=== PATIENT | female | born 1935 | race Caucasian/White ===

== ENCOUNTER 2017-01-02 20:07 | Emergency (ER) | payer OTHER ==
[~2017-01-02] VITALS: Ht 162.6 cm; Wt 110.4 kg
[~2017-01-02 20:07] MED LIST: ANT25 PO; ATEN50TA8 PO; EVS60 PO; HYDR25TA4 PO; LEVO75TA33 PO; LOSA1TAB38 PO; POTA1080 PO; PRMVC PV; SPIR25TA PO; VERA180T15 PO
[2017-01-02 20:12] VITALS: TEMP 36.4; Ht 162.6 cm; Wt 110.4 kg
[2017-01-02] MEDS ORDERED: LIDOCAINE 4% W/AFRIN NASAL SOLN 4ML EXT STA (20:47)
[2017-01-02] MEDS ORDERED: OXYMETAZOLINE HCL 0.05% NA SPR 15 ML BTL ONE (20:55)
[2017-01-02] MEDS ORDERED: MoRPHine SULFATE 2 MG/ML CARP ONE (21:19)
[2017-01-02] MEDS ORDERED: MoRPHine SULFATE 4 MG/ML 1 ML CARP\\VIAL IM STA (21:20)
[2017-01-02] MEDS ORDERED: SILVER NITR/POTASSIUM NITRATE 10 APPLICATOR PACK ONE ×2 (21:41→21:43)
--- NOTE | 2017-01-02 22:02 | Medical Consult ---
Consultation Date of Consultation: Jan 02, 2017. Attending Physician: History of Present Illness 81 yo female who presented to the ED with acute onset left sided epistaxis. Patient was eating dinner earlier this evening and stood up from the table when left sided profuse nose bleed started. She denies previous nose bleeds. She could not get it stopped so she came to the ED. ER [place] attempted placement of a balloon pack but was unable to place. Called ENT for evaluation. Patient is not on any anticoagulation other than ASA. She denies nasal trauma. No alleviating or exacerbating factors. Does have HTN. Social History Smoking Status: Never Smoker Marital Status: Occupation Status: retired Allergies Coded Allergies: Adhesives (Unverified Allergy, Severe, RASH, 07/09/07) VERY ERYTHEMATOUS AND PAINFUL WITH PRURITIS Parabens (Unverified Allergy, Intermediate, 01/06/10) ERYTHEMATOUS, AND SORE Polymyxin B (Unverified Allergy, Intermediate, 01/06/10) ERYTHEMATOUS Bacitracin (Verified Allergy, Unknown, 01/06/10) Benzoin (Unverified Allergy, Unknown, 01/06/10) ERYTHEMATOUS Thimerosal (Verified Allergy, Unknown, 01/06/10) Uncoded Allergies: INFLUENZAVIRUSV (Allergy, Unknown, 01/06/10) Review of Systems Constitutional: No chills, No fatigue, No fever, No problem reported, No sweats , No weakness, No weight loss Eyes: No diplopia, No discharge, No eye pain, No problem reported, No redness, No worsening of vision ENT: + problem reported (see HPI) Respiratory: No cough, No dyspnea at rest, No dyspnea on exertion, No hemoptysis, No problem reported, No shortness of breath, No sputum, No wheezing Cardiovascular: No PND, No chest pain, No claudication, No edema, No orthopnea , No palpitations, No problem reported Abdomen: No GI bleeding, No constipation, No diarrhea, No nausea, No pain, No problem reported, No vomiting Musculoskeletal: No calf pain, No joint pain, No muscle pain, No problem reported, No swelling Neurologic: No balance problems, No memory loss, No numbness/tingling, No paralysis, No problem reported, No vertigo, No weakness Endocrine: No excessive thirst, No excessive urination, No fatigue, No problem reported Hematologic / Lymphatic: No abnormal bleeding/bruising, No clotting problems, No night sweats, No problem reported, No swollen lymph nodes Physical Exam Date Time Temp Pulse Resp B/P Pulse Ox O2 Delivery O2 Flow Rate FiO2 01/02/17 20:12 36.4 65 20 192/87 97 Room Air PROCEDURE: Attention directed to the left nostril. Using headlamp, nasal speculum the left sided pulsatile bleeding vessel was cauterized with silver nitrate. This stopped the bleeding. A piece of fibrillar was then applied over the cautery site. Patient tolerated procedure well. General Appearance: WD/WN, no apparent distress Head: normocephalic, atraumatic Eyes: PERRL, EOMI ENT: + pertinent finding (Left sided prominent septal vessel midway back on the septum. Pulsatile bleeding with manipulation. ) Neck: supple, no adenopathy Respiratory/Chest: no respiratory distress, no accessory muscle use Cardiovascular: no edema, no JVD Neurologic/Psych: alert, normal mood/affect, oriented x 3 Skin: normal color, warm/dry Lymphatic: no adenopathy Assessment & Plan 81 yo female with left sided epistaxis - control of epistaxis as above - recommend saline spray every few hrs while awake - No nose blowing, sneeze with mouth open.
[2017-01-02 22:29] VITALS: BP 184/94; PULSE 58; O2SAT 96
--- NOTE | 2017-01-03 00:30 | EMERGENCY ROOM VISIT NOTE ---
History First contact with patient: 20:34 Chief Complaint: NOSE BLEED (MINOR) Stated Complaint: NOSE BLEED History of Present Illness The patient is a 81 year old female who presents to the Emergency Room with complaints of a gushing nosebleed from the left nostril. The patient reports that she was standing up from a chair at a restaurant this evening when she started to bleed. The patient has been unable to stop the bleeding with direct pressure. She denies any prior history of epistaxis. She does report a history of hypertension. She does take a baby aspirin daily. She denies any other blood thinners. She has had no recent upper respiratory infection, and denies any trauma. The patient reports that she does use a CPAP with humidifier at nighttime. The patient reports that she has had blood running down the back of her throat and out of the right nostril. She denies any nausea or vomiting. Review of Systems 10 system review was performed and was negative except for pertinent positives and negatives as indicated in history of present illness Past Medical/Surgical History Medical Problems: (1) Hyperlipidemia Nec/Nos (2) Hypertension Nos (3) Hypothyroidism Nos (4) Morbid Obesity (5) Osteoporosis Nos (6) Personal Hx Of Tia,& Cerebral Infarction W/Out Res Deficits (7) Venous Insufficiency Nos Surgical Problems: (1) No history of previous surgery Family History FH: cancer FH: diabetes mellitus Social History Smoking Status: Never Smoker Alcohol Use: none Marital Status: Housing Status: lives alone Occupation Status: retired Current/Historical Medications Scheduled Estrogens, Conjugated Vag (Premarin Vag *), PV EVERY OTHER DAY Hydrochlorothiazide (Hctz), 25 MG PO DAILY Levothyroxine (Levoxyl), 0.075 MG PO DAILY Losartan Potassium (Cozaar), 100 MG PO DAILY Meclizine HCl (Meclizine HCl), PO DAILY Potassium Citrate (Urocit-K), PO DAILY Raloxifene (Evista), PO DAILY Spironolactone (Aldactone), 25 MG PO EVERY OTHER DAY Verapamil Sust Rel (Calan Sr Ext Rel), 180 MG PO DAILY Miscellaneous Medications Atenolol (Tenormin), 50 MG PO Allergies Coded Allergies: Adhesives (Unverified Allergy, Severe, RASH, 07/09/07) VERY ERYTHEMATOUS AND PAINFUL WITH PRURITIS Parabens (Unverified Allergy, Intermediate, 01/06/10) ERYTHEMATOUS, AND SORE Polymyxin B (Unverified Allergy, Intermediate, 01/06/10) ERYTHEMATOUS Bacitracin (Verified Allergy, Unknown, 01/06/10) Benzoin (Unverified Allergy, Unknown, 01/06/10) ERYTHEMATOUS Thimerosal (Verified Allergy, Unknown, 01/06/10) Uncoded Allergies: INFLUENZAVIRUSV (Allergy, Unknown, 01/06/10) Physical Exam Vital Signs Date Time Temp Pulse Resp B/P Pulse Ox O2 Delivery O2 Flow Rate FiO2 01/02/17 22:29 58 16 184/94 96 Room Air 01/02/17 20:12 36.4 65 20 192/87 97 Room Air Pain Rating (0-10): 0 Physical Exam CONSTITUTIONAL: Healthy and well nourished. Alert and oriented X 3 with positive affect. HEENT: Normocephalic, atraumatic. Pupils equal, round and reactive. The patient has a nasal clip in place on my exam. Initial examination of the left nostril shows an active bleed. I am unable to visualize the source of the bleed. The patient also has dried blood in the right nostril, and postnasal drip/bleeding. NECK: Full active range of motion without discomfort. RESPIRATORY: Clear to auscultation bilaterally with no wheezing, crackles, rhonchi or stridor. CARDIOVASCULAR: Regular rate and rhythm with no murmurs, rubs or gallops. GASTROINTESTINAL: Bowel sounds present in all quadrants. No epigastric tenderness to palpation. MUSCULOSKELETAL: Full range of motion of all joints without discomfort. INTEGUMENTARY: No rash or other significant dermatologic conditions noted. NEUROLOGIC: No focal neurologic deficits noted. Medical Decision & Procedures Medications Administered Medications (Trade) Dose Ordered Sig/Elsie Route Start Time Stop Time Status Last Admin Dose Admin Morphine Sulfate (MoRPHine SULFATE INJ) 2 mg STK-MED ONCE .ROUTE 01/02/17 21:19 01/02/17 21:20 DC 01/02/17 21:57 2 MG Procedure Attempted insertion of a 7.5 cm anterior/posterior rapid Rhino was performed after lidocaine 4% spray anesthesia. The balloon could not be fully inserted after 2 attempts. ED Course After being unable to visualize the bleeding, and concern for possible posterior bleed, I did suggest inserting an anterior/posterior rapid Rhino. The patient was in concurrence. Lidocaine 4% spray was used to anesthetize the nostril. A 7.5 cm rapid Rhino was soaked in Afrin, then insertion was attempted. There was a blockage/significant resistance that did not allow for insertion of the balloon with approximately 2.5 cm extending from the nares opening. I inflated the balloon which initially stop the bleeding. However, within approximately 2 minutes, the patient was then bleeding out of the right nostril and down the back of the throat. The patient coughed up a large blood clot. The case was also discussed with Dr. Jara, who also evaluated the patient and recommended ENT consultation. The case was further discussed with Dr. Kohli who came to the emergency department, and was able to visualize and cauterize the bleeder with fibrillar insertion. The bleeding was controlled. The patient was provided additional discharge instructions per Dr. Kohli. As there was no follow-up information on his discharge instructions, the patient was instructed to call his office to arrange reevaluation in 48-72 hours for fibrillar removal. Impression Primary Impression: Epistaxis Departure Information Dispostion Home / Self-Care Condition FAIR Referrals Jas Kohli D.O. Forms HOME CARE DOCUMENTATION FORM, IMPORTANT VISIT INFORMATION Patient Instructions My [facility] Additional Instructions 1. No nose blowing. 2. Sneeze with mouth open 3. No strenuous activity 1 week 4. Hold ASA for 2 days 5. Use saline spray in each nostril every few hrs Call Dr. Kohli's office in the morning to schedule a follow-up appointment.
[2017-01-03] MEDS ORDERED: RQP25 PO (19:12)
[2017-01-03] MEDS ORDERED: LOSA100T65 PO (19:12)
[2017-01-03] MEDS ORDERED: LEVO75TA5 PO (19:12)
[2017-01-03] MEDS ORDERED: ANSHCCR TOP (19:12)
[2017-01-03] MEDS ORDERED: MECL1TAB42 PO (19:12)
[2017-01-03] MEDS ORDERED: HYDR25TA5 PO (19:12)
[2017-01-03] MEDS ORDERED: CLBPO15 TOP (19:12)
[2017-01-03] MEDS ORDERED: TRAM-10 PO (19:12)
[2017-01-03] MEDS ORDERED: PRLSR20 PO (19:12)
[2017-01-03] MEDS ORDERED: ASPI81TA28 PO (19:12)
[2017-01-03] MEDS ORDERED: CALCTAB7 PO (19:12)
[2017-01-03] MEDS ORDERED: VITACAP37 PO (19:12)
[2017-01-03] MEDS ORDERED: TNR50 PO (19:12)
[2017-01-03] MEDS ORDERED: PRMVC TOP (19:12)
[2017-01-03] MEDS ORDERED: MULT-513 PO (19:12)
[2017-01-03] MEDS ORDERED: FSM70 PO (19:12)
[2017-01-03] MEDS ORDERED: POTA-74 PO (19:12)
== END 2017-01-02 22:37 | disposition home or self-care (01) ==
LOC: C.EDB 20:09 → C.EDD 22:37
DX: R04.0 Epistaxis (principal)

== ENCOUNTER 2017-01-03 18:23 | Emergency (ER) | payer OTHER ==
[~2017-01-03] VITALS: Ht 162.6 cm; Wt 108.9 kg
[2017-01-03 18:31] VITALS: TEMP 37.1; Ht 162.6 cm; Wt 108.9 kg
[2017-01-03] MEDS ORDERED: OXYMETAZOLINE HCL 0.05% NA SPR 15 ML BTL ONE (18:45)
[2017-01-03] MEDS ORDERED: LOSA100T65 PO (19:12)
[2017-01-03] MEDS ORDERED: VITACAP37 PO (19:12)
[2017-01-03] MEDS ORDERED: MECL1TAB42 PO (19:12)
[2017-01-03] MEDS ORDERED: PRLSR20 PO (19:12)
[2017-01-03] MEDS ORDERED: LEVO75TA5 PO (19:12)
[2017-01-03] MEDS ORDERED: RQP25 PO (19:12)
[2017-01-03] MEDS ORDERED: HYDR25TA5 PO (19:12)
[2017-01-03] MEDS ORDERED: FSM70 PO (19:12)
[2017-01-03] MEDS ORDERED: ASPI81TA28 PO (19:12)
[2017-01-03] MEDS ORDERED: TNR50 PO (19:12)
[2017-01-03] MEDS ORDERED: ANSHCCR TOP (19:12)
[2017-01-03] MEDS ORDERED: PRMVC TOP (19:12)
[2017-01-03] MEDS ORDERED: CLBPO15 TOP (19:12)
[2017-01-03] MEDS ORDERED: MULT-513 PO (19:12)
[2017-01-03] MEDS ORDERED: POTA-74 PO (19:12)
[2017-01-03] MEDS ORDERED: TRAM-10 PO (19:12)
[2017-01-03] MEDS ORDERED: CALCTAB7 PO (19:12)
[2017-01-03 20:53] VITALS: PULSE 70; O2SAT 94
[2017-01-03 20:56] VITALS: BP 165/84
--- NOTE | 2017-01-03 21:01 | EMERGENCY ROOM VISIT NOTE ---
History Report prepared by Sid: Cortez Brennan Under the Supervision of: Cora MyersO. First contact with patient: 18:38 Chief Complaint: NOSE BLEED (MAJOR) Stated Complaint: SEVERE NOSE BLEED History of Present Illness The patient is a 81 year old female who presents to the Emergency Room with complaints of a persistent nose bleed beginning just APPLICATIONS SUPPORT LEAD. She notes she was here last night for a nose bleed as well. She states an ENT doctor cauterized, and noted that it was an artery on the left naris. The patient does not take any blood thinners, but takes a baby Aspirin. Source of History: patient Onset: just APPLICATIONS SUPPORT LEAD Position: nose Quality: other (nose bleed) Timing: other (persistent) Review of Systems See HPI for pertinent positives & negatives. A total of 10 systems reviewed and were otherwise negative. Past Medical & Surgical Medical Problems: (1) Hyperlipidemia Nec/Nos (2) Hypertension Nos (3) Hypothyroidism Nos (4) Morbid Obesity (5) Osteoporosis Nos (6) Personal Hx Of Tia,& Cerebral Infarction W/Out Res Deficits (7) Venous Insufficiency Nos Surgical Problems: (1) No history of previous surgery Family History FH: cancer FH: diabetes mellitus Social History Smoking Status: Never Smoker Alcohol Use: none Marital Status: Housing Status: lives alone Occupation Status: retired Current/Historical Medications Scheduled Alendronate Sodium (Alendronate Sodium), 70 MG PO WK Aspirin (Aspirin Ec), 81 MG PO DAILY Atenolol (Atenolol), 50 MG PO DAILY Calcium Carbonate-Vitamin D W/ (Caltrate 600 Plus), 1 TAB PO BID Estrogens, Conjugated (Premarin), 1 APPLN TOP 2XWK Hydrochlorothiazide (Hydrochlorothiazide), 25 MG PO DAILY Levothyroxine Sodium (Levothyroxine Sodium), 75 MCG PO DAILY Losartan Potassium (Cozaar), 100 MG PO DAILY Multivitamins/Minerals (Mvi With Minerals), 1 TAB PO DAILY Multivitamins/Minerals (Mvi With Minerals), 1 TAB PO DAILY Omeprazole (Prilosec), 20 MG PO DAILY Potassium Chloride (Potassium Chloride Er), 10 MEQ PO DAILY Ropinirole HCl (Ropinirole HCl), 0.25 MG PO TID Vitamin E (E-400), 400 UNITS PO DAILY Scheduled PRN Clobetasol Propionate (Clobetasol Propionate), 1 APPL TOP BID PRN for RASH Hydrocortisone (Proctosol Hc), 1 APPLN TOP BID PRN for Meclizine Hcl (Meclizine Hcl), 1 TAB PO TID PRN for Dizziness or Vertigo Tramadol (Ultram), 50 MG PO Q6H PRN for Pain Allergies Coded Allergies: Adhesives (Unverified Allergy, Severe, RASH, 07/09/07) VERY ERYTHEMATOUS AND PAINFUL WITH PRURITIS Parabens (Unverified Allergy, Intermediate, 01/06/10) ERYTHEMATOUS, AND SORE Polymyxin B (Unverified Allergy, Intermediate, 01/06/10) ERYTHEMATOUS Bacitracin (Verified Allergy, Unknown, 01/06/10) Benzoin (Unverified Allergy, Unknown, 01/06/10) ERYTHEMATOUS Thimerosal (Verified Allergy, Unknown, 01/06/10) Uncoded Allergies: INFLUENZAVIRUSV (Allergy, Unknown, 01/06/10) Physical Exam Vital Signs Date Time Temp Pulse Resp B/P Pulse Ox O2 Delivery O2 Flow Rate FiO2 01/03/17 19:18 73 01/03/17 18:31 37.1 81 20 192/85 95 Room Air Physical Exam CONSTITUTIONAL/VITAL SIGNS: Reviewed / noted above. GENERAL: Non-toxic in appearance. INTEGUMENTARY: Warm, dry, and [place]. HEAD: Normocephalic. EYES: without scleral icterus or trauma. ENT/OROPHARYNX: Active bleeding from the left naris; some blood in the posterior oropharynx and right naris as well; sight of bleeding is not visualized. LYMPHADENOPATHY/NECK: Is supple without lymphadenopathy or meningismus. RESPIRATORY: Lungs clear and equal. CARDIOVASCULAR: Regular rate and rhythm. GI/ABDOMEN: Soft and nontender. No organomegaly or pulsatile mass. No rebound or guarding. Normal bowel sounds. EXTREMITIES: Warm and well perfused. BACK: No CVA tenderness. NEUROLOGICAL: Intact without focal deficits. PSYCHIATRIC: normal affect. MUSCULOSKELETAL: Normally developed with good muscle tone. Medical Decision & Procedures ED Course 1839: Previous medical records were reviewed. The patient was evaluated in room A12A. A complete history and physical examination was performed. 2099: On reevaluation, the patient is hemodynamically stable. I discussed the results and findings with the patient. She verbalized agreement of the treatment plan. The patient was discharged home. Medical Decision This is a 81-year-old female who presents to the ED with a chief complaint of a nosebleed. The patient had a nosebleed yesterday. Dr. Kamilla NOVOAcauterize a small artery in the mid septal region yesterday. The patient was doing well until this evening when it began bleeding again. I attempted to visualize the site of bleeding but was unable to do so. Afrin was used to stop the bleeding down. Eventually, a 4.5 Rhino rocket was used to control the bleeding. This does appear to have controlled the bleeding for the most part. I did speak with Dr. Kohli ENT, who recommended the 7.5 Rhino Rocket if the 4.5 did not work. The patient has minimal dark blood oozing from the right nares. This is likely related to some clot. There is no active bleeding in the posterior oropharynx. There does appear to be some clot there as well. The patient was told to call Dr. Kohli's office in the morning. She is to follow-up Saturday to have it removed. Impression Primary Impression: Epistaxis Scribe Attestation The scribe's documentation has been prepared under my direction and personally reviewed by me in its entirety. I confirm that the note above accurately reflects all work, treatment, procedures, and medical decision making performed by me. Departure Information Dispostion Home / Self-Care Referrals Guillaume Rueda D.O. (PCP) Jas Kohli D.O. Patient Instructions My [facility] Additional Instructions Follow-up in Dr. Kohli's office on Saturday for removal of nasal packing. Return here if the packing falls out or if the bleeding returns.
== END 2017-01-03 21:28 | disposition home or self-care (01) ==
LOC: C.EDB 18:26 → C.EDA 21:28
DX: R04.0 Epistaxis (principal); E78.5 Hyperlipidemia, unspecified; I10 Essential (primary) hypertension; E03.9 Hypothyroidism, unspecified; E66.01 Morbid (severe) obesity due to excess calories; M81.0 Age-related osteoporosis without current pathological fracture; I87.2 Venous insufficiency (chronic) (peripheral); Z79.82 Long term (current) use of aspirin; Z86.73 Personal history of transient ischemic attack (TIA), and cerebral infarction without residual deficits; Z83.3 Family history of diabetes mellitus

== ENCOUNTER → 2017-08-15 | Outpatient (CLI) | payer OTHER ==
[~2017-08-15] MED LIST changes: +ANSHCCR TOP; -ANT25 PO; +ASPI81TA28 PO; -ATEN50TA8 PO; +CALCTAB7 PO; +CLBPO15 TOP; -EVS60 PO; +FSM70 PO; -HYDR25TA4 PO; +HYDR25TA5 PO; -LEVO75TA33 PO; +LEVO75TA5 PO; +LOSA100T65 PO; -LOSA1TAB38 PO; +MECL1TAB42 PO; +MULT-513 PO; +POTA-74 PO; -POTA1080 PO; +PRLSR20 PO; -PRMVC PV; +PRMVC TOP; +RQP25 PO; -SPIR25TA PO; +TNR50 PO; +TRAM-10 PO; -VERA180T15 PO; +VITACAP37 PO
--- NOTE | 2017-08-15 14:19 | MAMMOGRAPHY REPORT ---
BILATERAL DIGITAL SCREENING MAMMOGRAM WITH CAD: 08/15/2017 CLINICAL HISTORY: Routine screening. Patient has no complaints. TECHNIQUE: Current study was also evaluated with a Computer Aided Detection (CAD) system. Bilateral CC and MLO views were obtained. COMPARISON: Comparison is made to exams dated: 08/13/2016 mammogram, 08/10/2015 mammogram, 08/09/2014 oleg mogram, 08/04/2013 mammogram, 07/31/2012 mammogram, and 07/30/2011 mammogram - [facility] er. BREAST COMPOSITION: There are scattered areas of fibroglandular density in both breasts. FINDINGS: No suspicious masses, calcifications, or areas of architectural distortion are noted in ei ther breast. There has been no significant interval change compared to prior exams. Scattered bilater al benign-appearing calcifications are not significantly changed. Asymmetry in the left lateral nathaniel st on the cc view is stable dating back to the 2008 exam. IMPRESSION: ACR BI-RADS CATEGORY 2: BENIGN There is no mammographic evidence of malignancy. A 1 year screening mammogram is recommended. The pa tient will receive written notification of the results. Approximately 10% of breast cancers are not detected with mammography. A negative mammographic report should not delay biopsy if a clinically suggestive mass is present. Ann Gramajo M.D. ah/:08/15/2017 12:06:05 Tanning Wheel Operator: Nelli Oliver M, [facility] letter sent: Normal 1/2 BI-RADS Code: ACR BI-RADS Category 2: Benign
== END | disposition home or self-care (01) ==
LOC: C.MAMM 10:58
PROVIDERS: ATTEND Internal Medicine
DX: Z12.31 Encounter for screening mammogram for malignant neoplasm of breast (principal)

== ENCOUNTER 2020-06-24 14:49 | Inpatient (IN) ==
[2020-06-24] MEDS ORDERED: ACETAMINOPHEN 500 MG TAB PO STA (15:29)
[2020-06-24] MEDS ORDERED: CEFEPIME 2,000 MG/20 ML VIAL IV STA (15:29)
[2020-06-24] MEDS ORDERED: KETOROLAC TROMETHAMINE 15 MG/ML VIAL IV STA (15:29)
[2020-06-24] MEDS ORDERED: SODIUM CHLORIDE 0.9% 1000ML 1,000 ML IV ONE (15:29)
--- NOTE | 2020-06-24 15:35 | Emergency Department Note ---
Impression & Plan Weakness, Acute UTI, Leukocytosis, Acute hyponatremia, Elevated troponin ED Provider Note NAME: MISAEL GUERRIER AGE: 84 SEX: F : 1935 ARRIVES VIA: Ambulance INFORMANT: [Patient][nursing] ED PROVIDER(S): [Abel Tatum MD] CHIEF COMPLAINT: Weakness and fever HISTORY OF PRESENT ILLNESS: The patient is an 84-year-old female presents to the ER with about 3 days of i ncreasing weakness. She is so weak now that she cannot even get out of bed. She does live alone. The patient states that she has had sweats and she has had a dry mouth/throat. No urinary burning, no diarrhea or vomiting. No cough or cold or congestion. No chest pain or shortness of breath. She does have body aches and she states that she has had a temperature elevation. No known coronavirus exposures. The patient presents by ambulance. She was too weak to do anything for herself today. REVIEW OF SYSTEMS: See HPI for pertinent positives and negatives. A total of ten systems were reviewed and were otherwise negative. PMHx/PSHx: See Below SOCIAL HISTORY: See Below. PHYSICAL EXAM: GENERAL: Patient is in no acute distress. HEENT: No acute trauma, normocephalic atraumatic, mucous membranes dry, no nasal congestion, no scleral icterus. NECK: No stridor, no adenopathy, no meningismus, trachea is midline. LUNGS: Clear to auscultation bilaterally, no wheeze, no rhonchi, breath sounds equal. HEART: Without murmurs gallops or rubs, regular rate and rhythm. ABDOMEN: Soft, nontender, bowel sounds positive, no hernias, no peritonitis. EXTREMITIES: No cyanosis or edema, full range of motion of all the joints without pain or difficulty, no signs for acute trauma. NEUROLOGIC: Oriented x 3, no acute motor or sensory deficits, no focal weakness. SKIN: No rash, no jaundice, no diaphoresis. DIFFERENTIAL DIAGNOSIS: Sepsis, UTI, pneumonia, metabolic, electrolyte abnormalities, dehydration, coronavirus, Lyme disease, anaplasmosis, cardiac sources, intracerebral event, toxicologic, neurologic, as well as other pathologies. EMERGENCY DEPARTMENT COURSE/PROCEDURES: ECG: Indication was weakness. The ECG shows a normal sinus rhythm with a rate of 89. There is LVH present. There is a potential old inferior infarct. There is no ST elevation, no PVCs. The QTc is 425. Continuous Cardiac Monitoring: An order was placed for continuous cardiac monitoring. The monitor shows a rate of 84 with normal sinus rhythm. MEDICAL DECISION MAKING: There is a mild leukocytosis, this is consistent with infection. No concerning anemia. There was a normal platelet count. INR very mildly elevated at 1.3. Sodium was low at 126. No kidney failure. Bilirubin and AST were mildly elevated, the remaining liver enzymes were unremarkable. Procalcitonin level was elevated. Lactic acid level was not elevated making severe sepsis less likely. ECG shows a sinus rhythm, no acute ischemia. Cardiac enzyme testing x1 does show a troponin elevation. This elevation could be consistent with cardiac strain or possibly mismatch. Urinalysis is consistent with infection. Lyme disease testing was negative. Coronavirus testing was negative. Chest film did not show pneumonia or CHF. The patient received IV saline 1.5 L. She was given IV Tylenol, IV Toradol, IV cefepime. She is currently resting comfortably. The patient appears to be weak, febrile and achy from her UTI. She does require a hospital stay, she needs IV hydration, IV antibiotic therapy and strengthenin g. I do not feel she is safe for discharge home. I did speak to the patient, I talked to case management. The on-call hospitalist has been consulted. Past Med/Surg History Medical History Arthritis Chronic venous insufficiency (Chronic) HTN (hypertension) Hyperlipidemia Hypothyroidism Obesity Osteoporosis TIA (transient ischemic attack) Surgical History H/O hysterectomy with unilateral oophorectomy History of appendectomy Social History Smoking Status: Never smoker Hx Alcohol Use: No Hx Substance Use: No Preferred Language: Kyrgyz Communication Ability: Effective Visual Impairment: Limited Hearing Ability: Normal Beliefs That Will Affect Care: None marital status: / Current Living Situation: Alone current occupational status: retired Feels Safe at Home: Yes Allergies Allergies Allergy/AdvReac Type Severity Reaction Status Date / Time adhesive Allergy Severe RASH Unverified 06/24/20 17:01 paraben Allergy Intermediate Unknown Unverified 06/24/20 17:01 polymyxin B Allergy Intermediate Unknown Unverified 06/24/20 17:01 bacitracin Allergy Unknown Verified 06/24/20 17:01 benzoin Allergy Unknown Unknown Unverified 06/24/20 17:01 thimerosal Allergy Unknown Verified 06/24/20 17:01 INFLUENZAVIRUSV Allergy Unknown Unknown Uncoded 06/24/20 17:01 Home Meds Home Medications Medication Instructions Recorded Confirmed aspirin 81 mg tablet,delayed 81 mg PO DAILY 10/22/19 06/24/20 release atenolol 50 mg tablet 50 mg PO DAILY 10/22/19 06/24/20 calcium carbonate 600 mg calcium 600 mg PO BID 10/22/19 06/24/20 (1,500 mg) tablet hydrochlorothiazide 25 mg tablet 25 mg PO DAILY 10/22/19 06/24/20 levothyroxine 75 mcg tablet 75 mcg PO DAILY 10/22/19 06/24/20 meclizine 25 mg tablet 25 mg PO TID PRN 10/22/19 06/24/20 multivitamin 1 cap PO DAILY 10/22/19 06/24/20 potassium chloride 10 mEq 10 meq PO DAILY 10/22/19 06/24/20 capsule,extended release baclofen 10 mg tablet 10 mg PO BID 11/10/19 06/24/20 acetaminophen 650 mg PO BID PRN 06/24/20 06/24/20 losartan 100 mg PO DAILY 06/24/20 06/24/20 meloxicam 15 mg PO DAILY 06/24/20 06/24/20 omeprazole 10 mg PO HS 06/24/20 06/24/20 ropinirole 0.5 mg PO HS 06/24/20 06/24/20 Results & Data (ED) Vital Signs Vital Signs - 24 hr 06/24/20 15:00 06/24/20 15:51 06/24/20 16:05 Temperature 37.8 C H Temperature Source Oral Pulse Rate 90 84 Pulse Rate from SpO2 Sensor 84 Respiratory Rate 20 18 Respiratory Effort / Characteristics Blood Pressure 141/61 H 132/64 Blood Pressure Mean 87 82 Pulse Oximetry 95 95 95 Oxygen Delivery Method Room Air Room Air Sepsis Recent Fever Within 48 Hours Yes Sepsis New/Unexplained Change in Mental Status No Sepsis Action Taken by Nursing No Action Required 06/24/20 16:16 06/24/20 17:44 Temperature Temperature Source Pulse Rate 66 Pulse Rate from SpO2 Sensor 66 Respiratory Rate 18 Respiratory Effort / Characteristics Non-Labored Blood Pressure 130/65 Blood Pressure Mean 80 Pulse Oximetry 94 Oxygen Delivery Method Sepsis Recent Fever Within 48 Hours Sepsis New/Unexplained Change in Mental Status Sepsis Action Taken by Half-Way Medications Current Medication List: was personally reviewed by me Laboratory Data Attestation: I reviewed the patient's lab results. Result diagrams: 06/24/20 15:11 06/24/20 15:11 Lab Results 06/24/20 06/24/20 06/24/20 Range/Units 15:10 15:11 15:11 WBC 13.85 H (4.8-10.8) K/uL RBC 3.78 L (4.2-5.4) M/uL Hgb 11.7 L (12.0-16.0) g/dL Hct 33.8 L (37-47) % MCV 89.4 (80-100) fL MCH 31.0 (25-34) pg MCHC 34.6 (32-36) g/dL RDW Std Deviation 46.0 (36.4-46.3) fL RDW Coeff of [place] 13.9 (11.5-14.5) % Plt Count 144 (130-400) K/uL MPV 11.2 H (7.4-10.4) fL Immature Gran % (Auto) 0.2 % Neut % (Auto) 95.1 % Lymph % (Auto) 2.1 % [place] % (Auto) 2.6 % Eos % (Auto) 0.0 % Baso % (Auto) 0.0 % Neut # (Auto) 13.17 H (1.4-6.5) K/uL Lymph # (Auto) 0.29 L (1.2-3.4) K/uL [place] # (Auto) 0.36 (0.11-0.59) K/uL Eos # (Auto) 0.00 (0-0.5) K/uL Baso # (Auto) 0.00 (0-0.2) K/uL Immature Gran # (Auto) 0.03 H (0.00-0.02) K/uL PT 13.5 H (9.0-12.0) Seconds INR 1.3 H (0.9-1.1) APTT 28.5 (21.0-31.0) Seconds PTT Ratio 1.0 Sodium (136-145) mmol/L Potassium (3.5-5.1) mmol/L Chloride (98-107) mmol/L Carbon Dioxide (21-32) mmol/L Anion Gap (3-11) BUN (7-18) mg/dl Creatinine (0.6-1.2) mg/dl Est Cr Clr Drug Dosing ml/min Est GFR ( Amer) Est GFR (Non-Af Amer) BUN/Creatinine Ratio (10-20) Glucose (70-99) mg/dl Lactate (0.4-2.0) mmol/L Calcium (8.5-10.1) mg/dl Magnesium (1.8-2.4) mg/dl Total Bilirubin (0.2-1) mg/dl AST (15-37) U/L ALT (12-78) U/L Alkaline Phosphatase (45-117) U/L Troponin I (0-0.045) ng/ml Total Protein (6.4-8.2) gm/dl Albumin (3.4-5.0) gm/dl Globulin (2.5-4.0) gm/dl Albumin/Globulin Ratio (0.9-2) Procalcitonin (0-0.5) ng/ml Urine Color Dark Yellow Urine Appearance Cloudy A (Clear) Urine pH 5.5 (4.5-7.5) Ur Specific [place] 1.017 (1.000-1.030) Urine Protein 2+ H (Negative) Urine Glucose (UA) Negative (Negative) Urine Ketones 1+ H (Negative) Urine Blood 2+ H (Negative) Urine Nitrite Positive A (Negative) Urine Bilirubin Negative (Negative) Urine Urobilinogen Negative (Negative) Ur Leukocyte Esterase 3+ H (Negative) Urine WBC (Auto) >30 H (0-5) /hpf Urine RBC (Auto) 5-10 H (0-4) /hpf U Hyaline Cast (Auto) 0 (0-5) /lpf U Epithel Cells (Auto) 0-5 (0-5) /lpf Urine Bacteria (Auto) 4+ H (Negative) Lyme Disease IgG Ab (Negative) Lyme Disease IgM Ab (Negative) COVID-19 PCR (Negative) 07/24/20 07/24/20 07/24/20 Range/Units 15:11 15:11 16:09 WBC (4.8-10.8) K/uL RBC (4.2-5.4) M/uL Hgb (12.0-16.0) g/dL Hct (37-47) % MCV (80-100) fL MCH (25-34) pg MCHC (32-36) g/dL RDW Std Deviation (36.4-46.3) fL RDW Coeff of [place] (11.5-14.5) % Plt Count (130-400) K/uL MPV (7.4-10.4) fL Immature Gran % (Auto) % Neut % (Auto) % Lymph % (Auto) % [place] % (Auto) % Eos % (Auto) % Baso % (Auto) % Neut # (Auto) (1.4-6.5) K/uL Lymph # (Auto) (1.2-3.4) K/uL [place] # (Auto) (0.11-0.59) K/uL Eos # (Auto) (0-0.5) K/uL Baso # (Auto) (0-0.2) K/uL Immature Gran # (Auto) (0.00-0.02) K/uL PT (9.0-12.0) Seconds INR (0.9-1.1) APTT (21.0-31.0) Seconds PTT Ratio Sodium 126 L (136-145) mmol/L Potassium 3.6 (3.5-5.1) mmol/L Chloride 93 L (98-107) mmol/L Carbon Dioxide 21 (21-32) mmol/L Anion Gap 12.0 H (3-11) BUN 37 H (7-18) mg/dl Creatinine 1.08 (0.6-1.2) mg/dl Est Cr Clr Drug Dosing 47.5 ml/min Est GFR ( Amer) 55.4 Est GFR (Non-Af Amer) 47.8 BUN/Creatinine Ratio 34.1 H (10-20) Glucose 101 H (70-99) mg/dl Lactate (0.4-2.0) mmol/L Calcium 8.8 (8.5-10.1) mg/dl Magnesium 1.9 (1.8-2.4) mg/dl Total Bilirubin 1.2 H (0.2-1) mg/dl AST 69 H (15-37) U/L ALT 37 (12-78) U/L Alkaline Phosphatase 70 (45-117) U/L Troponin I 0.114 H* (0-0.045) ng/ml Total Protein 6.8 (6.4-8.2) gm/dl Albumin 3.1 L (3.4-5.0) gm/dl Globulin 3.7 (2.5-4.0) gm/dl Albumin/Globulin Ratio 0.8 L (0.9-2) Procalcitonin 14.35 H (0-0.5) ng/ml Urine Color Urine Appearance (Clear) Urine pH (4.5-7.5) Ur Specific [place] (1.000-1.030) Urine Protein (Negative) Urine Glucose (UA) (Negative) Urine Ketones (Negative) Urine Blood (Negative) Urine Nitrite (Negative) Urine Bilirubin (Negative) Urine Urobilinogen (Negative) Ur Leukocyte Esterase (Negative) Urine WBC (Auto) (0-5) /hpf Urine RBC (Auto) (0-4) /hpf U Hyaline Cast (Auto) (0-5) /lpf U Epithel Cells (Auto) (0-5) /lpf Urine Bacteria (Auto) (Negative) Lyme Disease IgG Ab Negative (Negative) Lyme Disease IgM Ab Negative (Negative) COVID-19 PCR NEGATIVE (Negative) 06/24/20 Range/Units 17:08 WBC (4.8-10.8) K/uL RBC (4.2-5.4) M/uL Hgb (12.0-16.0) g/dL Hct (37-47) % MCV (80-100) fL MCH (25-34) pg MCHC (32-36) g/dL RDW Std Deviation (36.4-46.3) fL RDW Coeff of [place] (11.5-14.5) % Plt Count (130-400) K/uL MPV (7.4-10.4) fL Immature Gran % (Auto) % Neut % (Auto) % Lymph % (Auto) % [place] % (Auto) % Eos % (Auto) % Baso % (Auto) % Neut # (Auto) (1.4-6.5) K/uL Lymph # (Auto) (1.2-3.4) K/uL [place] # (Auto) (0.11-0.59) K/uL Eos # (Auto) (0-0.5) K/uL Baso # (Auto) (0-0.2) K/uL Immature Gran # (Auto) (0.00-0.02) K/uL PT (9.0-12.0) Seconds INR (0.9-1.1) APTT (21.0-31.0) Seconds PTT Ratio Sodium (136-145) mmol/L Potassium (3.5-5.1) mmol/L Chloride (98-107) mmol/L Carbon Dioxide (21-32) mmol/L Anion Gap (3-11) BUN (7-18) mg/dl Creatinine (0.6-1.2) mg/dl Est Cr Clr Drug Dosing ml/min Est GFR ( Amer) Est GFR (Non-Af Amer) BUN/Creatinine Ratio (10-20) Glucose (70-99) mg/dl Lactate 1.1 (0.4-2.0) mmol/L Calcium (8.5-10.1) mg/dl Magnesium (1.8-2.4) mg/dl Total Bilirubin (0.2-1) mg/dl AST (15-37) U/L ALT (12-78) U/L Alkaline Phosphatase (45-117) U/L Troponin I (0-0.045) ng/ml Total Protein (6.4-8.2) gm/dl Albumin (3.4-5.0) gm/dl Globulin (2.5-4.0) gm/dl Albumin/Globulin Ratio (0.9-2) Procalcitonin (0-0.5) ng/ml Urine Color Urine Appearance (Clear) Urine pH (4.5-7.5) Ur Specific [place] (1.000-1.030) Urine Protein (Negative) Urine Glucose (UA) (Negative) Urine Ketones (Negative) Urine Blood (Negative) Urine Nitrite (Negative) Urine Bilirubin (Negative) Urine Urobilinogen (Negative) Ur Leukocyte Esterase (Negative) Urine WBC (Auto) (0-5) /hpf Urine RBC (Auto) (0-4) /hpf U Hyaline Cast (Auto) (0-5) /lpf U Epithel Cells (Auto) (0-5) /lpf Urine Bacteria (Auto) (Negative) Lyme Disease IgG Ab (Negative) Lyme Disease IgM Ab (Negative) COVID-19 PCR (Negative) Administered Medications Discontinued Medications Acetaminophen (Tylenol) 1,000 mg PO NOW STA Stop: 06/24/20 15:30 Last Admin: 06/24/20 16:16 Dose: 1,000 mg Documented by: [id number] Cefepime HCl (Maxipime) 2,000 mg in 20 mls @ 5 mls/min IV NOW STA; Protocol Stop: 06/24/20 15:32 Last Admin: 06/24/20 16:16 Dose: 5 mls/min Documented by: [id number] Sodium Chloride (Nss 1000ml) 1,000 mls @ 999 mls/hr IV .Q1H1M ONE Stop: 06/24/20 16:29 Last Infusion: 06/24/20 17:40 Dose: 0 mls/hr Documented by: [id number] Admin: 06/24/20 16:16 Dose: 999 mls/hr Documented by: [id number] Sodium Chloride (Nss 1000ml) 500 mls @ 999 mls/hr IV .Q31M ONE Stop: 06/24/20 16:56 Last Admin: 06/24/20 17:40 Dose: 999 mls/hr Documented by: [id number] Ketorolac Tromethamine (Toradol) 15 mg IV NOW STA Stop: 06/24/20 15:30 Last Admin: 06/24/20 16:16 Dose: 15 mg Documented by: [id number] Imaging Data Radiologist's Impression: XR chest 1V portable HISTORY: 84 years-old Female SEPSIS acute sepsis COMPARISON: None TECHNIQUE: Portable AP view of the chest FINDINGS: Cardiac silhouette is mildly enlarged. Interstitial coarsening is likely on a chronic basis. No pneumothorax, pleural effusion, airspace consolidation or overt pulmonary edema. 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 Degenerative changes are also noted within the spine. IMPRESSION: No acute process. Blood Pressure Blood Pressure Findings: Elevated blood pressure Blood Pressure Disposition: further management by hospitalist Discharge Plan Visit Data Chief Complaint: Weakness ED Provider: Abel Tatum Discharge Problem: Weakness, Acute UTI, Leukocytosis, Acute hyponatremia, Elevated troponin Patient Disposition: Admitted As Inpatient Condition: Fair Forms Stand Alone Forms: My [facility] Prescriptions Prescriptions: No Action aspirin [Adult Low Dose Aspirin] 81 mg tablet,delayed release (DR/EC) 81 mg PO DAILY RF: 0 atenolol 50 mg tablet 50 mg PO DAILY RF: 0 calcium carbonate 600 mg calcium (1,500 mg) tablet 600 mg PO BID RF: 0 hydrochlorothiazide 25 mg tablet 25 mg PO DAILY RF: 0 levothyroxine [Synthroid] 75 mcg tablet 75 mcg PO DAILY RF: 0 meclizine 25 mg tablet 25 mg PO TID PRN (Reason: Dizziness Or Vertigo) RF: 0 multivitamin capsule 1 cap PO DAILY RF: 0 potassium chloride 10 mEq capsule, extended release 10 meq PO DAILY RF: 0 baclofen 10 mg tablet 10 mg PO BID RF: 0 meloxicam 7.5 mg tablet 15 mg PO DAILY RF: 0 losartan 50 mg tablet 100 mg PO DAILY RF: 0 omeprazole 10 mg capsule,delayed release(DR/EC) 10 mg PO HS RF: 0 ropinirole 0.5 mg tablet 0.5 mg PO HS RF: 0 acetaminophen 325 mg Tablet 650 mg PO BID PRN (Reason: Pain) RF: 0 Referrals Referrals: Guillaume Rueda DO [Primary Care Provider] - Discharge Problem: Leukocytosis Qualifiers: Leukocytosis type: unspecified Qualified Code(s): D72.829 - Elevated white blood cell count, unspecified
[2020-06-24 15:46] LABS: Hematocrit (blood only) 33.8 % (37-47); Hemoglobin 11.7 g/dL (12.0-16.0); Immature Granulocytes # (auto) 0.03 K/uL (0.00-0.02); Immature Granulocytes % (auto) 0.2 %; Lymphocytes # (auto) 0.29 K/uL (1.2-3.4); Lymphocytes % (auto) 2.1 %; Mean Corpuscular Hgb Conc 34.6 g/dL (32-36); Mean Corpuscular Volume 89.4 fL (80-100); Mean Platelet Volume 11.2 fL (7.4-10.4); Monocytes # (auto) 0.36 K/uL (0.11-0.59); Monocytes % (auto) 2.6 %; Neutrophils # (auto) 13.17 K/uL (1.4-6.5); Neutrophils % (auto) 95.1 %; Platelet Count 144 K/uL (130-400); RDW Coefficient of Variation 13.9 % (11.5-14.5); Red Blood Count 3.78 M/uL (4.2-5.4); White Blood Count 13.85 K/uL (4.8-10.8)
[2020-06-24 15:54] LABS: Albumin Level 3.1 gm/dl (3.4-5.0); BUN Creatinine Ratio 34.1 (10-20); Calcium 8.8 mg/dl (8.5-10.1); Creatinine Clr Calc Pharmacy 47.5 ml/min; Est GFR (African American) 55.4; Est GFR (Non-African American) 47.8; Magnesium 1.9 mg/dl (1.8-2.4); Potassium 3.6 mmol/L (3.5-5.1)
[2020-06-24 15:56] LABS: INR 1.3 (0.9-1.1); Partial Thromboplastin Time 28.5 Seconds (21.0-31.0); Prothrombin Time 13.5 Seconds (9.0-12.0)
[2020-06-24 16:00] LABS: Appearance Urine Cloudy (Clear); Bacteria Urine Automated 4+ (Negative); Bilirubin Urine Negative (Negative); Blood Urine 2+ (Negative); Cast Urine Automated 0 /lpf (0-5); Color Urine Dark Yellow; Epithelial Cell Urine Auto 0-5 /lpf (0-5); Glucose Urine UA Negative (Negative); Ketones Urine 1+ (Negative); Leukocyte Esterase Urine 3+ (Negative); Nitrite Urine Positive (Negative); Protein Urine 2+ (Negative); Specific Gravity Urine 1.017 (1.000-1.030); Urobilinogen Urine Negative (Negative); WBC Urine Automated >30 /hpf (0-5); pH Urine 5.5 (4.5-7.5)
[2020-06-24 16:08] LABS: Albumin Globulin Ratio 0.8 (0.9-2); Bilirubin,Total 1.2 mg/dl (0.2-1); Globulin 3.7 gm/dl (2.5-4.0); Total Protein 6.8 gm/dl (6.4-8.2); Troponin I 0.114 ng/ml (0-0.045)
[2020-06-24 16:21] LABS: Procalcitonin 14.35 ng/ml (0-0.5)
[2020-06-24] MEDS ORDERED: SODIUM CHLORIDE 0.9% 1000ML 500 ML IV ONE (16:26)
--- NOTE | 2020-06-24 16:34 | XRay Report ---
XR chest 1V portable HISTORY: 84 years-old Female SEPSIS acute sepsis COMPARISON: None TECHNIQUE: Portable AP view of the chest FINDINGS: Cardiac silhouette is mildly enlarged. Interstitial coarsening is likely on a chronic basis. No pneum othorax, pleural effusion, airspace consolidation or overt pulmonary edema. There is severe osteoarth ritis of the bilateral glenohumeral joints with chronic remodeling changes. Degenerative changes are also noted within the spine. IMPRESSION: No acute process. ACT 112: Negative or not required by law. The above report was generated using voice recognition software. It may contain grammatical, syntax o r spelling errors. Electronically signed by: Michael Winn M.D. 06/24/2020 4:33 PM
--- NOTE | 2020-06-24 16:36 | Electrocardiogram Report ---
Test Reason : Blood Pressure : / mmHG Vent. Rate : 089 BPM Atrial Rate : 089 BPM P-R Int : 164 ms QRS Dur : 098 ms QT Int : 350 ms P-R-T Axes : 004 009 039 degrees QTc Int : 425 ms Normal sinus rhythm Minimal voltage criteria for LVH, may be normal variant Inferior infarct , age undetermined Abnormal ECG No previous ECGs available Confirmed by Jayy Martin ([id number]) on 06/24/2020 4:36:32 PM Referred By: REFERRED SELF Confirmed By:Jayy Martin
[2020-06-24 16:44] LABS: Lyme Ab IgG w/WB Rflx Negative (Negative); Lyme Ab IgM w/WB Rflx Negative (Negative)
--- NOTE | 2020-06-24 18:49 | History & Physical Report ---
Date of Service June 24, 2020 Assessment & Plan (1) Acute UTI: -Admit to [facility] with telemetry -Patient presenting from home with reports of generalized weakness and concentrated/foul-smelling urine -On presentation, low-grade temp 37.8, WBC 13.8K; HR and BP stable, lactic acid 1.1 -S/p IV cefepime in the ED, will change to ceftriaxone going forward -Urine and blood cultures -PT/OT evals (2) Acute hyponatremia: -Na+ 126 (132 11/2019) -Likely hypovolemic hyponatremia in the setting of poor p.o. intake -Check urine and serum osmo -Hold HCTZ -NSS at 100cc/hr -Recheck BMP at 2300 (3) Elevated troponin: -Troponin 0.114 -No reports of chest pain, EKG without acute ST changes -Likely demand ischemia in the setting of acute illness -Continue cycle cardiac enzymes, if significant elevation will consider further work-up (4) HTN (hypertension): -BP controlled, continue atenolol and losartan -Holding HCTZ due to hyponatremia (5) Hypothyroidism: -Continue levothyroxine -Check TSH (6) DVT prophylaxis: -SQ Lovenox History of Present Illness Chief Complaint: Generalized weakness Primary Care Provider: Guillaume Rueda DO 84-year-old female with PMH hypothyroidism, arthritis, HTN, cerebrovascular disease, and other problems listed below who presents to the ED for evaluation of generalized weakness. Patient reports that she has had PT coming into her home and she reports that after her session last week, she has felt very tired and sore all over. 2 days ago, patient reports she became generally weak and has been unable to get out of bed. She reports very poor oral intake. She reports generalized body aches. No fevers or chills, however did not take her temperature at home. She reports some mild nausea however no abdominal pain, vomiting, diarrhea. Reports her urine has been very concentrated with a foul odor. Denies chest pain and shortness of breath. No lightheadedness, dizziness, diaphoresis, syncopal events. Denies cough and sputum production. In the ED, patient has low-grade fever of 37.8, WBC 13.8K, sodium 126, pro calcitonin 14.3, and UA suggestive of UTI. Mildly elevated troponin 0.114, EKG without acute ST changes. Patient is hemodynamically stable. Lactate is 1.1. Patient was given p.o. Tylenol, IV cefepime, IV ketorolac, IVF. Allergies Allergy/AdvReac Type Severity Reaction Status Date / Time adhesive Allergy Severe RASH Unverified 06/24/20 17:01 paraben Allergy Intermediate Unknown Unverified 06/24/20 17:01 polymyxin B Allergy Intermediate Unknown Unverified 06/24/20 17:01 bacitracin Allergy Unknown Verified 06/24/20 17:01 benzoin Allergy Unknown Unknown Unverified 06/24/20 17:01 thimerosal Allergy Unknown Verified 06/24/20 17:01 INFLUENZAVIRUSV Allergy Unknown Unknown Uncoded 06/24/20 17:01 Home Medications Home Medications Medication Instructions Recorded Confirmed Type aspirin 81 mg tablet,delayed 81 mg PO DAILY 10/22/19 06/24/20 History release atenolol 50 mg tablet 50 mg PO DAILY 10/22/19 06/24/20 History calcium carbonate 600 mg calcium 600 mg PO BID 10/22/19 06/24/20 History (1,500 mg) tablet hydrochlorothiazide 25 mg tablet 25 mg PO DAILY 10/22/19 06/24/20 History levothyroxine 75 mcg tablet 75 mcg PO DAILY 10/22/19 06/24/20 History meclizine 25 mg tablet 25 mg PO TID PRN 10/22/19 06/24/20 History multivitamin 1 cap PO DAILY 10/22/19 06/24/20 History potassium chloride 10 mEq 10 meq PO DAILY 10/22/19 06/24/20 History capsule,extended release baclofen 10 mg tablet 10 mg PO BID 11/10/19 06/24/20 History acetaminophen 650 mg PO TID 06/24/20 06/24/20 History losartan 100 mg PO DAILY 06/24/20 06/24/20 History meloxicam 15 mg PO DAILY 06/24/20 06/24/20 History omeprazole 10 mg PO HS PRN 06/24/20 06/24/20 History ropinirole 0.5 mg PO HS 06/24/20 06/24/20 History Past Med/Surg History Medical History Arthritis Chronic venous insufficiency (Chronic) HTN (hypertension) Hyperlipidemia Hypothyroidism Obesity Osteoporosis RLS (restless legs syndrome) TIA (transient ischemic attack) Surgical History H/O hysterectomy with unilateral oophorectomy History of appendectomy Family History Father Colorectal cancer Diabetes Social History Smoking Status: Never smoker Hx Alcohol Use: No Hx Substance Use: No Preferred Language: Persian Communication Ability: Effective Visual Impairment: Limited Hearing Ability: Normal Beliefs That Will Affect Care: None marital status: / Current Living Situation: Alone current occupational status: retired Feels Safe at Home: Yes Safety Concerns: Feels Safe At This Time Review of Systems Review of Systems: ROS per HPI, all other systems reviewed and negative Physical Exam Constitutional: WD/WN, vitals as above Eyes: PERRL, conjunctivae normal, anicteric sclerae ENMT: external ear and nose normal, oropharynx normal Respiratory: normal respiratory effort, lungs clear to auscultation Cardiovascular: Rate/Rhythm: regular rate and regular rhythm Vessels: normal peripheral pulses Extremities: no edema Gastrointestinal (Abdomen): normal bowel sounds, soft, nontender, no hepatosplenomegaly Musculoskeletal: Extremities: + abnormal strength (Generally weak, strength 3- 4/5 throughout), no cyanosis and no clubbing Skin: no rashes, warm and dry Neurologic: PERRL, EOMI, accommodation nl, no face palsy, no dysarthria Psychiatric: A+Ox3, euthymic affect Results & Data Results & Data ([facility]) Vital Signs (Past 12 Hours) Vital Signs Temp Pulse Resp BP Pulse Ox 06/24/20 18:00 68 19 129/70 97 06/24/20 17:44 66 18 130/65 94 06/24/20 16:05 84 18 132/64 95 06/24/20 15:51 95 06/24/20 15:00 37.8 C H 90 20 141/61 H 95 Laboratory Results Short CBC 06/24/20 Range/Units 15:11 WBC 13.85 H (4.8-10.8) K/uL Hgb 11.7 L (12.0-16.0) g/dL Hct 33.8 L (37-47) % Plt Count 144 (130-400) K/uL BMP 06/24/20 15:11 Sodium 126 L Potassium 3.6 Chloride 93 L Carbon Dioxide 21 BUN 37 H Creatinine 1.08 Glucose 101 H Calcium 8.8 Cardiac Enzymes 06/24/20 Range/Units 15:11 Troponin I 0.114 H* (0-0.045) ng/ml Liver Function 06/24/20 Range/Units 15:11 Total Bilirubin 1.2 H (0.2-1) mg/dl AST 69 H (15-37) U/L ALT 37 (12-78) U/L Alkaline Phosphatase 70 (45-117) U/L Albumin 3.1 L (3.4-5.0) gm/dl Urine 06/24/20 Range/Units 15:10 Urine Color Dark Yellow Urine Appearance Cloudy A (Clear) Urine pH 5.5 (4.5-7.5) Ur Specific [place] 1.017 (1.000-1.030) Urine Protein 2+ H (Negative) Urine Glucose (UA) Negative (Negative) Diagnostic Findings CXR IMPRESSION: No acute process. Code Status & VTE Plan Code Status Patient is a full code as per my discussion with her. VTE Prophylaxis Plan VTE Prophylaxis will be ordered: Yes Supervising Physician Co-Signing Physician Notes Attending addendum The patient was seen and examined in the emergency room She has been complaining of increasing tiredness for the last week and feverish with sweats and urinary symptoms for the last day or 2 Complains to have extreme tiredness but denies any other significant acute symptoms On examination the emergency room She was fairly lethargic Hemodynamically stable and afebrile Chest-clear to auscultate bilaterally Heart-S1-S2, regular Abdomen-mildly tender in the hypogastrium, bowel sounds present Extremities-1+ edema bilaterally Admission labs, EKG and imaging studies reviewed Has UTI with severe generalized weakness Intravenous ceftriaxone has been started and will ask for PT and OT evaluation Continue with assessment plan as outlined above by Mikaela Corrales
[2020-06-24] MEDS ORDERED: ACETAMINOPHEN 325 MG TAB PO PRN (19:08)
[2020-06-24] MEDS: SODIUM CHLORIDE 0.9% 1000ML 1,000 ML IV SCH (19:51)
[2020-06-24] MEDS: cefTRIAXone SODIUM 2,000 MG in DEXTROSE 5% 50 ML IV SCH (20:31)
[2020-06-24] MEDS: ACETAMINOPHEN 325 MG TAB PO SCH (20:33)
[2020-06-24] MEDS: CALCIUM CARBONATE 1250MG TAB PO SCH (20:34)
[2020-06-24] MEDS: ENOXAPARIN INJ 40 MG/0.4 ML SYR SQ SCH (20:34)
[2020-06-24] MEDS: ROPINIROLE HCL 0.25 MG TABLET PO SCH (20:35)
[2020-06-24] MEDS: BACLOFEN 10 MG TAB PO SCH (20:35)
[2020-06-24 23:11] LABS: Calcium 8.1 mg/dl (8.5-10.1); Creatinine Clr Calc Pharmacy 51.1 ml/min; Est GFR (Non-African American) 51.8; Potassium 3.3 mmol/L (3.5-5.1)
[2020-06-24] MEDS: ONDANSETRON INJ 2 MG/ML 2 ML VIAL IV PRN (23:16)
[2020-06-24 23:29] LABS: Troponin I 0.143 ng/ml (0-0.045)
[2020-06-25] MEDS ORDERED: PROMETHAZINE HCL 12.5 MG in SODIUM CHLORIDE 0.9% 50 ML IV PRN (00:29)
[2020-06-25] MEDS: LEVOTHYROXINE SODIUM 75 MCG TABLET PO SCH (05:35)
[2020-06-25] MEDS: SODIUM CHLORIDE 0.9% 1000ML 1,000 ML IV SCH ×2 (05:38→16:29)
[2020-06-25] MEDS: LOSARTAN POTASSIUM 50 MG TAB PO SCH (08:03)
[2020-06-25] MEDS: ASPIRIN 81 MG ECTAB PO SCH (08:03)
[2020-06-25] MEDS: MELOXICAM 7.5 MG TAB PO SCH (08:04)
[2020-06-25] MEDS: BACLOFEN 10 MG TAB PO SCH ×2 (08:04→20:06)
[2020-06-25] MEDS: POTASSIUM CHLORIDE 10 MEQ TABCR PO SCH (08:04)
[2020-06-25] MEDS: ACETAMINOPHEN 325 MG TAB PO SCH ×3 (08:05→20:06)
[2020-06-25] MEDS: MULTIVITAMIN TAB PO SCH (08:05)
[2020-06-25] MEDS: CALCIUM CARBONATE 1250MG TAB PO SCH ×2 (08:05→20:07)
[2020-06-25] MEDS: ATENOLOL 50 MG TABLET PO SCH (08:05)
[2020-06-25 10:47] LABS: Hematocrit (blood only) 30.1 % (37-47); Hemoglobin 10.6 g/dL (12.0-16.0); Mean Corpuscular Hemoglobin 31.4 pg (25-34); Mean Corpuscular Hgb Conc 35.2 g/dL (32-36); Mean Corpuscular Volume 89.1 fL (80-100); Mean Platelet Volume 10.6 fL (7.4-10.4); Platelet Count 121 K/uL (130-400); RDW Coefficient of Variation 13.9 % (11.5-14.5); RDW Standard Deviation 45.8 fL (36.4-46.3); Red Blood Count 3.38 M/uL (4.2-5.4); White Blood Count 11.55 K/uL (4.8-10.8)
[2020-06-25 11:12] LABS: Calcium 8.3 mg/dl (8.5-10.1); Creatinine Clr Calc Pharmacy 61.6 ml/min; Est GFR (African American) 76.1; Est GFR (Non-African American) 65.7; Potassium 3.3 mmol/L (3.5-5.1)
[2020-06-25 11:40] LABS: Troponin I 0.109 ng/ml (0-0.045)
--- NOTE | 2020-06-25 11:48 | Hospitalist Progress Note ---
Date of Service June 25, 2020 Assessment & Plan (1) Acute UTI: -Admit to [facility] with telemetry -Patient presenting from home with reports of generalized weakness and concentrated/foul-smelling urine -On presentation, low-grade temp 37.8, WBC 13.8K; HR and BP stable, lactic acid 1.1 -S/p IV cefepime in the ED, will change to ceftriaxone going forward -1 out of 2 blood culture is growing gram-negative bacilli -Urine culture is pending -Clinically a bit better Generalized weakness Likely secondary to current infection and is complicated by osteoarthritis Will get PT and OT evaluation May need placement (2) Acute hyponatremia: -Na+ 126 (132 11/2019) -Likely hypovolemic hyponatremia in the setting of poor p.o. intake -Check urine and serum osmo -Hold HCTZ -NSS at 100cc/hr -Sodium level has gone up to 131 -We will decrease the infusion to 50 cc an hour -Monitor PRP (3) Elevated troponin: -Troponin 0.114 -No reports of chest pain, EKG without acute ST changes -Likely demand ischemia in the setting of acute illness -Continue cycle cardiac enzymes, if significant elevation will consider further work-up -Doubt any ACS and the troponin elevation is likely due to bacteremia/early sepsis (4) HTN (hypertension): -BP controlled, continue atenolol and losartan -Holding HCTZ due to hyponatremia (5) Hypothyroidism: -Continue levothyroxine -TSH-normal 0.591 (6) DVT prophylaxis: -SQ Lovenox Admission and Anticipated Discharge Date Admission Date: June 24, 2020 Subjective The patient was seen and examined in medical floor She has been feeling lot better today and denies any symptoms except generalized weakness No fever and/or chills, no nausea and/or vomiting, Denies any pain in the hypogastrium Review of Systems Review of Systems: All systems reviewed and are unremarkable except as noted below Neurologic: + generalized weakness Physical Exam Physical Exam: Lying in bed comfortably Constitutional: well developed, well nourished, + ill appearing and + obese; no acute distress Eyes: PERRL, conjunctivae normal, anicteric sclerae ENMT: external ear and nose normal, oropharynx normal Neck: trachea midline, no thyromegaly Respiratory: normal respiratory effort; no respiratory distress Auscultation: lungs clear to auscultation bilaterally Cardiovascular: Rate/Rhythm: regular rate and regular rhythm Heart Sounds: no murmur Gastrointestinal (Abdomen): Inspection/Auscultation: abdomen normal to inspection and normal bowel sounds; abdomen not distended Percussion/Palpation: abdomen soft; abdomen nontender Musculoskeletal: Has osteoarthritic changes in joints but no acute arthritis in any Neurologic: moves all extremities; no focal motor deficits Alert, awake and oriented x3. Generally very weak and lethargic Results & Data Results & Data ([facility]) Vital Signs (Past 12 Hours) Vital Signs Temp Pulse Pulse Resp BP BP Pulse Ox 06/25/20 11:29 36.6 C 62 18 131/77 94 06/25/20 08:00 66 06/25/20 07:35 37.2 C 68 18 163/88 H 95 06/25/20 05:54 60 06/25/20 02:54 36.5 C 58 L 18 135/79 97 06/25/20 00:11 54 L Laboratory Results Short CBC 06/24/20 06/25/20 Range/Units 15:11 10:33 WBC 13.85 H 11.55 H (4.8-10.8) K/uL Hgb 11.7 L 10.6 L (12.0-16.0) g/dL Hct 33.8 L 30.1 L (37-47) % Plt Count 144 121 L (130-400) K/uL BMP 06/24/20 06/24/20 06/25/20 15:11 22:42 10:33 Sodium 126 L 128 L 131 L Potassium 3.6 3.3 L 3.3 L Chloride 93 L 97 L 101 Carbon Dioxide 21 22 21 BUN 37 H 38 H 35 H Creatinine 1.08 1.01 0.83 Glucose 101 H 107 H 99 Calcium 8.8 8.1 L 8.3 L Cardiac Enzymes 06/24/20 06/24/20 06/25/20 Range/Units 15:11 22:42 10:33 Troponin I 0.114 H* 0.143 H* 0.109 H* (0-0.045) ng/ml Liver Function 06/24/20 Range/Units 15:11 Total Bilirubin 1.2 H (0.2-1) mg/dl AST 69 H (15-37) U/L ALT 37 (12-78) U/L Alkaline Phosphatase 70 (45-117) U/L Albumin 3.1 L (3.4-5.0) gm/dl Urine 06/24/20 Range/Units 15:10 Urine Color Dark Yellow Urine Appearance Cloudy A (Clear) Urine pH 5.5 (4.5-7.5) Ur Specific [place] 1.017 (1.000-1.030) Urine Protein 2+ H (Negative) Urine Glucose (UA) Negative (Negative) Medications Administered Current Inpatient Medications Acetaminophen (Tylenol) 650 mg PO Q4H PRN PRN Reason: pain/fever Stop: 07/24/20 19:07 Acetaminophen (Tylenol) 650 mg PO TID [facility] Stop: 07/24/20 20:59 Last Admin: 06/25/20 08:05 Dose: 650 mg Documented by: Aspirin (Ecotrin Ectab) 81 mg PO DAILY [facility] Stop: 07/25/20 08:59 Last Admin: 06/25/20 08:03 Dose: 81 mg Documented by: Atenolol (Tenormin) 50 mg PO DAILY [facility] Stop: 07/25/20 08:59 Last Admin: 06/25/20 08:05 Dose: 50 mg Documented by: Baclofen (Lioresal) 10 mg PO BID [facility] Stop: 07/24/20 20:59 Last Admin: 06/25/20 08:04 Dose: 10 mg Documented by: Calcium Carbonate (Os-Kei 500) 1,250 mg PO BID [facility] Stop: 07/24/20 20:59 Last Admin: 06/25/20 08:05 Dose: 1,250 mg Documented by: Enoxaparin Sodium (Lovenox) 40 mg SQ Q24H [facility] Stop: 07/24/20 20:59 Last Admin: 06/24/20 20:34 Dose: 40 mg Documented by: Ceftriaxone Sodium 2,000 mg/ (Dextrose) 70 mls @ 100 mls/hr IV Q24H [facility]; Protocol Stop: 06/29/20 19:59 Last Infusion: 06/24/20 21:42 Dose: Infused Documented by: Sodium Chloride (Nss 1000ml) 1,000 mls @ 100 mls/hr IV .Q10H [facility] Stop: 07/24/20 19:59 Last Admin: 06/25/20 05:38 Dose: 100 mls/hr Documented by: Promethazine HCl 12.5 mg/ (Sodium Chloride) 50.5 mls @ 202 mls/hr IV Q6H PRN PRN Reason: Nausea And Vomiting Stop: 07/25/20 00:28 [facility] Stop: 07/25/20 06:29 Last Admin: 06/25/20 05:35 Dose: 75 mcg Documented by: Losartan Potassium (Cozaar) 100 mg PO DAILY [facility] Stop: 07/25/20 08:59 Last Admin: 06/25/20 08:03 Dose: 100 mg Documented by: Meloxicam (Mobic) 15 mg PO DAILY [facility] Stop: 07/25/20 08:59 Last Admin: 06/25/20 08:04 Dose: 15 mg Documented by: Multivitamins (Multivitamin Tab) 1 tab PO DAILY [facility] Stop: 07/25/20 08:59 Last Admin: 06/25/20 08:05 Dose: 1 tab Documented by: Ondansetron HCl (Zofran) 4 mg IV Q6H PRN PRN Reason: Nausea Stop: 07/24/20 21:10 Last Admin: 06/24/20 23:16 Dose: 4 mg Documented by: Potassium Chloride (Klor-Con M10) 10 meq PO DAILY [facility] Stop: 07/25/20 08:59 Last Admin: 06/25/20 08:04 Dose: 10 meq Documented by: Potassium Chloride (Klor-Con M20) 40 meq PO NOW ONE Stop: 06/25/20 12:01 Ropinirole HCl (Requip) 0.5 mg PO HS [facility] Stop: 07/24/20 20:59 Last Admin: 06/24/20 20:35 Dose: 0.5 mg Documented by:
[2020-06-25] MEDS ORDERED: POTASSIUM CHLORIDE 20 MEQ TABCR PO ONE (12:00)
[2020-06-25] MEDS: cefTRIAXone SODIUM 2,000 MG in DEXTROSE 5% 50 ML IV SCH (19:27)
[2020-06-25] MEDS: ROPINIROLE HCL 0.25 MG TABLET PO SCH (20:07)
[2020-06-25] MEDS: ENOXAPARIN INJ 40 MG/0.4 ML SYR SQ SCH (20:08)
[2020-06-26] MEDS: SODIUM CHLORIDE 0.9% 1000ML 1,000 ML IV SCH ×3 (02:05→21:39)
[2020-06-26] MEDS: ONDANSETRON INJ 2 MG/ML 2 ML VIAL IV PRN ×3 (05:27→19:32)
[2020-06-26] MEDS: LEVOTHYROXINE SODIUM 75 MCG TABLET PO SCH (05:29)
[2020-06-26] MEDS: BACLOFEN 10 MG TAB PO SCH ×2 (07:25→20:10)
[2020-06-26] MEDS: CALCIUM CARBONATE 1250MG TAB PO SCH ×2 (07:25→20:10)
[2020-06-26] MEDS: ACETAMINOPHEN 325 MG TAB PO SCH ×3 (07:26→20:09)
[2020-06-26] MEDS: ATENOLOL 50 MG TABLET PO SCH (07:28)
[2020-06-26] MEDS: MULTIVITAMIN TAB PO SCH (07:29)
[2020-06-26] MEDS: ASPIRIN 81 MG ECTAB PO SCH (07:29)
[2020-06-26] MEDS: MELOXICAM 7.5 MG TAB PO SCH (07:29)
[2020-06-26] MEDS: POTASSIUM CHLORIDE 10 MEQ TABCR PO SCH (07:30)
[2020-06-26] MEDS: LOSARTAN POTASSIUM 50 MG TAB PO SCH (07:31)
--- NOTE | 2020-06-26 13:32 | Hospitalist Progress Note ---
Date of Service June 26, 2020 Assessment & Plan (1) Acute UTI: -Admit to [facility] with telemetry -Patient presenting from home with reports of generalized weakness and concentrated/foul-smelling urine -On presentation, low-grade temp 37.8, WBC 13.8K; HR and BP stable, lactic acid 1.1 -S/p IV cefepime in the ED, will change to ceftriaxone going forward -1 out of 2 blood culture is growing gram-negative bacilli-identification and sensitivities are pending -Urine culture is pending-grew E. coli and sensitive to ceftriaxone -Clinically a bit better -We will continue current antibiotic Generalized weakness Likely secondary to current infection and is complicated by osteoarthritis Will get PT and OT evaluation May need placement (2) Acute hyponatremia: -Na+ 126 (132 11/2019) -Likely hypovolemic hyponatremia in the setting of poor p.o. intake -Check urine and serum osmo -Hold HCTZ -NSS at 100cc/hr -Sodium level has gone up to 131 -We will decrease the infusion to 50 cc an hour -Monitor PRP (3) Elevated troponin: -Troponin 0.114 -No reports of chest pain, EKG without acute ST changes -Likely demand ischemia in the setting of acute illness -Continue cycle cardiac enzymes, if significant elevation will consider further work-up -Doubt any ACS and the troponin elevation is likely due to bacteremia/early sepsis (4) HTN (hypertension): -BP controlled, continue atenolol and losartan -Holding HCTZ due to hyponatremia (5) Hypothyroidism: -Continue levothyroxine -TSH-normal 0.591 (6) DVT prophylaxis: -SQ Lovenox Admission and Anticipated Discharge Date Admission Date: June 24, 2020 Subjective The patient was seen and examined in medical floor She has been feeling lot better today and denies any symptoms except generalized weakness No fever and/or chills, no nausea and/or vomiting, Denies any pain in the hypogastrium 06/26/2020 Patient was seen and examined in the medical floor She has been feeling much better but he still has generalized weakness Denies any fever and/or chills Denies any dysuria and/or frequency Review of Systems Review of Systems: All systems reviewed and are unremarkable except as noted below Neurologic: + generalized weakness Physical Exam Physical Exam: Sitting on a chair without any acute symptoms Constitutional: well developed, well nourished and + obese; no acute distress and not ill appearing Eyes: PERRL, conjunctivae normal, anicteric sclerae ENMT: external ear and nose normal, oropharynx normal Neck: trachea midline, no thyromegaly Respiratory: normal respiratory effort; no respiratory distress Auscultation: lungs clear to auscultation bilaterally Cardiovascular: Rate/Rhythm: regular rate and regular rhythm Heart Sounds: no murmur Extremities: + edema (Trace edema bilaterally) Gastrointestinal (Abdomen): Inspection/Auscultation: abdomen normal to inspection and normal bowel sounds; abdomen not distended Percussion/Palpation: abdomen soft; abdomen nontender Musculoskeletal: No acute arthritis in any joints Neurologic: moves all extremities; no focal motor deficits Alert, awake and oriented x3 Results & Data Results & Data ([facility]) Vital Signs (Past 12 Hours) Vital Signs Temp Pulse Pulse Resp BP BP Pulse Ox 06/26/20 12:56 62 06/26/20 12:41 06/26/20 11:25 36.6 C 59 L 16 172/81 H 97 06/26/20 07:20 36.9 C 66 18 180/93 H 96 06/26/20 02:56 36.7 C 68 19 164/86 H 95 Pulse Ox 06/26/20 12:56 06/26/20 12:41 97 06/26/20 11:25 06/26/20 07:20 06/26/20 02:56 Medications Administered Current Inpatient Medications Acetaminophen (Tylenol) 650 mg PO Q4H PRN PRN Reason: pain/fever Stop: 07/24/20 19:07 Last Admin: 06/25/20 22:13 Dose: 650 mg Documented by: Acetaminophen (Tylenol) 650 mg PO TID [facility] Stop: 07/24/20 20:59 Last Admin: 06/26/20 13:12 Dose: 650 mg Documented by: Aspirin (Ecotrin Ectab) 81 mg PO DAILY [facility] Stop: 07/25/20 08:59 Last Admin: 06/26/20 07:29 Dose: 81 mg Documented by: Atenolol (Tenormin) 50 mg PO DAILY [facility] Stop: 07/25/20 08:59 Last Admin: 06/26/20 07:28 Dose: 50 mg Documented by: Baclofen (Lioresal) 10 mg PO BID [facility] Stop: 07/24/20 20:59 Last Admin: 06/26/20 07:25 Dose: 10 mg Documented by: Calcium Carbonate (Os-Kei 500) 1,250 mg PO BID [facility] Stop: 07/24/20 20:59 Last Admin: 06/26/20 07:25 Dose: 1,250 mg Documented by: Enoxaparin Sodium (Lovenox) 40 mg SQ Q24H [facility] Stop: 07/24/20 20:59 Last Admin: 06/25/20 20:08 Dose: 40 mg Documented by: Ceftriaxone Sodium 2,000 mg/ (Dextrose) 70 mls @ 100 mls/hr IV Q24H [facility]; Protocol Stop: 06/29/20 19:59 Last Infusion: 06/25/20 20:13 Dose: Infused Documented by: Sodium Chloride (Nss 1000ml) 1,000 mls @ 100 mls/hr IV .Q10H [facility] Stop: 07/24/20 19:59 Last Admin: 06/26/20 11:56 Dose: 100 mls/hr Documented by: Promethazine HCl 12.5 mg/ (Sodium Chloride) 50.5 mls @ 202 mls/hr IV Q6H PRN PRN Reason: Nausea And Vomiting Stop: 07/25/20 00:28 Levothyroxine Sodium (Synthroid) 75 mcg PO DAILYBB [facility] Stop: 07/25/20 06:29 Last Admin: 06/26/20 05:29 Dose: 75 mcg Documented by: Losartan Potassium (Cozaar) 100 mg PO DAILY [facility] Stop: 07/25/20 08:59 Last Admin: 06/26/20 07:31 Dose: 100 mg Documented by: Meloxicam (Mobic) 15 mg PO DAILY [facility] Stop: 07/25/20 08:59 Last Admin: 06/26/20 07:29 Dose: 15 mg Documented by: Multivitamins (Multivitamin Tab) 1 tab PO DAILY [facility] Stop: 07/25/20 08:59 Last Admin: 06/26/20 07:29 Dose: 1 tab Documented by: Ondansetron HCl (Zofran) 4 mg IV Q6H PRN PRN Reason: Nausea Stop: 07/24/20 21:10 Last Admin: 06/26/20 11:51 Dose: 4 mg Documented by: Potassium Chloride (Klor-Con M10) 10 meq PO DAILY [facility] Stop: 07/25/20 08:59 Last Admin: 06/26/20 07:30 Dose: 10 meq Documented by: Ropinirole HCl (Requip) 0.5 mg PO [facility] Stop: 07/24/20 20:59 Last Admin: 06/25/20 20:07 Dose: 0.5 mg Documented by:
[2020-06-26] MEDS: cefTRIAXone SODIUM 2,000 MG in DEXTROSE 5% 50 ML IV SCH (19:32)
[2020-06-26] MEDS ORDERED: cloNIDine HCL 0.1 MG TAB PO ONE (19:46)
[2020-06-26] MEDS: ROPINIROLE HCL 0.25 MG TABLET PO SCH (20:08)
[2020-06-26] MEDS: ENOXAPARIN INJ 40 MG/0.4 ML SYR SQ SCH (20:10)
[2020-06-27] MEDS: LEVOTHYROXINE SODIUM 75 MCG TABLET PO SCH (06:15)
[2020-06-27 07:11] LABS: Basophils # (auto) 0.01 K/uL (0-0.2); Basophils % (auto) 0.1 %; Eosinophils # (auto) 0.15 K/uL (0-0.5); Eosinophils % (auto) 1.6 %; Hematocrit (blood only) 33.2 % (37-47); Hemoglobin 11.4 g/dL (12.0-16.0); Immature Granulocytes # (auto) 0.02 K/uL (0.00-0.02); Immature Granulocytes % (auto) 0.2 %; Lymphocytes % (auto) 9.4 %; Mean Corpuscular Hgb Conc 34.3 g/dL (32-36); Mean Corpuscular Volume 90.2 fL (80-100); Mean Platelet Volume 10.8 fL (7.4-10.4); Monocytes # (auto) 0.56 K/uL (0.11-0.59); Monocytes % (auto) 5.9 %; Neutrophils % (auto) 82.8 %; Platelet Count 155 K/uL (130-400); RDW Coefficient of Variation 14.1 % (11.5-14.5); RDW Standard Deviation 47.2 fL (36.4-46.3); Red Blood Count 3.68 M/uL (4.2-5.4); White Blood Count 9.54 K/uL (4.8-10.8)
[2020-06-27 07:57] LABS: BUN Creatinine Ratio 29.2 (10-20); Calcium 8.5 mg/dl (8.5-10.1); Creatinine Clr Calc Pharmacy 94.7 ml/min; Est GFR (African American) 101.2; Est GFR (Non-African American) 87.4; Potassium 3.6 mmol/L (3.5-5.1)
[2020-06-27] MEDS: SODIUM CHLORIDE 0.9% 1000ML 1,000 ML IV SCH (08:14)
[2020-06-27] MEDS: LOSARTAN POTASSIUM 50 MG TAB PO SCH (08:14)
[2020-06-27] MEDS: BACLOFEN 10 MG TAB PO SCH (08:15)
[2020-06-27] MEDS: CALCIUM CARBONATE 1250MG TAB PO SCH (08:15)
[2020-06-27] MEDS: MULTIVITAMIN TAB PO SCH (08:15)
[2020-06-27] MEDS: MELOXICAM 7.5 MG TAB PO SCH (08:16)
[2020-06-27] MEDS: POTASSIUM CHLORIDE 10 MEQ TABCR PO SCH (08:16)
[2020-06-27] MEDS: ASPIRIN 81 MG ECTAB PO SCH (08:16)
[2020-06-27] MEDS: ATENOLOL 50 MG TABLET PO SCH (08:16)
[2020-06-27] MEDS: ACETAMINOPHEN 325 MG TAB PO SCH ×2 (08:17→14:00)
[2020-06-27] MEDS ORDERED: CIPROFLOXACIN 500 MG TAB PO SCH (09:00)
--- NOTE | 2020-06-27 12:08 | Hospitalist Progress Note ---
Date of Service June 27, 2020 Assessment & Plan (1) Acute UTI: -Admit to [facility] with telemetry -Patient presenting from home with reports of generalized weakness and concentrated/foul-smelling urine -On presentation, low-grade temp 37.8, WBC 13.8K; HR and BP stable, lactic acid 1.1 -S/p IV cefepime in the ED, will change to ceftriaxone going forward -1 out of 2 blood culture is growing gram-negative bacilli-identification and sensitivities are pending -Urine culture is pending-grew E. coli and sensitive to ceftriaxone -Clinically a lot better -We will change antibiotic to oral ciprofloxacin and to continue for a total of 14 days -We will be transferred to [facility] this afternoon Generalized weakness Likely secondary to current infection and is complicated by osteoarthritis Will get PT and OT evaluation Participating in PT and OT, recommended to go to rehab She is accepted to [facility] and will be going there this afternoon (2) Acute hyponatremia: -Na+ 126 (132 11/2019) -Likely hypovolemic hyponatremia in the setting of poor p.o. intake -Check urine and serum osmo -Hold HCTZ -NSS at 100cc/hr -Sodium level has gone up to 131 -We will decrease the infusion to 50 cc an hour -Monitor PRP-sodium is 134 as of 06/27/2020 (3) Elevated troponin: -Troponin 0.114 -No reports of chest pain, EKG without acute ST changes -Likely demand ischemia in the setting of acute illness -Continue cycle cardiac enzymes, if significant elevation will consider further work-up -Doubt any ACS and the troponin elevation is likely due to bacteremia/early sepsis (4) HTN (hypertension): -BP controlled, continue atenolol and losartan -Holding HCTZ due to hyponatremia -Blood pressure remains on the higher side -We will restart hydrochlorothiazide on discharge (5) Hypothyroidism: -Continue levothyroxine -TSH-normal 0.591 (6) DVT prophylaxis: -SQ Lovenox Admission and Anticipated Discharge Date Admission Date: June 24, 2020 Subjective The patient was seen and examined in medical floor She has been feeling lot better today and denies any symptoms except generalized weakness No fever and/or chills, no nausea and/or vomiting, Denies any pain in the hypogastrium 06/26/2020 Patient was seen and examined in the medical floor She has been feeling much better but he still has generalized weakness Denies any fever and/or chills Denies any dysuria and/or frequency 06/27/2020 The patient was seen and examined in medical floor She has been feeling a lot better but still has some dysuria and weakness She denies any other symptoms She will be going to [facility] this afternoon Review of Systems Review of Systems: All systems reviewed and are unremarkable except as noted below Neurologic: + generalized weakness Physical Exam Physical Exam: Sitting on a chair without any acute symptoms Constitutional: well developed, well nourished and + obese; no acute distress and not ill appearing Eyes: PERRL, conjunctivae normal, anicteric sclerae ENMT: external ear and nose normal, oropharynx normal Neck: trachea midline, no thyromegaly Respiratory: normal respiratory effort; no respiratory distress Auscultation: lungs clear to auscultation bilaterally Cardiovascular: Rate/Rhythm: regular rate and regular rhythm Heart Sounds: no murmur Extremities: + edema (Trace edema bilaterally) Gastrointestinal (Abdomen): Inspection/Auscultation: abdomen normal to inspection and normal bowel sounds; abdomen not distended Percussion/Palpation: abdomen soft; abdomen nontender Musculoskeletal: No acute arthritis in any joints Neurologic: moves all extremities; no focal motor deficits Alert, awake and oriented x3 Results & Data Results & Data ([facility]) Vital Signs (Past 12 Hours) Vital Signs Temp Pulse Pulse Resp BP BP Pulse Ox 06/27/20 08:15 82 06/27/20 07:37 36.7 C 70 20 167/89 H 96 06/27/20 03:28 36.8 C 71 18 187/102 H 96 Laboratory Results Short CBC 06/27/20 Range/Units 06:52 WBC 9.54 (4.8-10.8) K/uL Hgb 11.4 L (12.0-16.0) g/dL Hct 33.2 L (37-47) % Plt Count 155 (130-400) K/uL BMP 06/27/20 06:52 Sodium 134 L Potassium 3.6 Chloride 105 Carbon Dioxide 21 BUN 16 D Creatinine 0.55 L Glucose 93 Calcium 8.5 Medications Administered Current Inpatient Medications Acetaminophen (Tylenol) 650 mg PO Q4H PRN PRN Reason: pain/fever Stop: 07/24/20 19:07 Last Admin: 06/25/20 22:13 Dose: 650 mg Documented by: Acetaminophen (Tylenol) 650 mg PO TID JAYLEEN Stop: 07/24/20 20:59 Last Admin: 06/27/20 08:17 Dose: 650 mg Documented by: Aspirin (Ecotrin Ectab) 81 mg PO DAILY JAYLEEN Stop: 07/25/20 08:59 Last Admin: 06/27/20 08:16 Dose: 81 mg Documented by: Atenolol (Tenormin) 50 mg PO DAILY JAYLEEN Stop: 07/25/20 08:59 Last Admin: 06/27/20 08:16 Dose: 50 mg Documented by: Baclofen (Lioresal) 10 mg PO BID JAYLEEN Stop: 07/24/20 20:59 Last Admin: 06/27/20 08:15 Dose: 10 mg Documented by: Calcium Carbonate (Os-Kei 500) 1,250 mg PO BID JAYLEEN Stop: 07/24/20 20:59 Last Admin: 06/27/20 08:15 Dose: 1,250 mg Documented by: Ciprofloxacin (Cipro) 500 mg PO BID JAYLEEN Stop: 07/11/20 08:59 Last Admin: 06/27/20 09:56 Dose: 500 mg Documented by: Enoxaparin Sodium (Lovenox) 40 mg SQ Q24H JAYLEEN Stop: 07/24/20 20:59 Last Admin: 06/26/20 20:10 Dose: 40 mg Documented by: Sodium Chloride (Nss 1000ml) 1,000 mls @ 100 mls/hr IV .Q10H JAYLEEN Stop: 07/24/20 19:59 Last Admin: 06/27/20 08:14 Dose: 100 mls/hr Documented by: Promethazine HCl 12.5 mg/ (Sodium Chloride) 50.5 mls @ 202 mls/hr IV Q6H PRN PRN Reason: Nausea And Vomiting Stop: 07/25/20 00:28 Levothyroxine Sodium (Synthroid) 75 mcg PO DAILYBB [facility], [facility] Stop: 07/25/20 06:29 Last Admin: 06/27/20 06:15 Dose: 75 mcg Documented by: Losartan Potassium (Cozaar) 100 mg PO DAILY [facility] Stop: 07/25/20 08:59 Last Admin: 06/27/20 08:14 Dose: 100 mg Documented by: Meloxicam (Mobic) 15 mg PO DAILY [facility] Stop: 07/25/20 08:59 Last Admin: 06/27/20 08:16 Dose: 15 mg Documented by: Multivitamins (Multivitamin Tab) 1 tab PO DAILY JAYLEEN Stop: 07/25/20 08:59 Last Admin: 06/27/20 08:15 Dose: 1 tab Documented by: Potassium Chloride (Klor-Con M10) 10 meq PO DAILY JAYLEEN Stop: 07/25/20 08:59 Last Admin: 06/27/20 08:16 Dose: 10 meq Documented by: Ropinirole HCl (Requip) 0.5 mg PO HS JAYLEEN Stop: 07/24/20 20:59 Last Admin: 06/26/20 20:08 Dose: 0.5 mg Documented by:
--- NOTE | 2020-06-28 08:46 | Discharge Summary ---
Date of Service June 28, 2020 Admission HPI Per Admitting Provider 84-year-old female with PMH hypothyroidism, arthritis, HTN, cerebrovascular disease, and other problems listed below who presents to the ED for evaluation of generalized weakness. Patient reports that she has had PT coming into her home and she reports that after her session last week, she has felt very tired and sore all over. 2 days ago, patient reports she became generally weak and has been unable to get out of bed. She reports very poor oral intake. She reports generalized body aches. No fevers or chills, however did not take her temperature at home. She reports some mild nausea however no abdominal pain, vomiting, diarrhea. Reports her urine has been very concentrated with a foul odor. Denies chest pain and shortness of breath. No lightheadedness, dizziness, diaphoresis, syncopal events. Denies cough and sputum production. In the ED, patient has low-grade fever of 37.8, WBC 13.8K, sodium 126, pro calcitonin 14.3, and UA suggestive of UTI. Mildly elevated troponin 0.114, EKG without acute ST changes. Patient is hemodynamically stable. Lactate is 1.1. Patient was given p.o. Tylenol, IV cefepime, IV ketorolac, IVF. Admission Exam Per Admitting Provider Constitutional: WD/WN, vitals as above Eyes: PERRL, conjunctivae normal, anicteric sclerae ENMT: external ear and nose normal, oropharynx normal Respiratory: normal respiratory effort, lungs clear to auscultation Cardiovascular: Rate/Rhythm: regular rate and regular rhythm Vessels: normal peripheral pulses Extremities: no edema Gastrointestinal (Abdomen): normal bowel sounds, soft, nontender, no hepatosplenomegaly Musculoskeletal: Extremities: + abnormal strength (Generally weak, strength 3-4/5 throughout), no cyanosis and no clubbing Skin: no rashes, warm and dry Neurologic: PERRL, EOMI, accommodation nl, no face palsy, no dysarthria Psychiatric: A+Ox3, euthymic affect Principal Diagnosis Acute UTI, E. coli bacteremia, generalized weakness, hypertension Discharge Exam Constitutional well developed, well nourished and + obese; no acute distress and not ill appearing Eyes PERRL, conjunctivae normal, anicteric sclerae ENMT external ear and nose normal, oropharynx normal Neck trachea midline, no thyromegaly Respiratory normal respiratory effort; no respiratory distress Auscultation: lungs clear to auscultation bilaterally Cardiovascular Rate/Rhythm: regular rate and regular rhythm Heart Sounds: no murmur Extremities: + edema (Trace edema bilaterally) Gastrointestinal (Abdomen) Inspection/Auscultation: abdomen normal to inspection and normal bowel sounds; abdomen not distended Percussion/Palpation: abdomen soft; abdomen nontender Neurologic moves all extremities; no focal motor deficits Discharge Data Allergies Allergy/AdvReac Type Severity Reaction Status Date / Time adhesive Allergy Severe RASH Unverified 06/24/20 17:01 paraben Allergy Intermediate Unknown Unverified 06/24/20 17:01 polymyxin B Allergy Intermediate Unknown Unverified 06/24/20 17:01 bacitracin Allergy Unknown Verified 06/24/20 17:01 benzoin Allergy Unknown Unknown Unverified 06/24/20 17:01 thimerosal Allergy Unknown Verified 06/24/20 17:01 [id number] Allergy Unknown Unknown Uncoded 06/24/20 17:01 Consultations 06/24/20 17:35 ED Decision to Admit Stat 06/24/20 19:08 Consult Case Management - Discharge Planning Routine Hospital Course (1) Acute UTI: -Admit to [facility] with telemetry -Patient presenting from home with reports of generalized weakness and concentrated/foul-smelling urine -On presentation, low-grade temp 37.8, WBC 13.8K; HR and BP stable, lactic acid 1.1 -S/p IV cefepime in the ED, will change to ceftriaxone going forward -1 out of 2 blood culture is growing gram-negative bacilli-identification and sensitivities are pending -Urine culture is pending-grew E. coli and sensitive to ceftriaxone -Clinically a lot better -We will change antibiotic to oral ciprofloxacin and to continue for a total of 14 days -We will be transferred to [facility] this afternoon Generalized weakness Likely secondary to current infection and is complicated by osteoarthritis Will get PT and OT evaluation Participating in PT and OT, recommended to go to rehab She is accepted to [facility] and will be going there this afternoon (2) Acute hyponatremia: -Na+ 126 (132 11/2019) -Likely hypovolemic hyponatremia in the setting of poor p.o. intake -Check urine and serum osmo -Hold HCTZ -NSS at 100cc/hr -Sodium level has gone up to 131 -We will decrease the infusion to 50 cc an hour -Monitor PRP-sodium is 134 as of 06/27/2020 (3) Elevated troponin: -Troponin 0.114 -No reports of chest pain, EKG without acute ST changes -Likely demand ischemia in the setting of acute illness -Continue cycle cardiac enzymes, if significant elevation will consider further work-up -Doubt any ACS and the troponin elevation is likely due to bacteremia/early sepsis (4) HTN (hypertension): -BP controlled, continue atenolol and losartan -Holding HCTZ due to hyponatremia -Blood pressure remains on the higher side -We will restart hydrochlorothiazide on discharge (5) Hypothyroidism: -Continue levothyroxine -TSH-normal 0.591 (6) DVT prophylaxis: -SQ Lovenox Total Time Total Time Spent Total Time Spent (In Minutes): 40 minutes Total Time Includes: Examination of the Patient, Discharge Planning, Medication Reconciliation and Communication With Other Providers Discharge Plan Discharge Items Patient Disposition: Transfer Inpatient Rehab Fac Reason For Visit: UTI Discharge Diagnosis: Acute UTI, E. coli bacteremia, generalized weakness, hypertension Condition on Discharge: Fair Activity: As commented below Activity Comment: Will need continued PT and OT Non-emergency contact: Primary Care Provider Call non-emergency contact if: you have any medication questions and your symptoms worsen Follow-up/Referrals: Guillaume Rueda DO [Primary Care Provider] - (Please make an appointment with your primary care physician within 1 week following discharge from the facility) Diet: Heart Healthy Addtl Attending Provider Instructions: Please take precaution to avoid falls Finish the course of antibiotic Try to drink more fluid Pending Studies at Discharge: No Stand-Alone Forms: My [facility] Skilled Items Patient informed of condition?: Yes DNR: No Discharge Level of Care: Skilled Communicable Disease: No Discharge Prognosis: Stable Lines: None Urinary Catheter: No Medications and DC Order Prescriptions: New ciprofloxacin HCl 500 mg Tablet 500 mg PO BID 10 Days Qty: 20 RF: 0 Lactinex 1 million cell tablet,chewable 1 tab PO BID Qty: 30 RF: 0 Continued aspirin [Adult Low Dose Aspirin] 81 mg tablet,delayed release (DR/EC) 81 mg PO DAILY RF: 0 atenolol 50 mg tablet 50 mg PO DAILY RF: 0 calcium carbonate 600 mg calcium (1,500 mg) tablet 600 mg PO BID RF: 0 hydrochlorothiazide 25 mg tablet 25 mg PO DAILY RF: 0 levothyroxine [Synthroid] 75 mcg tablet 75 mcg PO DAILY RF: 0 meclizine 25 mg tablet 25 mg PO TID PRN (Reason: Dizziness Or Vertigo) RF: 0 multivitamin capsule 1 cap PO DAILY RF: 0 potassium chloride 10 mEq capsule, extended release 10 meq PO DAILY RF: 0 baclofen 10 mg tablet 10 mg PO BID RF: 0 meloxicam 7.5 mg tablet 15 mg PO DAILY RF: 0 losartan 50 mg tablet 100 mg PO DAILY RF: 0 omeprazole 10 mg capsule,delayed release(DR/EC) 10 mg PO HS PRN (Reason: Dyspepsia) RF: 0 ropinirole 0.5 mg tablet 0.5 mg PO HS RF: 0 acetaminophen 325 mg Tablet 650 mg PO TID RF: 0 Discharge Orders: Discharge Order (Routine); Ordered 06/27/20 Ordered By: Angela Corrales Admission Data Admit Date/Time: 06/24/20 17:42 Attending Provider: Angela Corrales Admit Provider: Angela Corrales Primary Care Provider: Guillaume Rueda Other Providers: Angela Corrales ; [facility] Other Interventions: Discharge Summary Assessment (RN) Last Done: 06/27/20 12:52 DC Date/Time DO NOT enter until pt leaves facility: 06/27/20 15:03
== END 2020-06-27 15:03 | DRG 690 ==
LOC: ED 14:49 → 2N 17:52

== ENCOUNTER 2020-07-12 11:48 | Inpatient (IN) ==
[2020-07-12] MEDS ORDERED: SODIUM CHLORIDE 0.9% 1000ML 1,000 ML IV ONE (12:09)
[2020-07-12] MEDS ORDERED: ONDANSETRON INJ 2 MG/ML 2 ML VIAL IV STA (12:10)
--- NOTE | 2020-07-12 12:24 | XRay Report ---
XR chest 1V portable CLINICAL HISTORY: SEPSIS dyspnea COMPARISON STUDY: 06/24/2020 FINDINGS: The bones soft tissues and hemidiaphragms are normal. The cardiomediastinal silhouette is n ormal. The lungs are clear. The pulmonary vasculature is normal. IMPRESSION: Negative chest. ACT 112: Negative or not required by law. The above report was generated using voice recognition software. It may contain grammatical, syntax or spelling errors. Electronically signed by: Chris Lui M.D. 07/12/2020 12:22 PM
[2020-07-12] MEDS ORDERED: FAMOTIDINE 20MG IV PUSH 20 MG/5 ML SYR IV STA (12:28)
--- NOTE | 2020-07-12 12:28 | Emergency Department Note ---
Impression & Plan Acute pyelonephritis, Acute upper GI bleed, Anemia, Abdominal pain, Left kidney mass ED Provider Note NAME: MISAEL GUERRIER AGE: 84 SEX: F : 1935 ARRIVES VIA: Walk-In INFORMANT: Patient, the patient's daughter ED PROVIDER(S): Jayy Vieira DO CHIEF COMPLAINT: Fever HPI: The patient is an 84-year-old female who presented to the emergency department for an evaluation of fever. The patient was recently admitted to our facility for a very bad urinary tract infection. She states that she was started on IV antibiotics in the hospital and then switched to oral antibiotics. She started having some loose bowel movements with the oral antibiotics but this is improved significantly. She started having problems with nausea and crampy abdominal pain over the last 24 hours. She did call her primary care physician and was seen at the office. She had laboratory studies obtained which revealed she had significant elevation in her white blood cell count as well as anemia. The patient denies having any chest pain or difficulty breathing. She does complain of some dyspnea on exertion. The patient denies having any swe lling in her legs or pain in her legs. She has noticed dark stool which has been black. The patient denies having any radiographic studies obtained today but she did have laboratory studies obtained. She did take medication for the fever. Reportedly the temperature was 101.4 degrees. She states her symptoms have improved somewhat. She does complain of generalized weakness. She also complains of nausea. She has been taking medications for nausea with some relief. She denies having any cough or exposure to COVID-19 as far she knows. ROS: See above HPI for pertinent positives & negatives. A total of 10 systems reviewed and were otherwise negative. PAST MEDICAL HISTORY: See Below PAST SURGICAL HISTORY: See Below FAMILY HISTORY: See Below SOCIAL HISTORY: See Below HOME MEDICATIONS: See Below ALLERGIES: See Below VITALS: See Below PHYSICAL EXAMINATION: GENERAL: Patient is awake alert in no acute distress patient is resting comfortably and showing no signs of anxiety EYES: The conjunctivae are clear. The pupils are round and reactive. EARS, NOSE, MOUTH AND THROAT: The nose is without any evidence of any deformity. Mucous membranes are moist. Tongue is midline. NECK: The neck is nontender and supple. RESPIRATORY: Normal respiratory effort is noted there is no evidence of wheezing rhonchi or rales CARDIOVASCULAR: Regular rate and rhythm noted there no murmurs rubs or gallops normal S1 normal S2. GASTROINTESTINAL: The abdomen is mildly distended and diffusely tender. There is left lower quadrant tenderness to palpation but no guarding rigidity. MUSCULOSKELETAL/EXTREMITIES: There is no evidence of gross deformity full range of motion is noted in the hips and shoulders. SKIN: There is no obvious evidence of any rash. Trace pedal edema was noted bilaterally. NEUROLOGIC: Patient is awake alert and oriented x3. MEDICAL DECISION MAKING: The patient is an 84-year-old female who presented to the emergency department for an evaluation of fever. The patient was seen in our facility at the end of last month for similar complaints. At that time she was admitted to our facility for pyelonephritis. This was complicated by gram-negative bacteremia. I did review the patient's previous electronic medical records. She was treated with IV antibiotics which would cover the previous urine infection. The patient was also found to have significant anemia. She was found to have heme positive stool. She was treated with proton pump inhibitor and blood transfusion. The patient was also treated with IV fluids. I discussed the patient's laboratory and radiographic studies with her. She was found to have an area on her left kidney which could be consistent with a neoplastic process versus an abscess. I discussed her case with our [facility] admitting team as well as our urologist. After discussing this case they did recommend we did consider referring the patient to a tertiary center for further management. When I discussed this case with the urology group at [facility] as well as the hospitalist group at [facility] they did not feel the patient would require emergent transfer unless this was felt to be more consistent with something that would be amenable to interventional radiology. I discussed this case with the interventional radiologist. They were able to review the patient's radiographic studies and did recommend that we consider keeping the patient here for further management as they did not feel that her findings on CAT scan would be amenable to drainage with interventional radiology. They felt it was more consistent with infection versus a secondarily infected neoplastic process. I discussed this with the patient and her family member. I also discussed this case again with the on-call [facility] hospitalist. They have agreed to evaluate the patient in the emergency department for further inpatient management and disposition. Triage Nursing notes reviewed. Prior medical records reviewed Vital Signs: reviewed and remarkable for hypotension Differential diagnosis: Viral syndrome, otitis, pharyngitis, pneumonia, influenza, meningitis, urinary tract infection, sepsis, bacteremia, as well as other pathologies. ER treatment provided: See below Diagnostics interpreted by me: ECG: EKG was obtained in the emergency department. My interpretation is normal sinus rhythm at 79 bpm. There was no ectopy. There is no acute ST segment abnormalities noted. LVH was noted by voltage criteria. This was compared to a tracing from June 242019. No significant changes were noted. Cardiac Monitoring: An order was placed for continuous cardiac monitoring. The monitor shows a rate of 80 with sinus rhythm. Laboratory studies: As stated above and show below. Imaging studies: See below Consultation(s): 1515: I discussed this case with Dr. White who is on-call for the [facility] hospitalist group. She does recommend that we discussed this case with urology prior to confirming that she is appropriate for our facility. 1530: I discussed this case with Karin who is on-call for the [facility] urology group. 1605: I discussed this case with Dr. Forbes who is the hospitalist at [facility]. She recommended that I discussed this case with urology prior to initiating transfer. 1615: I discussed this case with Dr. Martinez who is on-call for urology at [facility]. They recommended that I discussed the case again with our urology group. 1635: I discussed this case with Dr. Hernadez. He reviewed the films and feels the patient's presentation as well as the radiographic studies do appear to be more consistent with an abscess and may require interventional radiology for drainage for further treatment. 1740: I discussed this case with the interventional radiologist, Dr. Khanna at [facility]. He will review the images and then call us back. 1930: I discussed this case with Dr. Solorio who is interventional radiology at [facility]. He was able to review the patient's imaging and does not feel this is consistent with an abscess at this time. He does not feel there is any area that would be amenable to interventional radiology. 1935: I discussed this case again with Dr White, she will evaluate the patient in the emergency department for further inpatient management. ED COURSE: Procedures: none PDMP:reviewed and no issues Critical Care: I have personally spent greater than 120 minutes of critical care time in the direct management of this patient. This includes bedside care, interpretation of diagnostic studies, and testing, discussion with consultants, patient, and family members, and other required patient management activities. This 120 minutes is in excess of all separately billable procedures. Past Med/Surg History Medical History Arthritis Chronic venous insufficiency (Chronic) HTN (hypertension) Hyperlipidemia Hypothyroidism Obesity Osteoporosis RLS (restless legs syndrome) TIA (transient ischemic attack) Surgical History H/O hysterectomy with unilateral oophorectomy History of appendectomy Family History Father Colorectal cancer Diabetes Social History Smoking Status: Never smoker Hx Alcohol Use: No Hx Substance Use: No Preferred Language: Kuwaiti Communication Ability: Effective Visual Impairment: Limited Hearing Ability: Normal Beliefs That Will Affect Care: None marital status: / Current Living Situation: Alone current occupational status: retired Feels Safe at Home: Yes Allergies Allergies Allergy/AdvReac Type Severity Reaction Status Date / Time adhesive Allergy Severe RASH Unverified 07/12/20 13:30 paraben Allergy Intermediate Unknown Unverified 07/12/20 13:30 polymyxin B Allergy Intermediate Unknown Unverified 07/12/20 13:30 bacitracin Allergy Unknown Verified 07/12/20 13:30 benzoin Allergy Unknown Unknown Unverified 07/12/20 13:30 thimerosal Allergy Unknown Verified 07/12/20 13:30 INFLUENZAVIRUSV Allergy Unknown Unknown Uncoded 07/12/20 13:30 Home Meds Home Medications Medication Instructions Recorded Confirmed aspirin 81 mg tablet,delayed 81 mg PO DAILY 10/22/19 07/12/20 release atenolol 50 mg tablet 50 mg PO DAILY 10/22/19 07/12/20 calcium carbonate 600 mg calcium 600 mg PO BID 10/22/19 07/12/20 (1,500 mg) tablet hydrochlorothiazide 25 mg tablet 25 mg PO DAILY 10/22/19 07/12/20 levothyroxine 75 mcg tablet 75 mcg PO DAILY 10/22/19 07/12/20 meclizine 25 mg tablet 25 mg PO TID PRN 10/22/19 07/12/20 multivitamin 1 cap PO DAILY 10/22/19 07/12/20 potassium chloride 10 mEq 10 meq PO DAILY 10/22/19 07/12/20 capsule,extended release baclofen 10 mg tablet 10 mg PO BID 11/10/19 07/12/20 acetaminophen 650 mg PO TID 06/24/20 07/12/20 losartan 100 mg PO DAILY 06/24/20 07/12/20 meloxicam 15 mg PO DAILY 06/24/20 07/12/20 omeprazole 10 mg PO HS PRN 06/24/20 07/12/20 ropinirole 0.5 mg PO HS 06/24/20 07/12/20 Previous Rx's Medication Instructions Recorded Lactobacillus acidoph-L.bulgar 1 tab PO BID #30 tab 06/27/20 [Lactinex] Results & Data (ED) Vital Signs Vital Signs - 24 hr 07/12/20 11:57 07/12/20 12:09 07/12/20 13:48 Temperature 37.3 C Temperature Source Oral Pulse Rate 80 Pulse Rate [Apical] 79 Pulse Rate from SpO2 Sensor Pulse Rhythm Pulse Strength Respiratory Rate 16 18 Respiratory Effort / Characteristics Non-Labored Spontaneous Respiratory Depth Normal Respiratory Pattern Regular Blood Pressure 106/60 Blood Pressure [Left Arm] 126/67 Blood Pressure Mean 75 Blood Pressure Mean [Left Arm] 86 Blood Pressure Position Sitting Pulse Oximetry 99 99 99 Oxygen Delivery Method Room Air Room Air Nasal Cannula Oxygen Flow Rate 2 Sepsis Recent Fever Within 48 Hours Yes Sepsis New/Unexplained Change in Mental Status N/A Sepsis Action Taken by Nursing No Action Required 07/12/20 14:29 07/12/20 14:30 07/12/20 14:45 Temperature 37.2 C 37.4 C Temperature Source Oral Oral Pulse Rate 79 80 83 Pulse Rate [Apical] Pulse Rate from SpO2 Sensor 81 82 Pulse Rhythm Regular Regular Pulse Strength Normal Normal Respiratory Rate 22 17 16 Respiratory Effort / Characteristics Respiratory Depth Respiratory Pattern Blood Pressure 150/77 H 160/76 H 130/50 L Blood Pressure [Left Arm] Blood Pressure Mean 101 105 75 Blood Pressure Mean [Left Arm] Blood Pressure Position Lying Lying Pulse Oximetry 99 98 99 Oxygen Delivery Method Oxygen Flow Rate 2 Sepsis Recent Fever Within 48 Hours Sepsis New/Unexplained Change in Mental Status Sepsis Action Taken by Nursing 07/12/20 15:00 07/12/20 15:15 07/12/20 15:30 Temperature Temperature Source Pulse Rate 79 85 81 Pulse Rate [Apical] Pulse Rate from SpO2 Sensor 79 85 81 Pulse Rhythm Pulse Strength Respiratory Rate 20 27 H 23 Respiratory Effort / Characteristics Respiratory Depth Respiratory Pattern Blood Pressure 120/65 148/59 H 131/62 Blood Pressure [Left Arm] Blood Pressure Mean 70 70 67 Blood Pressure Mean [Left Arm] Blood Pressure Position Pulse Oximetry 100 99 100 Oxygen Delivery Method Oxygen Flow Rate Sepsis Recent Fever Within 48 Hours Sepsis New/Unexplained Change in Mental Status Sepsis Action Taken by Nursing 07/12/20 15:45 07/12/20 16:00 07/12/20 16:15 Temperature Temperature Source Pulse Rate 84 80 78 Pulse Rate [Apical] Pulse Rate from SpO2 Sensor 84 80 78 Pulse Rhythm Pulse Strength Respiratory Rate 20 20 22 Respiratory Effort / Characteristics Respiratory Depth Respiratory Pattern Blood Pressure 135/77 131/61 135/59 L Blood Pressure [Left Arm] Blood Pressure Mean 94 65 73 Blood Pressure Mean [Left Arm] Blood Pressure Position Pulse Oximetry 99 100 100 Oxygen Delivery Method Oxygen Flow Rate Sepsis Recent Fever Within 48 Hours Sepsis New/Unexplained Change in Mental Status Sepsis Action Taken by Nursing 07/12/20 16:30 07/12/20 16:32 07/12/20 16:45 Temperature 37.6 C H Temperature Source Oral Pulse Rate 82 78 Pulse Rate [Apical] Pulse Rate from SpO2 Sensor 82 77 Pulse Rhythm Pulse Strength Respiratory Rate 18 22 Respiratory Effort / Characteristics Respiratory Depth Respiratory Pattern Blood Pressure 131/70 132/66 Blood Pressure [Left Arm] Blood Pressure Mean 96 72 Blood Pressure Mean [Left Arm] Blood Pressure Position Pulse Oximetry 99 100 Oxygen Delivery Method Oxygen Flow Rate Sepsis Recent Fever Within 48 Hours Sepsis New/Unexplained Change in Mental Status Sepsis Action Taken by Nursing 07/12/20 17:00 07/12/20 17:15 07/12/20 17:30 Temperature Temperature Source Pulse Rate 79 80 78 Pulse Rate [Apical] Pulse Rate from SpO2 Sensor 79 80 75 Pulse Rhythm Pulse Strength Respiratory Rate 17 21 22 Respiratory Effort / Characteristics Respiratory Depth Respiratory Pattern Blood Pressure 131/62 131/68 130/61 Blood Pressure [Left Arm] Blood Pressure Mean 94 82 93 Blood Pressure Mean [Left Arm] Blood Pressure Position Pulse Oximetry 99 100 100 Oxygen Delivery Method Oxygen Flow Rate Sepsis Recent Fever Within 48 Hours Sepsis New/Unexplained Change in Mental Status Sepsis Action Taken by Nursing 07/12/20 17:45 07/12/20 18:00 07/12/20 18:15 Temperature Temperature Source Pulse Rate 77 80 75 Pulse Rate [Apical] Pulse Rate from SpO2 Sensor 77 80 76 Pulse Rhythm Pulse Strength Respiratory Rate 23 23 21 Respiratory Effort / Characteristics Respiratory Depth Respiratory Pattern Blood Pressure 133/59 L 126/61 115/62 Blood Pressure [Left Arm] Blood Pressure Mean 73 65 67 Blood Pressure Mean [Left Arm] Blood Pressure Position Pulse Oximetry 100 100 100 Oxygen Delivery Method Oxygen Flow Rate Sepsis Recent Fever Within 48 Hours Sepsis New/Unexplained Change in Mental Status Sepsis Action Taken by Nursing 07/12/20 18:30 Temperature Temperature Source Pulse Rate 77 Pulse Rate [Apical] Pulse Rate from SpO2 Sensor 78 Pulse Rhythm Pulse Strength Respiratory Rate 23 Respiratory Effort / Characteristics Respiratory Depth Respiratory Pattern Blood Pressure 114/54 L Blood Pressure [Left Arm] Blood Pressure Mean 65 Blood Pressure Mean [Left Arm] Blood Pressure Position Pulse Oximetry 100 Oxygen Delivery Method Oxygen Flow Rate Sepsis Recent Fever Within 48 Hours Sepsis New/Unexplained Change in Mental Status Sepsis Action Taken by Half-Way Medications Current Medication List: was personally reviewed by me Laboratory Data Attestation: I reviewed the patient's lab results. Result diagrams: 07/12/20 12:26 07/12/20 12:26 Lab Results 07/12/20 07/12/20 07/12/20 Range/Units 12:26 12:26 12:26 WBC 19.23 H (4.8-10.8) K/uL RBC 2.54 L (4.2-5.4) M/uL Hgb 8.1 L (12.0-16.0) g/dL Hct 23.5 L (37-47) % MCV 92.5 (80-100) fL MCH 31.9 (25-34) pg MCHC 34.5 (32-36) g/dL RDW Std Deviation 52.6 H (36.4-46.3) fL RDW Coeff of [place] 16.1 H (11.5-14.5) % Plt Count 241 (130-400) K/uL MPV 10.9 H (7.4-10.4) fL Immature Gran % (Auto) 0.3 % Neut % (Auto) 86.4 % Lymph % (Auto) 6.8 % Hubbard % (Auto) 5.5 % Eos % (Auto) 0.8 % Baso % (Auto) 0.2 % Neut # (Auto) 16.62 H (1.4-6.5) K/uL Lymph # (Auto) 1.30 (1.2-3.4) K/uL Hubbard # (Auto) 1.06 H (0.11-0.59) K/uL Eos # (Auto) 0.16 (0-0.5) K/uL Baso # (Auto) 0.03 (0-0.2) K/uL Immature Gran # (Auto) 0.06 H (0.00-0.02) K/uL PT 11.7 (9.0-12.0) Seconds INR 1.1 (0.9-1.1) APTT 20.2 L (21.0-31.0) Seconds PTT Ratio 0.7 Sodium 130 L (136-145) mmol/L Potassium 3.8 (3.5-5.1) mmol/L Chloride 100 (98-107) mmol/L Carbon Dioxide 22 (21-32) mmol/L Anion Gap 8.0 (3-11) BUN 29 H (7-18) mg/dl Creatinine 0.73 (0.6-1.2) mg/dl Est Cr Clr Drug Dosing 71.5 ml/min Est GFR ( Amer) 88.9 Est GFR (Non-Af Amer) 76.7 BUN/Creatinine Ratio 39.7 H (10-20) Glucose 103 H (70-99) mg/dl Lactate (0.4-2.0) mmol/L Calcium 8.1 L (8.5-10.1) mg/dl Magnesium 1.8 (1.8-2.4) mg/dl Total Bilirubin 0.7 (0.2-1) mg/dl AST 20 (15-37) U/L ALT 20 (12-78) U/L Alkaline Phosphatase 62 (45-117) U/L Troponin I 0.019 (0-0.045) ng/ml Total Protein 6.3 L (6.4-8.2) gm/dl Albumin 2.9 L (3.4-5.0) gm/dl Globulin 3.4 (2.5-4.0) gm/dl Albumin/Globulin Ratio 0.9 (0.9-2) Procalcitonin (0-0.5) ng/ml Urine Color Urine Appearance (Clear) Urine pH (4.5-7.5) Ur Specific [place] (1.000-1.030) Urine Protein (Negative) Urine Glucose (UA) (Negative) Urine Ketones (Negative) Urine Blood (Negative) Urine Nitrite (Negative) Urine Bilirubin (Negative) Urine Urobilinogen (Negative) Ur Leukocyte Esterase (Negative) Urine WBC (Auto) (0-5) /hpf Urine RBC (Auto) (0-4) /hpf U Hyaline Cast (Auto) (0-5) /lpf U Epithel Cells (Auto) (0-5) /lpf Urine Bacteria (Auto) (Negative) Blood Type Blood Type Recheck Antibody Screen Crossmatch 07/12/20 07/12/20 07/12/20 Range/Units 12:26 12:26 12:33 WBC (4.8-10.8) K/uL RBC (4.2-5.4) M/uL Hgb (12.0-16.0) g/dL Hct (37-47) % MCV (80-100) fL MCH (25-34) pg MCHC (32-36) g/dL RDW Std Deviation (36.4-46.3) fL RDW Coeff of [place] (11.5-14.5) % Plt Count (130-400) K/uL MPV (7.4-10.4) fL Immature Gran % (Auto) % Neut % (Auto) % Lymph % (Auto) % Hubbard % (Auto) % Eos % (Auto) % Baso % (Auto) % Neut # (Auto) (1.4-6.5) K/uL Lymph # (Auto) (1.2-3.4) K/uL Hubbard # (Auto) (0.11-0.59) K/uL Eos # (Auto) (0-0.5) K/uL Baso # (Auto) (0-0.2) K/uL Immature Gran # (Auto) (0.00-0.02) K/uL PT (9.0-12.0) Seconds INR (0.9-1.1) APTT (21.0-31.0) Seconds PTT Ratio Sodium (136-145) mmol/L Potassium (3.5-5.1) mmol/L Chloride (98-107) mmol/L Carbon Dioxide (21-32) mmol/L Anion Gap (3-11) BUN (7-18) mg/dl Creatinine (0.6-1.2) mg/dl Est Cr Clr Drug Dosing ml/min Est GFR ( Amer) Est GFR (Non-Af Amer) BUN/Creatinine Ratio (10-20) Glucose (70-99) mg/dl Lactate 1.6 (0.4-2.0) mmol/L Calcium (8.5-10.1) mg/dl Magnesium (1.8-2.4) mg/dl Total Bilirubin (0.2-1) mg/dl AST (15-37) U/L ALT (12-78) U/L Alkaline Phosphatase (45-117) U/L Troponin I (0-0.045) ng/ml Total Protein (6.4-8.2) gm/dl Albumin (3.4-5.0) gm/dl Globulin (2.5-4.0) gm/dl Albumin/Globulin Ratio (0.9-2) Procalcitonin < 0.05 (0-0.5) ng/ml Urine Color Urine Appearance (Clear) Urine pH (4.5-7.5) Ur Specific [place] (1.000-1.030) Urine Protein (Negative) Urine Glucose (UA) (Negative) Urine Ketones (Negative) Urine Blood (Negative) Urine Nitrite (Negative) Urine Bilirubin (Negative) Urine Urobilinogen (Negative) Ur Leukocyte Esterase (Negative) Urine WBC (Auto) (0-5) /hpf Urine RBC (Auto) (0-4) /hpf U Hyaline Cast (Auto) (0-5) /lpf U Epithel Cells (Auto) (0-5) /lpf Urine Bacteria (Auto) (Negative) Blood Type O Positive Blood Type Recheck Antibody Screen NEGATIVE Crossmatch See Detail 07/12/20 07/12/20 Range/Units 13:26 15:55 WBC (4.8-10.8) K/uL RBC (4.2-5.4) M/uL Hgb (12.0-16.0) g/dL Hct (37-47) % MCV (80-100) fL MCH (25-34) pg MCHC (32-36) g/dL RDW Std Deviation (36.4-46.3) fL RDW Coeff of [place] (11.5-14.5) % Plt Count (130-400) K/uL MPV (7.4-10.4) fL Immature Gran % (Auto) % Neut % (Auto) % Lymph % (Auto) % Hubbard % (Auto) % Eos % (Auto) % Baso % (Auto) % Neut # (Auto) (1.4-6.5) K/uL Lymph # (Auto) (1.2-3.4) K/uL Hubbard # (Auto) (0.11-0.59) K/uL Eos # (Auto) (0-0.5) K/uL Baso # (Auto) (0-0.2) K/uL Immature Gran # (Auto) (0.00-0.02) K/uL PT (9.0-12.0) Seconds INR (0.9-1.1) APTT (21.0-31.0) Seconds PTT Ratio Sodium (136-145) mmol/L Potassium (3.5-5.1) mmol/L Chloride (98-107) mmol/L Carbon Dioxide (21-32) mmol/L Anion Gap (3-11) BUN (7-18) mg/dl Creatinine (0.6-1.2) mg/dl Est Cr Clr Drug Dosing ml/min Est GFR ( Amer) Est GFR (Non-Af Amer) BUN/Creatinine Ratio (10-20) Glucose (70-99) mg/dl Lactate (0.4-2.0) mmol/L Calcium (8.5-10.1) mg/dl Magnesium (1.8-2.4) mg/dl Total Bilirubin (0.2-1) mg/dl AST (15-37) U/L ALT (12-78) U/L Alkaline Phosphatase (45-117) U/L Troponin I (0-0.045) ng/ml Total Protein (6.4-8.2) gm/dl Albumin (3.4-5.0) gm/dl Globulin (2.5-4.0) gm/dl Albumin/Globulin Ratio (0.9-2) Procalcitonin (0-0.5) ng/ml Urine Color Yellow Urine Appearance Clear (Clear) Urine pH 6.0 (4.5-7.5) Ur Specific [place] 1.032 H (1.000-1.030) Urine Protein Negative (Negative) Urine Glucose (UA) Negative (Negative) Urine Ketones Negative (Negative) Urine Blood Negative (Negative) Urine Nitrite Negative (Negative) Urine Bilirubin Negative (Negative) Urine Urobilinogen Negative (Negative) Ur Leukocyte Esterase 1+ H (Negative) Urine WBC (Auto) 1-5 (0-5) /hpf Urine RBC (Auto) 0-4 (0-4) /hpf U Hyaline Cast (Auto) 0 (0-5) /lpf U Epithel Cells (Auto) 0-5 (0-5) /lpf Urine Bacteria (Auto) Negative (Negative) Blood Type Blood Type Recheck O Positive Antibody Screen Crossmatch Administered Medications Fentanyl Citrate (Fentanyl Citrate) 50 mcg IV Q15M PRN PRN Reason: Pain Stop: 07/26/20 12:57 Last Admin: 07/12/20 13:28 Dose: 50 mcg Documented by: [id number] Discontinued Medications Sodium Chloride (Nss 1000ml) 1,000 mls @ 999 mls/hr IV .Q1H1M ONE Stop: 07/12/20 13:09 Last Infusion: 07/12/20 13:43 Dose: 0 mls/hr Documented by: [id number] Admin: 07/12/20 12:40 Dose: 999 mls/hr Documented by: [id number] Famotidine (Pepcid 20mg Iv Push) 20 mg in 5 mls @ 2.5 mls/min IV NOW STA Stop: 07/12/20 12:29 Last Admin: 07/12/20 12:52 Dose: 2.5 mls/min Documented by: [id number] Pantoprazole Sodium 40 mg/ (Syringe) 10 mls @ 5 mls/min IV ONE ONE Stop: 07/12/20 12:46 Last Admin: 07/12/20 12:52 Dose: 5 mls/min Documented by: [id number] Piperacillin Sod/Tazobactam Sod (Zosyn) 4.5 gm in 120 mls @ 240 mls/hr IV NOW ONE Stop: 07/12/20 13:47 Last Infusion: 07/12/20 14:42 Dose: 0 mls/hr Documented by: [id number] Admin: 07/12/20 14:08 Dose: 240 mls/hr Documented by: [id number] Ioversol (Optiray 320 100ml) 94 ml IV ONCE ONE Stop: 07/12/20 13:41 Last Admin: 07/12/20 13:41 Dose: 94 ml Documented by: [id number] Ondansetron HCl (Zofran) 4 mg IV NOW STA Stop: 07/12/20 12:11 Last Admin: 07/12/20 12:52 Dose: 4 mg Documented by: [id number] Imaging Data Radiologist's Impression: CT OF THE ABDOMEN AND PELVIS WITH CONTRAST CLINICAL HISTORY: Fever and abdominal pain. COMPARISON STUDY: None. TECHNIQUE: Following IV administration of 94 mL of Optiray-320, axial images of the abdomen and pelvis were obtained from the lung bases to the proximal femurs. Images were reviewed in the axial, sagittal, and coronal planes. IV contrast was administered without complication. Automated exposure control was utilized for the study. A dose lowering technique was utilized adhering to the principles of ALARA. CT DOSE: 1516.83 mGy.cm FINDINGS: Lung bases are unremarkable. Mild cardiomegaly is noted. There is mitral annular calcification. The spleen, adrenal glands and pancreas are unremarkable. A 1.2 cm hypodense lesion within the midpole of the right kidney favors a cyst. There is an adjacent 1.8 cm lesion on image 166 of 436 that measures slightly above water attenuation. Note is made of subtle hypoenhancing foci within the upper pole and lower pole of the left kidney. In addition, there is a round 4 cm masslike abnormality within the anterior cortex of the head to upper pole of the left kidney shown on axial image 144. There is no hydronephrosis. A 3 mm left renal calculus is noted. There are no ureteral calculi. The caliber and wall thickness of small and large bowel are normal. Mild bladder distention is noted. Fat-containing umbilical hernia is noted. There are no suspicious osseous lesions. IMPRESSION: 1. 4 cm mass-like abnormality within the mid to upper pole of the left kidney. This is highly suggestive of renal cell carcinoma. Although much less likely, this could be infectious. A renal protocol MRI in one month is recommended to confirm a mass. 1.8 cm right renal lesion likely reflects a cyst but can be assessed on follow-up MRI. 2. Subtle hypoenhancing foci within the left kidney which favor pyelonephritis. 3. 3 mm left renal calculus. No ureteral calculi or hydronephrosis. ACT 112: Positive. There are findings on this exam that require communication between the performing entity and the patient following Patient Test Result Info rmation Act ([place] Act 112) guidelines. Electronically signed by: Maikel Hernandez M.D. 07/12/2020 2:45 PM Dictated: 07/12/20 1347 Transcribed: 07/12/20 1359 Blood Pressure Blood Pressure Findings: Normal blood pressure Discharge Plan Visit Data Chief Complaint: Abnormal Labs/Diagnostic Testing Stated Complaint: ABNORMAL LAB WORK, DR SENT OVER ED Provider: Jayy Vieira Discharge Problem: Acute pyelonephritis, Acute upper GI bleed, Anemia, Abdominal pain, Left kidney mass Patient Disposition: Being Evaluated by Hospitalist Condition: Good Forms Stand Alone Forms: My [facility] [place] [facility] Prescriptions Prescriptions: No Action aspirin [Adult Low Dose Aspirin] 81 mg tablet,delayed release (DR/EC) 81 mg PO DAILY RF: 0 atenolol 50 mg tablet 50 mg PO DAILY RF: 0 calcium carbonate 600 mg calcium (1,500 mg) tablet 600 mg PO BID RF: 0 hydrochlorothiazide 25 mg tablet 25 mg PO DAILY RF: 0 levothyroxine [Synthroid] 75 mcg tablet 75 mcg PO DAILY RF: 0 meclizine 25 mg tablet 25 mg PO TID PRN (Reason: Dizziness Or Vertigo) RF: 0 multivitamin capsule 1 cap PO DAILY RF: 0 potassium chloride 10 mEq capsule, extended release 10 meq PO DAILY RF: 0 baclofen 10 mg tablet 10 mg PO BID RF: 0 meloxicam 7.5 mg tablet 15 mg PO DAILY RF: 0 losartan 50 mg tablet 100 mg PO DAILY RF: 0 omeprazole 10 mg capsule,delayed release(DR/EC) 10 mg PO HS PRN (Reason: Dyspepsia) RF: 0 ropinirole 0.5 mg tablet 0.5 mg PO HS RF: 0 acetaminophen 325 mg Tablet 650 mg PO TID RF: 0 Lactinex 1 million cell tablet,chewable 1 tab PO BID Qty: 30 RF: 0 Referrals Referrals: Guillaume Rueda DO [Primary Care Provider] -
[2020-07-12 12:40] LABS: Basophils # (auto) 0.03 K/uL (0-0.2); Basophils % (auto) 0.2 %; Eosinophils # (auto) 0.16 K/uL (0-0.5); Eosinophils % (auto) 0.8 %; Hematocrit (blood only) 23.5 % (37-47); Hemoglobin 8.1 g/dL (12.0-16.0); Immature Granulocytes # (auto) 0.06 K/uL (0.00-0.02); Immature Granulocytes % (auto) 0.3 %; Lymphocytes % (auto) 6.8 %; Mean Corpuscular Hemoglobin 31.9 pg (25-34); Mean Corpuscular Hgb Conc 34.5 g/dL (32-36); Mean Corpuscular Volume 92.5 fL (80-100); Mean Platelet Volume 10.9 fL (7.4-10.4); Monocytes # (auto) 1.06 K/uL (0.11-0.59); Monocytes % (auto) 5.5 %; Neutrophils # (auto) 16.62 K/uL (1.4-6.5); Neutrophils % (auto) 86.4 %; Platelet Count 241 K/uL (130-400); RDW Coefficient of Variation 16.1 % (11.5-14.5); RDW Standard Deviation 52.6 fL (36.4-46.3); Red Blood Count 2.54 M/uL (4.2-5.4); White Blood Count 19.23 K/uL (4.8-10.8)
[2020-07-12] MEDS ORDERED: PANTOprazole 40 MG in SYRINGE 0 ML IV ONE (12:45)
[2020-07-12 12:51] LABS: INR 1.1 (0.9-1.1); Partial Thromboplastin Ratio 0.7; Partial Thromboplastin Time 20.2 Seconds (21.0-31.0); Prothrombin Time 11.7 Seconds (9.0-12.0)
[2020-07-12 12:56] LABS: Albumin Level 2.9 gm/dl (3.4-5.0); BUN Creatinine Ratio 39.7 (10-20); Calcium 8.1 mg/dl (8.5-10.1); Creatinine Clr Calc Pharmacy 71.5 ml/min; Est GFR (African American) 88.9; Est GFR (Non-African American) 76.7; Magnesium 1.8 mg/dl (1.8-2.4); Potassium 3.8 mmol/L (3.5-5.1)
[2020-07-12] MEDS ORDERED: fentaNYL citrate 100 MCG/2 ML VIAL IV PRN (12:58)
[2020-07-12] MEDS ORDERED: SODIUM CHLORIDE 0.9% 250 ML IV PRN (12:58)
[2020-07-12 13:03] LABS: Albumin Globulin Ratio 0.9 (0.9-2); Bilirubin,Total 0.7 mg/dl (0.2-1); Globulin 3.4 gm/dl (2.5-4.0); Total Protein 6.3 gm/dl (6.4-8.2); Troponin I 0.019 ng/ml (0-0.045)
[2020-07-12] MEDS ORDERED: PIPERACILL/TAZOBAC CONSULT ACTIVE PRN (13:18)
[2020-07-12] MEDS ORDERED: PIPERACILLIN/TAZOBACTAM 4.5 GM/120 ML BAG IV ONE (13:18)
[2020-07-12] MEDS ORDERED: IOVERSOL 100ml IV ONE (13:40)
--- NOTE | 2020-07-12 14:46 | CT Scan Report ---
CT OF THE ABDOMEN AND PELVIS WITH CONTRAST CLINICAL HISTORY: Fever and abdominal pain. COMPARISON STUDY: None. TECHNIQUE: Following IV administration of 94 mL of Optiray-320, axial images of the abdomen and pelvi s were obtained from the lung bases to the proximal femurs. Images were reviewed in the axial, sagitt al, and coronal planes. IV contrast was administered without complication. Automated exposure contro l was utilized for the study. A dose lowering technique was utilized adhering to the principles of A ANUPAM. CT DOSE: 1516.83 mGy.cm FINDINGS: Lung bases are unremarkable. Mild cardiomegaly is noted. There is mitral annular calcificat ion. The spleen, adrenal glands and pancreas are unremarkable. A 1.2 cm hypodense lesion within the m idpole of the right kidney favors a cyst. There is an adjacent 1.8 cm lesion on image 166 of 436 that measures slightly above water attenuation. Note is made of subtle hypoenhancing foci within the uppe r pole and lower pole of the left kidney. In addition, there is a round 4 cm masslike abnormality wit hin the anterior cortex of the head to upper pole of the left kidney shown on axial image 144. There is no hydronephrosis. A 3 mm left renal calculus is noted. There are no ureteral calculi. The caliber and wall thickness of small and large bowel are normal. Mild bladder distention is noted. Fat-contai trevin umbilical hernia is noted. There are no suspicious osseous lesions. IMPRESSION: 1. 4 cm mass-like abnormality within the mid to upper pole of the left kidney. This is highly suggest naveen of renal cell carcinoma. Although much less likely, this could be infectious. A renal protocol MR I in one month is recommended to confirm a mass. 1.8 cm right renal lesion likely reflects a cyst but can be assessed on follow-up MRI. 2. Subtle hypoenhancing foci within the left kidney which favor pyelonephritis. 3. 3 mm left renal calculus. No ureteral calculi or hydronephrosis. ACT 112: Positive. There are findings on this exam that require communication between the performing entity and the patient following Patient Test Result Information Act ([place] Act 112) guidelines. Electronically signed by: Maikel Hernandez M.D. 07/12/2020 2:45 PM
[2020-07-12 16:33] LABS: Appearance Urine Clear (Clear); Bacteria Urine Automated Negative (Negative); Bilirubin Urine Negative (Negative); Blood Urine Negative (Negative); Cast Urine Automated 0 /lpf (0-5); Color Urine Yellow; Epithelial Cell Urine Auto 0-5 /lpf (0-5); Glucose Urine UA Negative (Negative); Ketones Urine Negative (Negative); Leukocyte Esterase Urine 1+ (Negative); Nitrite Urine Negative (Negative); Protein Urine Negative (Negative); RBC Urine Automated 0-4 /hpf (0-4); Specific Gravity Urine 1.032 (1.000-1.030); Urobilinogen Urine Negative (Negative)
[2020-07-12] MEDS ORDERED: SODIUM CHLORIDE 0.9% 1000ML 1,000 ML IV SCH ×2 (19:45→20:15)
--- NOTE | 2020-07-12 19:46 | History & Physical Report ---
Date of Service July 12, 2020 Assessment & Plan (1) Left kidney mass: Patient was recently discharged with E. coli pyelonephritis/E. coli bacteremia: Adequately treated with antibiotic Admitted with fever chills leukocytosis, UA essentially negative CT of abdomen pelvis showed left-sided 4 cm mass renal cell carcinoma versus abscess ER consulted with on-call urology, Dr. Antolin booker transfer to tertiary care for IR guided drainage of abscess ER spoke with multiple specialty hospitalist/interventional radiology/urology at [facility], CT scan images uploaded to PACS system in [place] After reviewing CT scan, urology interventional radiology in [place], recommends left renal mass unlikely to be abscess, No indication for transfer patient to [facility] for left renal abscess drainage, Recommends broad-spectrum IV antibiotics Patient started on IV Rocephin as per sensitivity from prior culture: E. coli Repeat blood culture, urine culture ordered [facility] infectious disease consult, [facility] urology consulted Anemia/heme positive stool: Possible secondary to upper GI bleed Patient takes meloxicam 50 mg tablet once or twice a day for bilateral shoulder arthritis Also takes aspirin 81 mg daily Dark tarry colored stool noted few days back Stool heme positive in ER Hemoglobin 8.1, patient is very symptomatic feeling dizzy lightheaded, with borderline hypotension Given 1 unit of blood transfusion in the ER Repeat H&H at midnight Ordered for n.p.o., IV Protonix drip GI eval requested Patient may require EGD COVID-19 test negative Rest less leg syndrome Continue Requip Borderline hyponatremia: Sodium 130, possible secondary to poor p.o. intake Hold HCTZ Ordered for normal saline CODE STATUS: Full code discussed with patient DVT prophylaxis: SCD and teds avoid anticoagulation given anemia possible GI bleed Disposition: Expected to be return home when medically stable, PT OT eval prior to discharge home Plan of care discussed with patient and patient's daughter present at bedside, History of Present Illness Chief Complaint: Generalized weakness, low-grade fever Primary Care Provider: Guillaume Rueda, This is a 84-year-old female with past medical history of hypertension, thyroidism, restless leg syndrome who was recently admitted to [facility] from June 24, 2020- June 27, 2020, with acute pyelonephritis, E. coli bacteremia [facility] ciprofloxacin antibiotic as per sensitivity Patient returned home from rehab, has been experiencing episodes of dizzy spell, lightheadedness profound weakness, chills and Rigor Noted dark stool intermittently, had episodes of sharp pain on the left lower quadrant radiating to right, denies of any flank pain No complaint of urinary frequency, urgency or dysuria, no blood in urine Patient had very poor appetite, This morning patient spiked temperature, was brought to ER by her daughter In the ER patient was febrile temperature 37.6, noted to have a marked leukocytosis of 19,000, CT abdomen pelvis shows left-sided kidney 4 cm mass Allergies Allergy/AdvReac Type Severity Reaction Status Date / Time adhesive Allergy Severe RASH Unverified 07/12/20 13:30 paraben Allergy Intermediate Unknown Unverified 07/12/20 13:30 polymyxin B Allergy Intermediate Unknown Unverified 07/12/20 13:30 bacitracin Allergy Unknown Verified 07/12/20 13:30 benzoin Allergy Unknown Unknown Unverified 07/12/20 13:30 thimerosal Allergy Unknown Verified 07/12/20 13:30 [id number] Allergy Unknown Unknown Uncoded 07/12/20 13:30 Home Medications Home Medications Medication Instructions Recorded Confirmed Type aspirin 81 mg tablet,delayed 81 mg PO DAILY 10/22/19 07/12/20 History release atenolol 50 mg tablet 50 mg PO DAILY 10/22/19 07/12/20 History calcium carbonate 600 mg calcium 600 mg PO BID 10/22/19 07/12/20 History (1,500 mg) tablet hydrochlorothiazide 25 mg tablet 25 mg PO DAILY 10/22/19 07/12/20 History levothyroxine 75 mcg tablet 75 mcg PO DAILY 10/22/19 07/12/20 History meclizine 25 mg tablet 25 mg PO TID PRN 10/22/19 07/12/20 History multivitamin 1 cap PO DAILY 10/22/19 07/12/20 History potassium chloride 10 mEq 10 meq PO DAILY 10/22/19 07/12/20 History capsule,extended release baclofen 10 mg tablet 10 mg PO BID 11/10/19 07/12/20 History acetaminophen 650 mg PO TID 06/24/20 07/12/20 History losartan 100 mg PO DAILY 06/24/20 07/12/20 History meloxicam 15 mg PO DAILY 06/24/20 07/12/20 History omeprazole 10 mg PO HS PRN 06/24/20 07/12/20 History ropinirole 0.5 mg PO HS 06/24/20 07/12/20 History Lactobacillus acidoph-L.bulgar 1 tab PO BID #30 tab 06/27/20 07/12/20 Rx [Lactinex] Past Med/Surg History Medical History Arthritis Chronic venous insufficiency (Chronic) HTN (hypertension) Hyperlipidemia Hypothyroidism Obesity Osteoporosis RLS (restless legs syndrome) TIA (transient ischemic attack) Surgical History H/O hysterectomy with unilateral oophorectomy History of appendectomy Family History Father Colorectal cancer Diabetes Social History Smoking Status: Never smoker Hx Alcohol Use: No Hx Substance Use: No Preferred Language: Chinese Communication Ability: Effective Visual Impairment: Limited Hearing Ability: Normal Beliefs That Will Affect Care: None marital status: / Current Living Situation: Alone current occupational status: retired Feels Safe at Home: Yes Review of Systems Review of Systems: All systems reviewed & are unremarkable except as noted in HPI & below Constitutional: + fever, + chills, + sweats, + body aches, + fatigue, + malaise, + weakness and + anorexia Respiratory: no cough Cardiovascular: + lightheadedness Gastrointestinal: + diarrhea/loose stools Dark tarry stool Genitourinary: no dysuria, no urinary hesitancy and no hematuria Neurologic: + generalized weakness and + dizziness Physical Exam Constitutional: WD/WN, vitals as above + ill appearing and + thin Eyes: + anicteric sclerae ENMT: external ear and nose normal, oropharynx normal Neck: trachea midline, no thyromegaly Respiratory: normal respiratory effort, lungs clear to auscultation Cardiovascular: RRR, no murmur, no edema Gastrointestinal (Abdomen): Percussion/Palpation: + abdomen tender (In the left lower quadrant,) and abdomen soft Rectal Exam: + heme positive stool No left-sided flank pain Musculoskeletal: no cyanosis or clubbing, extremities motor strength 5/5 Skin: A healed skin wound noted on left ankle Neurologic: PERRL, EOMI, accommodation nl, no face palsy, no dysarthria Psychiatric: A+Ox3, euthymic affect Results & Data Results & Data ([facility]) Vital Signs (Past 12 Hours) Vital Signs Temp Pulse Pulse Resp BP BP Pulse Ox 07/12/20 18:30 77 23 114/54 L 100 07/12/20 18:15 75 21 115/62 100 07/12/20 18:00 80 23 126/61 100 07/12/20 17:45 77 23 133/59 L 100 07/12/20 17:30 78 22 130/61 100 07/12/20 17:15 80 21 131/68 100 07/12/20 17:00 79 17 131/62 99 07/12/20 16:45 78 22 132/66 100 07/12/20 16:32 37.6 C H 07/12/20 16:30 82 18 131/70 99 07/12/20 16:15 78 22 135/59 L 100 07/12/20 16:00 80 20 131/61 100 07/12/20 15:45 84 20 135/77 99 07/12/20 15:30 81 23 131/62 100 07/12/20 15:15 85 27 H 148/59 H 99 07/12/20 15:00 79 20 120/65 100 07/12/20 14:45 37.4 C 83 16 130/50 L 99 07/12/20 14:30 80 17 160/76 H 98 07/12/20 14:29 37.2 C 79 22 150/77 H 99 07/12/20 13:48 79 18 126/67 99 07/12/20 12:09 99 07/12/20 11:57 37.3 C 80 16 106/[address] of abdomen pelvis with contrast: IMPRESSION: 1. 4 cm mass-like abnormality within the mid to upper pole of the left kidney. This is highly suggestive of renal cell carcinoma. Although much less likely, this could be infectious. A renal protocol MRI in one month is recommended to confirm a mass. 1.8 cm right renal lesion likely reflects a cyst but can be assessed on follow-up MRI. 2. Subtle hypoenhancing foci within the left kidney which favor pyelonephritis. 3. 3 mm left renal calculus. No ureteral calculi or hydronephrosis. Chest x-ray portable 1 view: Normal study Code Status & VTE Plan Code Status Full CODE STATUS VTE Prophylaxis Plan VTE Prophylaxis will be ordered: Yes
[2020-07-12] MEDS ORDERED: ACETAMINOPHEN 325 MG TAB PO PRN (19:53)
[2020-07-12] MEDS ORDERED: ROPINIROLE HCL 0.25 MG TABLET PO STA (21:10)
[2020-07-12] MEDS ORDERED: LORazepam 0.5 MG TAB PO PRN (21:11)
[2020-07-12] MEDS ORDERED: ROPINIROLE HCL 0.25 MG TABLET PO SCH (21:47)
[2020-07-12] MEDS ORDERED: GADOBUTROL 65ML VIAL IV ONE (21:51)
[2020-07-12] MEDS ORDERED: cefTRIAXone SODIUM 2,000 MG in DEXTROSE 5% 50 ML IV SCH (22:00)
[2020-07-12] MEDS ORDERED: MECLIZINE HCL 25 MG TAB PO PRN (22:08)
[2020-07-12] MEDS: PANTOprazole 40 MG in DEXTROSE 5% 100 ML IV SCH (22:29)
[2020-07-12] MEDS: BACLOFEN 10 MG TAB PO SCH (22:35)
[2020-07-13 00:36] LABS: Hematocrit (blood only) 22.9 % (37-47); Hemoglobin 7.6 g/dL (12.0-16.0)
[2020-07-13] MEDS: ONDANSETRON INJ 2 MG/ML 2 ML VIAL IV PRN ×2 (01:50→11:05)
[2020-07-13] MEDS: PANTOprazole 40 MG in DEXTROSE 5% 100 ML IV SCH ×3 (03:00→12:21)
[2020-07-13] MEDS ORDERED: LEVOTHYROXINE SODIUM 75 MCG TABLET PO SCH (06:30)
[2020-07-13 06:53] LABS: Basophils # (auto) 0.02 K/uL (0-0.2); Basophils % (auto) 0.1 %; Eosinophils # (auto) 0.01 K/uL (0-0.5); Hematocrit (blood only) 22.1 % (37-47); Hemoglobin 7.3 g/dL (12.0-16.0); Immature Granulocytes # (auto) 0.13 K/uL (0.00-0.02); Immature Granulocytes % (auto) 0.6 %; Lymphocytes # (auto) 0.71 K/uL (1.2-3.4); Lymphocytes % (auto) 3.4 %; Mean Corpuscular Volume 90.9 fL (80-100); Monocytes # (auto) 1.56 K/uL (0.11-0.59); Monocytes % (auto) 7.4 %; Neutrophils # (auto) 18.71 K/uL (1.4-6.5); Neutrophils % (auto) 88.5 %; Platelet Count 181 K/uL (130-400); RDW Coefficient of Variation 16.9 % (11.5-14.5); RDW Standard Deviation 54.7 fL (36.4-46.3); Red Blood Count 2.43 M/uL (4.2-5.4); White Blood Count 21.14 K/uL (4.8-10.8)
--- NOTE | 2020-07-13 07:06 | Magnetic Resonance Report ---
MR abdomen wo/w con CLINICAL HISTORY: Renal mass. COMPARISON STUDY: CT 07/12/2020. TECHNIQUE: MRI of the abdomen is performed transverse T1 and T2-weighted sequences in the axial and c oronal planes. Contrast enhanced sequences were acquired following the IV administration of 10 cc Ga davist. FINDINGS: Lower chest: Minimal dependent basilar atelectasis. Liver: Liver spleen and pancreas are uniform in overall signal character. No significant upper abdomi nal adenopathy. Bowel pattern is nonobstructive. The right kidney shows several small exophytic cortical cyst. Left kidney demonstrates a partially enhancing mass anterior aspect left mid renal pole. This measure s 4.0 x 3.6 x 3.2 cm. Enhancement characteristics are heterogeneous. Neoplasm is diagnosis of exclusi on. The renal veins as well as renal arteries are patent. The inferior vena cava appears widely patent wi th no filling defects. Bony structures show no evidence for bone marrow replacing process. Gallbladder: Unremarkable. Spleen: Normal in size and signal intensity. Pancreas: Unremarkable. Adrenal glands: Unremarkable. normal marrow signal intensity. IMPRESSION: 1. Heterogeneously enhancing left renal mass measuring 4.0 x 3.6 x 3.2 cm. 2. Neoplasm is the diagnosis of exclusion. L3. Several small right renal cysts considered benign. 4. Study abdomen is otherwise unremarkable. ACT 112: Negative or not required by law. The above report was generated using voice recognition software. It may contain grammatical, syntax or spelling errors. Electronically signed by: Chris Lui M.D. 07/13/2020 7:05 AM
[2020-07-13 07:15] LABS: Toxic Vacuolation 1+
[2020-07-13 07:22] LABS: BUN Creatinine Ratio 34.5 (10-20); Creatinine Clr Calc Pharmacy 65.2 ml/min; Est GFR (African American) 83.3; Est GFR (Non-African American) 71.9; Potassium 3.6 mmol/L (3.5-5.1)
[2020-07-13] MEDS ORDERED: LACTOBACILLUS ACIDOPHILUS (FLORANEX) TAB PO SCH (08:00)
[2020-07-13] MEDS: BACLOFEN 10 MG TAB PO SCH (08:09)
[2020-07-13] MEDS: POTASSIUM CHLORIDE 10 MEQ TABCR PO SCH ×2 (08:10→08:15)
[2020-07-13] MEDS ORDERED: SODIUM CHLORIDE 0.9% 250 ML IV PRN (08:48)
[2020-07-13] MEDS ORDERED: TRAMADOL HCL 50 MG TABLET PO PRN (08:53)
[2020-07-13] MEDS ORDERED: MoRPHine SULFATE 2 MG/ML CARP IV PRN (08:53)
[2020-07-13] MEDS ORDERED: ATENOLOL 50 MG TABLET PO SCH (09:00)
[2020-07-13] MEDS ORDERED: SODIUM CHLORIDE 0.9% 1000ML 1,000 ML IV SCH (09:00)
[2020-07-13] MEDS ORDERED: MULTIVITAMIN TAB PO SCH (09:00)
--- NOTE | 2020-07-13 09:03 | Hospitalist Progress Note ---
Date of Service July 13, 2020 Assessment & Plan (1) Left kidney mass: Left Kidney Mass and possible Pyelonephritis per Dr. White's noted, admitting MD: Patient was recently discharged with E. coli pyelonephritis/E. coli bacteremia: Adequately treated with Ciprofloxacin for E coli Admitted with fever chills leukocytosis, UA essentially negative CT of abdomen pelvis showed left-sided 4 cm mass renal cell carcinoma versus abscess ER consulted with on-call urology, Dr. Dangelo -sukhdev transfer to tertiary care for IR guided drainage of abscess ER spoke with multiple specialty hospitalist/interventional radiology/urology at [facility], CT scan images uploaded to PACS system in [place] After reviewing CT scan, urology interventional radiology in [place], recommends left renal mass unlikely to be abscess, No indication for transfer patient to [facility] for left renal abscess drainage, Recommends broad-spectrum IV antibiotics (+) LLQ pain and CVA tenderness today ff up urine and blood cultures broaden antibiotic from Ceftriaxone to Imipenem IV based on previous cultures repeat CT abd/pelvis to r/o Bleed Possible Upper GI bleed per Dr. White's noted, admitting MD: Possible secondary to upper GI bleed Patient takes meloxicam 50 mg tablet once or twice a day for bilateral shoulder arthritis Also takes aspirin 81 mg daily Dark tarry colored stool noted few days back Stool heme positive in ER Hemoglobin 8.1, patient is very symptomatic feeling dizzy lightheaded, with borderline hypotension Given 1 unit of blood transfusion in the ER Hg 7.3 1 more unit of PRBC ordered H&H q6h Protonix Drip, NPO, IV fluids GI consulted for possible EGD today Anemia, secondary to Acute Blood Loss from Upper GI bleed management per above Rest less leg syndrome Continue Requip Hyponatremia possible secondary to poor p.o. intake Na 131 today Hold HCTZ Ordered for normal saline CODE STATUS: Full code discussed with patient DVT prophylaxis: SCD and teds avoid anticoagulation given GI bleed Disposition: Expected to be return home when medically stable, PT OT eval prior to discharge home Admission and Anticipated Discharge Date Admission Date: July 12, 2020 Subjective ff up for possible pyelonephritis, left kidney mass, UGIB seen resting in bed, not in distress, oriented x 3 somewhat weak but pleasant answers all questions states she is having 7/10, LLQ pain, drawing with some nause and chills no dysuria, hematuria (+) loose, melanotic stool today, no abdominal pain no chest pain, dyspnea, palpitations, dizziness no other symptoms Review of Systems Review of Systems: All systems reviewed & are unremarkable except as noted in HPI & below Physical Exam Physical Exam: General- oriented x 3, not in distress, speaks in sentences with no effort or accessory muscle use Head- atraumatic Eyes- PERRL, EOMI, anicteric ENT- oropharynx clear Neck- supple, no JVD, no adenopathy, no thyromegaly; carotids +2/2, no bruits appreciated Lungs- clear to auscultation bilaterally, no rales/wheezes Heart- normal rate, regular rhythm; no murmur, no gallop, no rub appreciated Abdomen- normal bowel sounds, nondistended, soft, (+) moderate LLQ tenderness and mild L CVA tenderness, no masses or hepatosplenomegaly Extremities- no pretibial edema, no calf tenderness; peripheral pulses intact Neuro- alert, oriented x 3; CN 2-12 grossly intact; motor 5/5 bilaterally;sensation 100% on all extremities; no other gross focal neurologic deficits Skin- warm & dry Results & Data Results & Data ([facility]) Vital Signs (Past 12 Hours) Vital Signs Temp Pulse Resp BP Pulse Ox Pulse Ox 07/13/20 08:24 37.1 C 92 H 18 102/66 93 07/13/20 03:00 37.0 C 87 16 100/50 L 96 07/13/20 00:15 36.7 C 85 16 130/73 95 07/12/20 23:00 96 07/12/20 21:55 37.3 C 88 18 106/70 94 Laboratory Results Laboratory Results - last 24 hr 07/12/20 07/12/20 07/12/20 12:26 12:26 12:26 WBC 19.23 H RBC 2.54 L Hgb 8.1 L Hct 23.5 L MCV 92.5 MCH 31.9 MCHC 34.5 RDW Std Deviation 52.6 H RDW Coeff of [place] 16.1 H Plt Count 241 MPV 10.9 H Immature Gran % (Auto) 0.3 Neut % (Auto) 86.4 Lymph % (Auto) 6.8 [place] % (Auto) 5.5 Eos % (Auto) 0.8 Baso % (Auto) 0.2 Neut # (Auto) 16.62 H Lymph # (Auto) 1.30 [place] # (Auto) 1.06 H Eos # (Auto) 0.16 Baso # (Auto) 0.03 Immature Gran # (Auto) 0.06 H Toxic Vacuolation PT 11.7 INR 1.1 APTT 20.2 L PTT Ratio 0.7 Sodium 130 L Potassium 3.8 Chloride 100 Carbon Dioxide 22 Anion Gap 8.0 BUN 29 H Creatinine 0.73 Est Cr Clr Drug Dosing 71.5 Est GFR ( Amer) 88.9 Est GFR (Non-Af Amer) 76.7 BUN/Creatinine Ratio 39.7 H Glucose 103 H Lactate Calcium 8.1 L Magnesium 1.8 Total Bilirubin 0.7 AST 20 ALT 20 Alkaline Phosphatase 62 Troponin I 0.019 Total Protein 6.3 L Albumin 2.9 L Globulin 3.4 Albumin/Globulin Ratio 0.9 Procalcitonin Urine Color Urine Appearance Urine pH Ur Specific [place] Urine Protein Urine Glucose (UA) Urine Ketones Urine Blood Urine Nitrite Urine Bilirubin Urine Urobilinogen Ur Leukocyte Esterase Urine WBC (Auto) Urine RBC (Auto) U Hyaline Cast (Auto) U Epithel Cells (Auto) Urine Bacteria (Auto) Blood Type Blood Type Recheck Antibody Screen Crossmatch 07/12/20 07/12/20 07/12/20 12:26 12:26 12:33 WBC RBC Hgb Hct MCV MCH MCHC RDW Std Deviation RDW Coeff of [place] Plt Count MPV Immature Gran % (Auto) Neut % (Auto) Lymph % (Auto) [place] % (Auto) Eos % (Auto) Baso % (Auto) Neut # (Auto) Lymph # (Auto) [place] # (Auto) Eos # (Auto) Baso # (Auto) Immature Gran # (Auto) Toxic Vacuolation PT INR APTT PTT Ratio Sodium Potassium Chloride Carbon Dioxide Anion Gap BUN Creatinine Est Cr Clr Drug Dosing Est GFR ( Amer) Est GFR (Non-Af Amer) BUN/Creatinine Ratio Glucose Lactate 1.6 Calcium Magnesium Total Bilirubin AST ALT Alkaline Phosphatase Troponin I Total Protein Albumin Globulin Albumin/Globulin Ratio Procalcitonin < 0.05 Urine Color Urine Appearance Urine pH Ur Specific [place] Urine Protein Urine Glucose (UA) Urine Ketones Urine Blood Urine Nitrite Urine Bilirubin Urine Urobilinogen Ur Leukocyte Esterase Urine WBC (Auto) Urine RBC (Auto) U Hyaline Cast (Auto) U Epithel Cells (Auto) Urine Bacteria (Auto) Blood Type O Positive Blood Type Recheck Antibody Screen NEGATIVE Crossmatch See Detail 07/12/20 07/12/20 07/13/20 13:26 15:55 00:16 WBC RBC Hgb 7.6 L Hct 22.9 L MCV MCH MCHC RDW Std Deviation RDW Coeff of [place] Plt Count MPV Immature Gran % (Auto) Neut % (Auto) Lymph % (Auto) [place] % (Auto) Eos % (Auto) Baso % (Auto) Neut # (Auto) Lymph # (Auto) [place] # (Auto) Eos # (Auto) Baso # (Auto) Immature Gran # (Auto) Toxic Vacuolation PT INR APTT PTT Ratio Sodium Potassium Chloride Carbon Dioxide Anion Gap BUN Creatinine Est Cr Clr Drug Dosing Est GFR ( Amer) Est GFR (Non-Af Amer) BUN/Creatinine Ratio Glucose Lactate Calcium Magnesium Total Bilirubin AST ALT Alkaline Phosphatase Troponin I Total Protein Albumin Globulin Albumin/Globulin Ratio Procalcitonin Urine Color Yellow Urine Appearance Clear Urine pH 6.0 Ur Specific [place] 1.032 H Urine Protein Negative Urine Glucose (UA) Negative Urine Ketones Negative Urine Blood Negative Urine Nitrite Negative Urine Bilirubin Negative Urine Urobilinogen Negative Ur Leukocyte Esterase 1+ H Urine WBC (Auto) 1-5 Urine RBC (Auto) 0-4 U Hyaline Cast (Auto) 0 U Epithel Cells (Auto) 0-5 Urine Bacteria (Auto) Negative Blood Type Blood Type Recheck O Positive Antibody Screen Crossmatch 07/13/20 07/13/20 06:41 06:41 WBC 21.14 H RBC 2.43 L Hgb 7.3 L Hct 22.1 L MCV 90.9 MCH 30.0 MCHC 33.0 RDW Std Deviation 54.7 H RDW Coeff of [place] 16.9 H Plt Count 181 MPV 11.0 H Immature Gran % (Auto) 0.6 Neut % (Auto) 88.5 Lymph % (Auto) 3.4 [place] % (Auto) 7.4 Eos % (Auto) 0.0 Baso % (Auto) 0.1 Neut # (Auto) 18.71 H Lymph # (Auto) 0.71 L [place] # (Auto) 1.56 H Eos # (Auto) 0.01 Baso # (Auto) 0.02 Immature Gran # (Auto) 0.13 H Toxic Vacuolation 1+ PT INR APTT PTT Ratio Sodium 131 L Potassium 3.6 Chloride 101 Carbon Dioxide 23 Anion Gap 7.0 BUN 27 H Creatinine 0.77 Est Cr Clr Drug Dosing 65.2 Est GFR ( Amer) 83.3 Est GFR (Non-Af Amer) 71.9 BUN/Creatinine Ratio 34.5 H Glucose 133 H Lactate Calcium 8.0 L Magnesium Total Bilirubin AST ALT Alkaline Phosphatase Troponin I Total Protein Albumin Globulin Albumin/Globulin Ratio Procalcitonin Urine Color Urine Appearance Urine pH Ur Specific [place] Urine Protein Urine Glucose (UA) Urine Ketones Urine Blood Urine Nitrite Urine Bilirubin Urine Urobilinogen Ur Leukocyte Esterase Urine WBC (Auto) Urine RBC (Auto) U Hyaline Cast (Auto) U Epithel Cells (Auto) Urine Bacteria (Auto) Blood Type Blood Type Recheck Antibody Screen Crossmatch
[2020-07-13] MEDS ORDERED: IMIPENEM/CILASTATIN CONSULT ACTIVE PRN (09:20)
[2020-07-13] MEDS ORDERED: IMIPENEM/CILASTATIN SODIUM 400 MG in DEXTROSE 5% 100 ML IV SCH (10:00)
--- NOTE | 2020-07-13 10:09 | Gastrointestinal Consultation ---
Date of Consultation July 13, 2020 Assessment & Plan (1) Anemia: (2) Melena: (3) Heme positive stool: Pt is a 84 y/o female w hx of pyelonephritis, presented w fever, symptomatic anemia, melena and heme positive stools. Hx of Meloxicam use for OA. She is currently on 2nd Unit PRBC transfusion. Is still having melena per RN this AM - Keep NPO - PPI gtt - EGD eval by Dr. Gonzales today - Monitor blood ct and repeat transfusion prn - Pyelonephritis and hyponatremia management per primary team Supervising Physician Co-Signing Physician Notes Attending attestation I have seen, examined this patient, and agree with the findings and above by our mid-level provider BHARGAVI Vilchis, with the following additions Having intermittent dark stools with anemia, certainly has pyelonephritis with concern of infection. Been asked and encouraged to do EGD today which after careful discussion with anesthesia we will proceed carefully. She has been transfused and is on PPI drip will plan for EGD today with further recommendations to follow. History of Present Illness Reason for Consultation: Anemia, heme positive stools, melena Requesting Physician: Dr. Ronny Marin Attending Physician: Dr. Mukul Gonzales History of Present Illness Pt is a 84 y/o female recently discharged w Ecoli pyelonephritis and bacteremia, completed rehab at [facility], then upon returning to home felt dizzy light headed, weak, also having fevers. She noticed stools have been black in color for about a week. She is c/o epigastric pain, some n/v but no coffee grounds or hematemesis. Abdominal imaging w CT and MRI concerning for R renal mass and pyeloneprhritis. CXR unremarkable. On eval, found to be anemic, Hgb 7, previously 11. INR 1.1. She had been taking Meloxicam BID for shoulder arthritis pain. Denies hx of PUD. Colonoscopy in 2006 showed hyperplastic polyp, in 2011 showed Hepatic flexure ulcer, diverticulosis, int hemorrhoids. She is on 2nd unit PRBC transfusion. She appears pale and weak. Allergies Allergy/AdvReac Type Severity Reaction Status Date / Time adhesive Allergy Severe RASH Unverified 07/12/20 13:30 paraben Allergy Intermediate Unknown Unverified 07/12/20 13:30 polymyxin B Allergy Intermediate Unknown Unverified 07/12/20 13:30 bacitracin Allergy Unknown Unknown Verified 07/13/20 09:16 benzoin Allergy Unknown Unknown Unverified 07/12/20 13:30 influenza virus vaccine Allergy Unknown Unknown Verified 07/13/20 09:16 trivalent thimerosal Allergy Unknown Unknown Verified 07/13/20 09:16 Home Medications Home Medications Medication Instructions Recorded Confirmed Type aspirin 81 mg tablet,delayed 81 mg PO DAILY 10/22/19 07/12/20 History release atenolol 50 mg tablet 50 mg PO DAILY 10/22/19 07/12/20 History calcium carbonate 600 mg calcium 600 mg PO BID 10/22/19 07/12/20 History (1,500 mg) tablet hydrochlorothiazide 25 mg tablet 25 mg PO DAILY 10/22/19 07/12/20 History levothyroxine 75 mcg tablet 75 mcg PO DAILY 10/22/19 07/12/20 History meclizine 25 mg tablet 25 mg PO TID PRN 10/22/19 07/12/20 History multivitamin 1 cap PO DAILY 10/22/19 07/12/20 History potassium chloride 10 mEq 10 meq PO DAILY 10/22/19 07/12/20 History capsule,extended release baclofen 10 mg tablet 10 mg PO BID 11/10/19 07/12/20 History acetaminophen 650 mg PO TID 06/24/20 07/12/20 History losartan 100 mg PO DAILY 06/24/20 07/12/20 History meloxicam 15 mg PO DAILY 06/24/20 07/12/20 History omeprazole 10 mg PO HS PRN 06/24/20 07/12/20 History ropinirole 0.5 mg PO HS 06/24/20 07/12/20 History Lactobacillus acidoph-L.bulgar 1 tab PO BID #30 tab 06/27/20 07/12/20 Rx [Lactinex] Patient History Medical History Arthritis Chronic venous insufficiency HTN (hypertension) Hyperlipidemia Hypothyroidism Obesity Osteoporosis RLS (restless legs syndrome) TIA (transient ischemic attack) Surgical History H/O hysterectomy with unilateral oophorectomy History of appendectomy Family History Father Colorectal cancer Diabetes Social History Smoking Status: Never smoker Hx Alcohol Use: No Hx Substance Use: No Preferred Language: Belgian Communication Ability: Effective Visual Impairment: Limited Hearing Ability: Normal Beliefs That Will Affect Care: None marital status: / Current Living Situation: Rehab Current Living Situation Comment: lived alone prior to rehab. Pt has comfort care come 4x/week for 4 hours current occupational status: retired Feels Safe at Home: Yes Safety Concerns: Feels Safe At This Time Review of Systems Review of Systems: All systems reviewed & are unremarkable except as noted in HPI & below Physical Exam Constitutional: + frail appearing, well groomed, cooperative, comfortable and + lethargic Eyes: PERRL, conjunctivae normal, anicteric sclerae ENMT: external ear and nose normal, oropharynx normal Respiratory: normal respiratory effort, lungs clear to auscultation Cardiovascular: RRR, no murmur, no edema Gastrointestinal (Abdomen): Inspection/Auscultation: + hypoactive bowel sounds Percussion/Palpation: + abdomen tender (epigastric) and abdomen soft Skin: Pale Psychiatric: A+Ox3, euthymic affect Lymphatic: no lymphedema Results & Data ([facility]) Vital Signs (Past 12 Hours) Vital Signs Temp Pulse Pulse Resp BP BP Pulse Ox 07/13/20 09:45 37.9 C H 102 H 20 97/61 L 93 07/13/20 09:29 38.3 C H 102 H 20 102/67 94 07/13/20 08:24 37.1 C 92 H 18 102/66 93 07/13/20 03:00 37.0 C 87 16 100/50 L 96 07/13/20 00:15 36.7 C 85 16 130/73 95 07/12/20 23:00 Pulse Ox 07/13/20 09:45 07/13/20 09:29 07/13/20 08:24 07/13/20 03:00 07/13/20 00:15 07/12/20 23:00 96 (1) Anemia Anemia type: unspecified type Qualified Code(s): D64.9 - Anemia, unspecified
[2020-07-13] MEDS ORDERED: PANTOprazole 40 MG in SYRINGE 0 ML IV SCH (11:00)
--- NOTE | 2020-07-13 11:03 | CT Scan Report ---
CT abd pelvis wo con CT DOSE: 1550.41 mGy.cm HISTORY: Pain left lower quad pain, r/o bleed TECHNIQUE: Multiaxial CT images of the abdomen and pelvis were performed without contrast. A dose lo wering technique was utilized adhering to the principles of ALARA. COMPARISON STUDY: 07/12/2020 FINDINGS: Lung bases are clear. Liver spleen and pancreas appear unremarkable. The left renal mass is unchanged. Moderate motion artifact is present. There is a small exophytic right renal cyst. No evidence for hydronephrosis. Slight left renal perinephric infiltrative changes unaltered. The bowel pattern is considered nonobstructive. No evidence for mass or collection within the pelvis. Several small perirectal nodes unchanged from the prior study. Several small paratracheal nodes also unchanged. IMPRESSION: 1. Stable exam with no change from the prior study. 2. Left renal mass which has been described on several prior imaging studies. 3. Nonobstructive bowel pattern with no evidence for hemorrhage or collection. ACT 112: Negative or not required by law. The above report was generated using voice recognition software. It may contain grammatical, syntax or spelling errors. Electronically signed by: Chris Lui M.D. 07/13/2020 11:02 AM
[2020-07-13] MEDS ORDERED: PROMETHAZINE HCL 12.5 MG in SODIUM CHLORIDE 0.9% 50 ML IV PRN (12:15)
[2020-07-13] MEDS ORDERED: PROPOFOL IV EMULSION 10 MG/ML 20 ML VIAL IV ONE ×2 (12:46→13:26)
[2020-07-13] MEDS ORDERED: LIDOCAINE HCL 2% 2 ML VIAL/AMP(20MG/ML) INFIL ONE (12:46)
--- NOTE | 2020-07-13 12:51 | Anesthesiology Consultation ---
Date of Service July 13, 2020 Assessment & Plan Chart Review Chart Review: Acceptable Risk for Surgery Consults Requested none History Surgery Operation Date: 07/13/20 17:00 Proposed Procedures p Esophagogastroduodenoscopy Dr Christian Gonzales Height/Weight Height: 5 ft 5 in Weight: 97.9 kg Allergies Allergy/AdvReac Type Severity Reaction Status Date / Time adhesive Allergy Severe RASH Unverified 07/12/20 13:30 paraben Allergy Intermediate Unknown Unverified 07/12/20 13:30 polymyxin B Allergy Intermediate Unknown Unverified 07/12/20 13:30 bacitracin Allergy Unknown Unknown Verified 07/13/20 09:16 benzoin Allergy Unknown Unknown Unverified 07/12/20 13:30 influenza virus vaccine Allergy Unknown Unknown Verified 07/13/20 09:16 trivalent thimerosal Allergy Unknown Unknown Verified 07/13/20 09:16 Medications Home Medications Medication Instructions Recorded Confirmed Last Taken aspirin 81 mg tablet,delayed 81 mg PO DAILY 10/22/19 07/12/20 07/12/20 release atenolol 50 mg tablet 50 mg PO DAILY 10/22/19 07/12/20 07/12/20 calcium carbonate 600 mg calcium 600 mg PO BID 10/22/19 07/12/20 07/11/20 (1,500 mg) tablet hydrochlorothiazide 25 mg tablet 25 mg PO DAILY 10/22/19 07/12/20 07/12/20 levothyroxine 75 mcg tablet 75 mcg PO DAILY 10/22/19 07/12/20 07/11/20 meclizine 25 mg tablet 25 mg PO TID PRN 10/22/19 07/12/20 07/11/20 multivitamin 1 cap PO DAILY 10/22/19 07/12/20 07/11/20 potassium chloride 10 mEq 10 meq PO DAILY 10/22/19 07/12/20 07/11/20 capsule,extended release baclofen 10 mg tablet 10 mg PO BID 11/10/19 07/12/20 07/11/20 acetaminophen 650 mg PO TID 06/24/20 07/12/20 07/11/20 losartan 100 mg PO DAILY 06/24/20 07/12/20 07/12/20 meloxicam 15 mg PO DAILY 06/24/20 07/12/20 07/11/20 omeprazole 10 mg PO HS PRN 06/24/20 07/12/20 07/11/20 ropinirole 0.5 mg PO HS 06/24/20 07/12/20 07/11/20 Lactobacillus acidoph-L.bulgar 1 tab PO BID #30 tab 06/27/20 07/12/20 07/11/20 [Lactinex] Active Medications Generic Name Dose Route Start Last Admin Trade Name Freq PRN Reason Stop Dose Admin Acetaminophen 650 mg 07/12/20 19:53 07/13/20 08:07 Tylenol PO 08/11/20 19:52 650 mg Q4H PRN Administration Pain or Fever Atenolol 50 mg 07/13/20 09:00 07/13/20 10:27 Tenormin PO 08/12/20 08:59 Not Given DAILY JAYLEEN Baclofen 10 mg 07/12/20 21:47 07/13/20 08:09 Lioresal PO 08/11/20 21:46 10 mg BID JAYLEEN Administration Pantoprazole Sodium 40 mg/ 100 mls @ 20 mls/hr 07/12/20 22:00 07/13/20 12:21 Dextrose IV 08/11/20 21:59 8 mg/hr Q5H JAYLEEN 20 mls/hr Administration 8 MG/HR Sodium Chloride 1,000 mls @ 80 mls/hr 07/13/20 09:00 07/13/20 09:51 Nss 1000ml IV 08/12/20 08:59 80 mls/hr .[id number] JAYLEEN Administration Imipenem/Cilastatin Sodium 400 108 mls @ 108 mls/hr 07/13/20 10:00 07/13/20 10:54 mg/ Dextrose IV 07/23/20 09:59 Infused Q6H JAYLEEN Infusion Protocol Lactobacillus Acidophilus 4 tab 07/13/20 08:00 07/13/20 08:09 Floranex PO 08/12/20 07:59 4 tab BIDM JAYLEEN Administration Levothyroxine Sodium 75 mcg 07/13/20 06:30 07/13/20 06:21 Synthroid PO 08/12/20 06:29 75 mcg DAILYBB JAYLEEN Administration Multivitamins 1 tab 07/13/20 09:00 07/13/20 08:10 Multivitamin Tab PO 08/12/20 08:59 1 tab QAM JAYLEEN Administration Ondansetron HCl 4 mg 07/12/20 19:53 07/13/20 11:05 Zofran IV 08/11/20 19:52 4 mg Q6H PRN Administration Nausea Potassium Chloride 10 meq 07/13/20 09:00 07/13/20 08:15 Klor-Con M10 PO 08/12/20 08:59 Not Given DAILY JAYLEEN Ropinirole HCl 0.5 mg 07/12/20 21:47 07/12/20 22:35 Requip PO 08/11/20 21:46 0.5 mg HS JAYLEEN Administration NPO Date Last Intake of Fluids: 07/12/20 Date Last Intake of Solids: 07/11/20 Past Medical History Medical History Arthritis Chronic venous insufficiency HTN (hypertension) Hyperlipidemia Hypothyroidism Obesity Osteoporosis RLS (restless legs syndrome) TIA (transient ischemic attack) Past Family History Family History Father Colorectal cancer Diabetes Past Surgical History Surgical History H/O hysterectomy with unilateral oophorectomy History of appendectomy Social History Smoking Status: Never smoker Hx Alcohol Use: No Hx Substance Use: No Physical Exam Vital Signs Last Vital Signs Temp 37.1 C 07/13/20 11:35 Pulse 98 H 07/13/20 12:45 Resp 18 07/13/20 12:45 BP 104/62 07/13/20 12:45 Pulse Ox 95 07/13/20 12:45 Testing Laboratory Results 07/13/20 06:41 07/13/20 06:41 PT 11.7 Seconds (9.0-12.0) 07/12/20 12:26 INR 1.1 (0.9-1.1) 07/12/20 12:26 APTT 20.2 Seconds (21.0-31.0) L 07/12/20 12:26 Urine Color Yellow 07/12/20 15:55 Urine Appearance Clear (Clear) 07/12/20 15:55 Urine pH 6.0 (4.5-7.5) 07/12/20 15:55 Ur Specific [place] 1.032 (1.000-1.030) H 08/11/20 15:55 Urine Protein Negative (Negative) 07/12/20 15:55 Urine Glucose (UA) Negative (Negative) 07/12/20 15:55 Urine Ketones Negative (Negative) 07/12/20 15:55 Urine Nitrite Negative (Negative) 07/12/20 15:55 Ur Leukocyte Esterase 1+ (Negative) H 07/12/20 15:55 Urine WBC (Auto) 1-5 /hpf (0-5) 07/12/20 15:55 Urine RBC (Auto) 0-4 /hpf (0-4) 07/12/20 15:55 U Hyaline Cast (Auto) 0 /lpf (0-5) 07/12/20 15:55 U Epithel Cells (Auto) 0-5 /lpf (0-5) 07/12/20 15:55 Urine Bacteria (Auto) Negative (Negative) 07/12/20 15:55 Blood Type O Positive 07/12/20 12:33 Antibody Screen NEGATIVE 07/12/20 12:33
[2020-07-13] MEDS ORDERED: ONDANSETRON INJ 2 MG/ML 2 ML VIAL ONE (13:41)
[2020-07-13] MEDS ORDERED: EPINEPHrine INJ 1 MG/ML AMP ONE (13:41)
[2020-07-13] MEDS ORDERED: PHENYLEPHRINE 100MCG/ML 5ML SYR ONE (13:41)
--- NOTE | 2020-07-13 13:50 | Consultation Report ---
DATE OF CONSULTATION: 07/13/2020 REASON FOR THE CONSULT: Left renal mass, left pyelonephritis, urosepsis. HISTORY OF PRESENTATION: The patient is an 84-year-old female who was discharged late June after being admitted for E. coli pyelonephritis. The patient was treated with antibiotics and had leukocytosis, but there was no imaging of the kidney performed at that time. She was discharged to home and returned recently after being in rehab on p.o. ciprofloxacin as per sensitivity. She began to have abdominal pain and had a dark stool with left lower quadrant pain and poor appetite, and this morning, she had a fever and came to the Emergency Room. In the Emergency Room, her temperature was 37.6 and she had a white blood cell count of 19,000. A CAT scan was performed, which does show a left-sided 4 cm renal mass. It also showed some decreased perfusion, suspicious for pyelonephritis. The patient was also having melena. Yesterday, Dr. Bowden, who was pressurised container filler, was called by the Emergency Room, and on reviewing the CAT scan, felt that there was a small possibility that that renal mass could be the beginning of an abscess and recommended that she be transferred to a tertiary care center. Apparently, [facility] looked at this and did not feel that this was an abscess and did not feel that intervention was necessary. I reviewed the CT scan this morning with Dr. Seaman who had reviewed it yesterday with Dr. Hernandez who read the film, and he also felt that this was more likely a renal mass and not an abscess, although they could not be sure. An MRI of the kidney was performed, which also did not show significant amount of liquid and suggested a renal mass. So all the radiologists involved that have read this feel that this is likely a renal mass and not a developing abscess, although none of them are able to say authoritatively that it was not possibly the beginning of a renal abscess. The patient does have abdominal pain and mild back pain today on examination. Urinalysis does not show any significant bacteriuria and it shows minimal pyuria. The patient's hematocrit has dropped to the low 20s and was being transfused this morning and her white blood cell count went up to 21,000. I did discuss with the hospitalist this morning placing the patient on significant coverage and may be discussing with ID regarding the coverage for this patient. The patient does not have a history of diabetes, and of note, there was no gas noted on the x-ray and no obstruction of the ureters. No hydronephrosis was noted. PAST MEDICAL HISTORY: Significant for hypothyroidism, arthritis, chronic venous insufficiency, hyperlipidemia, restless legs syndrome, and TIA. SOCIAL HISTORY: The patient does not use alcohol. She has never been a smoker. PAST SURGICAL HISTORY: She does have a history of hysterectomy and appendectomy. Please refer to the chart for a list of her medications and her allergies and review of systems. The patient did have fever, chills, sweats, body aches, fatigue and weakness. She does feel occasionally lightheaded and from a GI point of view, she does have diarrhea, loose dark black tarry stools and neurologically, she is alert, but does have some dizziness. PHYSICAL EXAMINATION: GENERAL: The patient is an ill-appearing female. HEENT: Noncontributory. NECK: Trachea is midline. No thyromegaly. LUNGS: There is no respiratory distress. CARDIOVASCULAR: There is no significant pedal edema. GASTROINTESTINAL: She does have pain in the left lower quadrant. There is some tenderness in her left flank, but minimal. SKIN: Normal. She does have a wound healed in the left ankle. MUSCULOSKELETAL: She has got normal motor strength bilaterally. NEUROLOGIC: She is alert and oriented without obvious focal or sensory deficit . PSYCHIATRIC: She seems to have euthymic affect. ASSESSMENT AND PLAN: A 4 cm mass in the left upper quadrant. At this point, it appears that this is likely a renal mass as opposed to a developing abscess, but if the patient continues to deteriorate, we would rescan her and have a low threshold to transfer for drainage if an abscess does develop. The patient apparently after speaking with gastrointestinal today is going to be scoped for ongoing gastrointestinal bleed. This required transfusion. We will continue to follow along.
[2020-07-13] MEDS ORDERED: DEXAMETHASONE SOD INJ 4 MG/ML VIAL ONE (13:59)
--- NOTE | 2020-07-13 14:03 | Critical Care Consultation ---
Date of Consultation July 13, 2020 Assessment & Plan (1) Acute blood loss anemia: -- Acute blood loss anaemia Likely secondary to upper GI bleed Type and screen Transfuse as needed to keep hemoglobin greater than 7 Monitor H&H GI on board, status post EGD 07/13/2020 showing bleeding vessel and 3 paula and local epi given Patient got 2 units of PRBC so far. Monitor H&H every 4 hours transfuse as needed Patient to be transferred to a facility with IR capacity. --Hypotension Component of hypovolemia from GI bleed on top of sepsis from acute pyelonephritis Continue with antibiotics If blood pressure does not respond to fluids/blood we will start vasopressors --Acute pyelonephritis with possible renal mass Continue with antibiotics Increased WBC could also be from GI bleed itself But given that the patient has history of E. coli bacteremia as well as left- sided kidney 4 cm mass Continue with broad-spectrum antibiotics Follow-up septic work-up --Hypothyroidism Continue with levothyroxine --Prophylaxis VTE: IPC's GI: Protonix drip Lines: Peripheral Diet: N.p.o. Plan: Monitor H&H. Awaiting transfer to [place]. Case discussed with hospitalist. Dr Gonzales spoke with Dr Nava from [facility] who is accepted the patient in the ICU. (2) Acute pyelonephritis: (3) Hypothyroidism: History of Present Illness Attending Physician: Ronny Marin MD History of Present Illness 84 female with past medical history of hypertension, hypothyroidism was admitted to the hospital with episodes of dizziness, lightheadedness and profound weakness chills and rigors. She was also noted to have melanotic stools and left lower quadrant pain. Patient was found to have WBC count of 19,[address] abdomen pelvis showing left-sided kidney 4 cm mass. She was in the hospital from June 24 to June 27 with acute pyelonephritis and E. coli bacteremia. Patient is on broad-spectrum antibiotics. There was drop in hemoglobin along with melanotic stools for which she was taken for EGD which showed oozing blood vessel. Credit Director put 3 paula as well as local epi. Currently patient is on Protonix drip She was hypotensive she got little bit of vasopressor support while doing the EGD. ICU was consulted as a bridge to transfer to a facility where IR capacity as she might need IR if there is any future bleed. History obtained from previous notes and signout from Dr Gonzales (GI). Allergies Allergy/AdvReac Type Severity Reaction Status Date / Time adhesive Allergy Severe RASH Unverified 07/12/20 13:30 paraben Allergy Intermediate Unknown Unverified 07/12/20 13:30 polymyxin B Allergy Intermediate Unknown Unverified 07/12/20 13:30 bacitracin Allergy Unknown Unknown Verified 07/13/20 09:16 benzoin Allergy Unknown Unknown Unverified 07/12/20 13:30 influenza virus vaccine Allergy Unknown Unknown Verified 07/13/20 09:16 trivalent thimerosal Allergy Unknown Unknown Verified 07/13/20 09:16 Home Medications Home Medications Medication Instructions Recorded Confirmed Type aspirin 81 mg tablet,delayed 81 mg PO DAILY 10/22/19 07/12/20 History release atenolol 50 mg tablet 50 mg PO DAILY 10/22/19 07/12/20 History calcium carbonate 600 mg calcium 600 mg PO BID 10/22/19 07/12/20 History (1,500 mg) tablet hydrochlorothiazide 25 mg tablet 25 mg PO DAILY 10/22/19 07/12/20 History levothyroxine 75 mcg tablet 75 mcg PO DAILY 10/22/19 07/12/20 History meclizine 25 mg tablet 25 mg PO TID PRN 10/22/19 07/12/20 History multivitamin 1 cap PO DAILY 10/22/19 07/12/20 History potassium chloride 10 mEq 10 meq PO DAILY 10/22/19 07/12/20 History capsule,extended release baclofen 10 mg tablet 10 mg PO BID 11/10/19 07/12/20 History acetaminophen 650 mg PO TID 06/24/20 07/12/20 History losartan 100 mg PO DAILY 06/24/20 07/12/20 History meloxicam 15 mg PO DAILY 06/24/20 07/12/20 History omeprazole 10 mg PO HS PRN 06/24/20 07/12/20 History ropinirole 0.5 mg PO HS 06/24/20 07/12/20 History Lactobacillus acidoph-L.bulgar 1 tab PO BID #30 tab 06/27/20 07/12/20 Rx [Lactinex] Patient History Medical History Arthritis Chronic venous insufficiency HTN (hypertension) Hyperlipidemia Hypothyroidism Obesity Osteoporosis RLS (restless legs syndrome) TIA (transient ischemic attack) Surgical History H/O hysterectomy with unilateral oophorectomy History of appendectomy Family History Father Colorectal cancer Diabetes Social History Smoking Status: Never smoker Hx Alcohol Use: No Hx Substance Use: No Preferred Language: Yi Communication Ability: Effective Visual Impairment: Limited Hearing Ability: Normal Beliefs That Will Affect Care: None marital status: / Current Living Situation: Rehab Current Living Situation Comment: lived alone prior to rehab. Pt has comfort care come 4x/week for 4 hours current occupational status: retired Feels Safe at Home: Yes Safety Concerns: Feels Safe At This Time Review of Systems Review of Systems: All systems reviewed & are unremarkable except as noted in HPI & below and Unobtainable due to cognitive status Physical Exam Skin: no rashes, warm and dry Lymphatic: no cervical or axillary lymphadenopathy Results & Data Results & Data ([facility]) Vital Signs (Past 12 Hours) Vital Signs Temp Pulse Pulse Resp BP BP Pulse Ox 07/13/20 13:48 94 H 18 140/78 96 07/13/20 13:33 91 H 18 99/83 L 95 07/13/20 12:45 37.3 C 98 H 18 104/62 95 07/13/20 11:35 37.1 C 84 18 98/64 L 93 07/13/20 10:54 37.0 C 95 H 18 96/64 L 96 07/13/20 10:00 37.8 C H 96 H 18 94/58 L 93 07/13/20 09:45 37.8 C H 98 H 18 92/58 L 96 07/13/20 09:29 38.3 C H 102 H 20 102/67 94 07/13/20 08:24 37.1 C 92 H 18 102/66 93 07/13/20 03:00 37.0 C 87 16 100/50 L 96 07/13/20 06:41 07/13/20 06:41 Coding Level of Care Code 97982 Office/OBS Consult Lvl 1 Diagnoses Acute blood loss anemia D62 Acute pyelonephritis N10 Hypothyroidism E03.9 Time Spent (min) 47
--- NOTE | 2020-07-13 14:14 | Anesthesiology Progress Note ---
Date of Service July 13, 2020 Anesthesia Post Procedure Vital Signs Vital Signs: Temp Pulse Pulse Resp BP BP Pulse Ox 07/13/20 14:04 89 18 150/87 H 100 07/13/20 13:48 94 H 18 140/78 96 07/13/20 13:33 91 H 18 99/83 L 95 07/13/20 12:45 37.3 C 98 H 18 104/62 95 07/13/20 11:35 37.1 C 84 18 98/64 L 93 07/13/20 10:54 37.0 C 95 H 18 96/64 L 96 07/13/20 10:00 37.8 C H 96 H 18 94/58 L 93 07/13/20 09:45 37.8 C H 98 H 18 92/58 L 96 07/13/20 09:29 38.3 C H 102 H 20 102/67 94 07/13/20 08:24 37.1 C 92 H 18 102/66 93 07/13/20 03:00 37.0 C 87 16 100/50 L 96 07/13/20 00:15 36.7 C 85 16 130/73 95 07/12/20 23:00 07/12/20 21:55 37.3 C 88 18 106/70 94 07/12/20 20:30 82 22 132/67 100 07/12/20 20:00 87 19 137/80 100 07/12/20 19:30 78 22 127/55 L 100 07/12/20 19:00 81 22 124/55 L 100 07/12/20 18:30 77 23 114/54 L 100 07/12/20 18:15 75 21 115/62 100 07/12/20 18:00 80 23 126/61 100 07/12/20 17:45 77 23 133/59 L 100 07/12/20 17:30 78 22 130/61 100 07/12/20 17:15 80 21 131/68 100 07/12/20 17:00 79 17 131/62 99 07/12/20 16:45 78 22 132/66 100 07/12/20 16:32 37.6 C H 07/12/20 16:30 82 18 131/70 99 07/12/20 16:15 78 22 135/59 L 100 07/12/20 16:00 80 20 131/61 100 07/12/20 15:45 84 20 135/77 99 07/12/20 15:30 81 23 131/62 100 07/12/20 15:15 85 27 H 148/59 H 99 07/12/20 15:00 79 20 120/65 100 07/12/20 14:45 37.4 C 83 16 130/50 L 99 07/12/20 14:30 80 17 160/76 H 98 07/12/20 14:29 37.2 C 79 22 150/77 H 99 Pulse Ox 07/13/20 14:04 07/13/20 13:48 07/13/20 13:33 07/13/20 12:45 07/13/20 11:35 07/13/20 10:54 07/13/20 10:00 07/13/20 09:45 07/13/20 09:29 07/13/20 08:24 07/13/20 03:00 07/13/20 00:15 07/12/20 23:00 96 07/12/20 21:55 07/12/20 20:30 07/12/20 20:00 07/12/20 19:30 07/12/20 19:00 07/12/20 18:30 07/12/20 18:15 07/12/20 18:00 07/12/20 17:45 07/12/20 17:30 07/12/20 17:15 07/12/20 17:00 07/12/20 16:45 07/12/20 16:32 07/12/20 16:30 07/12/20 16:15 07/12/20 16:00 07/12/20 15:45 07/12/20 15:30 07/12/20 15:15 07/12/20 15:00 07/12/20 14:45 07/12/20 14:30 07/12/20 14:29 Transfer of Care Handoff Completed per policy Notes Mental Status: alert / awake / arousable and participated in evaluation Patient Amnestic to Procedure: Yes Nausea / Vomiting: adequately controlled Pain: adequately controlled Airway Patency, RR, SpO2: stable & adequate BP & HR: stable & adequate Hydration State: stable & adequate Anesthetic Complications: no major complications apparent
--- NOTE | 2020-07-13 14:31 | Discharge Summary ---
Date of Service July 13, 2020 Admission HPI Per Admitting Provider This is a 84-year-old female with past medical history of hypertension, thyroidism, restless leg syndrome who was recently admitted to [facility] from June 24, 2020- June 27, 2020, with acute pyelonephritis, E. coli bacteremia Patient was [facility] with p.o. ciprofloxacin antibiotic as per sensitivity Patient returned home from rehab, has been experiencing episodes of dizzy spell, lightheadedness profound weakness, chills and Rigor Noted dark stool intermittently, had episodes of sharp pain on the left lower quadrant radiating to right, denies of any flank pain No complaint of urinary frequency, urgency or dysuria, no blood in urine Patient had very poor appetite, This morning patient spiked temperature, was brought to ER by her daughter In the ER patient was febrile temperature 37.6, noted to have a marked leukocytosis of 19,000, CT abdomen pelvis shows left-sided kidney 4 cm mass Admission Exam Per Admitting Provider Constitutional: WD/WN, vitals as above + ill appearing and + thin Eyes: + anicteric sclerae ENMT: external ear and nose normal, oropharynx normal Neck: trachea midline, no thyromegaly Respiratory: normal respiratory effort, lungs clear to auscultation Cardiovascular: RRR, no murmur, no edema Gastrointestinal (Abdomen): Percussion/Palpation: + abdomen tender (In the left lower quadrant,) and abdomen soft Rectal Exam: + heme positive stool No left-sided flank pain Musculoskeletal: no cyanosis or clubbing, extremities motor strength 5/5 Skin: A healed skin wound noted on left ankle Neurologic: PERRL, EOMI, accommodation nl, no face palsy, no dysarthria Psychiatric: A+Ox3, euthymic affect Principal Diagnosis UPPER GI BLEED SECONDARY TO DUODENAL ULCER LEFT KIDNEY MASS, POSSIBLE NEOPLASM WITH PYELONEPHRITIS Discharge Exam General- oriented x 3, not in distress, speaks in sentences with no effort or accessory muscle use Head- atraumatic Eyes- PERRL, EOMI, anicteric ENT- oropharynx clear Neck- supple, no JVD, no adenopathy, no thyromegaly; carotids +2/2, no bruits appreciated Lungs- clear to auscultation bilaterally, no rales/wheezes Heart- normal rate, regular rhythm; no murmur, no gallop, no rub appreciated Abdomen- normal bowel sounds, nondistended, soft, (+) moderate LLQ tenderness and mild L CVA tenderness, no masses or hepatosplenomegaly Extremities- no pretibial edema, no calf tenderness; peripheral pulses intact Neuro- alert, oriented x 3; CN 2-12 grossly intact; motor 5/5 bilaterally;sensation 100% on all extremities; no other gross focal neurologic deficits Skin- warm & dry Discharge Data Allergies Allergy/AdvReac Type Severity Reaction Status Date / Time adhesive Allergy Severe RASH Unverified 07/12/20 13:30 paraben Allergy Intermediate Unknown Unverified 07/12/20 13:30 polymyxin B Allergy Intermediate Unknown Unverified 07/12/20 13:30 bacitracin Allergy Unknown Unknown Verified 07/13/20 09:16 benzoin Allergy Unknown Unknown Unverified 07/12/20 13:30 influenza virus vaccine Allergy Unknown Unknown Verified 07/13/20 09:16 trivalent thimerosal Allergy Unknown Unknown Verified 07/13/20 09:16 Consultations 07/12/20 19:38 ED Decision to Admit Stat 07/12/20 19:53 Consult Gastroenterology Routine Consult Infectious Diseases Routine Consult Urology Routine 07/12/20 19:58 Consult Case Management - Discharge Planning Routine Procedures Performed Operation Date: 07/13/20 17:00 Actual Procedures p EGD Hemostasis - Mukul Gonzales Ordered Studies 07/12/20 12:09 CT abd pelvis IV con only Stat CT abd pelvis wo con CT DOSE: 1550.41 mGy.cm HISTORY: Pain left lower quad pain, r/o bleed TECHNIQUE: Multiaxial CT images of the abdomen and pelvis were performed without contrast. A dose lowering technique was utilized adhering to the principles of ALARA. COMPARISON STUDY: 07/12/2020 FINDINGS: Lung bases are clear. Liver spleen and pancreas appear unremarkable. The left renal mass is unchanged. Moderate motion artifact is present. There is a small exophytic right renal cyst. No evidence for hydronephrosis. Slight left renal perinephric infiltrative changes unaltered. The bowel pattern is considered nonobstructive. No evidence for mass or collection within the pelvis. Several small perirectal nodes unchanged from the prior study. Several small paratracheal nodes also unchanged. IMPRESSION: 1. Stable exam with no change from the prior study. 2. Left renal mass which has been described on several prior imaging studies. 3. Nonobstructive bowel pattern with no evidence for hemorrhage or collection. 07/12/20 20:16 MR abdomen wo/w con Urgent MR abdomen wo/w con CLINICAL HISTORY: Renal mass. COMPARISON STUDY: CT 07/12/2020. TECHNIQUE: MRI of the abdomen is performed transverse T1 and T2-weighted sequences in the axial and coronal planes. Contrast enhanced sequences were acquired following the IV administration of 10 cc Gadavist. FINDINGS: Lower chest: Minimal dependent basilar atelectasis. Liver: Liver spleen and pancreas are uniform in overall signal character. No significant upper abdominal adenopathy. Bowel pattern is nonobstructive. The right kidney shows several small exophytic cortical cyst. Left kidney demonstrates a partially enhancing mass anterior aspect left mid renal pole. This measures 4.0 x 3.6 x 3.2 cm. Enhancement characteristics are heterogeneous. Neoplasm is diagnosis of exclusion. The renal veins as well as renal arteries are patent. The inferior vena cava appears widely patent with no filling defects. Bony structures show no evidence for bone marrow replacing process. Gallbladder: Unremarkable. Spleen: Normal in size and signal intensity. Pancreas: Unremarkable. Adrenal glands: Unremarkable. normal marrow signal intensity. IMPRESSION: 1. Heterogeneously enhancing left renal mass measuring 4.0 x 3.6 x 3.2 cm. 2. Neoplasm is the diagnosis of exclusion. L3. Several small right renal cysts considered benign. 4. Study abdomen is otherwise unremarkable. 07/13/20 10:30 CT abd pelvis wo con Stat CT OF THE ABDOMEN AND PELVIS WITH CONTRAST CLINICAL HISTORY: Fever and abdominal pain. COMPARISON STUDY: None. TECHNIQUE: Following IV administration of 94 mL of Optiray-320, axial images of the abdomen and pelvis were obtained from the lung bases to the proximal femurs. Images were reviewed in the axial, sagittal, and coronal planes. IV contrast was administered without complication. Automated exposure control was utilized for the study. A dose lowering technique was utilized adhering to the principles of ALARA. CT DOSE: 1516.83 mGy.cm FINDINGS: Lung bases are unremarkable. Mild cardiomegaly is noted. There is mitral annular calcification. The spleen, adrenal glands and pancreas are unremarkable. A 1.2 cm hypodense lesion within the midpole of the right kidney favors a cyst. There is an adjacent 1.8 cm lesion on image 166 of 436 that measures slightly above water attenuation. Note is made of subtle hypoenhancing foci within the upper pole and lower pole of the left kidney. In addition, there is a round 4 cm masslike abnormality within the anterior cortex of the head to upper pole of the left kidney shown on axial image 144. There is no hydronephrosis. A 3 mm left renal calculus is noted. There are no ureteral calculi. The caliber and wall thickness of small and large bowel are normal. Mild bladder distention is noted. Fat-containing umbilical hernia is noted. There are no suspicious osseous lesions. IMPRESSION: 1. 4 cm mass-like abnormality within the mid to upper pole of the left kidney. This is highly suggestive of renal cell carcinoma. Although much less likely, this could be infectious. A renal protocol MRI in one month is recommended to confirm a mass. 1.8 cm right renal lesion likely reflects a cyst but can be assessed on follow-up MRI. 2. Subtle hypoenhancing foci within the left kidney which favor pyelonephritis. 3. 3 mm left renal calculus. No ureteral calculi or hydronephrosis. Hospital Course (1) Left kidney mass: Left Kidney Mass and possible Pyelonephritis per Dr. White's noted, admitting MD: Patient was recently discharged with E. coli pyelonephritis/E. coli bacteremia: Adequately treated with Ciprofloxacin for E coli Admitted with fever chills leukocytosis, UA essentially negative CT of abdomen pelvis showed left-sided 4 cm mass renal cell carcinoma versus abscess ER consulted with on-call urology, Dr. Antolin booker transfer to tertiary care for IR guided drainage of abscess ER spoke with multiple specialty hospitalist/interventional radiology/urology at [facility], CT scan images uploaded to PACS system in [place] After reviewing CT scan, urology interventional radiology in [place], recommends left renal mass unlikely to be abscess, No indication for transfer patient to [facility] for left renal abscess drainage, Recommends broad-spectrum IV antibiotics MRI Abdomen: IMPRESSION: 1. Heterogeneously enhancing left renal mass measuring 4.0 x 3.6 x 3.2 cm. 2. Neoplasm is the diagnosis of exclusion. L3. Several small right renal cysts considered benign. 4. Study abdomen is otherwise unremarkable. (+) LLQ pain and CVA tenderness today ff up urine and blood cultures broaden antibiotic from Ceftriaxone to Imipenem IV based on previous cultures (06/24:nlood and urine cultures: E coli, resistant to Ampicilin, Amp/Sul, Cefazolin) repeat CT abd/pelvis 07/13/20: 1. Stable exam with no change from the prior study. 2. Left renal mass which has been described on several prior imaging studies. 3. Nonobstructive bowel pattern with no evidence for hemorrhage or collection. Possible Upper GI bleed per Dr. White's noted, admitting MD: Possible secondary to upper GI bleed Patient takes meloxicam 50 mg tablet once or twice a day for bilateral shoulder arthritis Also takes aspirin 81 mg daily Dark tarry colored stool noted few days back Stool heme positive in ER Hemoglobin 8.1, patient is very symptomatic feeling dizzy lightheaded, with borderline hypotension Given 1 unit of blood transfusion in the ER Hg 7.3 1 more unit of PRBC ordered H&H q6h Protonix Drip, NPO, IV fluids s/p EGD 07/13/20: (+) Duodenal ulcer, s/p clipping per GI (official report pending) GI recommending transfer to [facility] Anemia, secondary to Acute Blood Loss from Upper GI bleed management per above Rest less leg syndrome Continue Requip Hyponatremia possible secondary to poor p.o. intake Na 131 today Hold HCTZ Ordered for normal saline CODE STATUS: Full code discussed with patient DVT prophylaxis: SCD and teds avoid anticoagulation given GI bleed Disposition: Expected to be return home when medically stable, PT OT eval prior to discharge home Total Time Total Time Spent Total Time Spent (In Minutes): 80 minutes Discharge Plan Discharge Items Patient Disposition: Transfer Acute Care Hospital Reason For Visit: FEVER UTI RENAL MASS Discharge Diagnosis: UPPER GI BLEED SECONDARY TO DUODENAL ULCER ANEMIA, ACUTE BLOOD LOSS LEFT RENAL MASS- POSSIBLE NEOPLASM POSSIBLE PYELONEPHRITIS Condition on Discharge: Fair Activity: As commented below Activity Comment: BEDREST Non-emergency contact: Primary Care Provider Call non-emergency contact if: you have any medication questions Follow-up/Referrals: Guillaume Rueda DO [Primary Care Provider] - Diet: Other - See Diet Comment Diet Comment: NPO Clarencetl Attending Provider Instructions: PLEASE REFER TO ACCOMPANYING DISCHARGE SUMMARY. Pending Studies at Discharge: Yes Stand-Alone Forms: My [employer] Skilled Items Patient informed of condition?: Yes DNR: No Discharge Level of Care: Other Communicable Disease: No Discharge Prognosis: Other Lines: Peripheral IV Urinary Catheter: No Medications and DC Order Prescriptions: Continued atenolol 50 mg tablet 50 mg PO DAILY RF: 0 calcium carbonate 600 mg calcium (1,500 mg) tablet 600 mg PO BID RF: 0 levothyroxine [Synthroid] 75 mcg tablet 75 mcg PO DAILY RF: 0 meclizine 25 mg tablet 25 mg PO TID PRN (Reason: Dizziness Or Vertigo) RF: 0 multivitamin capsule 1 cap PO DAILY RF: 0 potassium chloride 10 mEq capsule, extended release 10 meq PO DAILY RF: 0 baclofen 10 mg tablet 10 mg PO BID RF: 0 ropinirole 0.5 mg tablet 0.5 mg PO HS RF: 0 acetaminophen 325 mg Tablet 650 mg PO TID RF: 0 Lactinex 1 million cell tablet,chewable 1 tab PO BID Qty: 30 RF: 0 Discontinued aspirin [Adult Low Dose Aspirin] 81 mg tablet,delayed release (DR/EC) 81 mg PO DAILY RF: 0 hydrochlorothiazide 25 mg tablet 25 mg PO DAILY RF: 0 meloxicam 7.5 mg tablet 15 mg PO DAILY RF: 0 losartan 50 mg tablet 100 mg PO DAILY RF: 0 omeprazole 10 mg capsule,delayed release(DR/EC) 10 mg PO HS PRN (Reason: Dyspepsia) RF: 0 Discharge Orders: Discharge Order (Routine); Ordered 07/13/20 Ordered By: Ronny Marin Admission Data Admit Date/Time: 07/12/20 19:54 Attending Provider: Ronny Marin Admit Provider: Zeny White Primary Care Provider: Guillaume Rueda Other Providers: Zeny White ; Sergey Velasquez ; Milagros Paredes ; Freya Britt ; Joelle Zuluaga ; Mukul Gonzales ; Jenny Leroy ; Emeterio Westfall ; Leticia Vinson ; Jayy Parikh ; John Dobson ; Mei Dalton ; Kimber Snow ; Glenna Richardson ; Kendra Wilder ; Sandra Berkowitz ; French Kitchen ; Calin Cerrato ; [place]. ; Estevan Lora II ; Shala Fowler ; Chris Bolaños ; Jose Martin ; Juan Manuel Bowden ; David Hitchcock I. ; Neville Nino ; Shaila Aguirre ; Mikaela Rocha ; Mahendra Goss ; Macy Shukla ; Karin Macedo ; Ron Paris ; Denita Faria
--- NOTE | 2020-07-14 05:55 | Electrocardiogram Report ---
Test Reason : Blood Pressure : / mmHG Vent. Rate : 079 BPM Atrial Rate : 079 BPM P-R Int : 158 ms QRS Dur : 088 ms QT Int : 380 ms P-R-T Axes : -27 -06 045 degrees QTc Int : 435 ms Normal sinus rhythm Minimal voltage criteria for LVH, may be normal variant Inferior infarct (cited on or before 24-JUN-2020) Abnormal ECG When compared with ECG of 24-JUN-2020 15:00, No significant change was found Confirmed by David Matute ([id number]) on 07/14/2020 5:55:14 AM Referred By: ED Confirmed By:David Matute
--- NOTE | 2020-07-14 08:41 | GI REPORT ---
Patient Name: Liliam Burger Procedure Date: 07/13/2020 12:40 PM Date of : 1935 Admit Type: Inpatient Age: 84 Gender: Female Attending MD: Mukul Gonzales MD Procedure: Upper GI endoscopy Providers: Mukul Gonzales MD Referring MD: Ronny Marin Indications: Melena Medicines: Monitored Anesthesia Care Complications: No immediate complications. Estimated blood loss: Minimal. Estimated Blood Loss: Estimated blood loss: none. Procedure: Pre-Anesthesia Assessment: - Pre-Anesthesia Assessment: - Prior to the procedure, a History and Physical was performed, and patient medications, allergies and sensitivities were reviewed. The patient's tolerance of previous anesthesia was reviewed. Please see [employer] for complete details. - The risks and benefits of the procedure and the sedation options and risks were discussed with the patient. All questions were answered and informed consent was obtained. - Patient identification and proposed procedure were verified prior to the procedure by the physician and the nurse. The procedure was verified in the pre-procedure area in the procedure room. After obtaining informed consent, the endoscope was passed carefully and meticuously under direct vision and only advanced when the lumen was clearly identified, C02 insuflation was utilized throughout the entirity of the procedure. Throughout the procedure, the patient's blood pressure, pulse, and oxygen saturations were monitored continuously. After obtaining informed consent, the endoscope was passed under direct vision. Throughout the procedure, the patient's blood pressure, pulse, and oxygen saturations were monitored continuously. The Endoscope was introduced through the mouth, and advanced to the second part of duodenum. The upper GI endoscopy was accomplished without difficulty. The patient tolerated the procedure well. Findings: The examined esophagus was normal. One non-bleeding cratered gastric ulcer with a clean ulcer base (Rolf Class III) was found in the prepyloric region of the stomach. The lesion was 6 mm in largest dimension. Large cratered duodenal ulcer with raised vessel with oozing hemorrhage (Rolf Class Ib) were found in the duodenal bulb. The largest lesion was 10 mm in largest dimension. Area was successfully injected with 5 mL of a 1:10,000 solution of epinephrine for hemostasis. For hemostasis, three hemostatic clips were successfully placed (MR conditional). Bleeding had stopped at the end of the procedure. Impression: - Normal esophagus. - Non-bleeding gastric ulcer with a clean ulcer base (Rolf Class III). - Doudenal bulb ulcer with oozing hemorrhage (Rolf Class Ib). Injected. Clips (MR conditional) were placed. - No specimens collected. Recommendation: - Transfer patient to another hospital for possible IR intervention given high risk bleeding lesion. - Support hemodynamics, transfuse, continue IV PPI gtt - Case discussed with [facility] and is accepted for transfer - Will need abx continued for pylonephritis and urology consultation of abnormal left kidney mass vs early abscess. Mukul Gonzales MD 07/14/2020 8:41:15 AM This report has been signed electronically. Note Initiated On: 07/13/2020 12:40 PM Number of Addenda: 0 I attest to the content of the Intraoperative Record and orders documented therein, exceptions below {[id number]}
== END 2020-07-13 14:44 | disposition short-term general hospital (02) | DRG 378 ==
LOC: ED 11:48 → 2S 19:54 → SUATTDRO 19:54 → 2S 20:23

== ENCOUNTER 2022-03-21 11:43 | Inpatient (IN) ==
[2022-03-21] MEDS ORDERED: SODIUM CHLORIDE 0.9% 1000ML 500 ML IV ONE (12:13)
--- NOTE | 2022-03-21 12:17 | Emergency Department Note ---
Impression & Plan Acute left-sided weakness, Acute UTI, Anemia, Stroke-like symptoms ED Provider Note NAME: MISAEL GUERRIER AGE: 86 SEX: F : 1935 ARRIVES VIA: Ambulance INFORMANT: [Patient][ems] ED PROVIDER(S): [Abel Tatum MD] CHIEF COMPLAINT: Possible stroke HISTORY OF PRESENT ILLNESS: The patient is an 86-year-old female who states that yesterday in the evening, over 15 hours ago, she noticed some issues with word finding and she had a hard time getting out what she wanted to say. At 1:00 in the morning, about 11 hours ago, she went to get out of bed and her left leg was dragging and weak. She did not notice any issues with her upper extremities. Today, she has been weak and sleeping. She is having a hard time with her balance. The patient feels that her left leg weakness is a bit better than last evening but it is still weaker than the right side. There is no previous history of CVA. The patient has not been sick with cough, cold or congestion. No urinary complaints. No vomiting or diarrhea. REVIEW OF SYSTEMS: See HPI for pertinent positives and negatives. A total of ten systems were reviewed and were otherwise negative. PMHx/PSHx: See Below SOCIAL HISTORY: See Below. PHYSICAL EXAM: GENERAL: Patient is in no acute distress. HEENT: No acute trauma, normocephalic atraumatic, mucous membranes moist, no nasal congestion, no scleral icterus. NECK: No stridor, no adenopathy, no meningismus, trachea is midline. LUNGS: Clear to auscultation bilaterally, no wheeze, no rhonchi, breath sounds equal. HEART: Without murmurs gallops or rubs, regular rate and rhythm. ABDOMEN: Soft, nontender, bowel sounds positive, no hernias, no peritonitis. EXTREMITIES: No cyanosis. There is some mild bilateral pedal edema slightly worse on the right. There is some chronic skin change with some chronic right lower extremity edema and warmth, slightly worse on the right. NEUROLOGIC: Oriented x 3, no speech slur or facial droop. No issues with word finding. The patient does have some increased weakness on the left leg as it does drift a bit with testing. There is bilateral upper extremity drift. The left upper extremity cerebellar function is poor compared to the right. SKIN: No rash, no jaundice, no diaphoresis. DIFFERENTIAL DIAGNOSIS: Infection, UTI, dehydration, COVID-19, influenza, metabolic abnormality, hypo/hyperglycemia, electrolyte disturbance, anemia, hypoxia, cardiac sources, intracerebral event, toxicologic issues, stroke, TIA, as well as other pathologies. EMERGENCY DEPARTMENT COURSE/PROCEDURES: ECG: Indication was possible stroke. The ECG shows a sinus bradycardia with a rate of 58. There is some LVH present. There appears to be a potential old inferior infarct. There is no ST elevation, no PVCs. Continuous Cardiac Monitoring: An order was placed for continuous cardiac monitoring. The monitor shows a rate of 60 with normal sinus rhythm. Critical Care Note: I have personally spent 43 minutes of critical care time in the direct management of this patient. This includes bedside care, interpre tation of diagnostic studies, and testing, discussion with consultants, patient, and family members, and other required patient management activities. This 43 minutes is in excess of all separately billable procedures. MEDICAL DECISION MAKING: There is no leukocytosis. A mild anemia was noted. The patient has a history of anemia. There is a normal platelet count. No coagulopathy. Sodium was somewhat low at 132, no renal failure. No concerning liver enzyme elevation. Ammonia level was not elevated. ECG shows a sinus bradycardia, no ischemia. Cardiac enzyme testing x1 is not consistent with acute cardiac injury. Urinalysis shows evidence for infection. COVID testing returned negative. Chest x-ray does not show pneumonia or CHF. Brain CT does not show any bleed or mass-effect. CT angio of the head and neck were performed, no aneurysms, clot or stenosis seen. On exam, the patient did have some findings of left sided weakness. No speech slur. The patient received IV saline, she was given IV ceftriaxone. Patient presents with left-sided weakness, fatigue. She does appear to have a UTI. Her symptoms have been ongoing for over 15 hours. She is not a candidate for tPA given the timeframe. The patient's weakness may be from her UTI. Further work-up for small stroke though is indicated. I did speak with the patient and case management. The on- call hospitalist was consulted. Past Med/Surg History Medical History Arthritis Chronic venous insufficiency COPD (chronic obstructive pulmonary disease) HTN (hypertension) Hyperlipidemia Hypothyroidism Obesity Osteoporosis RLS (restless legs syndrome) TIA (transient ischemic attack) Surgical History (Updated 03/21/22 @ 16:38 by Winnie Cameron PA-C) H/O hysterectomy with unilateral oophorectomy History of appendectomy History of esophagogastroduodenoscopy (EGD) hx of duodenal ulcer s/p clipping requiring transfer to tertiary center, 2/2 to nsaid use Family History Father Colorectal cancer Diabetes Social History Smoking Status: Never smoker Hx Alcohol Use: Yes Alcohol type: wine Hx Substance Use: No Preferred Language: Lebanese Communication Ability: Effective Visual Impairment: Limited Hearing Ability: Normal Liquor Maker Required: No Beliefs That Will Affect Care: None marital status: / Current Living Situation: Personal Care Facility Current Living Situation Comment: Resident [facility] current occupational status: retired Other Information That Helps Us Care for You: No Feels Safe at Home: Yes Safety Concerns: Feels Safe At This Time Assistive Devices: Glasses and Walker Allergies Allergies Allergy/AdvReac Type Severity Reaction Status Date / Time adhesive Allergy Intermediate RASH Verified 03/21/22 15:16 paraben Allergy Intermediate Unknown Verified 03/21/22 15:16 polymyxin B Allergy Intermediate Unknown Verified 03/21/22 15:16 bacitracin Allergy Unknown Unknown Verified 03/21/22 15:16 benzoin Allergy Unknown Unknown Verified 03/21/22 15:16 influenza virus vaccine Allergy Unknown Unknown Verified 03/21/22 15:16 trivalent thimerosal Allergy Unknown Unknown Verified 03/21/22 15:16 Home Meds Home Medications Medication Instructions Recorded Confirmed levothyroxine 75 mcg tablet 75 mcg PO DAILYBB 10/22/19 03/21/22 (Synthroid) meclizine 25 mg tablet 25 mg PO Q8H PRN 10/22/19 03/21/22 potassium chloride 10 mEq 10 meq PO QAM 10/22/19 03/21/22 capsule,extended release cholecalciferol (vitamin D3) 10 10 mcg PO QAM 09/09/20 03/21/22 mcg (400 unit) capsule (Vitamin D3) dicyclomine 20 mg tablet 20 mg PO ACHS PRN 09/09/20 03/21/22 docusate sodium 100 mg capsule 100 mg PO BIDM 09/09/20 03/21/22 (Colace) multivitamin,pq-taat-cpbborpn 27 1 tab PO QAM 09/09/20 03/21/22 mg-0.4 mg tablet (Therems-M) omeprazole 40 mg capsule,delayed 40 mg PO QAM 09/09/20 03/21/22 release atenolol 50 mg tablet 50 mg PO DAILY 03/14/22 03/21/22 diphenhydramine HCl 12.5 mg 12.5 mg PO HS tab 03/14/22 03/21/22 chewable tablet (Children's Allergy (diphenhydramine)) fluticasone furoate 100 1 inh INHALATION DAILY 03/14/22 03/21/22 mcg/actuation blister powder for inhalation (Arnuity Ellipta) ondansetron HCl 4 mg tablet 4 mg PO Q6H PRN 03/14/22 03/21/22 sertraline 25 mg tablet (Zoloft) 25 mg PO DAILY 03/14/22 03/21/22 spironolactone 25 mg tablet 25 mg PO DAILY 03/14/22 03/21/22 acetaminophen 500 mg tablet 1,000 mg PO DAILY PRN MDD 3500 03/21/22 03/21/22 (Tylenol Extra Strength) MG/24 HOURS acetaminophen 500 mg tablet 1,000 mg PO TID 03/21/22 03/21/22 (Tylenol Extra Strength) albuterol sulfate 90 mcg/actuation 2 puff INHALATION QID PRN 03/21/22 03/21/22 aerosol inhaler (Ventolin HFA) amlodipine 5 mg tablet (Norvasc) 5 mg PO DAILY 03/21/22 03/21/22 calcium carbonate 500 mg-vitamin 1 tab PO BIDM 03/21/22 03/21/22 D3 5 mcg (200 unit) tablet (Oyster Shell Calcium-Vitamin D3) calcium polycarbophil 625 mg 625 mg PO DAILY 03/21/22 03/21/22 tablet (FiberCon) guaifenesin 600 mg tablet, 600 mg PO Q12H PRN 03/21/22 03/21/22 extended release 12 hr (Mucinex) loperamide 2 mg capsule 2 mg PO QID PRN 03/21/22 03/21/22 losartan 100 mg tablet (Cozaar) 100 mg PO DAILY 03/21/22 03/21/22 ropinirole 2 mg tablet 2 mg PO DAILY@1800 03/21/22 03/21/22 ropinirole 2 mg tablet 2 mg PO DAILY@1900 03/21/22 03/21/22 triamcinolone acetonide 0.1 % 1 applic TOPICAL BID PRN 03/21/22 03/21/22 topical cream Results & Data (ED) Vital Signs Vital Signs - 24 hr 03/21/22 11:55 03/21/22 12:00 03/21/22 14:24 Temperature 36.7 C Temperature Source Oral Pulse Rate 60 58 L 63 Pulse Rate from SpO2 Sensor 58 L 62 Respiratory Rate 18 19 23 Respiratory Effort / Characteristics Non-Labored Respiratory Depth Normal Blood Pressure 135/69 135/69 144/68 H Blood Pressure Mean 91 91 93 Blood Pressure Position Semi-fowlers Pulse Oximetry 97 98 94 Oxygen Delivery Method Room Air Sepsis Recent Fever Within 48 Hours No Sepsis New/Unexplained Change in Mental Status No Sepsis Action Taken by Nursing No Action Required 03/21/22 14:50 Temperature Temperature Source Pulse Rate 63 Pulse Rate from SpO2 Sensor Respiratory Rate 17 Respiratory Effort / Characteristics Respiratory Depth Blood Pressure 160/72 H Blood Pressure Mean 101 Blood Pressure Position Pulse Oximetry Oxygen Delivery Method Sepsis Recent Fever Within 48 Hours Sepsis New/Unexplained Change in Mental Status Sepsis Action Taken by Snf Medications Current Medication List: was personally reviewed by me Laboratory Data Attestation: I reviewed the patient's lab results. Result diagrams: 03/21/22 11:58 03/21/22 11:58 Lab Results 03/21/22 03/21/22 03/21/22 Range/Units 11:57 11:58 11:58 WBC 10.03 (4.8-10.8) K/uL RBC 3.17 L (4.2-5.4) M/uL Hgb 10.6 L (12.0-16.0) g/dL Hct 32.3 L (37-47) % MCV 101.9 H (80-100) fL MCH 33.4 (25-34) pg MCHC 32.8 (32-36) g/dL RDW Std Deviation 55.4 H (36.4-46.3) fL RDW Coeff of [place] 14.8 H (11.5-14.5) % Plt Count 242 (130-400) K/uL MPV 10.7 H (7.4-10.4) fL Immature Gran % (Auto) 0.6 % Neut % (Auto) 75.0 % Lymph % (Auto) 12.6 % Sac % (Auto) 7.7 % Eos % (Auto) 3.7 % Baso % (Auto) 0.4 % Neut # (Auto) 7.53 H (1.4-6.5) K/uL Lymph # (Auto) 1.26 (1.2-3.4) K/uL Sac # (Auto) 0.77 H (0.11-0.59) K/uL Eos # (Auto) 0.37 (0-0.5) K/uL Baso # (Auto) 0.04 (0-0.2) K/uL Immature Gran # (Auto) 0.06 H (0.00-0.02) K/uL PT 11.8 (9.0-12.0) Seconds INR 1.1 (0.9-1.1) APTT 27.5 (21.0-31.0) Seconds PTT Ratio 1.0 Sodium (136-145) mmol/L Potassium (3.5-5.1) mmol/L Chloride (98-107) mmol/L Carbon Dioxide (21-32) mmol/L Anion Gap (3-11) BUN (6-23) mg/dl Creatinine (0.6-1.2) mg/dl Est Cr Clr Drug Dosing ml/min Est GFR ( Amer) ml/min Est GFR (Non-Af Amer) ml/min BUN/Creatinine Ratio (10-20) Glucose (70-99(Fasting)) mg/dl POC Glucose 103 H (70-99) mg/dl Calcium (8.5-10.1) mg/dl Magnesium (1.7-2.4) mg/dl Total Bilirubin (0.2-1.0) mg/dl AST (13-39) U/L ALT (7-52) U/L Alkaline Phosphatase (34-104) U/L Ammonia Troponin I High Sens (0-14) pg/ml Total Protein (6.0-8.3) gm/dl Albumin (3.4-5.0) gm/dl Globulin (2.5-4.0) gm/dl Albumin/Globulin Ratio (0.9-2) Urine Color Urine Appearance (Clear) Urine pH (4.5-7.5) Ur Specific [place] (1.000-1.030) Urine Protein (Negative) Urine Glucose (UA) (Negative) Urine Ketones (Negative) Urine Blood (Negative) Urine Nitrite (Negative) Urine Bilirubin (Negative) Urine Urobilinogen (Negative) Ur Leukocyte Esterase (Negative) Urine WBC (Auto) (0-5) /hpf Urine RBC (Auto) (0-4) /hpf U Hyaline Cast (Auto) (0-5) /lpf U Epithel Cells (Auto) (0-5) /lpf Urine Bacteria (Auto) (Negative) SARS-CoV-2, RNA, NAAT (NEGATIVE) 03/21/22 03/21/22 03/21/22 Range/Units 11:58 12:30 12:34 WBC (4.8-10.8) K/uL RBC (4.2-5.4) M/uL Hgb (12.0-16.0) g/dL Hct (37-47) % MCV (80-100) fL MCH (25-34) pg MCHC (32-36) g/dL RDW Std Deviation (36.4-46.3) fL RDW Coeff of [place] (11.5-14.5) % Plt Count (130-400) K/uL MPV (7.4-10.4) fL Immature Gran % (Auto) % Neut % (Auto) % Lymph % (Auto) % Sac % (Auto) % Eos % (Auto) % Baso % (Auto) % Neut # (Auto) (1.4-6.5) K/uL Lymph # (Auto) (1.2-3.4) K/uL Sac # (Auto) (0.11-0.59) K/uL Eos # (Auto) (0-0.5) K/uL Baso # (Auto) (0-0.2) K/uL Immature Gran # (Auto) (0.00-0.02) K/uL PT (9.0-12.0) Seconds INR (0.9-1.1) APTT (21.0-31.0) Seconds PTT Ratio Sodium 132 L (136-145) mmol/L Potassium 4.0 (3.5-5.1) mmol/L Chloride 99 (98-107) mmol/L Carbon Dioxide 27 (21-32) mmol/L Anion Gap 6 (3-11) BUN 23 (6-23) mg/dl Creatinine 0.89 (0.6-1.2) mg/dl Est Cr Clr Drug Dosing 52.1 ml/min Est GFR ( Amer) 69.0 ml/min Est GFR (Non-Af Amer) 59.5 ml/min BUN/Creatinine Ratio 25.8 H (10-20) Glucose 97 (70-99(Fasting)) mg/dl POC Glucose (70-99) mg/dl Calcium 9.5 (8.5-10.1) mg/dl Magnesium 1.8 (1.7-2.4) mg/dl Total Bilirubin 0.5 (0.2-1.0) mg/dl AST 16 (13-39) U/L ALT 12 (7-52) U/L Alkaline Phosphatase 64 (34-104) U/L Ammonia Cancelled Troponin I High Sens 4.4 (0-14) pg/ml Total Protein 7.1 (6.0-8.3) gm/dl Albumin 3.9 (3.4-5.0) gm/dl Globulin 3.2 (2.5-4.0) gm/dl Albumin/Globulin Ratio 1.2 (0.9-2) Urine Color Urine Appearance (Clear) Urine pH (4.5-7.5) Ur Specific [place] (1.000-1.030) Urine Protein (Negative) Urine Glucose (UA) (Negative) Urine Ketones (Negative) Urine Blood (Negative) Urine Nitrite (Negative) Urine Bilirubin (Negative) Urine Urobilinogen (Negative) Ur Leukocyte Esterase (Negative) Urine WBC (Auto) (0-5) /hpf Urine RBC (Auto) (0-4) /hpf U Hyaline Cast (Auto) (0-5) /lpf U Epithel Cells (Auto) (0-5) /lpf Urine Bacteria (Auto) (Negative) SARS-CoV-2, RNA, NAAT NEGATIVE (NEGATIVE) 03/21/22 03/21/22 Range/Units 13:26 14:36 WBC (4.8-10.8) K/uL RBC (4.2-5.4) M/uL Hgb (12.0-16.0) g/dL Hct (37-47) % MCV (80-100) fL MCH (25-34) pg MCHC (32-36) g/dL RDW Std Deviation (36.4-46.3) fL RDW Coeff of [place] (11.5-14.5) % Plt Count (130-400) K/uL MPV (7.4-10.4) fL Immature Gran % (Auto) % Neut % (Auto) % Lymph % (Auto) % Sac % (Auto) % Eos % (Auto) % Baso % (Auto) % Neut # (Auto) (1.4-6.5) K/uL Lymph # (Auto) (1.2-3.4) K/uL Sac # (Auto) (0.11-0.59) K/uL Eos # (Auto) (0-0.5) K/uL Baso # (Auto) (0-0.2) K/uL Immature Gran # (Auto) (0.00-0.02) K/uL PT (9.0-12.0) Seconds INR (0.9-1.1) APTT (21.0-31.0) Seconds PTT Ratio Sodium (136-145) mmol/L Potassium (3.5-5.1) mmol/L Chloride (98-107) mmol/L Carbon Dioxide (21-32) mmol/L Anion Gap (3-11) BUN (6-23) mg/dl Creatinine (0.6-1.2) mg/dl Est Cr Clr Drug Dosing ml/min Est GFR ( Amer) ml/min Est GFR (Non-Af Amer) ml/min BUN/Creatinine Ratio (10-20) Glucose (70-99(Fasting)) mg/dl POC Glucose (70-99) mg/dl Calcium (8.5-10.1) mg/dl Magnesium (1.7-2.4) mg/dl Total Bilirubin (0.2-1.0) mg/dl AST (13-39) U/L ALT (7-52) U/L Alkaline Phosphatase (34-104) U/L Ammonia 13.0 L Troponin I High Sens (0-14) pg/ml Total Protein (6.0-8.3) gm/dl Albumin (3.4-5.0) gm/dl Globulin (2.5-4.0) gm/dl Albumin/Globulin Ratio (0.9-2) Urine Color Yellow Urine Appearance Clear (Clear) Urine pH 7.0 (4.5-7.5) Ur Specific [place] 1.009 (1.000-1.030) Urine Protein Negative (Negative) Urine Glucose (UA) Negative (Negative) Urine Ketones Negative (Negative) Urine Blood Negative (Negative) Urine Nitrite Negative (Negative) Urine Bilirubin Negative (Negative) Urine Urobilinogen Negative (Negative) Ur Leukocyte Esterase 2+ H (Negative) Urine WBC (Auto) >30 H (0-5) /hpf Urine RBC (Auto) 0-4 (0-4) /hpf U Hyaline Cast (Auto) 1-5 (0-5) /lpf U Epithel Cells (Auto) 0-5 (0-5) /lpf Urine Bacteria (Auto) 4+ H (Negative) SARS-CoV-2, RNA, NAAT (NEGATIVE) Administered Medications Discontinued Medications Sodium Chloride (Nss 1000ml) 500 mls @ 999 mls/hr IV .Q31M ONE Stop: 03/21/22 12:43 Last Infusion: 03/21/22 13:29 Dose: 0 mls/hr Documented by: [id number] Admin: 03/21/22 12:27 Dose: 999 mls/hr Documented by: [id number] Ceftriaxone Sodium (Rocephin) 2,000 mg in 70 mls @ 140 mls/hr IV NOW STA Stop: 03/21/22 14:51 Last Infusion: 03/21/22 15:04 Dose: 0 mls/hr Documented by: [id number] Admin: 03/21/22 14:34 Dose: 140 mls/hr Documented by: [id number] Ioversol (Optiray 320 125ml) 120 ml IV ONCE ONE Stop: 03/21/22 14:31 Last Admin: 03/21/22 14:16 Dose: 120 ml Documented by: [id number] Imaging Data Radiologist's Impression: Chest X-Ray 03/21/22 12:13 XR chest 1V portable CLINICAL HISTORY: Stroke Like Symptoms COMPARISON STUDY: Chest radiograph July 12, 2020. FINDINGS: Incidental note made is severe osteoarthritis of both glenohumeral joints with remodeling of the right humeral head. There is no pneumothorax or pleural effusion. No consolidation or evidence for pulmonary edema. Note is made of mild cardiomegaly with extensive mitral annular calcification. Linear left basilar opacity favors atelectasis. IMPRESSION: No acute cardiopulmonary findings. ACT 112: Negative or not required by law. Electronically signed by: Maikel Hernandez M.D. 03/21/2022 12:[address] 03/21/22 12:[address] DOSE: 1012.63 mGy.cm HISTORY: Confusion. Stroke Like Symptoms TECHNIQUE: Multiaxial CT images of the head were performed without the use of intravenous contrast. Automated exposure control was utilized for this study. A dose lowering technique was utilized adhering to the principles of ALARA. Comparison: None. Findings: Mild mucosal thickening within the sphenoid sinuses. The calvarium and skull base are intact. There is no mass, hematoma, midline shift, acute infarct. White matter hypodensity is nonspecific but suggestive of microvascular ischemic change. The ventricles and sulci demonstrate mild age-related involutional c hanges. 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 Impression: No acute intracranial abnormality. Atrophy and microvascular ischemic changes. ACT 112: Negative or not required by law. Electronically signed by: Donnie Jurado M.D. 03/21/2022 2:29 PM Head CTA 03/21/22 12:13 HEAD & NECK CTA HISTORY: Confusion. Stroke Like Symptoms TECHNIQUE: Multiaxial CT images of the head were performed following the intravenous administration of contrast to evaluate the major cerebral vessels. Multiaxial CT images of the neck were also performed following the intravenous administration of contrast to evaluate the major cervical vessels. Maximum intensity projection images were also obtained. A dose lowering technique was utilized adhering to the principles of ALARA. COMPARISON: Noncontrast Head CT 03/21/2022. FINDINGS: There is no mass, hematoma, midline shift, or acute infarct. Visualized intracranial internal carotid arteries, distal vertebral arteries, and basilar artery are widely patent. There is no significant stenosis, occlusion, or aneurysm seen within the bilateral ACAs, MCAs, or boiler control technician. The major dural venous sinuses are patent. There is a persistent right posterior circulation. Moderate calcified plaque within the bilateral carotid siphons. The aortic arch and proximal great vessels are widely patent. There is no significant stenosis, occlusion, or dissection identified within the bilateral common carotid, internal carotid, or vertebral arteries. IMPRESSION: 1. No significant stenosis, occlusion, or aneurysm within the [place]. 2. No significant stenosis, occlusion, or dissection identified within the carotid or vertebral arteries. ACT 112: Negative or not required by law. Electronically signed by: Donnie Jurado M.D. 03/21/2022 2:35 PM Neck CTA 03/21/22 12:13 HEAD & NECK CTA HISTORY: Confusion. Stroke Like Symptoms TECHNIQUE: Multiaxial CT images of the head were performed following the intravenous administration of contrast to evaluate the major cerebral vessels. Multiaxial CT images of the neck were also performed following the intravenous administration of contrast to evaluate the major cervical vessels. Maximum intensity projection images were also obtained. A dose lowering technique was utilized adhering to the principles of ALARA. COMPARISON: Noncontrast Head CT 03/21/2022. FINDINGS: There is no mass, hematoma, midline shift, or acute infarct. Visualized intracranial internal carotid arteries, distal vertebral arteries, and basilar artery are widely patent. There is no significant stenosis, occlusion, or aneurysm seen within the bilateral ACAs, MCAs, or boiler control technician. The major dural venous sinuses are patent. There is a persistent right posterior circulation. Moderate calcified plaque within the bilateral carotid siphons. The aortic arch and proximal great vessels are widely patent. There is no significant stenosis, occlusion, or dissection identified within the bilateral common carotid, internal carotid, or vertebral arteries. IMPRESSION: 1. No significant stenosis, occlusion, or aneurysm within the [place]. 2. No significant stenosis, occlusion, or dissection identified within the carotid or vertebral arteries. ACT 112: Negative or not required by law. Electronically signed by: Donnie Jurado M.D. 03/21/2022 2:35 PM Discharge Plan Visit Data Chief Complaint: Stroke/CVA Symptoms ED Provider: Abel Tatum Discharge Problem: Acute left-sided weakness, Acute UTI, Anemia, Stroke-like symptoms Patient Disposition: Admitted As Inpatient Condition: Fair Discharge Instructions Interventions: ED Discharge Assessment Last Done: 03/21/22 17:42 Discharge Problem: Anemia Qualifiers: Anemia type: unspecified type Qualified Code(s): D64.9 - Anemia, unspecified
[2022-03-21 12:37] LABS: Basophils # (auto) 0.04 K/uL (0-0.2); Basophils % (auto) 0.4 %; Eosinophils # (auto) 0.37 K/uL (0-0.5); Eosinophils % (auto) 3.7 %; Hematocrit (blood only) 32.3 % (37-47); Hemoglobin 10.6 g/dL (12.0-16.0); Immature Granulocytes # (auto) 0.06 K/uL (0.00-0.02); Immature Granulocytes % (auto) 0.6 %; Lymphocytes # (auto) 1.26 K/uL (1.2-3.4); Lymphocytes % (auto) 12.6 %; Mean Corpuscular Hemoglobin 33.4 pg (25-34); Mean Corpuscular Hgb Conc 32.8 g/dL (32-36); Mean Corpuscular Volume 101.9 fL (80-100); Mean Platelet Volume 10.7 fL (7.4-10.4); Monocytes # (auto) 0.77 K/uL (0.11-0.59); Monocytes % (auto) 7.7 %; Neutrophils # (auto) 7.53 K/uL (1.4-6.5); Platelet Count 242 K/uL (130-400); RDW Coefficient of Variation 14.8 % (11.5-14.5); RDW Standard Deviation 55.4 fL (36.4-46.3); Red Blood Count 3.17 M/uL (4.2-5.4); White Blood Count 10.03 K/uL (4.8-10.8)
--- NOTE | 2022-03-21 12:37 | XRay Report ---
XR chest 1V portable CLINICAL HISTORY: Stroke Like Symptoms COMPARISON STUDY: Chest radiograph July 12, 2020. FINDINGS: Incidental note made is severe osteoarthritis of both glenohumeral joints with remodeling o f the right humeral head. There is no pneumothorax or pleural effusion. No consolidation or evidence for pulmonary edema. Note is made of mild cardiomegaly with extensive mitral annular calcification. L inear left basilar opacity favors atelectasis. IMPRESSION: No acute cardiopulmonary findings. ACT 112: Negative or not required by law. Electronically signed by: Maikel Hernandez M.D. 03/21/2022 12:35 PM
[2022-03-21 12:49] LABS: INR 1.1 (0.9-1.1); Partial Thromboplastin Time 27.5 Seconds (21.0-31.0); Prothrombin Time 11.8 Seconds (9.0-12.0)
[2022-03-21 13:04] LABS: Albumin Globulin Ratio 1.2 (0.9-2); Albumin Level 3.9 gm/dl (3.4-5.0); BUN Creatinine Ratio 25.8 (10-20); Bilirubin,Total 0.5 mg/dl (0.2-1.0); Calcium 9.5 mg/dl (8.5-10.1); Creatinine Clr Calc Pharmacy 52.1 ml/min; Est GFR (Non-African American) 59.5 ml/min; Globulin 3.2 gm/dl (2.5-4.0); Magnesium 1.8 mg/dl (1.7-2.4); Total Protein 7.1 gm/dl (6.0-8.3)
[2022-03-21 13:05] LABS: Troponin I High Sensitivity 4.4 pg/ml (0-14)
[2022-03-21 13:52] LABS: Appearance Urine Clear (Clear); Bacteria Urine Automated 4+ (Negative); Bilirubin Urine Negative (Negative); Blood Urine Negative (Negative); Color Urine Yellow; Epithelial Cell Urine Auto 0-5 /lpf (0-5); Glucose Urine UA Negative (Negative); Ketones Urine Negative (Negative); Leukocyte Esterase Urine 2+ (Negative); Nitrite Urine Negative (Negative); Protein Urine Negative (Negative); RBC Urine Automated 0-4 /hpf (0-4); Specific Gravity Urine 1.009 (1.000-1.030); Urobilinogen Urine Negative (Negative); WBC Urine Automated >30 /hpf (0-5)
[2022-03-21] MEDS ORDERED: cefTRIAXone SODIUM 2,000 MG/70 ML BAG IV STA (14:22)
[2022-03-21] MEDS ORDERED: OPTIRAY 320 125ml IV ONE (14:30)
--- NOTE | 2022-03-21 14:31 | CT Scan Report ---
HEAD CT NONCONTRAST CT DOSE: 1012.63 mGy.cm HISTORY: Confusion. Stroke Like Symptoms TECHNIQUE: Multiaxial CT images of the head were performed without the use of intravenous contrast. A utomated exposure control was utilized for this study. A dose lowering technique was utilized adheri ng to the principles of ALARA. Comparison: None. Findings: Mild mucosal thickening within the sphenoid sinuses. The calvarium and skull base are intac t. There is no mass, hematoma, midline shift, acute infarct. White matter hypodensity is nonspecific but suggestive of microvascular ischemic change. The ventricles and sulci demonstrate mild age-relate d involutional changes. 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 Impression: No acute intracranial abnormality. Atrophy and microvascular ischemic changes. ACT 112: Negative or not required by law. Electronically signed by: Donnie Jurado M.D. 03/21/2022 2:29 PM
--- NOTE | 2022-03-21 14:37 | CT Scan Report ---
HEAD & NECK CTA HISTORY: Confusion. Stroke Like Symptoms TECHNIQUE: Multiaxial CT images of the head were performed following the intravenous administration o f contrast to evaluate the major cerebral vessels. Multiaxial CT images of the neck were also perform ed following the intravenous administration of contrast to evaluate the major cervical vessels. Maxim um intensity projection images were also obtained. A dose lowering technique was utilized adhering to the principles of ALARA. COMPARISON: Noncontrast Head CT 03/21/2022. FINDINGS: There is no mass, hematoma, midline shift, or acute infarct. Visualized intracranial internal carotid arteries, distal vertebral arteries, and basilar artery are widely patent. There is no significant s tenosis, occlusion, or aneurysm seen within the bilateral ACAs, MCAs, or prop making supervisor. The major dural venous sinuses are patent. There is a persistent right posterior circulation. Moderate calcified plaq ue within the bilateral carotid siphons. The aortic arch and proximal great vessels are widely patent. There is no significant stenosis, occ lusion, or dissection identified within the bilateral common carotid, internal carotid, or vertebral arteries. IMPRESSION: 1. No significant stenosis, occlusion, or aneurysm within the [place]. 2. No significant stenosis, occlusion, or dissection identified within the carotid or vertebral arter ies. ACT 112: Negative or not required by law. Electronically signed by: Donnie Jurado M.D. 03/21/2022 2:35 PM
--- NOTE | 2022-03-21 14:37 | CT Scan Report ---
HEAD & NECK CTA HISTORY: Confusion. Stroke Like Symptoms TECHNIQUE: Multiaxial CT images of the head were performed following the intravenous administration o f contrast to evaluate the major cerebral vessels. Multiaxial CT images of the neck were also perform ed following the intravenous administration of contrast to evaluate the major cervical vessels. Maxim um intensity projection images were also obtained. A dose lowering technique was utilized adhering to the principles of ALARA. COMPARISON: Noncontrast Head CT 03/21/2022. FINDINGS: There is no mass, hematoma, midline shift, or acute infarct. Visualized intracranial internal carotid arteries, distal vertebral arteries, and basilar artery are widely patent. There is no significant s tenosis, occlusion, or aneurysm seen within the bilateral ACAs, MCAs, or electrical lineman. The major dural venous sinuses are patent. There is a persistent right posterior circulation. Moderate calcified plaq ue within the bilateral carotid siphons. The aortic arch and proximal great vessels are widely patent. There is no significant stenosis, occ lusion, or dissection identified within the bilateral common carotid, internal carotid, or vertebral arteries. IMPRESSION: 1. No significant stenosis, occlusion, or aneurysm within the [place]. 2. No significant stenosis, occlusion, or dissection identified within the carotid or vertebral arter ies. ACT 112: Negative or not required by law. Electronically signed by: Donnie Jurado M.D. 03/21/2022 2:35 PM
--- NOTE | 2022-03-21 15:47 | Electrocardiogram Report ---
Test Reason : Blood Pressure : / mmHG Vent. Rate : 058 BPM Atrial Rate : 058 BPM P-R Int : 186 ms QRS Dur : 092 ms QT Int : 426 ms P-R-T Axes : 008 -05 035 degrees QTc Int : 418 ms Sinus bradycardia Moderate voltage criteria for LVH, may be normal variant possible Inferior infarct (cited on or before 24-JUN-2020) Abnormal ECG When compared with ECG of 12-JUL-2020 12:22, No significant change was found Confirmed by Shakeel Rose ([id number]) on 03/21/2022 3:46:51 PM Referred By: Confirmed By:Roel Rose
--- NOTE | 2022-03-21 16:38 | History & Physical Report ---
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 Left Leg weakness Possible stroke like sx admit to med tele obtain MRI brain w and w/o obtain echocardiogram consult neurology currently pt is not on any antiplt, is off ASA due to hx of duodenal ulcer in 2019 will await mri results before starting antiplatelet obtain fasting lipid panel, if MRI + start statin a1c and lipid panel in a.m. PT/OT/ST Acute UTI abnormal UA may be contributing to symptoms continue empiric rocephin COPD no acute exac continue home inhaler HTN bp stable continue amlodipine, atenolol, losartan, aldactone pt also on KCL supplement, monitor potassium level Anemia hgb 10.6 1 year ago hgb was 13.0, Oct was 11.5 will obtain anemia panel in a.m. Hypothyroidism continue Synthroid L anterior renal mass followed by Dr. Nino currently just monitoring concern for RCC RLS requip at HS Dvt ppx: SCDs for now due to hx of gib Dispo: med tele, likely d/c back to [place] in 1-2 days FULL CODE PCP: Veto Mcintyre Pt was seen and examined in collaboration with Dr. Holt, please see addendum History of Present Illness Chief Complaint: L leg weakness x 1 day. Primary Care Provider: [facility] This is a 86-year-old female who has a significant past medical history of COPD, HTN, hypothyroidism, RLS, 4.1 cm left anterior renal mass concerning for RCC followed by urology, anemia, history of duodenal ulcer and anxiety who presents ED secondary to left leg weakness x1 day. She lives at assisted living over at the [facility]. Last evening when walking to the bathroom and trending of bed she noticed her left leg to be increasingly weak and her left foot was dragging. This was incredibly unusual for her. She was able to get back to her recliner. Approximately 1 day ago she also admits to having difficulty finding her words. She denies any weakness to her left upper extremity, slurred speech or facial droop. She denies any prior history of CVA. She admits to difficulty with balance, but this has improved with using a walker. She also performs PT at her facility. She denies any recent illness. She does admit to increased urinary urgency. She denies any fever, chills, sweats, lightheadedness, dizziness, syncope, chest pain, shortness of breath, cough, nausea, vomiting, abdominal pain. Overall feels her appetite is decreased. She does have chronic lower extremity swelling and she feels it is at baseline. In ED patient remained hemodynamically stable. She underwent acute head CT which was negative for acute intracranial abnormality. It did reveal atrophy and microvascular ischemic change. 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 Head and neck CTA was negative for any significant stenosis, occlusion or dissection. Her urinalysis was concerning for infection. She was started on IV Rocephin. She is being admitted for likely UTI as well as stroke work-up. Allergies Allergy/AdvReac Type Severity Reaction Status Date / Time adhesive Allergy Intermediate RASH Verified 03/21/22 15:16 paraben Allergy Intermediate Unknown Verified 03/21/22 15:16 polymyxin B Allergy Intermediate Unknown Verified 03/21/22 15:16 bacitracin Allergy Unknown Unknown Verified 03/21/22 15:16 benzoin Allergy Unknown Unknown Verified 03/21/22 15:16 influenza virus vaccine Allergy Unknown Unknown Verified 03/21/22 15:16 trivalent thimerosal Allergy Unknown Unknown Verified 03/21/22 15:16 Home Medications Medication Instructions Recorded Confirmed Type levothyroxine 75 mcg tablet 75 mcg PO DAILYBB 10/22/19 03/21/22 History (Synthroid) meclizine 25 mg tablet 25 mg PO Q8H PRN 10/22/19 03/21/22 History potassium chloride 10 mEq 10 meq PO QAM 10/22/19 03/21/22 History capsule,extended release cholecalciferol (vitamin D3) 10 10 mcg PO QAM 09/09/20 03/21/22 History mcg (400 unit) capsule (Vitamin D3) dicyclomine 20 mg tablet 20 mg PO ACHS PRN 09/09/20 03/21/22 History docusate sodium 100 mg capsule 100 mg PO BIDM 09/09/20 03/21/22 History (Colace) multivitamin,ot-ljhi-iejshilg 27 1 tab PO QAM 09/09/20 03/21/22 History mg-0.4 mg tablet (Therems-M) omeprazole 40 mg capsule,delayed 40 mg PO QAM 09/09/20 03/21/22 History release atenolol 50 mg tablet 50 mg PO DAILY 03/14/22 03/21/22 History diphenhydramine HCl 12.5 mg 12.5 mg PO HS tab 03/14/22 03/21/22 History chewable tablet (Children's Allergy (diphenhydramine)) fluticasone furoate 100 1 inh INHALATION DAILY 03/14/22 03/21/22 History mcg/actuation blister powder for inhalation (Arnuity Ellipta) ondansetron HCl 4 mg tablet 4 mg PO Q6H PRN 03/14/22 03/21/22 History sertraline 25 mg tablet (Zoloft) 25 mg PO DAILY 03/14/22 03/21/22 History spironolactone 25 mg tablet 25 mg PO DAILY 03/14/22 03/21/22 History acetaminophen 500 mg tablet 1,000 mg PO DAILY PRN MDD 3500 03/21/22 03/21/22 History (Tylenol Extra Strength) MG/24 HOURS acetaminophen 500 mg tablet 1,000 mg PO TID 03/21/22 03/21/22 History (Tylenol Extra Strength) albuterol sulfate 90 mcg/actuation 2 puff INHALATION QID PRN 03/21/22 03/21/22 History aerosol inhaler (Ventolin HFA) amlodipine 5 mg tablet (Norvasc) 5 mg PO DAILY 03/21/22 03/21/22 History calcium carbonate 500 mg-vitamin 1 tab PO BIDM 03/21/22 03/21/22 History D3 5 mcg (200 unit) tablet (Oyster Shell Calcium-Vitamin D3) calcium polycarbophil 625 mg 625 mg PO DAILY 03/21/22 03/21/22 History tablet (FiberCon) guaifenesin 600 mg tablet, 600 mg PO Q12H PRN 03/21/22 03/21/22 History extended release 12 hr (Mucinex) loperamide 2 mg capsule 2 mg PO QID PRN 03/21/22 03/21/22 History losartan 100 mg tablet (Cozaar) 100 mg PO DAILY 03/21/22 03/21/22 History ropinirole 2 mg tablet 2 mg PO DAILY@1800 03/21/22 03/21/22 History ropinirole 2 mg tablet 2 mg PO DAILY@1900 03/21/22 03/21/22 History triamcinolone acetonide 0.1 % 1 applic TOPICAL BID PRN 03/21/22 03/21/22 History topical cream Past Med/Surg History Medical History Arthritis Chronic venous insufficiency COPD (chronic obstructive pulmonary disease) HTN (hypertension) Hyperlipidemia Hypothyroidism Obesity Osteoporosis RLS (restless legs syndrome) TIA (transient ischemic attack) Surgical History (Updated 03/21/22 @ 16:38 by Winnie Cameron PA-C) H/O hysterectomy with unilateral oophorectomy History of appendectomy History of esophagogastroduodenoscopy (EGD) hx of duodenal ulcer s/p clipping requiring transfer to tertiary center, 2/2 to nsaid use Family History Father Colorectal cancer Diabetes Social History Smoking Status: Never smoker Hx Alcohol Use: Yes Alcohol type: wine Hx Substance Use: No Preferred Language: Moroccan Communication Ability: Effective Visual Impairment: Limited Hearing Ability: Normal Elementary Education Tutor Required: No Beliefs That Will Affect Care: None marital status: / Current Living Situation: Personal Care Facility Current Living Situation Comment: Resident of [facility] current occupational status: retired Other Information That Helps Us Care for You: No Feels Safe at Home: Yes Safety Concerns: Feels Safe At This Time Assistive Devices: Glasses and Walker Review of Systems Review of Systems: All systems reviewed & are unremarkable except as noted in HPI & below Physical Exam Physical Exam: Constitutional: WD/WN, vitals as above, NAD, sitting up in bed, pleasant, conversing easily Head: Normocephalic, Atraumatic Eyes: PERRL, conjunctivae normal, anicteric sclerae ENMT: external ear and nose normal, oropharynx normal Neck: trachea midline, no thyromegaly normal visual inspection Respiratory: normal respiratory effort, lungs clear to auscultation, no wheeze, rales, rhonchi. Normal insp/exp effort, no accessory muscle use Cardiovascular: RRR, no murmur,b/l trace lower ext edema, RLE with venous stasis change, no veto cellulitis Vessels: no JVD or carotid bruit Chest: normal inspection of chest Abdomen: normal bowel sounds, soft, nontender, no hepatosplenomegaly Musculoskeletal: no cyanosis or clubbing, extremities motor strength 5/5 , except LLE 4/5 Skin: no rashes, warm and dry normal turgor Neurologic: PERRL, EOMI, accommodation nl, no face palsy, no dysarthria, no pronator drift, CN's II-XI intact bilaterally and moves all extremities Psychiatric: A+Ox3, euthymic affect Lymphatic: no cervical or axillary lymphadenopathy : deferred Results & Data Results & Data ([facility]) Vital Signs (Past 12 Hours) Vital Signs Temp Pulse Resp BP Pulse Ox 03/21/22 12:00 58 L 19 135/69 98 03/21/22 11:55 36.7 C 60 18 135/69 97 Laboratory Results Short CBC 03/21/22 Range/Units 11:58 WBC 10.03 (4.8-10.8) K/uL Hgb 10.6 L (12.0-16.0) g/dL Hct 32.3 L (37-47) % Plt Count 242 (130-400) K/uL BMP 03/21/22 11:58 Sodium 132 L Potassium 4.0 Chloride 99 Carbon Dioxide 27 BUN 23 Creatinine 0.89 Glucose 97 Calcium 9.5 Liver Function 03/21/22 Range/Units 11:58 Total Bilirubin 0.5 (0.2-1.0) mg/dl AST 16 (13-39) U/L ALT 12 (7-52) U/L Alkaline Phosphatase 64 (34-104) U/L Albumin 3.9 (3.4-5.0) gm/dl Urine 03/21/22 Range/Units 13:26 Urine Color Yellow Urine Appearance Clear (Clear) Urine pH 7.0 (4.5-7.5) Ur Specific [place] 1.009 (1.000-1.030) Urine Protein Negative (Negative) Urine Glucose (UA) Negative (Negative) Diagnostic Findings Chest X-Ray 03/21/22 12:13 XR chest 1V portable CLINICAL HISTORY: Stroke Like Symptoms COMPARISON STUDY: Chest radiograph July 12, 2020. FINDINGS: Incidental note made is severe osteoarthritis of both glenohumeral joints with remodeling of the right humeral head. There is no pneumothorax or pleural effusion. No consolidation or evidence for pulmonary edema. Note is made of mild cardiomegaly with extensive mitral annular calcification. Linear left basilar opacity favors atelectasis. IMPRESSION: No acute cardiopulmonary findings. ACT 112: Negative or not required by law. Electronically signed by: Maikel Hernandez M.D. 03/21/2022 12:[address] 03/21/22 12:[address] DOSE: 1012.63 mGy.cm HISTORY: Confusion. Stroke Like Symptoms TECHNIQUE: Multiaxial CT images of the head were performed without the use of intravenous contrast. Automated exposure control was utilized for this study. A dose lowering technique was utilized adhering to the principles of ALARA. Comparison: None. Findings: Mild mucosal thickening within the sphenoid sinuses. The calvarium and skull base are intact. There is no mass, hematoma, midline shift, acute infarct. White matter hypodensity is nonspecific but suggestive of microvascular ischemic change. The ventricles and sulci demonstrate mild age-related involutional changes. 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 Impression: No acute intracranial abnormality. Atrophy and microvascular ischemic changes. ACT 112: Negative or not required by law. Electronically signed by: Donnie Jurado M.D. 03/21/2022 2:29 PM Head CTA 03/21/22 12:13 HEAD & NECK CTA HISTORY: Confusion. Stroke Like Symptoms TECHNIQUE: Multiaxial CT images of the head were performed following the intravenous administration of contrast to evaluate the major cerebral vessels. Multiaxial CT images of the neck were also performed following the intravenous administration of contrast to evaluate the major cervical vessels. Maximum intensity projection images were also obtained. A dose lowering technique was utilized adhering to the principles of ALARA. COMPARISON: Noncontrast Head CT 03/21/2022. FINDINGS: There is no mass, hematoma, midline shift, or acute infarct. Visualized intracranial internal carotid arteries, distal vertebral arteries, and basilar artery are widely patent. There is no significant stenosis, occlusion, or aneurysm seen within the bilateral ACAs, MCAs, or pilot supervisor. The major dural venous sinuses are patent. There is a persistent right posterior circulation. Moderate calcified plaque within the bilateral carotid siphons. The aortic arch and proximal great vessels are widely patent. There is no significant stenosis, occlusion, or dissection identified within the bilateral common carotid, internal carotid, or vertebral arteries. IMPRESSION: 1. No significant stenosis, occlusion, or aneurysm within the [place]. 2. No significant stenosis, occlusion, or dissection identified within the carotid or vertebral arteries. ACT 112: Negative or not required by law. Electronically signed by: Donnie Jurado M.D. 03/21/2022 2:35 PM Neck CTA 03/21/22 12:13 HEAD & NECK CTA HISTORY: Confusion. Stroke Like Symptoms TECHNIQUE: Multiaxial CT images of the head were performed following the intravenous administration of contrast to evaluate the major cerebral vessels. Multiaxial CT images of the neck were also performed following the intravenous administration of contrast to evaluate the major cervical vessels. Maximum intensity projection images were also obtained. A dose lowering technique was utilized adhering to the principles of ALARA. COMPARISON: Noncontrast Head CT 03/21/2022. FINDINGS: There is no mass, hematoma, midline shift, or acute infarct. Visualized intracranial internal carotid arteries, distal vertebral arteries, and basilar artery are widely patent. There is no significant stenosis, occlusion, or aneurysm seen within the bilateral ACAs, MCAs, or pilot supervisor. The major dural venous sinuses are patent. There is a persistent right posterior circulation. Moderate calcified plaque within the bilateral carotid siphons. The aortic arch and proximal great vessels are widely patent. There is no significant stenosis, occlusion, or dissection identified within the bilateral common carotid, internal carotid, or vertebral arteries. IMPRESSION: 1. No significant stenosis, occlusion, or aneurysm within the [place]. 2. No significant stenosis, occlusion, or dissection identified within the carotid or vertebral arteries. ACT 112: Negative or not required by law. Electronically signed by: Donnie Jurado M.D. 03/21/2022 2:35 PM Medications Administered Medication List Discontinued Medications Sodium Chloride (Nss 1000ml) 500 mls @ 999 mls/hr IV .Q31M ONE Stop: 03/21/22 12:43 Last Infusion: 03/21/22 13:29 Dose: 0 mls/hr Documented by: [id number] Admin: 03/21/22 12:27 Dose: 999 mls/hr Documented by: [id number] Ceftriaxone Sodium (Rocephin) 2,000 mg in 70 mls @ 140 mls/hr IV NOW STA Stop: 03/21/22 14:51 Last Infusion: 03/21/22 15:04 Dose: 0 mls/hr Documented by: [id number] Admin: 03/21/22 14:34 Dose: 140 mls/hr Documented by: [id number] Ioversol (Optiray 320 125ml) 120 ml IV ONCE ONE Stop: 03/21/22 14:31 Last Admin: 03/21/22 14:16 Dose: 120 ml Documented by: [id number] ECG Rate (beats per minute): 58 Rhythm: sinus bradycardia COVID-19 Results Results COVID-19 Adm Lab Results: RBC 3.17 M/uL (4.2-5.4) L 03/21/22 WBC 10.03 K/uL (4.8-10.8) 03/21/22 Hgb 10.6 g/dL (12.0-16.0) L 03/21/22 Hct 32.3 % (37-47) L 03/21/22 Plt Count 242 K/uL (130-400) 03/21/22 Neutrophils (%) (Auto) 75.0 % 03/21/22 Lymphocytes (%) (Auto) 12.6 % 03/21/22 Monocytes # (Auto) 0.77 K/uL (0.11-0.59) H 03/21/22 Eosinophils # (Auto) 0.37 K/uL (0-0.5) 03/21/22 Immature Granulocyte % (Auto) 0.6 % 03/21/22 Neutrophils # (Auto) 7.53 K/uL (1.4-6.5) H 03/21/22 Lymphocytes # (Auto) 1.26 K/uL (1.2-3.4) 03/21/22 Monocytes # (Auto) 0.77 K/uL (0.11-0.59) H 03/21/22 Eosinophils # (Auto) 0.37 K/uL (0-0.5) 03/21/22 Basophils # (Auto) 0.04 K/uL (0-0.2) 03/21/22 Immature Granulocyte # (Auto) 0.06 K/uL (0.00-0.02) H 03/21/22 Na 132 mmol/L (136-145) L 03/21/22 K 4.0 mmol/L (3.5-5.1) 03/21/22 Cl 99 mmol/L (98-107) 03/21/22 CO2 27 mmol/L (21-32) 03/21/22 Anion Gap 6 (3-11) 03/21/22 BUN 23 mg/dl (6-23) 03/21/22 Creatinine 0.89 mg/dl (0.6-1.2) 03/21/22 BUN/Creatinine Ratio 25.8 (10-20) H 03/21/22 Glucose Level 97 mg/dl (70-99(Fasting)) 03/21/22 Ca 9.5 mg/dl (8.5-10.1) 03/21/22 Total Bilirubin 0.5 mg/dl (0.2-1.0) 03/21/22 AST/SGOT 16 U/L (13-39) 03/21/22 ALT/SGPT 12 U/L (7-52) 03/21/22 Alkaline Phosphatase 64 U/L (34-104) 03/21/22 Total Protein 7.1 gm/dl (6.0-8.3) 03/21/22 Albumin 3.9 gm/dl (3.4-5.0) 03/21/22 Globulin 3.2 gm/dl (2.5-4.0) 03/21/22 Albumin/Globulin Ratio 1.2 (0.9-2) 03/21/22 PTT 27.5 Seconds (21.0-31.0) 03/21/22 INR 1.1 (0.9-1.1) 03/21/22 SARS-CoV-2, RNA, NAAT NEGATIVE (NEGATIVE) 03/21/22 Chest X-Ray 03/21/22 Code Status & VTE Plan Code Status FULL CODE VTE Prophylaxis Plan VTE Prophylaxis will be ordered: Yes Supervising Physician Co-Signing Physician Notes I have seen and examined the patient and have discussed the case with the provider above. I agree with the assessment and plan as stated. 86 yo F from the [facility], presenting with weakness as described above. Reports weeks of hesitancy with urination and found to have a UTI. Denies fevers, chills, pelvic or back pain. Has external hemorrhoids that she thought were contributing to this initially. Weakness has resolved and she was able to ambulate independently to breakfast this am per her report. However, persistent fatigue prompted evaluation. Physical exam reveals a WNWD female in NAD. She is alert and a good historian. No gross focal neurologic deficits are noted, speech, language and memory are intact. Has known neuropathy in feet, otherwise no focal sensation deficits. Cardiac auscultation receals regular rate and rhythm with S1/2 heard and no m/g/r. Lungs are clear to auscultation. Abdomen is soft NTND, and no CVA tenderness is present. Labwork reveals anemia with H/H close to baseline, no leukocytosis, normal chemistry and +bacteruria. CXR is negative and head CT along with head and neck CTA are not revealing any acute disease. MRI is pending. EKG is non ischemic with SB, 58 bpm. Overall she is an 86 yo F in [facility] presening for weakness likely 2/2 UTI. She is on Rocephin pending urine culture results and is already improved. She is eager to return to the [facility] tomorrow. MRI for definitive stroke rule out, and given her presentation and transient, subjective weakness agree with holding off on antiplatelet therapy pending MRI results given h/o duodenal ulcer. PT/OT and Neuro to assess in am. Cont to monitor on telemetry overnight. DO Jonathon (1) Anemia Anemia type: unspecified type Qualified Code(s): D64.9 - Anemia, unspecified
[2022-03-21] MEDS ORDERED: ALUMINUM/MAGNESIUM SUSP 30 ML UDC PO PRN (18:18)
[2022-03-21] MEDS ORDERED: ONDANSETRON INJ 2 MG/ML 2 ML VIAL IV PRN (18:18)
[2022-03-21] MEDS ORDERED: DICYCLOMINE HCL 20 MG TAB PO PRN (18:18)
[2022-03-21] MEDS ORDERED: POLYETHYLENE (MIRALAX) 17 GM PACK PO PRN (18:18)
[2022-03-21] MEDS ORDERED: MAGNESIUM HYDROXIDE SUSP 30 ML UDC PO PRN (18:18)
[2022-03-21] MEDS ORDERED: PHARMACIST DISCHARGE MED REC CONSULT PRN (18:18)
[2022-03-21] MEDS ORDERED: ACETAMINOPHEN 325 MG TAB PO PRN (18:18)
[2022-03-21] MEDS ORDERED: ALBUTEROL HFA 8 GM INHALER INH PRN (18:18)
[2022-03-21] MEDS: DOCUSATE SODIUM 100 MG CAP PO SCH (20:36)
[2022-03-21] MEDS: rOPINIRole HCL 2 MG TABLET PO SCH ×2 (20:36→21:27)
[2022-03-21] MEDS: CALCIUM 600MG + VIT D 400 IU TAB PO SCH (20:37)
[2022-03-21] MEDS: ACETAMINOPHEN 500 MG TAB PO SCH (21:26)
[2022-03-21] MEDS ORDERED: GADOBUTROL 65ML VIAL IV ONE (23:18)
[2022-03-22] MEDS: ACETAMINOPHEN 500 MG TAB PO SCH ×3 (05:47→21:46)
[2022-03-22] MEDS: LEVOTHYROXINE SODIUM 75 MCG TABLET PO SCH (05:47)
[2022-03-22] MEDS: CALCIUM 600MG + VIT D 400 IU TAB PO SCH ×2 (07:29→16:04)
[2022-03-22] MEDS: DOCUSATE SODIUM 100 MG CAP PO SCH ×2 (07:29→16:05)
[2022-03-22 07:39] LABS: Basophils # (auto) 0.06 K/uL (0-0.2); Basophils % (auto) 0.6 %; Eosinophils # (auto) 0.38 K/uL (0-0.5); Eosinophils % (auto) 3.8 %; Hematocrit (blood only) 31.1 % (37-47); Hemoglobin 10.4 g/dL (12.0-16.0); Immature Granulocytes # (auto) 0.05 K/uL (0.00-0.02); Immature Granulocytes % (auto) 0.5 %; Lymphocytes # (auto) 1.22 K/uL (1.2-3.4); Lymphocytes % (auto) 12.1 %; Mean Corpuscular Hemoglobin 34.2 pg (25-34); Mean Corpuscular Hgb Conc 33.4 g/dL (32-36); Mean Corpuscular Volume 102.3 fL (80-100); Mean Platelet Volume 10.7 fL (7.4-10.4); Monocytes # (auto) 0.71 K/uL (0.11-0.59); Monocytes % (auto) 7.1 %; Neutrophils # (auto) 7.63 K/uL (1.4-6.5); Neutrophils % (auto) 75.9 %; Platelet Count 223 K/uL (130-400); RDW Coefficient of Variation 14.9 % (11.5-14.5); RDW Standard Deviation 55.3 fL (36.4-46.3); Red Blood Count 3.04 M/uL (4.2-5.4); White Blood Count 10.05 K/uL (4.8-10.8)
[2022-03-22] MEDS: amLODIPine BESYLATE 5 MG TAB PO SCH (08:12)
[2022-03-22] MEDS: ATENOLOL 50 MG TABLET PO SCH (08:12)
[2022-03-22] MEDS: CHOLECALCIFEROL 400 UNITS 10 MCG TAB PO SCH (08:13)
[2022-03-22] MEDS: CALCIUM POLYCARBOPHIL 625MG TAB PO SCH (08:13)
[2022-03-22] MEDS: LOSARTAN POTASSIUM 50 MG TAB PO SCH (08:13)
[2022-03-22] MEDS: FLUTICASONE FUROATE 100MCG 14 PUFFS/INHALER INH SCH (08:14)
[2022-03-22] MEDS: POTASSIUM CHLORIDE 10 MEQ TABCR PO SCH (08:14)
[2022-03-22] MEDS: CEROVITE ADV FORMULA TAB PO SCH (08:14)
[2022-03-22] MEDS: PANTOprazole 40 MG TAB PO SCH (08:14)
[2022-03-22] MEDS: SERTRALINE HCL 50 MG TABLET PO SCH (08:15)
[2022-03-22] MEDS: SPIRONOLACTONE 25 MG TAB PO SCH (08:15)
[2022-03-22 08:16] LABS: Calcium 9.2 mg/dl (8.5-10.1); Chol HDL Ratio 3.2 (0-5); Creatinine Clr Calc Pharmacy 67.3 ml/min; Est GFR (African American) 84.8 ml/min; Est GFR (Non-African American) 73.2 ml/min; Potassium 3.9 mmol/L (3.5-5.1)
[2022-03-22 08:27] LABS: Ferritin 93.4 ng/ml (8-388)
[2022-03-22 08:37] LABS: Folate (Folic Acid) 21.76 ng/ml (>5.38)
--- NOTE | 2022-03-22 09:52 | Magnetic Resonance Report ---
MR brain wo/w con HISTORY: 86 years-old Female stroke like sx acute strokelike symptoms COMPARISON: CTA head with CTA head and neck studies for ,022 TECHNIQUE: Multiplanar multisequence MRI of the brain was obtained both with and without the use of 8 cc Gadavist FINDINGS: Mill Washer localizer images demonstrate no gross extracranial abnormality. There is a 3 mm focus of cortic ally based restricted diffusion involving the superior right frontal lobe on image 18 series 4 which demonstrates slightly decreased signal on ADC map and mildly increased T2/FLAIR signal. No evidence o f acute or subacute territorial infarct. Chronic lacunar infarcts of the cerebellar hemispheres, left greater than right. Degenerative changes of the imaged cervical spine. There is no acute intracrania l hemorrhage, midline shift, abnormal extra axial collection, hydrocephalus or intracranial mass. Age -related involutional changes. Extensive T2/FLAIR hyperintense foci are noted throughout the white ma tter. No abnormal intra-axial or extra-axial enhancement. Postcontrast images are motion degraded. The cerebral venous sinuses and major arterial flow voids appear patent. Prior bilateral lens repair. The skull and soft tissues are unremarkable. Mastoid air cells and paranasal sinuses are generally c lear with mild mucosal thickening of the sphenoid sinuses. IMPRESSION: 1. 3 mm cortically based focus of restricted diffusion within the superior right frontal lobe with in creased T2/FLAIR signal is suggestive of a tiny acute infarct. No acute or subacute territorial infar ction. 2. Age-related involutional changes with extensive chronic microvascular ischemic disease. 3. No abnormal enhancement. 4. Chronic cerebellar infarcts. ACT 112: Negative or not required by law. The above report was generated using voice recognition software. It may contain grammatical, syntax o r spelling errors. Electronically signed by: Forest Winn M.D. 03/22/2022 9:50 AM
[2022-03-22 10:16] LABS: Estimated Average Glucose 111 mg/dl; Hemoglobin A1C 5.5 % (4.5-5.6)
--- NOTE | 2022-03-22 11:53 | Neurology Consultation ---
Date of Consultation March 22, 2022 Assessment & Plan (1) Acute left-sided weakness: 1. small stroke in right area of frontal lobe 2. left side weakness likely cause by UTI and increase symptoms from previous stroke 3. GI bleed in the past would start plavix 75 mg daily 4. optimize HTN HLD LDL<70 consider patients age 5. PT. OT speech for discharge needs 6. TTE -if not already done follow up with neurology 4-6 weeks after discharge (2) Acute UTI: 1. treat to culture Supervising Physician Co-Signing Physician Notes I have seen and discussed above patient with Dr Perry Lomeli, neurology At the present time we are not going to have to make the diagnosis of a small localized right parasagittal CVA possibly embolic but without a clear source documented on the basis of CT angiography or echocardiography. There is an underlying urinary tract infection and there are scattered white matter changes throughout the brain so some of the weakness could represent a parainfectious exacerbation of an underlying subclinical weakness due to the small vessel disease. That having been sent the patient denies any prior history of a similar degree of acute left lower extremity weakness so I think we are left with the diagnosis of an acute small CVA It sounds as though she had a extensive probably nonsteroidal induced gastritis years ago requiring transfer to [place], ICU stay and blood transfusions making me reluctant to recommend any aspirin therapy here but certainly we could go with Plavix which has a very low propensity for causing direct GI irritability or mucosal irritability Agree with the recommendations outlined above by Nina Berg PA-C. I suspect the patient could be discharged back to her facility where physical therapy does exist but would defer to our in-house physical therapist regarding their recommendations regarding whether she needs outpatient or inpatient therapy We will arrange for follow-up in our office in about a month Neurology is now going to sign off the case but would be happy to reassess her should anything change between now and the time of discharge Perry Lomeli MD The above note was generated utilizing voice recognition technology and may have spelling errors punctuation errors pronoun usage errors and syntax errors History of Present Illness Reason for Consultation: stroke like sx Requesting Physician: Kendell Posada MD Attending Physician: Kendell Posada MD History of Present Illness Liliam is a 86 year old female PMH- COPD, HTN, hypothyroidism, RLS, 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 She lives at assisted living over at the [facility]. Last evening when walking to the bathroom and trending of bed she noticed her left leg to be increasingly weak and her left foot was dragging. She was able to get back to her recliner. She also admits to having difficulty finding her words. She denies any weakness to her left upper extremity, slurred speech or facial droop.She admits to difficulty with balance, but this has improved with using a walker. She has PT at her facility. She does admit to increased urinary urgency.She does have chronic lower extremity swelling but is baseline. It did reveal atrophy and microvascular ischemic change and an old small infarct in the left cerebellar hemisphere. Her urinalysis was concerning for infection. Allergies Allergy/AdvReac Type Severity Reaction Status Date / Time adhesive Allergy Intermediate RASH Verified 03/21/22 15:16 paraben Allergy Intermediate Unknown Verified 03/21/22 15:16 polymyxin B Allergy Intermediate Unknown Verified 03/21/22 15:16 bacitracin Allergy Unknown Unknown Verified 03/21/22 15:16 benzoin Allergy Unknown Unknown Verified 03/21/22 15:16 influenza virus vaccine Allergy Unknown Unknown Verified 03/21/22 15:16 trivalent thimerosal Allergy Unknown Unknown Verified 03/21/22 15:16 Home Medications Medication Instructions Recorded Confirmed Type levothyroxine 75 mcg tablet 75 mcg PO DAILYBB 10/22/19 03/21/22 History (Synthroid) meclizine 25 mg tablet 25 mg PO Q8H PRN 10/22/19 03/21/22 History potassium chloride 10 mEq 10 meq PO QAM 10/22/19 03/21/22 History capsule,extended release cholecalciferol (vitamin D3) 10 10 mcg PO QAM 09/09/20 03/21/22 History mcg (400 unit) capsule (Vitamin D3) dicyclomine 20 mg tablet 20 mg PO ACHS PRN 09/09/20 03/21/22 History docusate sodium 100 mg capsule 100 mg PO BIDM 09/09/20 03/21/22 History (Colace) multivitamin,[id number] 27 1 tab PO QAM 09/09/20 03/21/22 History mg-0.4 mg tablet (Therems-M) omeprazole 40 mg capsule,delayed 40 mg PO QAM 09/09/20 03/21/22 History release atenolol 50 mg tablet 50 mg PO DAILY 03/14/22 03/21/22 History diphenhydramine HCl 12.5 mg 12.5 mg PO HS tab 03/14/22 03/21/22 History chewable tablet (Children's Allergy (diphenhydramine)) fluticasone furoate 100 1 inh INHALATION DAILY 03/14/22 03/21/22 History mcg/actuation blister powder for inhalation (Arnuity Ellipta) ondansetron HCl 4 mg tablet 4 mg PO Q6H PRN 03/14/22 03/21/22 History sertraline 25 mg tablet (Zoloft) 25 mg PO DAILY 03/14/22 03/21/22 History spironolactone 25 mg tablet 25 mg PO DAILY 03/14/22 03/21/22 History acetaminophen 500 mg tablet 1,000 mg PO DAILY PRN MDD 3500 03/21/22 03/21/22 History (Tylenol Extra Strength) MG/24 HOURS acetaminophen 500 mg tablet 1,000 mg PO TID 03/21/22 03/21/22 History (Tylenol Extra Strength) albuterol sulfate 90 mcg/actuation 2 puff INHALATION QID PRN 03/21/22 03/21/22 History aerosol inhaler (Ventolin HFA) amlodipine 5 mg tablet (Norvasc) 5 mg PO DAILY 03/21/22 03/21/22 History calcium carbonate 500 mg-vitamin 1 tab PO BIDM 03/21/22 03/21/22 History D3 5 mcg (200 unit) tablet (Oyster Shell Calcium-Vitamin D3) calcium polycarbophil 625 mg 625 mg PO DAILY 03/21/22 03/21/22 History tablet (FiberCon) guaifenesin 600 mg tablet, 600 mg PO Q12H PRN 03/21/22 03/21/22 History extended release 12 hr (Mucinex) loperamide 2 mg capsule 2 mg PO QID PRN 03/21/22 03/21/22 History losartan 100 mg tablet (Cozaar) 100 mg PO DAILY 03/21/22 03/21/22 History ropinirole 2 mg tablet 2 mg PO DAILY@1800 03/21/22 03/21/22 History ropinirole 2 mg tablet 2 mg PO DAILY@1900 03/21/22 03/21/22 History triamcinolone acetonide 0.1 % 1 applic TOPICAL BID PRN 03/21/22 03/21/22 History topical cream Patient History Medical History Arthritis Chronic venous insufficiency COPD (chronic obstructive pulmonary disease) HTN (hypertension) Hyperlipidemia Hypothyroidism Obesity Osteoporosis RLS (restless legs syndrome) TIA (transient ischemic attack) Surgical History (Updated 03/21/22 @ 16:38 by Winnie Cameron PA-C) H/O hysterectomy with unilateral oophorectomy History of appendectomy History of esophagogastroduodenoscopy (EGD) hx of duodenal ulcer s/p clipping requiring transfer to tertiary center, 2/2 to nsaid use Family History Father Colorectal cancer Diabetes Social History Smoking Status: Never smoker Hx Alcohol Use: Yes Alcohol type: wine Hx Substance Use: No Preferred Language: Khmer Communication Ability: Effective Visual Impairment: Limited Hearing Ability: Normal Master [place] Required: No Beliefs That Will Affect Care: None marital status: / Current Living Situation: Personal Care Facility Current Living Situation Comment: Resident of [facility] current occupational status: retired Other Information That Helps Us Care for You: No Feels Safe at Home: Yes Safety Concerns: Feels Safe At This Time Assistive Devices: Walker Review of Systems Review of Systems: Today the patient reports no recent fever sweats chills does allude to some loss of urination perhaps a little dysuria consistent with her known urinary tract infection but denies any other systemic complaints and offers a history of a right retinal hemorrhage in the remote past with an inferior field cut on the right, does admit to some hearing loss, talks about some mild memory disturbances, but denies any new recent cardiovascular pulmonary gastrointestinal genitourinary musculoskeletal dermatologic issues denies any underlying diabetes, does admit to the restless leg issues and states that she has a neuropathy yet denies much in way of numbness or tingling in her feet. She specifically denies any prior documented cerebrovascular events at least clinically despite the presence of multiple high T2 intensity signals in her subcortical white matter this and with some microvascular changes. All of these however appear to have been subclinical Physical Exam Physical Exam: Today her blood pressure is 101/59 pulse is 63 respirations are 18 she is has a temperature of 36 7 and O2 saturation of 96% on room air. She is awake alert and oriented has a little hearing loss has normal eye movements perhaps a little inferior monocular visual field cut on the right otherwise no field cuts are noted and facial motility and strength facial sensation and speech are clear. I did not ambulate her but there is no tremor tics choreiform activity drift or pronation sign and despite her complaints of left leg clumsiness the facility rapid repetitive motions is actually quite good bilaterally and she can do [id number] equally rapid toe padding is equal there is no drift or pronation sign actual muscle weakness but there may be hyperreflexia at the knees areflexic at the ankles the left toes sign is equivocal extensive the right toe sinus flexor strength is normal and there may be a little vibratory sensory loss over the toes but proprioception is quite intact as is pinprick and light touch Results & Data ([facility]) Vital Signs (Past 12 Hours) Vital Signs Temp Pulse Pulse Resp BP Pulse Ox 03/22/22 11:47 36.7 C 57 L 18 101/59 L 96 03/22/22 08:12 70 03/22/22 07:18 58 L 03/22/22 06:26 36.8 C 63 17 127/74 96 03/22/22 03:10 36.5 C 58 L 17 108/66 95 Laboratory Results Abnormal lab results 03/21/22 03/21/22 03/21/22 Range/Units 11:57 11:58 11:58 RBC 3.17 L (4.2-5.4) M/uL Hgb 10.6 L (12.0-16.0) g/dL Hct 32.3 L (37-47) % MCV 101.9 H (80-100) fL MCH (25-34) pg RDW Std Deviation 55.4 H (36.4-46.3) fL RDW Coeff of [place] 14.8 H (11.5-14.5) % MPV 10.7 H (7.4-10.4) fL Neut # (Auto) 7.53 H (1.4-6.5) K/uL [place] # (Auto) 0.77 H (0.11-0.59) K/uL Immature Gran # (Auto) 0.06 H (0.00-0.02) K/uL Sodium 132 L (136-145) mmol/L BUN/Creatinine Ratio 25.8 H (10-20) POC Glucose 103 H (70-99) mg/dl Ammonia (18-72) umol/L Triglycerides (0-150) mg/dl VLDL Cholesterol, Calc (0-30) mg/dl Ur Leukocyte Esterase (Negative) Urine WBC (Auto) (0-5) /hpf Urine Bacteria (Auto) (Negative) 03/21/22 03/21/22 03/22/22 Range/Units 13:26 14:36 06:43 RBC 3.04 L (4.2-5.4) M/uL Hgb 10.4 L (12.0-16.0) g/dL Hct 31.1 L (37-47) % MCV 102.3 H (80-100) fL MCH 34.2 H (25-34) pg RDW Std Deviation 55.3 H (36.4-46.3) fL RDW Coeff of [place] 14.9 H (11.5-14.5) % MPV 10.7 H (7.4-10.4) fL Neut # (Auto) 7.63 H (1.4-6.5) K/uL [place] # (Auto) 0.71 H (0.11-0.59) K/uL Immature Gran # (Auto) 0.05 H (0.00-0.02) K/uL Sodium (136-145) mmol/L BUN/Creatinine Ratio (10-20) POC Glucose (70-99) mg/dl Ammonia 13.0 L (18-72) umol/L Triglycerides (0-150) mg/dl VLDL Cholesterol, Calc (0-30) mg/dl Ur Leukocyte Esterase 2+ H (Negative) Urine WBC (Auto) >30 H (0-5) /hpf Urine Bacteria (Auto) 4+ H (Negative) 03/22/22 Range/Units 06:43 RBC (4.2-5.4) M/uL Hgb (12.0-16.0) g/dL Hct (37-47) % MCV (80-100) fL MCH (25-34) pg RDW Std Deviation (36.4-46.3) fL RDW Coeff of [place] (11.5-14.5) % MPV (7.4-10.4) fL Neut # (Auto) (1.4-6.5) K/uL [place] # (Auto) (0.11-0.59) K/uL Immature Gran # (Auto) (0.00-0.02) K/uL Sodium 133 L (136-145) mmol/L BUN/Creatinine Ratio 28.0 H (10-20) POC Glucose (70-99) mg/dl Ammonia (18-72) umol/L Triglycerides 229 H (0-150) mg/dl VLDL Cholesterol, Calc 46 H (0-30) mg/dl Ur Leukocyte Esterase (Negative) Urine WBC (Auto) (0-5) /hpf Urine Bacteria (Auto) (Negative) Diagnostic Findings CTA head/neck-No significant stenosis, occlusion, or aneurysm within the [place] of [place]. No significant stenosis, occlusion, or dissection identified within the carotid or vertebral arteries. MRI brain-3 mm cortically based focus of restricted diffusion within the superior right frontal lobe with increased T2/FLAIR signal is suggestive of a tiny acute infarct. No acute or subacute territorial infarction. Age-related involutional changes with extensive chronic microvascular ischemic disease. No abnormal enhancement. Chronic cerebellar infarcts.
[2022-03-22] MEDS: CLOPIDOGREL BISULFATE 75 MG TAB PO SCH (13:16)
[2022-03-22] MEDS: cefTRIAXone SODIUM 2,000 MG in DEXTROSE 5% 50 ML IV SCH (13:17)
[2022-03-22] MEDS: rOPINIRole HCL 2 MG TABLET PO SCH ×3 (17:23→19:34)
--- NOTE | 2022-03-22 18:01 | Electrocardiogram Report ---
Test Reason : Blood Pressure : / mmHG Vent. Rate : 061 BPM Atrial Rate : 061 BPM P-R Int : 158 ms QRS Dur : 088 ms QT Int : 422 ms P-R-T Axes : -09 017 062 degrees QTc Int : 424 ms Sinus rhythm with Premature supraventricular complexes Otherwise normal ECG When compared with ECG of 21-MAR-2022 11:52, Premature supraventricular complexes are now Present Confirmed by Shakeel Rose ([id number]) on 03/22/2022 6:01:08 PM Referred By: MARY Confirmed By:Roel Rose
--- NOTE | 2022-03-22 23:22 | Hospitalist Progress Note ---
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 Small acute Infarct Left Leg weakness CT head showed no acute intracranial abnormality. Atrophy and microvascular ischemic changes. CTA head/neck showed no significant stenosis, occlusion, or dissection identified within the carotid or vertebral arteries. MRI showed 3 mm cortically based focus of restricted diffusion within the superior right frontal lobe with increased T2/FLAIR signal is suggestive of a tiny acute infarct. ECHO showed no interatrial shunt Neuro on board recommended plavix 75mg daily due to hx of gastric ulcer and GI bleed from previous admission Spoke with patient and with daughter Felicita over the phone about the risk of starting Plavix such as bleeding. Pt and daughter agreed to start the plavix Will monitor closely for abnormal bleeding while on Plavix Might consider to add a low dose of statin for LDL goal below 70 Continue PT/OT Daughter would like pt to go to rehab Daughter said that pt has not been able to shower for 4 weeks since she cannot stand on her legs for too long Follow up with neurology in 4 to 6 weeks Pt will need to arrange for a Zio patch outpatient Acute UTI Urine cx grew gram negative bacilli continue empiric rocephin Will follow urine sensitivity COPD no acute exac continue home inhaler HTN bp stable continue amlodipine, atenolol, losartan, aldactone pt also on KCL supplement, monitor potassium level Anemia hgb 10.4 stable Hypothyroidism continue Synthroid L anterior renal mass followed by Dr. Nino currently just monitoring concern for RCC RLS requip at HS Dvt ppx: SCDs for now due to hx of gib FULL CODE PCP: Henry Mcintyre Disposition Daughter would like her to go to rehab Admission and Anticipated Discharge Date Admission Date: March 21, 2022 Subjective Patient was seen and examined for follow-up of strokelike symptoms Sitting in chair with no acute distress Patient said that she feels okay Spoke with daughter Felicita over the phone and provided with update Denies any chest pain, palpitation, dizziness, shortness of breath. Review of Systems Review of Systems: All systems reviewed & are unremarkable except as noted in Subjective Physical Exam Physical Exam: General- No acute distress Head- atraumatic Eyes- PERRL, EOMI, ENT- oropharynx clear Neck- supple, no JVD Lungs- clear to auscultation Heart- regular rhythm; no murmur Abdomen- normal bowel sounds, soft, nontender Extremities- no calf tenderness, +trace edema Neuro- alert, oriented x 3; PERRL, EOMI; no facial palsy; no dysarthria Skin- warm & dry Results & Data Results & Data ([facility]) Vital Signs (Past 12 Hours) Vital Signs Temp Pulse Pulse Resp BP BP Pulse Ox 03/22/22 19:30 36.6 C 61 20 107/63 94 03/22/22 18:18 03/22/22 15:40 37.0 C 60 18 109/63 96 03/22/22 15:10 63 03/22/22 11:47 36.7 C 57 L 18 101/59 L 96 Pulse Ox 03/22/22 19:30 03/22/22 18:18 96 03/22/22 15:40 03/22/22 15:10 03/22/22 11:47 (1) Anemia Anemia type: unspecified type Qualified Code(s): D64.9 - Anemia, unspecified
[2022-03-23] MEDS: ACETAMINOPHEN 500 MG TAB PO SCH ×3 (05:35→21:34)
[2022-03-23] MEDS: LEVOTHYROXINE SODIUM 75 MCG TABLET PO SCH (05:36)
[2022-03-23] MEDS: CALCIUM 600MG + VIT D 400 IU TAB PO SCH ×2 (07:39→17:04)
[2022-03-23] MEDS: CEROVITE ADV FORMULA TAB PO SCH (07:39)
[2022-03-23] MEDS: SERTRALINE HCL 50 MG TABLET PO SCH (07:39)
[2022-03-23] MEDS: CALCIUM POLYCARBOPHIL 625MG TAB PO SCH (07:39)
[2022-03-23] MEDS: amLODIPine BESYLATE 5 MG TAB PO SCH (07:39)
[2022-03-23] MEDS: DOCUSATE SODIUM 100 MG CAP PO SCH ×2 (07:39→17:04)
[2022-03-23] MEDS: ATENOLOL 50 MG TABLET PO SCH (07:39)
[2022-03-23] MEDS: SPIRONOLACTONE 25 MG TAB PO SCH (07:39)
[2022-03-23] MEDS: POTASSIUM CHLORIDE 10 MEQ TABCR PO SCH (07:40)
[2022-03-23] MEDS: PANTOprazole 40 MG TAB PO SCH (07:40)
[2022-03-23] MEDS: CLOPIDOGREL BISULFATE 75 MG TAB PO SCH (07:40)
[2022-03-23] MEDS: LOSARTAN POTASSIUM 50 MG TAB PO SCH (07:40)
[2022-03-23] MEDS: CHOLECALCIFEROL 400 UNITS 10 MCG TAB PO SCH (07:40)
[2022-03-23] MEDS: FLUTICASONE FUROATE 100MCG 14 PUFFS/INHALER INH SCH (07:40)
[2022-03-23 08:24] LABS: Basophils # (auto) 0.04 K/uL (0-0.2); Basophils % (auto) 0.5 %; Eosinophils # (auto) 0.34 K/uL (0-0.5); Eosinophils % (auto) 3.9 %; Hematocrit (blood only) 33.6 % (37-47); Hemoglobin 11.1 g/dL (12.0-16.0); Immature Granulocytes # (auto) 0.04 K/uL (0.00-0.02); Immature Granulocytes % (auto) 0.5 %; Lymphocytes # (auto) 1.38 K/uL (1.2-3.4); Lymphocytes % (auto) 15.8 %; Mean Corpuscular Hemoglobin 33.5 pg (25-34); Mean Corpuscular Volume 101.5 fL (80-100); Mean Platelet Volume 10.8 fL (7.4-10.4); Monocytes # (auto) 0.51 K/uL (0.11-0.59); Monocytes % (auto) 5.8 %; Neutrophils # (auto) 6.42 K/uL (1.4-6.5); Neutrophils % (auto) 73.5 %; Platelet Count 229 K/uL (130-400); RDW Coefficient of Variation 14.7 % (11.5-14.5); RDW Standard Deviation 54.6 fL (36.4-46.3); Red Blood Count 3.31 M/uL (4.2-5.4); White Blood Count 8.73 K/uL (4.8-10.8)
[2022-03-23 09:02] LABS: BUN Creatinine Ratio 33.3 (10-20); Calcium 9.4 mg/dl (8.5-10.1); Est GFR (African American) 77.3 ml/min; Est GFR (Non-African American) 66.7 ml/min; Potassium 4.2 mmol/L (3.5-5.1)
[2022-03-23] MEDS: cefTRIAXone SODIUM 2,000 MG in DEXTROSE 5% 50 ML IV SCH (14:55)
--- NOTE | 2022-03-23 16:01 | Discharge Summary ---
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 She lives at [facility] at the [place]. Last evening when walking to the bathroom and trending of bed she noticed her left leg to be increasingly weak and her left foot was dragging. This was incredibly unusual for her. She was able to get back to her recliner. Approximately 1 day ago she also admits to having difficulty finding her words. She denies any weakness to her left upper extremity, slurred speech or facial droop. She denies any prior history of CVA. She admits to difficulty with balance, but this has improved with using a walker. She also performs PT at her facility. She denies any recent illness. She does admit to increased urinary urgency. She denies any fever, chills, sweats, lightheadedness, dizziness, syncope, chest pain, shortness of breath, cough, nausea, vomiting, abdominal pain. Overall feels her appetite is decreased. She does have chronic lower extremity swelling and she feels it is at baseline. In ED patient remained hemodynamically stable. She underwent acute head CT which was negative for acute intracranial abnormality. It did reveal atrophy and microvascular ischemic change. 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 Head and neck CTA was negative for any significant stenosis, occlusion or dissection. Her urinalysis was concerning for infection. She was started on IV Rocephin. She is being admitted for likely UTI as well as stroke work-up. Principal Diagnosis Acute small stroke Urinary tract infection Hemorrhoids: Hematochezia Left leg weakness: COPD HTN (hypertension): Renal mass: Anemia: Hypothyroidism: Discharge Exam General- No acute distress Head- atraumatic Eyes- PERRL, EOMI, ENT- oropharynx clear Neck- supple, no JVD Lungs- clear to auscultation Heart- regular rhythm; no murmur Abdomen- normal bowel sounds, soft, nontender Extremities- no calf tenderness, +trace edema Neuro- alert, oriented x 3; PERRL, EOMI; no facial palsy; no dysarthria Skin- warm & dry Discharge Data Allergies Allergy/AdvReac Type Severity Reaction Status Date / Time adhesive Allergy Intermediate RASH Verified 03/21/22 15:16 paraben Allergy Intermediate Unknown Verified 03/21/22 15:16 polymyxin B Allergy Intermediate Unknown Verified 03/21/22 15:16 bacitracin Allergy Unknown Unknown Verified 03/21/22 15:16 benzoin Allergy Unknown Unknown Verified 03/21/22 15:16 influenza virus vaccine Allergy Unknown Unknown Verified 03/21/22 15:16 trivalent thimerosal Allergy Unknown Unknown Verified 03/21/22 15:16 Consultations 03/21/22 15:34 ED Decision to Admit Stat 03/21/22 18:18 Consult Neurology Routine Ordered Studies 03/21/22 12:13 CT angio head w con Stat CT angio neck with con Stat CT head/brain wo con Stat 03/21/22 16:26 MR brain wo/w con Routine MR brain wo/w con HISTORY: 86 years-old Female stroke like sx acute strokelike symptoms COMPARISON: CTA head with CTA head and neck studies for TECHNIQUE: Multiplanar multisequence MRI of the brain was obtained both with and without the use of 8 cc Gadavist FINDINGS: Freight Checker localizer images demonstrate no gross extracranial abnormality. There is a 3 mm focus of cortically based restricted diffusion involving the superior right frontal lobe on image 18 series 4 which demonstrates slightly decreased signal on ADC map and mildly increased T2/FLAIR signal. No evidence of acute or subacute territorial infarct. Chronic lacunar infarcts of the cerebellar hemispheres, left greater than right. Degenerative changes of the imaged cervical spine. There is no acute intracranial hemorrhage, midline shift, abnormal extra axial collection, hydrocephalus or intracranial mass. Age-related involutional changes. Extensive T2/FLAIR hyperintense foci are noted throughout the white matter. No abnormal intra-axial or extra-axial enhancement. Postcontrast images are motion degraded. The cerebral venous sinuses and major arterial flow voids appear patent. Prior bilateral lens repair. The skull and soft tissues are unremarkable. Mastoid air cells and paranasal sinuses are generally clear with mild mucosal thickening of the sphenoid sinuses. IMPRESSION: 1. 3 mm cortically based focus of restricted diffusion within the superior right frontal lobe with increased T2/FLAIR signal is suggestive of a tiny acute infarct. No acute or subacute territorial infarction. 2. Age-related involutional changes with extensive chronic microvascular ischemic disease. 3. No abnormal enhancement. 4. Chronic cerebellar infarcts. ACT 112: Negative or not required by law. The above report was generated using voice recognition software. It may contain grammatical, syntax or spelling errors. Electronically signed by: Forest Winn M.D. 03/22/2022 9:50 AM Dictated:03/22/22940 Transcribed: 03/22/22940 HEAD & NECK CTA HISTORY: Confusion. Stroke Like Symptoms TECHNIQUE: Multiaxial CT images of the head were performed following the intravenous administration of contrast to evaluate the major cerebral vessels. Multiaxial CT images of the neck were also performed following the intravenous administration of contrast to evaluate the major cervical vessels. Maximum intensity projection images were also obtained. A dose lowering technique was utilized adhering to the principles of ALARA. COMPARISON: Noncontrast Head CT 03/21/2022. FINDINGS: There is no mass, hematoma, midline shift, or acute infarct. Visualized intracranial internal carotid arteries, distal vertebral arteries, and basilar artery are widely patent. There is no significant stenosis, occlusion, or aneurysm seen within the bilateral ACAs, MCAs, or correspondence analyst. The major dural venous sinuses are patent. There is a persistent right posterior circulation. Moderate calcified plaque within the bilateral carotid siphons. The aortic arch and proximal great vessels are widely patent. There is no significant stenosis, occlusion, or dissection identified within the bilateral common carotid, internal carotid, or vertebral arteries. IMPRESSION: 1. No significant stenosis, occlusion, or aneurysm within the [place]. 2. No significant stenosis, occlusion, or dissection identified within the carotid or vertebral arteries. ACT 112: Negative or not required by law. Electronically signed by: Donnie Jurado M.D. 03/21/2022 2:35 PM Dictated:03/21/22 1429 Transcribed: 03/21/22 142 HEAD & NECK CTA HISTORY: Confusion. Stroke Like Symptoms TECHNIQUE: Multiaxial CT images of the head were performed following the intravenous administration of contrast to evaluate the major cerebral vessels. Multiaxial CT images of the neck were also performed following the intravenous administration of contrast to evaluate the major cervical vessels. Maximum intensity projection images were also obtained. A dose lowering technique was utilized adhering to the principles of ALARA. COMPARISON: Noncontrast Head CT 03/21/2022. FINDINGS: There is no mass, hematoma, midline shift, or acute infarct. Visualized intracranial internal carotid arteries, distal vertebral arteries, and basilar artery are widely patent. There is no significant stenosis, occlusion, or aneurysm seen within the bilateral ACAs, MCAs, or correspondence analyst. The major dural venous sinuses are patent. There is a persistent right posterior circulation. Moderate calcified plaque within the bilateral carotid siphons. The aortic arch and proximal great vessels are widely patent. There is no significant stenosis, occlusion, or dissection identified within the bilateral common carotid, internal carotid, or vertebral arteries. IMPRESSION: 1. No significant stenosis, occlusion, or aneurysm within the lower [place]. 2. No significant stenosis, occlusion, or dissection identified within the carotid or vertebral arteries. ACT 112: Negative or not required by law. Electronically signed by: Donnie Jurado M.D. 03/21/2022 2:35 PM Dictated:03/21/221428 Transcribed: 03/21/221428 HEAD CT NONCONTRAST CT DOSE: 1012.63 mGy.cm HISTORY: Confusion. Stroke Like Symptoms TECHNIQUE: Multiaxial CT images of the head were performed without the use of intravenous contrast. Automated exposure control was utilized for this study. A dose lowering technique was utilized adhering to the principles of ALARA. Comparison: None. Findings: Mild mucosal thickening within the sphenoid sinuses. The calvarium and skull base are intact. There is no mass, hematoma, midline shift, acute infarct. White matter hypodensity is nonspecific but suggestive of microvascular ischemic change. The ventricles and sulci demonstrate mild age-related involutional changes. 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 Impression: No acute intracranial abnormality. Atrophy and microvascular ischemic changes. ACT 112: Negative or not required by law. Electronically signed by: Donnie Jurado M.D. 03/21/2022 2:29 PM Dictated:03/21/22 1425 Transcribed: 03/21/221424 XR chest 1V portable CLINICAL HISTORY: Stroke Like Symptoms COMPARISON STUDY: Chest radiograph July 12, 2020. 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 There is no pneumothorax or pleural effusion. No consolidation or evidence for pulmonary edema. Note is made of mild cardiomegaly with extensive mitral annular calcification. Linear left basilar opacity favors atelectasis. IMPRESSION: No acute cardiopulmonary findings. ACT 112: Negative or not required by law. Electronically signed by: Maikel Hernandez M.D. 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 Small acute Infarct Left Leg weakness CT head showed no acute intracranial abnormality. Atrophy and microvascular ischemic changes. CTA head/neck showed no significant stenosis, occlusion, or dissection identified within the carotid or vertebral arteries. MRI showed 3 mm cortically based focus of restricted diffusion within the superior right frontal lobe with increased T2/FLAIR signal is suggestive of a tiny acute infarct. ECHO showed no interatrial shunt Neuro on board recommended plavix 75mg daily due to hx of gastric ulcer and GI bleed from previous admission Spoke with patient and with daughter Felicita over the phone about the risk of starting Plavix such as bleeding. Pt and daughter agreed to start the plavix Will monitor closely for abnormal bleeding while on Plavix Might consider to add a low dose of statin for LDL goal below 70 Due to patient age 86 y/o will start her on Atorvastatin 20mg only to decrease the risk of side effect Continue PT/OT Daughter would like pt to go to rehab Daughter said that pt has not been able to shower for 4 weeks since she cannot stand on her legs for too long Follow up with neurology in 4 to 6 weeks Pt will need to arrange for a Zio patch outpatient Acute UTI Urine cx grew gram negative bacilli continue empiric Rocephin Will transition to Keflex BID to complete 4 more days course Hematochezia Acute hematochezia one episode likely from external hemorrhoids Pt said that she had few episode in the past from her hemorrhoid. She said that she has been straining to have a BM Gastro on board - low suspicion for brisk UGI bleed Hemoglobin stable case discussed with Gastro that ok to resume plavix Continue colace BID and hydrocortisone ND BID for 14 days Discussed with pt son about the risk and benefit of starting the Plavix ( such as bleeding, but the Plavix will protect for stroke due to acute CVA) Son was advised if pt develops any abnormal bleeding to seek urgent medical attention Follow up with gastro in 1-2 weeks Check CBC next week outpatient Hyponatremia Na 132 today Continue monitor BMP COPD no acute exacerbation continue home inhaler HTN bp stable continue amlodipine, atenolol, losartan, Aldactone pt also on KCL supplement, monitor potassium level Anemia hgb improved to 11.4 stable Hypothyroidism continue Synthroid L anterior renal mass followed by Dr. Nino currently just monitoring concern for RCC RLS requip at Dvt ppx: SCDs for now due to hx of gib FULL CODE PCP: Henry Mcintyre Disposition Discharge to [facility] Total Time Total Time Spent Total Time Spent (In Minutes): 35 minutes Discharge Plan Discharge Items Patient Disposition: Personal [facility] Reason For Visit: STROKE LIKE SX, UTI Discharge Diagnosis: Acute small stroke Urinary tract infection Hemorrhoids: Hematochezia Left leg weakness: COPD (chronic obstructive pulmonary disease): HTN (hypertension): Renal mass: Anemia: Hypothyroidism: Condition on Discharge: Fair Activity: Resume your previous activity Non-emergency contact: Primary Care Provider and Neurologist Call non-emergency contact if: you have any medication questions and your symptoms worsen Follow-up/Referrals: Nina Berg PA-C [Physician [facility]] - (Date & Time 04/20/2022 11:20 AM Provider Nina Berg PA-C Department Neurology [facility] ) Loyda Graff MD [Outside Practitioners] - (Date & Time 03/28/2022 11:00 AM Provider Loyda Mcintyre MD Department [facility] ) Diet: Heart Healthy Addtl Attending Provider Instructions: Follow up with your primary care provider Dr. Mcintyre on 03/28/2022 @ 11:00 AM at [facility] Follow up with neurology Nina CHOWDHURY on 04/20/2022 @ 11:20 AM at the Neurology [facility] Follow up with [facility] in 1-2 weeks ( please call to schedule for the appointment) Continue participating in physical therapy Check CBC in 3-5 days to monitor your hemoglobin while on the Plavix Check BMP in 1 week to monitor your sodium level Check LFT in 1-2 week to monitor your liver enzymes since starting on Statin Check for any abnormal bleeding since you are taking plavix Avoid any NSAID such as motrin, aleve, naproxen, ibuprofen, advil, .... (Please seek urgent medical attention if you develop any abnormal bleeding) Fall precaution Complete the 4 more days of the antibiotic Keflex Pending Studies at Discharge: No Stand-Alone Forms: My [employer], Smoking Cessation Skilled Items Patient informed of condition?: Yes DNR: No Discharge Level of Care: Other Communicable Disease: No Discharge Prognosis: Stable Lines: None Urinary Catheter: No Medications and DC Order Prescriptions: New pantoprazole 40 mg Tablet,Delayed Release (Dr/Ec) 40 mg PO QAM Qty: 30 RF: 0 clopidogrel 75 mg Tablet 75 mg PO QAM Qty: 30 RF: 0 cephalexin 500 mg capsule 500 mg PO BID Qty: 10 RF: 0 atorvastatin 20 mg tablet 20 mg PO DAILY Qty: 30 RF: 0 hydrocortisone acetate [Anusol-HC] 25 mg Suppository 25 mg ND BID Qty: 1 RF: 0 Continued levothyroxine [Synthroid] 75 mcg tablet 75 mcg PO DAILYBB RF: 0 meclizine 25 mg tablet 25 mg PO Q8H PRN (Reason: Dizziness Or Vertigo) RF: 0 potassium chloride 10 mEq capsule, extended release 10 meq PO QAM RF: 0 spironolactone 25 mg tablet 25 mg PO DAILY RF: 0 Arnuity Ellipta 100 mcg/actuation blister with device 1 inh inhalation DAILY RF: 0 atenolol 50 mg tablet 50 mg PO DAILY RF: 0 sertraline [Zoloft] 25 mg tablet 25 mg PO DAILY RF: 0 ondansetron HCl 4 mg tablet 4 mg PO Q6H PRN (Reason: NAUSEA/VOMITING) RF: 0 dicyclomine 20 mg Tablet 20 mg PO ACHS PRN (Reason: Cramps) RF: 0 docusate sodium [Colace] 100 mg Capsule 100 mg PO BIDM RF: 0 Therems-M 27-0.4 mg Tablet 1 tab PO QAM RF: 0 cholecalciferol (vitamin D3) [Vitamin D3] 10 mcg (400 unit) Capsule 10 mcg PO QAM RF: 0 loperamide 2 mg Capsule 2 mg PO QID PRN (Reason: Diarrhea) RF: 0 amlodipine [Norvasc] 5 mg Tablet 5 mg PO DAILY RF: 0 acetaminophen [Tylenol Extra Strength] 500 mg Tablet 1,000 mg PO TID RF: 0 acetaminophen [Tylenol Extra Strength] 500 mg Tablet 1,000 mg PO DAILY MDD 3500 MG/24 HOURS PRN (Reason: Breakthrough Pain) RF: 0 triamcinolone acetonide 0.1 % Cream 1 applic TOPICAL BID PRN (Reason: RASH/SKIN IRRITATION) RF: 0 ropinirole 2 mg Tablet 2 mg PO DAILY@1800 RF: 0 calcium polycarbophil [FiberCon] 625 mg Tablet 625 mg PO DAILY RF: 0 albuterol sulfate [Ventolin HFA] 90 mcg/actuation Hfa Aerosol Inhaler 2 puff INHALATION QID PRN (Reason: Wheezing) RF: 0 losartan [Cozaar] 100 mg Tablet 100 mg PO DAILY RF: 0 calcium carbonate-vitamin D3 [Oyster Shell Calcium-Vit D3] 500 mg-5 mcg (200 unit) Tablet 1 tab PO BIDM RF: 0 guaifenesin [Mucinex] 600 mg Tablet Extended Release 12hr 600 mg PO Q12H PRN (Reason: Congestion) RF: 0 ropinirole 2 mg tablet 2 mg PO DAILY@1900 RF: 0 Changed diphenhydramine HCl [Children's Allergy (diphenhyd)] 12.5 mg tablet,chewable 12.5 mg PO HS PRN (Reason: sleep) Qty: 0 RF: 0 Discontinued omeprazole 40 mg Capsule,Delayed Release(Dr/Ec) 40 mg PO QAM RF: 0 Discharge Orders: Discharge Order (Routine); Ordered 03/24/22 Ordered By: Kendell Posada Admission Data Admit Date/Time: 03/21/22 15:35 Attending Provider: Kendell Posada Admit Provider: Heather Holt Primary Care Provider: Sundeep HERNANDEZ Providers: Heather Holt ; Perry Lomeli ; Morteza Arango Other Interventions: Discharge Summary Assessment (RN) Last Done: 03/23/22 16:30
[2022-03-23] MEDS: rOPINIRole HCL 2 MG TABLET PO SCH ×2 (19:48)
[2022-03-23 20:43] LABS: Hematocrit (blood only) 34.5 % (37-47); Hemoglobin 11.4 g/dL (12.0-16.0)
--- NOTE | 2022-03-23 22:04 | Hospitalist Progress Note ---
Date of Service March 23, 2022 Assessment & Plan (1) Acute UTI: (2) Left leg weakness: (3) COPD (chronic obstructive pulmonary disease): (4) HTN (hypertension): (5) Renal mass: (6) Anemia: (7) Hypothyroidism: Plan: This is a 86-year-old female who has a significant past medical history of COPD, HTN, hypothyroidism, RLS, 4.1 cm left anterior renal mass concerning for RCC followed by urology, anemia, history of duodenal ulcer and anxiety who presents ED secondary to left leg weakness x1 day. Small acute Infarct Left Leg weakness CT head showed no acute intracranial abnormality. Atrophy and microvascular ischemic changes. CTA head/neck showed no significant stenosis, occlusion, or dissection identified within the carotid or vertebral arteries. MRI showed 3 mm cortically based focus of restricted diffusion within the superior right frontal lobe with increased T2/FLAIR signal is suggestive of a tiny acute infarct. ECHO showed no interatrial shunt Neuro on board recommended plavix 75mg daily due to hx of gastric ulcer and GI bleed from previous admission Spoke with patient and with daughter Felicita over the phone about the risk of starting Plavix such as bleeding. Pt and daughter agreed to start the plavix Will monitor closely for abnormal bleeding while on Plavix Might consider to add a low dose of statin for LDL goal below 70 Due to patient age 86 y/o will start her on Atorvastatin 20mg only to decrease the risk of side effect Continue PT/OT - Pt is at her baseline as per therapist Daughter would like pt to go to rehab Daughter said that pt has not been able to shower for 4 weeks since she cannot stand on her legs for too long Follow up with neurology in 4 to 6 weeks Pt will need to arrange for a Zio patch outpatient Acute UTI Urine cx grew gram negative bacilli continue empiric rocephin Will transition to Keflex BID to complete 5 days course COPD no acute exac continue home inhaler HTN bp stable continue amlodipine, atenolol, losartan, aldactone pt also on KCL supplement, monitor potassium level Anemia hgb improved to 11 stable Hypothyroidism continue Synthroid L anterior renal mass followed by Dr. Nino currently just monitoring concern for RCC RLS requip at Dvt ppx: SCDs for now due to hx of gib FULL CODE PCP: Henry Mcintyre Disposition Discharge to [place] today Admission and Anticipated Discharge Date Admission Date: March 21, 2022 Subjective Patient was seen and examined for follow-up of strokelike symptoms Sitting in chair with no acute distress Patient said that she feels okay Patient is not interested to go to rehab she would like to go back to the [facility] Denies any chest pain, palpitation, dizziness, shortness of breath Review of Systems Review of Systems: All systems reviewed & are unremarkable except as noted in Subjective Physical Exam Physical Exam: General- No acute distress Head- atraumatic Eyes- PERRL, EOMI, ENT- oropharynx clear Neck- supple, no JVD Lungs- clear to auscultation Heart- regular rhythm; no murmur Abdomen- normal bowel sounds, soft, nontender Extremities- no calf tenderness, +trace edema Neuro- alert, oriented x 3; PERRL, EOMI; no facial palsy; no dysarthria Skin- warm & dry Results & Data Results & Data ([facility]) Vital Signs (Past 12 Hours) Vital Signs Temp Pulse Pulse Pulse Resp BP BP 03/23/22 16:30 36.8 C 63 57 L 18 128/75 139/79 03/23/22 16:16 36.8 C 57 L 18 128/75 03/23/22 16:00 59 L 03/23/22 10:46 36.7 C 61 20 111/67 03/23/22 08:44 57 L 03/23/22 07:28 36.7 C 63 16 131/74 Pulse Ox Pulse Ox 03/23/22 16:30 94 03/23/22 16:16 94 03/23/22 16:00 03/23/22 10:46 93 03/23/22 08:44 96 03/23/22 07:28 96 (1) Anemia Anemia type: unspecified type Qualified Code(s): D64.9 - Anemia, unspecified
[2022-03-24 05:47] LABS: Basophils # (auto) 0.04 K/uL (0-0.2); Basophils % (auto) 0.4 %; Eosinophils # (auto) 0.41 K/uL (0-0.5); Eosinophils % (auto) 4.5 %; Hematocrit (blood only) 31.7 % (37-47); Hemoglobin 10.4 g/dL (12.0-16.0); Immature Granulocytes # (auto) 0.05 K/uL (0.00-0.02); Immature Granulocytes % (auto) 0.5 %; Lymphocytes # (auto) 1.56 K/uL (1.2-3.4); Lymphocytes % (auto) 17.1 %; Mean Corpuscular Hemoglobin 33.9 pg (25-34); Mean Corpuscular Hgb Conc 32.8 g/dL (32-36); Mean Corpuscular Volume 103.3 fL (80-100); Mean Platelet Volume 10.5 fL (7.4-10.4); Monocytes # (auto) 0.62 K/uL (0.11-0.59); Monocytes % (auto) 6.8 %; Neutrophils # (auto) 6.45 K/uL (1.4-6.5); Neutrophils % (auto) 70.7 %; Platelet Count 219 K/uL (130-400); RDW Coefficient of Variation 14.5 % (11.5-14.5); RDW Standard Deviation 54.2 fL (36.4-46.3); Red Blood Count 3.07 M/uL (4.2-5.4); White Blood Count 9.13 K/uL (4.8-10.8)
[2022-03-24 06:17] LABS: BUN Creatinine Ratio 31.5 (10-20); Calcium 9.2 mg/dl (8.5-10.1); Creatinine Clr Calc Pharmacy 69.9 ml/min; Est GFR (African American) 87.7 ml/min; Est GFR (Non-African American) 75.6 ml/min; Potassium 4.2 mmol/L (3.5-5.1)
[2022-03-24] MEDS: ACETAMINOPHEN 500 MG TAB PO SCH ×2 (06:41→14:10)
[2022-03-24] MEDS: LEVOTHYROXINE SODIUM 75 MCG TABLET PO SCH (06:42)
[2022-03-24] MEDS: DOCUSATE SODIUM 100 MG CAP PO SCH ×2 (08:04→16:56)
[2022-03-24] MEDS: POTASSIUM CHLORIDE 10 MEQ TABCR PO SCH (08:04)
[2022-03-24] MEDS: CALCIUM 600MG + VIT D 400 IU TAB PO SCH ×2 (08:04→16:56)
[2022-03-24] MEDS: LOSARTAN POTASSIUM 50 MG TAB PO SCH (08:04)
[2022-03-24] MEDS: SERTRALINE HCL 50 MG TABLET PO SCH (08:04)
[2022-03-24] MEDS: CEROVITE ADV FORMULA TAB PO SCH (08:04)
[2022-03-24] MEDS: CALCIUM POLYCARBOPHIL 625MG TAB PO SCH (08:04)
[2022-03-24] MEDS: amLODIPine BESYLATE 5 MG TAB PO SCH (08:05)
[2022-03-24] MEDS: SPIRONOLACTONE 25 MG TAB PO SCH (08:05)
[2022-03-24] MEDS: CHOLECALCIFEROL 400 UNITS 10 MCG TAB PO SCH (08:05)
[2022-03-24] MEDS: ATENOLOL 50 MG TABLET PO SCH (08:05)
[2022-03-24] MEDS: FLUTICASONE FUROATE 100MCG 14 PUFFS/INHALER INH SCH (08:05)
[2022-03-24] MEDS: PANTOprazole 40 MG TAB PO SCH (08:05)
[2022-03-24] MEDS: cefTRIAXone SODIUM 2,000 MG in DEXTROSE 5% 50 ML IV SCH (14:11)
--- NOTE | 2022-03-24 14:16 | Gastrointestinal Consultation ---
Date of Consultation March 24, 2022 Assessment & Plan (1) Hematochezia: (2) Anemia: (3) Hemorrhoids: acute hematochezia one episode likely from external hemorrhoids, currently stable; low suspicion for brisk UGI bleed recs: start hydrocortisone cream BID for 2 weeks for hemorrhoids colace BID ok to continue protonix daily upon discharge [facility]2 [facility] supportive care, trend H/H diet as tolerated Thank you for allowing me to participate in the care of this patient History of Present Illness Attending Physician: Kendell Posada MD History of Present Illness 86-year-old female who has a significant past medical history of COPD, HTN, hypothyroidism, RLS, 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 GI consulted for an episode of hematochezia on wiping last night. Patient notes she has significant external hemorrhoids and ntoed some blood on wiping last night and inthe toilet bowl, feels this is from her hemorrhoids. She had GI bleed from duodenal ulcer in the past but that was melena for her she says, has not had that. Hgb is 10.4, BUN currently normal and no further episodes of blood per rectum since last night. plavix was held. labs reviewed. Allergies Allergy/AdvReac Type Severity Reaction Status Date / Time adhesive Allergy Intermediate RASH Verified 03/21/22 15:16 paraben Allergy Intermediate Unknown Verified 03/21/22 15:16 polymyxin B Allergy Intermediate Unknown Verified 03/21/22 15:16 bacitracin Allergy Unknown Unknown Verified 03/21/22 15:16 benzoin Allergy Unknown Unknown Verified 03/21/22 15:16 influenza virus vaccine Allergy Unknown Unknown Verified 03/21/22 15:16 trivalent thimerosal Allergy Unknown Unknown Verified 03/21/22 15:16 Home Medications Medication Instructions Recorded Confirmed Type levothyroxine 75 mcg tablet 75 mcg PO DAILYBB 10/22/19 03/21/22 History (Synthroid) meclizine 25 mg tablet 25 mg PO Q8H PRN 10/22/19 03/21/22 History potassium chloride 10 mEq 10 meq PO QAM 10/22/19 03/21/22 History capsule,extended release cholecalciferol (vitamin D3) 10 10 mcg PO QAM 09/09/20 03/21/22 History mcg (400 unit) capsule (Vitamin D3) dicyclomine 20 mg tablet 20 mg PO ACHS PRN 09/09/20 03/21/22 History docusate sodium 100 mg capsule 100 mg PO BIDM 09/09/20 03/21/22 History (Colace) multivitamin,[id number]-[id number] 27 1 tab PO QAM 09/09/20 03/21/22 History mg-0.4 mg tablet (Therems-M) atenolol 50 mg tablet 50 mg PO DAILY 03/14/22 03/21/22 History fluticasone furoate 100 1 inh INHALATION DAILY 03/14/22 03/21/22 History mcg/actuation blister powder for inhalation (Arnuity Ellipta) ondansetron HCl 4 mg tablet 4 mg PO Q6H PRN 03/14/22 03/21/22 History sertraline 25 mg tablet (Zoloft) 25 mg PO DAILY 03/14/22 03/21/22 History spironolactone 25 mg tablet 25 mg PO DAILY 03/14/22 03/21/22 History acetaminophen 500 mg tablet 1,000 mg PO DAILY PRN MDD 3500 03/21/22 03/21/22 History (Tylenol Extra Strength) MG/24 HOURS acetaminophen 500 mg tablet 1,000 mg PO TID 03/21/22 03/21/22 History (Tylenol Extra Strength) albuterol sulfate 90 mcg/actuation 2 puff INHALATION QID PRN 03/21/22 03/21/22 History aerosol inhaler (Ventolin HFA) amlodipine 5 mg tablet (Norvasc) 5 mg PO DAILY 03/21/22 03/21/22 History calcium carbonate 500 mg-vitamin 1 tab PO BIDM 03/21/22 03/21/22 History D3 5 mcg (200 unit) tablet (Oyster Shell Calcium-Vitamin D3) calcium polycarbophil 625 mg 625 mg PO DAILY 03/21/22 03/21/22 History tablet (FiberCon) guaifenesin 600 mg tablet, 600 mg PO Q12H PRN 03/21/22 03/21/22 History extended release 12 hr (Mucinex) loperamide 2 mg capsule 2 mg PO QID PRN 03/21/22 03/21/22 History losartan 100 mg tablet (Cozaar) 100 mg PO DAILY 03/21/22 03/21/22 History ropinirole 2 mg tablet 2 mg PO DAILY@1800 03/21/22 03/21/22 History ropinirole 2 mg tablet 2 mg PO DAILY@1900 03/21/22 03/21/22 History triamcinolone acetonide 0.1 % 1 applic TOPICAL BID PRN 03/21/22 03/21/22 History topical cream atorvastatin 20 mg tablet 20 mg PO DAILY #30 tab 03/23/22 Rx cephalexin 500 mg capsule 500 mg PO BID #10 cap 03/23/22 Rx clopidogrel 75 mg tablet 75 mg PO QAM #30 tab 03/23/22 Rx diphenhydramine HCl 12.5 mg 12.5 mg PO HS PRN #0 tab 03/23/22 03/21/22 Rx chewable tablet ([facility] (diphenhydramine)) pantoprazole 40 mg tablet,delayed 40 mg PO QAM #30 tab 03/23/22 Rx release Patient History Medical History Arthritis Chronic venous insufficiency COPD (chronic obstructive pulmonary disease) HTN (hypertension) Hyperlipidemia Hypothyroidism Obesity Osteoporosis RLS (restless legs syndrome) TIA (transient ischemic attack) Surgical History H/O hysterectomy with unilateral oophorectomy History of appendectomy History of esophagogastroduodenoscopy (EGD) hx of duodenal ulcer s/p clipping requiring transfer to tertiary center, 2/2 to nsaid use Family History Father Colorectal cancer Diabetes Social History Smoking Status: Never smoker Hx Alcohol Use: Yes Alcohol type: wine Hx Substance Use: No Preferred Language: Kazakh Communication Ability: Effective Visual Impairment: Limited Hearing Ability: Normal Hunting And Fishing Guide Required: No Beliefs That Will Affect Care: None marital status: / Current Living Situation: Personal Care Facility Current Living Situation Comment: Resident [facility] current occupational status: retired Other Information That Helps Us Care for You: No Feels Safe at Home: Yes Safety Concerns: Feels Safe At This Time Assistive Devices: Walker Review of Systems Constitutional: no fever, no chills and no weight loss Eyes: as per Subjective / HPI Ear, Nose, Mouth, Throat: as per Subjective / HPI Respiratory: no dyspnea and no dyspnea on exertion Cardiovascular: no chest pain and no palpitations Gastrointestinal: as per Subjective / HPI Musculoskeletal: no joint pain and no swelling Integumentary: no rash and no lesions Neurologic: no numbness and no paresthesia Psychiatric: no depression and no anxiety Endocrine: no fatigue Hematologic / Lymphatic: no easy bleeding and no easy bruising Physical Exam Constitutional: WD/WN, vitals as above Eyes: EOM intact bilaterally Neck: normal visual inspection Respiratory: normal respiratory effort, lungs clear to auscultation Cardiovascular: Rate/Rhythm: regular rate and regular rhythm Heart Sounds: normal S1 and normal S2 Extremities: + edema Gastrointestinal (Abdomen): Inspection/Auscultation: abdomen normal to inspection; abdomen not distended Percussion/Palpation: abdomen soft; abdomen nontender and no hepatosplenomegaly Musculoskeletal: Extremities: no cyanosis Gait: normal gait Skin: no rashes, warm and dry Neurologic: moves all extremities Psychiatric: A+Ox3, euthymic affect Results & Data ([facility]) Vital Signs (Past 12 Hours) Vital Signs Temp Pulse Pulse Resp BP Pulse Ox Pulse Ox 03/24/22 11:44 36.7 C 57 L 18 96/60 L 96 03/24/22 08:42 57 L 96 03/24/22 07:35 36.6 C 60 18 127/77 96 03/24/22 03:37 36.4 C L 60 18 134/65 96 PG Care Time/CCT Total # of Minutes Spent Total Time Spent with Patient: Total time spent is greater than 50% in coordination of care (as documented) at patient's floor/unit and/or counseling patient: Coding Level of Care Code 41430 Initial Inpt Care Lvl 3 Diagnoses Hematochezia K92.1 Anemia D64.9 Anemia type: unspecified type Hemorrhoids K64.9 (1) Anemia Anemia type: unspecified type Qualified Code(s): D64.9 - Anemia, unspecified
[2022-03-24 15:22] LABS: Hematocrit (blood only) 34.8 % (37-47); Hemoglobin 11.4 g/dL (12.0-16.0)
[2022-03-24] MEDS ORDERED: ANUSOL SUPP 1 EA PR PRN (16:54)
[2022-03-24] MEDS: rOPINIRole HCL 2 MG TABLET PO SCH ×2 (16:57→18:13)
== END 2022-03-24 18:26 | disposition home or self-care (01) | DRG 65 ==
LOC: ED 11:43 → SUATTDRO 15:35 → 2S 15:35

== ENCOUNTER 2022-05-28 12:09 | Inpatient (IN) ==
[2022-05-28] MEDS ORDERED: SODIUM CHLORIDE 0.9% 1000ML 1,000 ML IV ONE (12:16)
[2022-05-28 13:23] LABS: Basophils # (auto) 0.01 K/uL (0-0.2); Basophils % (auto) 0.1 %; Eosinophils # (auto) 0.19 K/uL (0-0.5); Eosinophils % (auto) 1.1 %; Hematocrit (blood only) 31.7 % (37-47); Hemoglobin 10.2 g/dL (12.0-16.0); Immature Granulocytes # (auto) 0.05 K/uL (0.00-0.02); Immature Granulocytes % (auto) 0.3 %; Lymphocytes # (auto) 0.97 K/uL (1.2-3.4); Lymphocytes % (auto) 5.7 %; Mean Corpuscular Hemoglobin 31.5 pg (25-34); Mean Corpuscular Hgb Conc 32.2 g/dL (32-36); Mean Corpuscular Volume 97.8 fL (80-100); Mean Platelet Volume 10.7 fL (7.4-10.4); Monocytes # (auto) 1.04 K/uL (0.11-0.59); Monocytes % (auto) 6.1 %; Neutrophils # (auto) 14.85 K/uL (1.4-6.5); Neutrophils % (auto) 86.7 %; Platelet Count 258 K/uL (130-400); RDW Coefficient of Variation 13.9 % (11.5-14.5); RDW Standard Deviation 49.8 fL (36.4-46.3); Red Blood Count 3.24 M/uL (4.2-5.4); White Blood Count 17.11 K/uL (4.8-10.8)
--- NOTE | 2022-05-28 13:52 | Emergency Department Note ---
Impression & Plan Non-specific colitis, Diarrhea, Leukocytosis ED Provider Note NAME: MISAEL GUERRIER AGE: 86 SEX: F ARRIVES VIA: Ambulance INFORMANT: Patient ED PROVIDER(S): Tuan Clifford MD CHIEF COMPLAINT: Diarrhea, referred. PLAN: Disposition: Admit MEDICAL DECISION MAKING: The patient is a pleasant 86-year-old woman with a past medical history of hypertension, hyperlipidemia, presents to the emergency department from her alf facility for evaluation of diarrhea that has been ongoing for months but to the patient's knowledge supervising staff today at her assisted living facility at [facility] just became aware of it today and referred her to [facility] emergency department for evaluation. She reports they also felt she looked weak and pale. The patient denies any worsening diarrhea than her typical. She denies any significant abdominal pain. She denies any nausea/vomiting, dizziness. Has any fevers or chills. She was recently treated with clindamycin for bilateral lower extremity cellulitis. On arrival the patient is no acute distress, afebrile stable vital signs. Her abdomen is benign WBC 17K, nonspecific. H/H similar to prior. Platelets within normal limits. Chemistry without metabolic acidosis. Electrolytes and LFTs without significant abnormality. BUN/creatinine> 20 consistent with patient's clinically dry appearance. Lipase is not elevated. UA without convincing evidence of infection. CT of the abdomen pelvis was performed and demonstrates evidence of colitis. Known renal mass is again seen. Unfortunately, the patient reports she had moved her bowels several times this morning and has been unable to provide a stool sample for testing. However, given the patient's recent antibiotics and leukocytosis today there is suspicion for possible C. difficile. Patient agrees with plan for admission for further observation and management. Case was discussed with Justyna Oropeza, [facility] PAC, with Dr. Jonathon [facility] hospitalist who will evaluate the patient for admission. Triage Nursing notes reviewed and agree them. Prior medical records reviewed Vital Signs: reviewed and remarkable for no significant abnormalities Differential diagnosis: Gastroenteritis, food borne illness, infections, appendicitis, diverticulitis, inflammatory bowel disease, obstruction, GI bleed, biliary pathology, volvulus, as well as other pathologies. ER treatment provided: See below. Diagnostics interpreted by me: Cardiac Monitoring: An order for continuous cardiac monitoring was placed and demonstrated NSR, 85 bpm, no ectopy. Laboratory studies: See below Imaging studies: See below Consultation(s): Just[facility]ropeza, [facility], with Dr. Jonathon Fall hospitalist. HPI: The patient is a pleasant 86-year-old woman with a past medical history of hypertension, hyperlipidemia, presents to the emergency department from her alf facility for evaluation of diarrhea that has been ongoing for months but to the patient's knowledge supervising staff today at her assisted living facility [facility] became aware of it today and referred her to [facility] emergency department for evaluation. She reports they also felt she looked weak and pale. The patient denies any worsening diarrhea than her typical. She denies any significant abdominal pain. She denies any nausea/vomiting, dizziness. Has any fevers or chills. She was recently treated with clindamycin for bilateral lower extremity cellulitis. ROS: See above HPI for pertinent positives & negatives. A total of 10 systems reviewed and were otherwise negative. VITALS:See Below PHYSICAL EXAMINATION: GENERAL: Awake, alert, fatigued-appearing, in no distress, BMI 39.4. HENT: Normocephalic, atraumatic. Oropharynx with dry mucous membranes and otherwise unremarkable. EYES: Normal conjunctiva. Sclera non-icteric. NECK: Supple. No nuchal rigidity. FROM. No JVD. RESPIRATORY: Clear to auscultation. CARDIAC: Regular rate, normal rhythm. Extremities warm and well perfused. Pulses equal. ABDOMEN: Soft, non-distended. No tenderness to palpation. No rebound or guarding. No masses. RECTAL: Deferred. MUSCULOSKELETAL: Chest examination reveals no tenderness. The back is symmetrical on inspection without obvious abnormality. There is no CVA tenderness to palpation. No joint edema. LOWER EXTREMITIES: Calves are equal size bilaterally and non-tender. No edema. No discoloration. NEURO: Normal sensorium. No sensory or motor deficits noted. SKIN: No rash or jaundice noted. Tuan Clifford MD Past Med/Surg History Medical History Acute blood loss anemia Acute pyelonephritis Acute upper GI bleed Anemia Anxiety Arthritis Bleeding hemorrhoids Chronic venous insufficiency Duodenal ulcer Essential hypertension Hyperlipidemia Hypothyroidism Migraines Mild chronic obstructive pulmonary disease Obesity Osteoporosis RLS (restless legs syndrome) Stroke-like symptoms TIA (transient ischemic attack) Surgical History H/O hysterectomy with unilateral oophorectomy History of appendectomy History of cataract surgery History of esophagogastroduodenoscopy (EGD) hx of duodenal ulcer s/p clipping requiring transfer to tertiary center, 2/2 to nsaid use Family History Father Colorectal cancer Diabetes Social History Smoking Status: Never smoker Hx Alcohol Use: Yes Alcohol type: wine Hx Substance Use: No Preferred Language: Mauritanian Communication Ability: Effective Visual Impairment: Limited Hearing Ability: Normal Behavioral Therapist Required: No Beliefs That Will Affect Care: None marital status: / Current Living Situation: Personal Care Facility Current Living Situation Comment: Resident [facility] current occupational status: retired Feels Safe at Home: Yes Assistive Devices: Walker Allergies Allergies Allergy/AdvReac Type Severity Reaction Status Date / Time adhesive Allergy Intermediate RASH Verified 05/28/22 16:16 paraben Allergy Intermediate Unknown Verified 05/28/22 16:16 polymyxin B Allergy Intermediate Unknown Verified 05/28/22 16:16 bacitracin Allergy Unknown Unknown Verified 05/28/22 16:16 benzoin Allergy Unknown Unknown Verified 05/28/22 16:16 influenza virus vaccine Allergy Unknown Unknown Verified 05/28/22 16:16 trivalent thimerosal Allergy Unknown Unknown Verified 05/28/22 16:16 Home Meds Home Medications Medication Instructions Recorded Confirmed levothyroxine 75 mcg tablet 75 mcg PO DAILYBB 10/22/19 05/28/22 (Synthroid) meclizine 25 mg tablet 25 mg PO Q8H PRN 10/22/19 05/28/22 potassium chloride 10 mEq 10 meq PO QAM 10/22/19 05/28/22 capsule,extended release cholecalciferol (vitamin D3) 10 10 mcg PO QAM 09/09/20 05/28/22 mcg (400 unit) capsule (Vitamin D3) docusate sodium 100 mg capsule 100 mg PO DAILY 09/09/20 05/28/22 (Colace) multivitamin,sm-srph-afnrknug 27 1 tab PO QAM 09/09/20 05/28/22 mg-0.4 mg tablet (Therems-M) atenolol 50 mg tablet 50 mg PO DAILY 03/14/22 05/28/22 fluticasone furoate 100 1 inh INHALATION DAILY 03/14/22 05/28/22 mcg/actuation blister powder for inhalation (Arnuity Ellipta) ondansetron HCl 4 mg tablet 4 mg PO Q6H PRN 03/14/22 05/28/22 sertraline 25 mg tablet (Zoloft) 25 mg PO DAILY 03/14/22 05/28/22 acetaminophen 500 mg tablet 1,000 mg PO TID 03/21/22 05/28/22 (Tylenol Extra Strength) acetaminophen 500 mg tablet 500 mg PO DAILY PRN MDD 3500 MG/24 03/21/22 05/28/22 (Tylenol Extra Strength) HOURS albuterol sulfate 90 mcg/actuation 2 puff INHALATION QID PRN 03/21/22 05/28/22 aerosol inhaler (Ventolin HFA) calcium carbonate 500 mg-vitamin 1 tab PO BIDM 03/21/22 05/28/22 D3 5 mcg (200 unit) tablet (Oyster Shell Calcium-Vitamin D3) calcium polycarbophil 625 mg 625 mg PO DAILY 03/21/22 05/28/22 tablet (FiberCon) guaifenesin 600 mg tablet, 600 mg PO Q12H PRN 03/21/22 05/28/22 extended release 12 hr (Mucinex) loperamide 2 mg capsule 2 mg PO QID PRN 03/21/22 05/28/22 losartan 100 mg tablet (Cozaar) 100 mg PO DAILY 03/21/22 05/28/22 ropinirole 2 mg tablet 2 mg PO DAILY@1800 03/21/22 05/28/22 ropinirole 2 mg tablet 2 mg PO DAILY@1900 PRN MDD 4mg 03/21/22 05/28/22 triamcinolone acetonide 0.1 % 1 applic TOPICAL BID PRN 03/21/22 05/28/22 topical cream diclofenac sodium 1 % topical gel 1 ea TOPICAL BID PRN 05/28/22 05/28/22 diphenhydramine HCl 12.5 mg 25 mg PO HS 05/28/22 05/28/22 chewable tablet (Children's Allergy (diphenhydramine)) furosemide 40 mg tablet 40 mg PO QAM 05/28/22 05/28/22 Previous Rx's Medication Instructions Recorded atorvastatin 20 mg tablet 20 mg PO DAILY #30 tab 03/23/22 clopidogrel 75 mg tablet 75 mg PO QAM #30 tab 03/23/22 pantoprazole 40 mg tablet,delayed 40 mg PO QAM #30 tab 03/23/22 release Results & Data (ED) Vital Signs Vital Signs - 24 hr 05/28/22 12:02 05/28/22 12:17 05/28/22 14:02 Temperature 37.1 C Temperature Source Oral Pulse Rate 69 78 Pulse Rate [Apical] 85 Respiratory Rate 17 19 Respiratory Effort / Characteristics Non-Labored Spontaneous Non-Labored Spontaneous Respiratory Depth Normal Normal Blood Pressure 161/89 H Blood Pressure [Left Arm] 160/80 H Blood Pressure Mean 113 Blood Pressure Mean [Left Arm] 106 Pulse Oximetry 98 95 94 Oxygen Delivery Method Room Air Room Air Room Air Sepsis Recent Fever Within 48 Hours No Sepsis New/Unexplained Change in Mental Status No Sepsis Action Taken by Nursing No Action Required Laboratory Data Attestation: I reviewed the patient's lab results. Result diagrams: 05/28/22 12:55 05/28/22 12:55 Lab Results 05/28/22 05/28/22 05/28/22 Range/Units 12:55 12:55 12:55 WBC 17.11 H (4.8-10.8) K/uL RBC 3.24 L (4.2-5.4) M/uL Hgb 10.2 L (12.0-16.0) g/dL Hct 31.7 L (37-47) % MCV 97.8 (80-100) fL MCH 31.5 (25-34) pg MCHC 32.2 (32-36) g/dL RDW Std Deviation 49.8 H (36.4-46.3) fL RDW Coeff of Anson 13.9 (11.5-14.5) % Plt Count 258 (130-400) K/uL MPV 10.7 H (7.4-10.4) fL Immature Gran % (Auto) 0.3 % Neut % (Auto) 86.7 % Lymph % (Auto) 5.7 % Kane % (Auto) 6.1 % Eos % (Auto) 1.1 % Baso % (Auto) 0.1 % Neut # (Auto) 14.85 H (1.4-6.5) K/uL Lymph # (Auto) 0.97 L (1.2-3.4) K/uL Kane # (Auto) 1.04 H (0.11-0.59) K/uL Eos # (Auto) 0.19 (0-0.5) K/uL Baso # (Auto) 0.01 (0-0.2) K/uL Immature Gran # (Auto) 0.05 H (0.00-0.02) K/uL Sodium 133 L (136-145) mmol/L Potassium 3.7 (3.5-5.1) mmol/L Chloride 98 (98-107) mmol/L Carbon Dioxide 28 (21-32) mmol/L Anion Gap 7 (3-11) BUN 20 (6-23) mg/dl Creatinine 0.81 (0.6-1.2) mg/dl Est Cr Clr Drug Dosing 60.7 ml/min Est GFR ( Amer) 77.3 ml/min Est GFR (Non-Af Amer) 66.7 ml/min BUN/Creatinine Ratio 24.7 H (10-20) Glucose 93 (70-99(Fasting)) mg/dl Calcium 9.4 (8.5-10.1) mg/dl Phosphorus 3.3 (2.5-4.9) mg/dl Magnesium 1.8 (1.7-2.4) mg/dl Total Bilirubin 0.6 (0.2-1.0) mg/dl AST 21 (13-39) U/L ALT 22 (7-52) U/L Alkaline Phosphatase 80 (34-104) U/L Total Protein 7.1 (6.0-8.3) gm/dl Albumin 3.9 (3.4-5.0) gm/dl Globulin 3.2 (2.5-4.0) gm/dl Albumin/Globulin Ratio 1.2 (0.9-2) Lipase 11 (11-82) U/L Urine Color Yellow Urine Appearance Clear (Clear) Urine pH 7.0 (4.5-7.5) Ur Specific [place] 1.006 (1.000-1.030) Urine Protein Negative (Negative) Urine Glucose (UA) Negative (Negative) Urine Ketones Negative (Negative) Urine Blood Negative (Negative) Urine Nitrite Negative (Negative) Urine Bilirubin Negative (Negative) Urine Urobilinogen Negative (Negative) Ur Leukocyte Esterase Trace H (Negative) Urine WBC (Auto) 1-5 (0-5) /hpf Urine RBC (Auto) 0-4 (0-4) /hpf U Hyaline Cast (Auto) 0 (0-5) /lpf U Epithel Cells (Auto) 0-5 (0-5) /lpf Urine Bacteria (Auto) Negative (Negative) SARS-CoV-2, RNA, NAAT (NEGATIVE) 05/28/22 Range/Units 16:49 WBC (4.8-10.8) K/uL RBC (4.2-5.4) M/uL Hgb (12.0-16.0) g/dL Hct (37-47) % MCV (80-100) fL MCH (25-34) pg MCHC (32-36) g/dL RDW Std Deviation (36.4-46.3) fL RDW Coeff of Anson (11.5-14.5) % Plt Count (130-400) K/uL MPV (7.4-10.4) fL Immature Gran % (Auto) % Neut % (Auto) % Lymph % (Auto) % Kane % (Auto) % Eos % (Auto) % Baso % (Auto) % Neut # (Auto) (1.4-6.5) K/uL Lymph # (Auto) (1.2-3.4) K/uL Kane # (Auto) (0.11-0.59) K/uL Eos # (Auto) (0-0.5) K/uL Baso # (Auto) (0-0.2) K/uL Immature Gran # (Auto) (0.00-0.02) K/uL Sodium (136-145) mmol/L Potassium (3.5-5.1) mmol/L Chloride (98-107) mmol/L Carbon Dioxide (21-32) mmol/L Anion Gap (3-11) BUN (6-23) mg/dl Creatinine (0.6-1.2) mg/dl Est Cr Clr Drug Dosing ml/min Est GFR ( Amer) ml/min Est GFR (Non-Af Amer) ml/min BUN/Creatinine Ratio (10-20) Glucose (70-99(Fasting)) mg/dl Calcium (8.5-10.1) mg/dl Phosphorus (2.5-4.9) mg/dl Magnesium (1.7-2.4) mg/dl Total Bilirubin (0.2-1.0) mg/dl AST (13-39) U/L ALT (7-52) U/L Alkaline Phosphatase (34-104) U/L Total Protein (6.0-8.3) gm/dl Albumin (3.4-5.0) gm/dl Globulin (2.5-4.0) gm/dl Albumin/Globulin Ratio (0.9-2) Lipase (11-82) U/L Urine Color Urine Appearance (Clear) Urine pH (4.5-7.5) Ur Specific [place] (1.000-1.030) Urine Protein (Negative) Urine Glucose (UA) (Negative) Urine Ketones (Negative) Urine Blood (Negative) Urine Nitrite (Negative) Urine Bilirubin (Negative) Urine Urobilinogen (Negative) Ur Leukocyte Esterase (Negative) Urine WBC (Auto) (0-5) /hpf Urine RBC (Auto) (0-4) /hpf U Hyaline Cast (Auto) (0-5) /lpf U Epithel Cells (Auto) (0-5) /lpf Urine Bacteria (Auto) (Negative) SARS-CoV-2, RNA, NAAT NEGATIVE (NEGATIVE) Administered Medications Acetaminophen (Acetaminophen 500 Mg Tab) 1,000 mg PO TID JAYLEEN Stop: 06/27/22 20:59 Last Admin: 05/28/22 21:17 Dose: 1,000 mg Documented by: [id number] Diphenhydramine HCl (Diphenhydramine Capsule 25 Mg Cap) 25 mg PO HS JAYLEEN Stop: 06/27/22 20:59 Last Admin: 05/28/22 21:17 Dose: 25 mg Documented by: [id number] Discontinued Medications Clonidine HCl (Clonidine Hcl 0.1 Mg Tab) 0.1 mg PO NOW ONE Stop: 05/28/22 20:32 Last Admin: 05/28/22 21:16 Dose: 0.1 mg Documented by: [id number] Sodium Chloride (Nss 1000ml) 1,000 mls @ 999 mls/hr IV .Q1H1M ONE Stop: 05/28/22 13:16 Last Infusion: 05/28/22 20:25 Dose: 0 mls/hr Documented by: [id number] Admin: 05/28/22 13:00 Dose: 999 mls/hr Documented by: [id number] Ioversol (Optiray 320 100ml) 94 ml IV ONCE ONE Stop: 05/28/22 14:30 Last Admin: 05/28/22 14:30 Dose: 94 ml Documented by: [id number] Imaging Data Radiologist's Impression: Abdomen/Pelvis CT 05/28/22 12:[address] WITH IV CONTRAST CT DOSE: 1002.51 mGycm HISTORY: Acute generalized abdominal pain with diarrhea abd pain, diarrhea TECHNIQUE: Multiaxial CT images of the abdomen and pelvis were performed following the IV administration of 94 cc of Optiray, A dose lowering technique was utilized adhering to the principles of ALARA. COMPARISON STUDY: CT renal study 03/08/2022 FINDINGS: Cardiomegaly with coronary artery and mitral annular calcifications. Nonspecific bibasilar groundglass opacities. No pneumatosis or pneumoperitoneum. Unremarkable spleen with a few subcentimeter calcifications. Mild generalized pancreatic atrophy. Unremarkable adrenal glands and liver. Unchanged appearance of the gallbladder. Patency of the hepatic and portal veins. Simple and complex renal cysts redemonstrated with 1.3 cm hyperdense exophytic lesion of the posterior interpolar right kidney, previously described as a complex cyst. Enhancing heterogeneous 4.3 cm mass of the superior pole left kidney on image 133 series 3 is generally stable from the prior study. 4 mm nonobstructing calculus of the superior pole left kidney. No hydronephrosis. Pelvic basin phleboliths redemonstrated. Unremarkable urinary bladder. Hysterectomy. No adnexal mass lesion. Atherosclerosis of the aorta without aneurysm. There is no lymphadenopathy. There is no bowel obstruction. Small fat filled periumbilical hernia. Mild colonic diverticulosis. The appendix appears noninflamed. There is mild focal wall thickening noted within the proximal ascending colon with mild adjacent pericolonic stranding, image 202 of series 3 for example. Unremarkable soft tissues. Degenerative changes of the shoulders and spine. No acute fracture or destructive bone lesion. Scoliotic curvature of the lumbar spine. IMPRESSION: 1. Wall thickening of the ascending colon with pericolonic stranding is suggesti ve of a nonspecific colitis. Correlation with colonoscopy recommended to exclude a mucosal lesion. 2. No bowel obstruction or pneumoperitoneum. 3. Colonic diverticulosis. Colonic diverticulosis. 4. 4.3 cm enhancing mass of the left kidney redemonstrated suggestive of a renal cell carcinoma. 5. Left nephrolithiasis. 6. Additional findings as above. ACT 112: Negative or not required by law. The above report was generated using voice recognition software. It may contain grammatical, syntax or spelling errors. Electronically signed by: Forest Winn M.D. 05/28/2022 2:52 PM Discharge Plan Visit Data Chief Complaint: Diarrhea ED Provider: Tuan Clifford Discharge Problem: Non-specific colitis, Diarrhea, Leukocytosis Patient Disposition: Admitted As Inpatient Discharge Instructions Interventions: ED Discharge Assessment Last Done: 05/28/22 19:47
[2022-05-28 13:53] LABS: Albumin Globulin Ratio 1.2 (0.9-2); Albumin Level 3.9 gm/dl (3.4-5.0); BUN Creatinine Ratio 24.7 (10-20); Bilirubin,Total 0.6 mg/dl (0.2-1.0); Calcium 9.4 mg/dl (8.5-10.1); Creatinine Clr Calc Pharmacy 60.7 ml/min; Est GFR (African American) 77.3 ml/min; Est GFR (Non-African American) 66.7 ml/min; Globulin 3.2 gm/dl (2.5-4.0); Magnesium 1.8 mg/dl (1.7-2.4); Phosphorus 3.3 mg/dl (2.5-4.9); Potassium 3.7 mmol/L (3.5-5.1); Total Protein 7.1 gm/dl (6.0-8.3)
[2022-05-28 14:04] LABS: Appearance Urine Clear (Clear); Bacteria Urine Automated Negative (Negative); Bilirubin Urine Negative (Negative); Blood Urine Negative (Negative); Cast Urine Automated 0 /lpf (0-5); Color Urine Yellow; Epithelial Cell Urine Auto 0-5 /lpf (0-5); Glucose Urine UA Negative (Negative); Ketones Urine Negative (Negative); Leukocyte Esterase Urine Trace (Negative); Nitrite Urine Negative (Negative); Protein Urine Negative (Negative); RBC Urine Automated 0-4 /hpf (0-4); Specific Gravity Urine 1.006 (1.000-1.030); Urobilinogen Urine Negative (Negative)
[2022-05-28] MEDS ORDERED: OPTIRAY 320 100ml IV ONE (14:29)
--- NOTE | 2022-05-28 14:53 | CT Scan Report ---
ABDOMEN AND PELVIS CT WITH IV CONTRAST CT DOSE: 1002.51 mGycm HISTORY: Acute generalized abdominal pain with diarrhea abd pain, diarrhea TECHNIQUE: Multiaxial CT images of the abdomen and pelvis were performed following the IV administrat ion of 94 cc of Optiray, A dose lowering technique was utilized adhering to the principles of ALARA. COMPARISON STUDY: CT renal study 03/08/2022 FINDINGS: Cardiomegaly with coronary artery and mitral annular calcifications. Nonspecific bibasilar groundglass opacities. No pneumatosis or pneumoperitoneum. Unremarkable spleen with a few subcentimet er calcifications. Mild generalized pancreatic atrophy. Unremarkable adrenal glands and liver. Unchan ged appearance of the gallbladder. Patency of the hepatic and portal veins. Simple and complex renal cysts redemonstrated with 1.3 cm hyperdense exophytic lesion of the posterio r interpolar right kidney, previously described as a complex cyst. Enhancing heterogeneous 4.3 cm mas s of the superior pole left kidney on image 133 series 3 is generally stable from the prior study. 4 mm nonobstructing calculus of the superior pole left kidney. No hydronephrosis. Pelvic basin phleboli ths redemonstrated. Unremarkable urinary bladder. Hysterectomy. No adnexal mass lesion. Atheroscleros is of the aorta without aneurysm. There is no lymphadenopathy. There is no bowel obstruction. Small fat filled periumbilical hernia. Mild colonic diverticulosis. Th e appendix appears noninflamed. There is mild focal wall thickening noted within the proximal ascendi ng colon with mild adjacent pericolonic stranding, image 202 of series 3 for example. Unremarkable so ft tissues. Degenerative changes of the shoulders and spine. No acute fracture or destructive bone le kajal. Scoliotic curvature of the lumbar spine. IMPRESSION: 1. Wall thickening of the ascending colon with pericolonic stranding is suggestive of a nonspecific c olitis. Correlation with colonoscopy recommended to exclude a mucosal lesion. 2. No bowel obstruction or pneumoperitoneum. 3. Colonic diverticulosis. Colonic diverticulosis. 4. 4.3 cm enhancing mass of the left kidney redemonstrated suggestive of a renal cell carcinoma. 5. Left nephrolithiasis. 6. Additional findings as above. ACT 112: Negative or not required by law. The above report was generated using voice recognition software. It may contain grammatical, syntax o r spelling errors. Electronically signed by: Forest Winn M.D. 05/28/2022 2:52 PM
--- NOTE | 2022-05-28 17:26 | History & Physical Report ---
Date of Service May 28, 2022 Assessment & Plan (1) Diarrhea: Plan: Recent course of Clindamycin - clinical picture concerning for C. diff so will start isolation precautions. Unfortunately, pt received Imodium just prior to being sent to the ED so unable to obtain a stool sample yet. Nonspecific colitis on CT. Last Colonoscopy in 2019. - Admit for monitoring overnight - Stool studies including C diff - Holding empiric treatment for C diff for now since hemodynamically stable, not septic, not in severe discomfort but would have low threshold for starting if clinical condition worsens - Consult GI for additional recommendations - H&H appears stable from prior. - Labs in AM - Full liquid diet initially due to diarrhea and abdominal tenderness (2) Non-specific colitis: Plan: See plan for #1 (3) Hypothyroidism: (4) Anxiety: (5) Mild chronic obstructive pulmonary disease: (6) Essential hypertension: (7) Left kidney mass: Plan: Follows with urology - has been stable, pt has declined surgical intervention (8) RLS (restless legs syndrome): (9) Bleeding hemorrhoids: Plan: Continue other home medications as appropriate Fall precautions, Bedside Commode at patient request Pt hopeful to return to [facility] at discharge - has issues with balance at baseline and does not feel ambulation is any worse than usual. Pt seen and reviewed with collaborating physician, Dr. Holt. Plan of care discussed and as outlined above. Code Status: Full Code DVT Prophylaxis: SCDs for now due to recent rectal bleeding Lex Oropeza PA-C History of Present Illness Chief Complaint: diarrhea Primary Care Provider: CARTHAGENav This is an 86 y/o female with a PMH of COPD, HTN, hypothyroidism, RLS, 4.1 cm left anterior renal mass concerning for RCC (following with urology), anemia, hx of duodenal ulcer in 2019, rectal bleeding due to hemorrhoids, and anxiety who presents to the ED today from [facility] with several weeks of diarrhea. Outpatient records reviewed. Pt was diagnosed with LE cellulitis at the end of April and started on cephalexin. This was changed to Clindamycin on 05/02 due to a pruritic rash. On 05/09 she was seen by Dr. Henry Mcintyre and clindamycin was discontinued due to diarrhea, cellulitis improved. Pt reports that the diarrhea has continued even with stopping the antibiotics. It is variable in both frequency and quantity. She may only have two episodes in an entire day but other days will have 4-5 episodes. She describes the diarrhea as soft and accompanied with large amount of gas. It is preceded by abdominal cramping that is relieved after but otherwise she denies abdominal pain, N/V. Diarrhea may be urgent. She has noted some bright blood in her stool intermittently but attr ibutes this to her hemorrhoids and denies any blood recently. Appetite is at baseline. She denies significant fatigue or weakness. No fevers, chills, sweats, chest pain, syncope, SOB. She did have significant LE edema earlier this month - furosemide dose was increased from 20 mg to 40 mg daily with gradual improvement. She reports that today the nursing staff found out that she was still having diarrhea after the antibiotics were discontinued, which is why she was brought in for evaluation. She does not think that her symptoms have dramatically worsened. Prior to the diarrhea, she was having issues with constipation and was on a bowel regimen. She is still receiving a fiber supplement and a stool softener daily. Pt has seen Juan David IRWIN previously for EGD/colonoscopy in 2019 when she was found to have a duodenal ulcer, and more recently in April due to rectal bleeding with drop in H&H thought due to hemorrhoidal bleeding. Declined further endoscopic work-up at this visit unless there was additional bleeding or further drop in H&H. Allergies Allergy/AdvReac Type Severity Reaction Status Date / Time adhesive Allergy Intermediate RASH Verified 05/28/22 16:16 paraben Allergy Intermediate Unknown Verified 05/28/22 16:16 polymyxin B Allergy Intermediate Unknown Verified 05/28/22 16:16 bacitracin Allergy Unknown Unknown Verified 05/28/22 16:16 benzoin Allergy Unknown Unknown Verified 05/28/22 16:16 influenza virus vaccine Allergy Unknown Unknown Verified 05/28/22 16:16 trivalent thimerosal Allergy Unknown Unknown Verified 05/28/22 16:16 Home Medications Medication Instructions Recorded Confirmed Type levothyroxine 75 mcg tablet 75 mcg PO DAILYBB 10/22/19 05/28/22 History (Synthroid) meclizine 25 mg tablet 25 mg PO Q8H PRN 10/22/19 05/28/22 History potassium chloride 10 mEq 10 meq PO QAM 10/22/19 05/28/22 History capsule,extended release cholecalciferol (vitamin D3) 10 10 mcg PO QAM 09/09/20 05/28/22 History mcg (400 unit) capsule (Vitamin D3) docusate sodium 100 mg capsule 100 mg PO DAILY 09/09/20 05/28/22 History (Colace) multivitamin,[id number] 27 1 tab PO QAM 09/09/20 05/28/22 History mg-0.4 mg tablet (Therems-M) atenolol 50 mg tablet 50 mg PO DAILY 03/14/22 05/28/22 History fluticasone furoate 100 1 inh INHALATION DAILY 03/14/22 05/28/22 History mcg/actuation blister powder for inhalation (Arnuity Ellipta) ondansetron HCl 4 mg tablet 4 mg PO Q6H PRN 03/14/22 05/28/22 History sertraline 25 mg tablet (Zoloft) 25 mg PO DAILY 03/14/22 05/28/22 History acetaminophen 500 mg tablet 1,000 mg PO TID 03/21/22 05/28/22 History (Tylenol Extra Strength) acetaminophen 500 mg tablet 500 mg PO DAILY PRN MDD 3500 MG/24 03/21/22 05/28/22 History (Tylenol Extra Strength) HOURS albuterol sulfate 90 mcg/actuation 2 puff INHALATION QID PRN 03/21/22 05/28/22 History aerosol inhaler (Ventolin HFA) calcium carbonate 500 mg-vitamin 1 tab PO BIDM 03/21/22 05/28/22 History D3 5 mcg (200 unit) tablet (Oyster Shell Calcium-Vitamin D3) calcium polycarbophil 625 mg 625 mg PO DAILY 03/21/22 05/28/22 History tablet (FiberCon) guaifenesin 600 mg tablet, 600 mg PO Q12H PRN 03/21/22 05/28/22 History extended release 12 hr (Mucinex) loperamide 2 mg capsule 2 mg PO QID PRN 03/21/22 05/28/22 History losartan 100 mg tablet (Cozaar) 100 mg PO DAILY 03/21/22 05/28/22 History ropinirole 2 mg tablet 2 mg PO DAILY@1800 03/21/22 05/28/22 History ropinirole 2 mg tablet 2 mg PO DAILY@1900 PRN MDD 4mg 03/21/22 05/28/22 History triamcinolone acetonide 0.1 % 1 applic TOPICAL BID PRN 03/21/22 05/28/22 History topical cream atorvastatin 20 mg tablet 20 mg PO DAILY #30 tab 03/23/22 05/28/22 Rx clopidogrel 75 mg tablet 75 mg PO QAM #30 tab 03/23/22 05/28/22 Rx pantoprazole 40 mg tablet,delayed 40 mg PO QAM #30 tab 03/23/22 05/28/22 Rx release diclofenac sodium 1 % topical gel 1 ea TOPICAL BID PRN 05/28/22 05/28/22 History diphenhydramine HCl 12.5 mg 25 mg PO HS 05/28/22 05/28/22 History chewable tablet (Children's Allergy (diphenhydramine)) furosemide 40 mg tablet 40 mg PO QAM 05/28/22 05/28/22 History Past Med/Surg History Medical History Acute blood loss anemia Acute pyelonephritis Acute upper GI bleed Anemia Anxiety Arthritis Bleeding hemorrhoids Chronic venous insufficiency Duodenal ulcer Essential hypertension Hyperlipidemia Hypothyroidism Migraines Mild chronic obstructive pulmonary disease Obesity Osteoporosis RLS (restless legs syndrome) Stroke-like symptoms TIA (transient ischemic attack) Surgical History H/O hysterectomy with unilateral oophorectomy History of appendectomy History of cataract surgery History of esophagogastroduodenoscopy (EGD) hx of duodenal ulcer s/p clipping requiring transfer to tertiary center, 2/2 to nsaid use Family History Father Colorectal cancer Diabetes Social History Smoking Status: Never smoker Hx Alcohol Use: No Hx Substance Use: No Preferred Language: Macedonian Communication Ability: Effective Visual Impairment: Limited Hearing Ability: Normal Air Vice [employer] Required: No Beliefs That Will Affect Care: None marital status: / Current Living Situation: Personal Care Facility Current Living Situation Comment: Resident of [facility] current occupational status: retired Other Information That Helps Us Care for You: No Feels Safe at Home: Yes Safety Concerns: Feels Safe At This Time Assistive Devices: Glasses and Walker Review of Systems Review of Systems: All systems reviewed & are unremarkable except as noted in HPI & below Constitutional: no fever, no chills, no fatigue and no anorexia Eyes: no diplopia Ear, Nose, Mouth, Throat: + dry mouth; no nasal congestion and no nasal discharge Respiratory: no cough, no dyspnea and no wheezing Cardiovascular: + edema; no chest pain, no palpitations and no syncope Gastrointestinal: as per Subjective / HPI Genitourinary: no dysuria and no hematuria Musculoskeletal: no myalgia and no muscle weakness Integumentary: no yellowing of the skin Neurologic: + unsteadiness (chronic issue - unchanged); no generalized weakness, no headache(s) and no confusion Psychiatric: + anxiety; no depression Physical Exam Constitutional: well developed and well nourished; no acute distress Eyes: + anicteric sclerae ENMT: external ear and nose normal, oropharynx normal Neck: trachea midline Respiratory: no respiratory distress and no labored breathing Auscultation: lungs clear to auscultation bilaterally; no rales, no rhonchi and no wheezes Cardiovascular: Rate/Rhythm: regular rate and regular rhythm Gastrointestinal (Abdomen): Inspection/Auscultation: normal bowel sounds; abdomen not distended Percussion/Palpation: + abdomen tender (LLQ, LUQ) and abdomen soft No guarding or rebound Musculoskeletal: Head/Neck/Chest: normocephalic, head atraumatic and neck supple Skin: no jaundice chronic stasis changes bilateral LE - no overlying erythema or warmth Neurologic: moves all extremities; no focal motor deficits Psychiatric: A+Ox3, euthymic affect Results & Data Results & Data ([facility]) Vital Signs (Past 12 Hours) Vital Signs Temp Pulse Pulse Resp BP BP Pulse Ox 05/28/22 14:02 85 19 160/80 H 94 05/28/22 12:17 78 95 05/28/22 12:02 37.1 C 69 17 161/89 H 98 Laboratory Results Laboratory Results - last 24 hr 05/28/22 05/28/22 05/28/22 12:55 12:55 12:55 WBC 17.11 H RBC 3.24 L Hgb 10.2 L Hct 31.7 L MCV 97.8 MCH 31.5 MCHC 32.2 RDW Std Deviation 49.8 H RDW Coeff of [place] 13.9 Plt Count 258 MPV 10.7 H Immature Gran % (Auto) 0.3 Neut % (Auto) 86.7 Lymph % (Auto) 5.7 [place] % (Auto) 6.1 Eos % (Auto) 1.1 Baso % (Auto) 0.1 Neut # (Auto) 14.85 H Lymph # (Auto) 0.97 L [place] # (Auto) 1.04 H Eos # (Auto) 0.19 Baso # (Auto) 0.01 Immature Gran # (Auto) 0.05 H Sodium 133 L Potassium 3.7 Chloride 98 Carbon Dioxide 28 Anion Gap 7 BUN 20 Creatinine 0.81 Est Cr Clr Drug Dosing 60.7 Est GFR ( Amer) 77.3 Est GFR (Non-Af Amer) 66.7 BUN/Creatinine Ratio 24.7 H Glucose 93 Calcium 9.4 Phosphorus 3.3 Magnesium 1.8 Total Bilirubin 0.6 AST 21 ALT 22 Alkaline Phosphatase 80 Total Protein 7.1 Albumin 3.9 Globulin 3.2 Albumin/Globulin Ratio 1.2 Lipase 11 Urine Color Yellow Urine Appearance Clear Urine pH 7.0 Ur Specific [place] 1.006 Urine Protein Negative Urine Glucose (UA) Negative Urine Ketones Negative Urine Blood Negative Urine Nitrite Negative Urine Bilirubin Negative Urine Urobilinogen Negative Ur Leukocyte Esterase Trace H Urine WBC (Auto) 1-5 Urine RBC (Auto) 0-4 U Hyaline Cast (Auto) 0 U Epithel Cells (Auto) 0-5 Urine Bacteria (Auto) Negative Diagnostic Findings CT Abd/Pel 05/28/22 - IMPRESSION: 1. Wall thickening of the ascending colon with pericolonic stranding is suggestive of a nonspecific colitis. Correlation with colonoscopy recommended to exclude a mucosal lesion. 2. No bowel obstruction or pneumoperitoneum. 3. Colonic diverticulosis. Colonic diverticulosis. 4. 4.3 cm enhancing mass of the left kidney redemonstrated suggestive of a renal cell carcinoma. 5. Left nephrolithiasis. 6. Additional findings as above. Medications Administered Discontinued Medications Sodium Chloride (Nss 1000ml) 1,000 mls @ 999 mls/hr IV .Q1H1M ONE Stop: 05/28/22 13:16 Last Admin: 05/28/22 13:00 Dose: 999 mls/hr Documented by: [id number] Ioversol (Optiray 320 100ml) 94 ml IV ONCE ONE Stop: 05/28/22 14:30 Last Admin: 05/28/22 14:30 Dose: 94 ml Documented by: [id number] Code Status & VTE Plan VTE Prophylaxis Plan VTE Prophylaxis will be ordered: Yes Supervising Physician Co-Signing Physician Notes I have seen and examined the patient and have discussed the case with the provider above. I agree with the assessment and plan as stated with the following exceptions.. 86 yo F presenting with a diarrheal illness for a couple of weeks. She does have some RUQ tenderness and had a BM at least 3 times this morning. It is possible that the Imodium has prevented a BM here yet. She is afebrile and otherwise doing well. She took in some milk, pudding and ice cream for dinner and we have switched her to a lactose free diet. She reports feeling fine to have regular food. She is mentating clearly, is slightly hard of hearing, breathing without distress with clear lungs to auscultation and a normal cardiac exam. Abdominal exam reveals a soft, NTND abdomen with TTP in the ride side karen in the upper quadrant. Skin is warm and dry and no gross focal neuro deficits. Workup includes a Leukocytosis of 17K with a left shift, and mild anemia in setting of recently bleeding hemorrhoids. Coags WNL, Na 133, otherwise CMP is WNL. UA essentially clear. COVID -, CT a/p with IV contrast reveals wall thickening in the ascending colon and a 4.3cm enhancing mass of the left kidney suggestive of renal cell carcinoma. 1. colitis-possibly infectious 2. HTN-elevated likely related to the situation and ongoing illness 3. Renal cell carcinoma Colitis may be related to C-diff with recent antibiotic exposure vs virus vs segmental diverticular disease (she is reporting painless hematochezia but thinks it is internal hemorrhoids) vs food borne illness vs other v iral/bacterial infectious colitis related to community exposure (eg: living at [facility], poss interaction with animals, etc). Although she is not ill and certainly not septic she has a leukocytosis with a neutrophil predominance, hematochezia, pain on exam and findings of inflammation on the CT scan. Will cover empirically with cipro/flagyl. Stool studies pending and GI consult. Avoid milk products with ongoing diarrhea. Blood pressure coming down since on the floor and she did receive a dose of clonidine. Will cont to monitor closely. Seen by Urology last in March [address] Nino who is continuing to watch her renal mass with serial CT scans. She declines intervention at this time, however, if mass gets >5cm, she will need to be referred to oncology. It appears stable. Plan for repeat CT scan in 4 more months. Heather Holt DO [facility].
[2022-05-28] MEDS ORDERED: cloNIDine HCL 0.1 MG TAB PO ONE (20:31)
[2022-05-28] MEDS: ACETAMINOPHEN 500 MG TAB PO SCH (21:17)
[2022-05-28] MEDS: diphenhydrAMINE Capsule 25 MG CAP PO SCH (21:17)
[2022-05-28] MEDS ORDERED: D5W AND 1/2NSS 1,000 ML IV SCH (22:30)
[2022-05-28] MEDS: CIPROFLOXACIN 500 MG TAB PO SCH (22:55)
[2022-05-28] MEDS: metroNIDAZOLE 500 MG TAB PO SCH (22:56)
[2022-05-29] MEDS: LEVOTHYROXINE SODIUM 75 MCG TABLET PO SCH (06:08)
[2022-05-29] MEDS: metroNIDAZOLE 500 MG TAB PO SCH (06:08)
[2022-05-29 07:31] LABS: Adenovirus F 40/41 PCR Not Detected (NotDetected); Astrovirus PCR Not Detected (NotDetected); Cryptosporidium PCR Not Detected (NotDetected); Cyclospora cayetanensis PCR Not Detected (NotDetected); Entamoeba histolytica PCR Not Detected (NotDetected); Enteroaggregative E.coli(EAEC) Not Detected (NotDetected); Enteropathogenic E.coli (EPEC) Not Detected (NotDetected); Enterotoxigenic E.coli (ETEC) Not Detected (NotDetected); Giardia lamblia PCR Not Detected (NotDetected); Norovirus GI/GII PCR Not Detected (NotDetected); Plesiomonas shigelloides PCR Not Detected (NotDetected); Rotavirus A PCR Not Detected (NotDetected); Salmonella PCR Not Detected (NotDetected); Sapovirus PCR Not Detected (NotDetected); Shiga-like Toxin E.coli (STEC) Not Detected (NotDetected); Shigella/Enteroinvasive E.coli Not Detected (NotDetected); Vibrio cholerae PCR Not Detected (NotDetected); Vibrio species PCR Not Detected (NotDetected); Yersinia enterocolitica PCR Not Detected (NotDetected)
--- NOTE | 2022-05-29 08:32 | Gastrointestinal Consultation ---
Date of Consultation May 29, 2022 Assessment & Plan (1) Diarrhea: (2) Leukocytosis: This is an 86 y/o female with history of several weeks at least of diarrhea; had been on some ABX. On arrival had leukocytosis, CT w/ nonspecific ascending colitis. C diff positive. She was placed on Cipro/Flagyl, and Vanc. Today doing well, no abd pain, abd soft, she is afebrile and eating a tray of food. - For CDI - stop Cipro/Flagyl - continue vancomycin for 10 day cpurse - Diet as tolerated - Monitor and document GI output - Avoid anti-diarrheals - Trend WBC - GI will sign off, please call with questions. Supervising Physician Co-Signing Physician Notes I performed a history and physical examination of the patient today, including specifically on physical exam - soft abdomen. I have discussed the patient's management with the advanced practitioner. Please refer to the nurse practitioner's note for the documented findings and plan of care. Recent ABx use for cellulitis. Now with CDI. Treat with PO Vancomycin. Recall if needed. 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 Was given Imodium and since then no more diarrhea. Had formed brown stool today. Stool + for C. diff. She is on Cipro/Flagyl and vanc. CT w/ IV contrast w/ nonspecific colitis of the ascending colon; no obst. She had WBC of 17k yesterday; 16 k today. She has a chronic anemia which is stable. Last colon 2019 w/ tics, hemorrhoids. Today feels the same. Eating a full tray of food as I am examining her. Denies abd pain, nausea, vomiting, fever, chills, CP, SOB, melena, hematochezia. She is passing flatus. She states she's had diarrhea x at least a few weeks, maybe 2 months. Would have approx 4 loose stools daily; brown. + urgency, no incontinence or nocturnal symptoms. She had been given some ABX in the recent past. Previously had formed stool. She's been eating well, no weight loss. Mother had colon CA; pt's last colonoscopy as below. Colonoscopy 2019: - Preparation of the colon was fair. - Normal examined terminal ileum. - The examined colon appeared normal. - Sigmoid diverticulosis. - Internal hemorrhoids. EGD 09/2020: - Normal esophagus. - Normal stomach. - Normal duodenal bulb and second portion of the duodenum. No evidence of ulceration was noted on today's examinatio - a prior clip was noted in the duodenal bulb. EGD 07/2020: - Normal esophagus. - Non-bleeding gastric ulcer with a clean ulcer base (Rolf Class III). - Doudenal bulb ulcer with oozing hemorrhage (Rolf Class Ib). Injected. Clips (MR conditional) were placed. - No specimens collected. Allergies Allergy/AdvReac Type Severity Reaction Status Date / Time adhesive Allergy Intermediate RASH Verified 05/28/22 16:16 paraben Allergy Intermediate Unknown Verified 05/28/22 16:16 polymyxin B Allergy Intermediate Unknown Verified 05/28/22 16:16 bacitracin Allergy Unknown Unknown Verified 05/28/22 16:16 benzoin Allergy Unknown Unknown Verified 05/28/22 16:16 influenza virus vaccine Allergy Unknown Unknown Verified 05/28/22 16:16 trivalent thimerosal Allergy Unknown Unknown Verified 05/28/22 16:16 Home Medications Medication Instructions Recorded Confirmed Type levothyroxine 75 mcg tablet 75 mcg PO DAILYBB 10/22/19 05/28/22 History (Synthroid) meclizine 25 mg tablet 25 mg PO Q8H PRN 10/22/19 05/28/22 History potassium chloride 10 mEq 10 meq PO QAM 10/22/19 05/28/22 History capsule,extended release cholecalciferol (vitamin D3) 10 10 mcg PO QAM 09/09/20 05/28/22 History mcg (400 unit) capsule (Vitamin D3) docusate sodium 100 mg capsule 100 mg PO DAILY 09/09/20 05/28/22 History (Colace) multivitamin,wm-xyyq-ofgxecia 27 1 tab PO QAM 09/09/20 05/28/22 History mg-0.4 mg tablet (Therems-M) atenolol 50 mg tablet 50 mg PO DAILY 03/14/22 05/28/22 History fluticasone furoate 100 1 inh INHALATION DAILY 03/14/22 05/28/22 History mcg/actuation blister powder for inhalation (Arnuity Ellipta) ondansetron HCl 4 mg tablet 4 mg PO Q6H PRN 03/14/22 05/28/22 History sertraline 25 mg tablet (Zoloft) 25 mg PO DAILY 03/14/22 05/28/22 History acetaminophen 500 mg tablet 1,000 mg PO TID 03/21/22 05/28/22 History (Tylenol Extra Strength) acetaminophen 500 mg tablet 500 mg PO DAILY PRN MDD 3500 MG/24 03/21/22 05/28/22 History (Tylenol Extra Strength) HOURS albuterol sulfate 90 mcg/actuation 2 puff INHALATION QID PRN 03/21/22 05/28/22 History aerosol inhaler (Ventolin HFA) calcium carbonate 500 mg-vitamin 1 tab PO BIDM 03/21/22 05/28/22 History D3 5 mcg (200 unit) tablet (Oyster Shell Calcium-Vitamin D3) calcium polycarbophil 625 mg 625 mg PO DAILY 03/21/22 05/28/22 History tablet (FiberCon) guaifenesin 600 mg tablet, 600 mg PO Q12H PRN 03/21/22 05/28/22 History extended release 12 hr (Mucinex) loperamide 2 mg capsule 2 mg PO QID PRN 03/21/22 05/28/22 History losartan 100 mg tablet (Cozaar) 100 mg PO DAILY 03/21/22 05/28/22 History ropinirole 2 mg tablet 2 mg PO DAILY@1800 03/21/22 05/28/22 History ropinirole 2 mg tablet 2 mg PO DAILY@1900 PRN MDD 4mg 03/21/22 05/28/22 History triamcinolone acetonide 0.1 % 1 applic TOPICAL BID PRN 03/21/22 05/28/22 History topical cream atorvastatin 20 mg tablet 20 mg PO DAILY #30 tab 03/23/22 05/28/22 Rx clopidogrel 75 mg tablet 75 mg PO QAM #30 tab 03/23/22 05/28/22 Rx pantoprazole 40 mg tablet,delayed 40 mg PO QAM #30 tab 03/23/22 05/28/22 Rx release diclofenac sodium 1 % topical gel 1 ea TOPICAL BID PRN 05/28/22 05/28/22 History diphenhydramine HCl 12.5 mg 25 mg PO HS 05/28/22 05/28/22 History chewable tablet (Children's Allergy (diphenhydramine)) furosemide 40 mg tablet 40 mg PO QAM 05/28/22 05/28/22 History Patient History Medical History Acute blood loss anemia Acute pyelonephritis Acute upper GI bleed Anemia Anxiety Arthritis Bleeding hemorrhoids Chronic venous insufficiency Duodenal ulcer Essential hypertension Hyperlipidemia Hypothyroidism Migraines Mild chronic obstructive pulmonary disease Obesity Osteoporosis RLS (restless legs syndrome) Stroke-like symptoms TIA (transient ischemic attack) Surgical History H/O hysterectomy with unilateral oophorectomy History of appendectomy History of cataract surgery History of esophagogastroduodenoscopy (EGD) hx of duodenal ulcer s/p clipping requiring transfer to tertiary center, 2/2 to nsaid use Family History Father Colorectal cancer Diabetes Social History Smoking Status: Never smoker Hx Alcohol Use: No Hx Substance Use: No Preferred Language: Bengali Communication Ability: Effective Visual Impairment: Limited Hearing Ability: Normal Hotel Operation Manager Required: No Beliefs That Will Affect Care: None marital status: / Current Living Situation: Personal Care Facility Current Living Situation Comment: Resident of [facility] current occupational status: retired Other Information That Helps Us Care for You: No Feels Safe at Home: Yes Safety Concerns: Feels Safe At This Time Assistive Devices: Walker Review of Systems Review of Systems: All systems reviewed & are unremarkable except as noted in HPI & below Physical Exam Constitutional: WD/WN, vitals as above Eyes: PERRL, conjunctivae normal, anicteric sclerae Respiratory: normal respiratory effort, lungs clear to auscultation Cardiovascular: RRR, no murmur, no edema Gastrointestinal (Abdomen): normal bowel sounds, soft, nontender, no hepatosplenomegaly Skin: no rashes, warm and dry Psychiatric: A+Ox3, euthymic affect Results & Data ([facility]) Vital Signs (Past 12 Hours) Vital Signs Temp Pulse Resp BP Pulse Ox 05/29/22 07:35 36.7 C 64 18 137/77 96 05/28/22 22:25 61 153/82 H 05/28/22 22:00 36.6 C 62 20 160/74 H 93 Laboratory Results 05/29/22 05/28/22 05/28/22 Range/Units 05:57 16:49 12:55 WBC (4.8-10.8) K/uL RBC (4.2-5.4) M/uL Hgb (12.0-16.0) g/dL Hct (37-47) % MCV (80-100) fL MCH (25-34) pg MCHC (32-36) g/dL RDW Std Deviation (36.4-46.3) fL RDW Coeff of [place] (11.5-14.5) % Plt Count (130-400) K/uL MPV (7.4-10.4) fL Immature Gran % (Auto) % Neut % (Auto) % Lymph % (Auto) % [place] % (Auto) % Eos % (Auto) % Baso % (Auto) % Neut # (Auto) (1.4-6.5) K/uL Lymph # (Auto) (1.2-3.4) K/uL [place] # (Auto) (0.11-0.59) K/uL Eos # (Auto) (0-0.5) K/uL Baso # (Auto) (0-0.2) K/uL Immature Gran # (Auto) (0.00-0.02) K/uL Sodium (136-145) mmol/L Potassium (3.5-5.1) mmol/L Chloride (98-107) mmol/L Carbon Dioxide (21-32) mmol/L Anion Gap (3-11) BUN (6-23) mg/dl Creatinine (0.6-1.2) mg/dl Est Cr Clr Drug Dosing ml/min Est GFR ( Amer) ml/min Est GFR (Non-Af Amer) ml/min BUN/Creatinine Ratio (10-20) Glucose (70-99(Fasting)) mg/dl Calcium (8.5-10.1) mg/dl Phosphorus (2.5-4.9) mg/dl Magnesium (1.7-2.4) mg/dl Total Bilirubin (0.2-1.0) mg/dl AST (13-39) U/L ALT (7-52) U/L Alkaline Phosphatase (34-104) U/L Total Protein (6.0-8.3) gm/dl Albumin (3.4-5.0) gm/dl Globulin (2.5-4.0) gm/dl Albumin/Globulin Ratio (0.9-2) Lipase (11-82) U/L Urine Color Yellow Urine Appearance Clear (Clear) Urine pH 7.0 (4.5-7.5) Ur Specific [place] 1.006 (1.000-1.030) Urine Protein Negative (Negative) Urine Glucose (UA) Negative (Negative) Urine Ketones Negative (Negative) Urine Blood Negative (Negative) Urine Nitrite Negative (Negative) Urine Bilirubin Negative (Negative) Urine Urobilinogen Negative (Negative) Ur Leukocyte Esterase Trace H (Negative) Urine WBC (Auto) 1-5 (0-5) /hpf Urine RBC (Auto) 0-4 (0-4) /hpf U Hyaline Cast (Auto) 0 (0-5) /lpf U Epithel Cells (Auto) 0-5 (0-5) /lpf Urine Bacteria (Auto) Negative (Negative) Stl C. cayetanensis PCR Pending Stool Rotavirus A PCR Pending Stl Adenov F 40/41 PCR Pending Stool Astrovirus (PCR) Pending Stool Campylobacter PCR Pending Stl C. diff Tox A/B PCR Pending Stool Cryptosporidium PCR Pending Stl E.coli Shiga Tox PCR Pending Stl Enterotoxigenic E PCR Pending Stool EAEC (PCR) Pending Stl E. histolytica PCR Pending Stool Giardia Lamblia PCR Pending Stool Salmonella PCR Pending Stool Sapovirus (PCR) Pending Stl P. shigelloides PCR Pending Stl Shigella/EIEC PCR Pending St Y.enterocolitica PCR Pending Stool Vibrio (PCR) Pending Stl Vibrio cholerae PCR Pending Stl Norovirus GI/GII PCR Pending SARS-CoV-2, RNA, NAAT NEGATIVE (NEGATIVE) 05/28/22 05/28/22 Range/Units 12:55 12:55 WBC 17.11 H (4.8-10.8) K/uL RBC 3.24 L (4.2-5.4) M/uL Hgb 10.2 L (12.0-16.0) g/dL Hct 31.7 L (37-47) % MCV 97.8 (80-100) fL MCH 31.5 (25-34) pg MCHC 32.2 (32-36) g/dL RDW Std Deviation 49.8 H (36.4-46.3) fL RDW Coeff of [place] 13.9 (11.5-14.5) % Plt Count 258 (130-400) K/uL MPV 10.7 H (7.4-10.4) fL Immature Gran % (Auto) 0.3 % Neut % (Auto) 86.7 % Lymph % (Auto) 5.7 % [place] % (Auto) 6.1 % Eos % (Auto) 1.1 % Baso % (Auto) 0.1 % Neut # (Auto) 14.85 H (1.4-6.5) K/uL Lymph # (Auto) 0.97 L (1.2-3.4) K/uL [place] # (Auto) 1.04 H (0.11-0.59) K/uL Eos # (Auto) 0.19 (0-0.5) K/uL Baso # (Auto) 0.01 (0-0.2) K/uL Immature Gran # (Auto) 0.05 H (0.00-0.02) K/uL Sodium 133 L (136-145) mmol/L Potassium 3.7 (3.5-5.1) mmol/L Chloride 98 (98-107) mmol/L Carbon Dioxide 28 (21-32) mmol/L Anion Gap 7 (3-11) BUN 20 (6-23) mg/dl Creatinine 0.81 (0.6-1.2) mg/dl Est Cr Clr Drug Dosing 60.7 ml/min Est GFR ( Amer) 77.3 ml/min Est GFR (Non-Af Amer) 66.7 ml/min BUN/Creatinine Ratio 24.7 H (10-20) Glucose 93 (70-99(Fasting)) mg/dl Calcium 9.4 (8.5-10.1) mg/dl Phosphorus 3.3 (2.5-4.9) mg/dl Magnesium 1.8 (1.7-2.4) mg/dl Total Bilirubin 0.6 (0.2-1.0) mg/dl AST 21 (13-39) U/L ALT 22 (7-52) U/L Alkaline Phosphatase 80 (34-104) U/L Total Protein 7.1 (6.0-8.3) gm/dl Albumin 3.9 (3.4-5.0) gm/dl Globulin 3.2 (2.5-4.0) gm/dl Albumin/Globulin Ratio 1.2 (0.9-2) Lipase 11 (11-82) U/L Urine Color Urine Appearance (Clear) Urine pH (4.5-7.5) Ur Specific [place] (1.000-1.030) Urine Protein (Negative) Urine Glucose (UA) (Negative) Urine Ketones (Negative) Urine Blood (Negative) Urine Nitrite (Negative) Urine Bilirubin (Negative) Urine Urobilinogen (Negative) Ur Leukocyte Esterase (Negative) Urine WBC (Auto) (0-5) /hpf Urine RBC (Auto) (0-4) /hpf U Hyaline Cast (Auto) (0-5) /lpf U Epithel Cells (Auto) (0-5) /lpf Urine Bacteria (Auto) (Negative) Stl C. cayetanensis PCR Stool Rotavirus A PCR Stl Adenov F 40/41 PCR Stool Astrovirus (PCR) Stool Campylobacter PCR Stl C. diff Tox A/B PCR Stool Cryptosporidium PCR Stl E.coli Shiga Tox PCR Stl Enterotoxigenic E PCR Stool EAEC (PCR) Stl E. histolytica PCR Stool Giardia Lamblia PCR Stool Salmonella PCR Stool Sapovirus (PCR) Stl P. shigelloides PCR Stl Shigella/EIEC PCR St Y.enterocolitica PCR Stool Vibrio (PCR) Stl Vibrio cholerae PCR Stl Norovirus GI/GII PCR SARS-CoV-2, RNA, NAAT (NEGATIVE) Diagnostic Findings CTAP: HISTORY: Acute generalized abdominal pain with diarrhea abd pain, diarrhea TECHNIQUE: Multiaxial CT images of the abdomen and pelvis were performed following the IV administration of 94 cc of Optiray, A dose lowering technique was utilized adhering to the principles of ALARA. COMPARISON STUDY: CT renal study 03/08/2022 FINDINGS: Cardiomegaly with coronary artery and mitral annular calcifications. Nonspecific bibasilar groundglass opacities. No pneumatosis or pneumoperitoneum. Unremarkable spleen with a few subcentimeter calcifications. Mild generalized pancreatic atrophy. Unremarkable adrenal glands and liver. Unchanged appearance of the gallbladder. Patency of the hepatic and portal veins. Simple and complex renal cysts redemonstrated with 1.3 cm hyperdense exophytic lesion of the posterior interpolar right kidney, previously described as a complex cyst. Enhancing heterogeneous 4.3 cm mass of the superior pole left kidney on image 133 series 3 is generally stable from the prior study. 4 mm nonobstructing calculus of the superior pole left kidney. No hydronephrosis. Pelvic basin phleboliths redemonstrated. Unremarkable urinary bladder. Hysterectomy. No adnexal mass lesion. Atherosclerosis of the aorta without aneurysm. There is no lymphadenopathy. There is no bowel obstruction. Small fat filled periumbilical hernia. Mild colonic diverticulosis. The appendix appears noninflamed. There is mild focal wall thickening noted within the proximal ascending colon with mild adjacent pericolonic stranding, image 202 of series 3 for example. Unremarkable soft tissues. Degenerative changes of the shoulders and spine. No acute fracture or destructive bone lesion. Scoliotic curvature of the lumbar spine. IMPRESSION: 1. Wall thickening of the ascending colon with pericolonic stranding is suggestive of a nonspecific colitis. Correlation with colonoscopy recommended to exclude a mucosal lesion. 2. No bowel obstruction or pneumoperitoneum. 3. Colonic diverticulosis. Colonic diverticulosis. 4. 4.3 cm enhancing mass of the left kidney redemonstrated suggestive of a renal cell carcinoma. 5. Left nephrolithiasis. 6. Additional findings as above. (1) Diarrhea Diarrhea type: unspecified type Qualified Code(s): R19.7 - Diarrhea, unspecified (2) Leukocytosis Leukocytosis type: unspecified Qualified Code(s): D72.829 - Elevated white blood cell count, unspecified
[2022-05-29 08:35] LABS: Campylobacter PCR Not Detected (NotDetected)
[2022-05-29 08:38] LABS: Cdiff Toxin A+B Positive Cdiff Toxin (Negative)
[2022-05-29 08:39] LABS: Cdiff Antigen Positive
[2022-05-29 08:54] LABS: Basophils # (auto) 0.01 K/uL (0-0.2); Basophils % (auto) 0.1 %; Eosinophils # (auto) 0.32 K/uL (0-0.5); Eosinophils % (auto) 1.9 %; Hematocrit (blood only) 27.5 % (37-47); Hemoglobin 8.9 g/dL (12.0-16.0); Immature Granulocytes # (auto) 0.08 K/uL (0.00-0.02); Immature Granulocytes % (auto) 0.5 %; Lymphocytes # (auto) 0.91 K/uL (1.2-3.4); Lymphocytes % (auto) 5.5 %; Mean Corpuscular Hemoglobin 31.6 pg (25-34); Mean Corpuscular Hgb Conc 32.4 g/dL (32-36); Mean Corpuscular Volume 97.5 fL (80-100); Mean Platelet Volume 10.5 fL (7.4-10.4); Monocytes # (auto) 1.08 K/uL (0.11-0.59); Monocytes % (auto) 6.5 %; Neutrophils # (auto) 14.14 K/uL (1.4-6.5); Neutrophils % (auto) 85.5 %; Platelet Count 217 K/uL (130-400); RDW Coefficient of Variation 13.9 % (11.5-14.5); RDW Standard Deviation 50.1 fL (36.4-46.3); Red Blood Count 2.82 M/uL (4.2-5.4); White Blood Count 16.54 K/uL (4.8-10.8)
[2022-05-29] MEDS ORDERED: POTASSIUM CHLORIDE 10 MEQ TABCR PO SCH (09:00)
[2022-05-29] MEDS ORDERED: FUROSEMIDE 40 MG TAB PO SCH (09:00)
[2022-05-29 09:07] LABS: BUN Creatinine Ratio 23.5 (10-20); Calcium 8.3 mg/dl (8.5-10.1); Creatinine Clr Calc Pharmacy 70.4 ml/min; Est GFR (African American) 93.1 ml/min; Est GFR (Non-African American) 80.3 ml/min; Potassium 3.6 mmol/L (3.5-5.1)
[2022-05-29] MEDS: LOSARTAN POTASSIUM 50 MG TAB PO SCH (09:20)
[2022-05-29] MEDS: CLOPIDOGREL BISULFATE 75 MG TAB PO SCH (09:20)
[2022-05-29] MEDS: CIPROFLOXACIN 500 MG TAB PO SCH (09:20)
[2022-05-29] MEDS: ATENOLOL 50 MG TABLET PO SCH (09:20)
[2022-05-29] MEDS: PANTOprazole 40 MG TAB PO SCH (09:20)
[2022-05-29] MEDS: SERTRALINE HCL 50 MG TABLET PO SCH (09:20)
[2022-05-29] MEDS: ATORVASTATIN 20 MG TAB PO SCH (09:21)
[2022-05-29] MEDS: CHOLECALCIFEROL 400 UNITS 10 MCG TAB PO SCH (09:21)
[2022-05-29] MEDS: ACETAMINOPHEN 500 MG TAB PO SCH ×3 (09:21→20:03)
[2022-05-29] MEDS: FLUTICASONE FUROATE 100MCG 14 PUFFS/INHALER INH SCH (09:21)
[2022-05-29] MEDS: RASPBERRY SYRUP 5 ML UDP PO SCH ×3 (12:08→23:46)
[2022-05-29] MEDS: VANCOMYCIN HCL 250 MG/5 ML SOLN PO SCH ×3 (12:08→23:45)
[2022-05-29 15:02] LABS: Basophils # (auto) 0.01 K/uL (0-0.2); Basophils % (auto) 0.1 %; Eosinophils # (auto) 0.49 K/uL (0-0.5); Eosinophils % (auto) 2.7 %; Hematocrit (blood only) 28.7 % (37-47); Hemoglobin 9.4 g/dL (12.0-16.0); Immature Granulocytes # (auto) 0.08 K/uL (0.00-0.02); Immature Granulocytes % (auto) 0.4 %; Lymphocytes # (auto) 1.15 K/uL (1.2-3.4); Lymphocytes % (auto) 6.3 %; Mean Corpuscular Hemoglobin 32.3 pg (25-34); Mean Corpuscular Hgb Conc 32.8 g/dL (32-36); Mean Corpuscular Volume 98.6 fL (80-100); Mean Platelet Volume 10.5 fL (7.4-10.4); Monocytes # (auto) 1.04 K/uL (0.11-0.59); Monocytes % (auto) 5.7 %; Neutrophils # (auto) 15.41 K/uL (1.4-6.5); Neutrophils % (auto) 84.8 %; Platelet Count 235 K/uL (130-400); RDW Coefficient of Variation 13.9 % (11.5-14.5); RDW Standard Deviation 50.1 fL (36.4-46.3); Red Blood Count 2.91 M/uL (4.2-5.4); White Blood Count 18.18 K/uL (4.8-10.8)
--- NOTE | 2022-05-29 17:58 | Hospitalist Progress Note ---
Date of Service May 29, 2022 Assessment & Plan (1) Diarrhea: Plan: Recent course of Clindamycin - clinical picture concerning for C. diff so will start isolation precautions. Unfortunately, pt received Imodium just prior to being sent to the ED so unable to obtain a stool sample yet. Nonspecific colitis on CT. Last Colonoscopy in 2019. - Stool studies including C diff-stool is positive for C. difficile toxin otherwise negative -Cipro and Flagyl have been discontinued -Started on oral vancomycin to 2 mg 4 times daily - Consult GI for additional recommendations -appreciate GI input and recommendation - Labs in AM-White count remains mildly elevated - Full liquid diet initially due to diarrhea and abdominal tenderness -We will advance diet as tolerated Will monitor labs in the morning and likely discharge tomorrow (2) Non-specific colitis: Plan: See plan for #1 (3) Hypothyroidism: (4) Anxiety: (5) Mild chronic obstructive pulmonary disease: (6) Essential hypertension: (7) Left kidney mass: Plan: Follows with urology - has been stable, pt has declined surgical intervention (8) RLS (restless legs syndrome): (9) Bleeding hemorrhoids: Plan: Continue other home medications as appropriate Fall precautions, Bedside Commode at patient request Pt hopeful to return to [facility] at discharge - has issues with balance at baseline and does not feel ambulation is any worse than usual. Pt seen and reviewed with collaborating physician, Dr. Holt. Plan of care discussed and as outlined above. Code Status: Full Code DVT Prophylaxis: SCDs for now due to recent rectal bleeding Admission and Anticipated Discharge Date Admission Date: May 28, 2022 Subjective 05/29/2022 The patient was seen and examined in medical floor She has been feeling much better with minimal abdominal discomfort Has had a formed bowel movement Denies any nausea and or vomiting, any fever and or chills Review of Systems Review of Systems: All systems reviewed and are unremarkable except as noted below Physical Exam Physical Exam: Sitting on a chair without any acute distress Constitutional: well developed, well nourished, + ill appearing and + obese Eyes: PERRL, conjunctivae normal, anicteric sclerae ENMT: external ear and nose normal, oropharynx normal Neck: trachea midline, no thyromegaly Respiratory: no respiratory distress Auscultation: lungs clear to aus cultation bilaterally Cardiovascular: Rate/Rhythm: regular rate and regular rhythm; not tachycardic Heart Sounds: normal S1 and normal S2; no murmur Extremities: no edema Gastrointestinal (Abdomen): Inspection/Auscultation: normal bowel sounds; abdomen not distended Percussion/Palpation: + abdomen tender (Minimally tender lower quadrant) and abdomen soft Musculoskeletal: No acute arthritis in any joint Neurologic: Alert, awake and oriented x3 no focal sensory or no motor deficit appreciated Lymphatic: no cervical or axillary lymphadenopathy Results & Data Results & Data ([facility]) Vital Signs (Past 12 Hours) Vital Signs Temp Pulse Resp BP Pulse Ox 05/29/22 17:40 36.9 C 67 18 169/87 H 94 05/29/22 07:35 36.7 C 64 18 137/77 96 Laboratory Results Short CBC 05/29/22 05/29/22 Range/Units 08:10 14:18 WBC 16.54 H 18.18 H (4.8-10.8) K/uL Hgb 8.9 L 9.4 L (12.0-16.0) g/dL Hct 27.5 L 28.7 L (37-47) % Plt Count 217 235 (130-400) K/uL BMP 05/29/22 08:10 Sodium 131 L Potassium 3.6 Chloride 99 Carbon Dioxide 27 BUN 16 Creatinine 0.68 Glucose 107 H Calcium 8.3 L Medications Administered Current Inpatient Medications Acetaminophen (Acetaminophen 500 Mg Tab) 1,000 mg PO TID JAYLEEN Stop: 06/27/22 20:59 Last Admin: 05/29/22 13:25 Dose: 1,000 mg Documented by: Atenolol (Atenolol 50 Mg Tablet) 50 mg PO DAILY JAYLEEN Stop: 06/28/22 08:59 Last Admin: 05/29/22 09:20 Dose: 50 mg Documented by: Atorvastatin Calcium (Atorvastatin 20 Mg Tab) 20 mg PO DAILY JAYLEEN Stop: 06/28/22 08:59 Last Admin: 05/29/22 09:21 Dose: 20 mg Documented by: Clopidogrel Bisulfate (Clopidogrel Bisulfate 75 Mg Tab) 75 mg PO QAM JAYLEEN Stop: 06/28/22 08:59 Last Admin: 05/29/22 09:20 Dose: 75 mg Documented by: Diphenhydramine HCl (Diphenhydramine Capsule 25 Mg Cap) 25 mg PO HS JAYLEEN Stop: 06/27/22 20:59 Last Admin: 05/28/22 21:17 Dose: 25 mg Documented by: Fluticasone Furoate (Fluticasone Furoate 100mcg 14 Puffs/Inhaler) 1 puffs INH DAILY JAYLEEN Stop: 06/28/22 08:59 Last Admin: 05/29/22 09:21 Dose: 1 puffs Documented by: Furosemide (Furosemide 40 Mg Tab) 40 mg PO QAM [facility] Stop: 06/28/22 08:59 Levothyroxine Sodium (Levothyroxine Sodium 75 Mcg Tablet) 75 mcg PO DAILYBB JAYLEEN Stop: 06/28/22 06:29 Last Admin: 05/29/22 06:08 Dose: 75 mcg Documented by: Losartan Potassium (Losartan Potassium 50 Mg Tab) 100 mg PO DAILY JAYLEEN Stop: 06/28/22 08:59 Last Admin: 05/29/22 09:20 Dose: 100 mg Documented by: Pantoprazole Sodium (Pantoprazole 40 Mg Tab) 40 mg PO QAM [facility] Stop: 06/28/22 08:59 Last Admin: 05/29/22 09:20 Dose: 40 mg Documented by: Potassium Chloride (Potassium Chloride 10 Meq Tabcr) 10 meq PO QAM [facility] Stop: 06/28/22 08:59 Raspberry (Raspberry Syrup 5 Ml Udp) 5 ml PO Q6 [facility] Stop: 06/08/22 11:59 Last Admin: 05/29/22 12:08 Dose: 5 ml Documented by: Ropinirole HCl (Ropinirole Hcl 2 Mg Tablet) 2 mg PO DAILY@1900 PRN PRN Reason: RLS Stop: 06/28/22 18:59 Ropinirole HCl (Ropinirole Hcl 2 Mg Tablet) 2 mg PO DAILY@1800 JAYLEEN Stop: 06/28/22 17:59 Sertraline HCl (Sertraline Hcl 50 Mg Tablet) 25 mg PO DAILY JAYLEEN Stop: 06/28/22 08:59 Last Admin: 05/29/22 09:20 Dose: 25 mg Documented by: Vancomycin HCl (Vancomycin Hcl 250 Mg/5 Ml Soln) 250 mg PO Q6 [facility] Stop: 06/08/22 11:59 Last Admin: 05/29/22 12:08 Dose: 250 mg Documented by: Vitamin D (Cholecalciferol 400 Units 10 Mcg Tab) 400 units PO QAM [facility] Stop: 06/28/22 08:59 Last Admin: 05/29/22 09:21 Dose: 400 units Documented by: (1) Diarrhea Diarrhea type: unspecified type Qualified Code(s): R19.7 - Diarrhea, unspecified
[2022-05-29] MEDS: rOPINIRole HCL 2 MG TABLET PO SCH (18:04)
[2022-05-29] MEDS ORDERED: rOPINIRole HCL 2 MG TABLET PO PRN (19:00)
[2022-05-29] MEDS: diphenhydrAMINE Capsule 25 MG CAP PO SCH (20:04)
[2022-05-30] MEDS ORDERED: VANCOMYCIN HCL 250 MG/5 ML SOLN PO SCH
[2022-05-30] MEDS ORDERED: RASPBERRY SYRUP 5 ML UDP PO SCH
[2022-05-30] MEDS: RASPBERRY SYRUP 5 ML UDP PO SCH ×3 (05:44→17:58)
[2022-05-30] MEDS: VANCOMYCIN HCL 250 MG/5 ML SOLN PO SCH ×3 (05:44→18:01)
[2022-05-30] MEDS: LEVOTHYROXINE SODIUM 75 MCG TABLET PO SCH (05:44)
[2022-05-30 07:05] LABS: Basophils # (auto) 0.01 K/uL (0-0.2); Basophils % (auto) 0.1 %; Eosinophils # (auto) 0.48 K/uL (0-0.5); Eosinophils % (auto) 2.5 %; Hematocrit (blood only) 29.8 % (37-47); Hemoglobin 9.7 g/dL (12.0-16.0); Immature Granulocytes % (auto) 0.5 %; Lymphocytes % (auto) 5.7 %; Mean Corpuscular Hgb Conc 32.6 g/dL (32-36); Mean Corpuscular Volume 98.3 fL (80-100); Mean Platelet Volume 10.4 fL (7.4-10.4); Monocytes # (auto) 0.93 K/uL (0.11-0.59); Monocytes % (auto) 4.8 %; Neutrophils # (auto) 16.69 K/uL (1.4-6.5); Neutrophils % (auto) 86.4 %; Platelet Count 239 K/uL (130-400); RDW Coefficient of Variation 13.8 % (11.5-14.5); RDW Standard Deviation 49.2 fL (36.4-46.3); Red Blood Count 3.03 M/uL (4.2-5.4); White Blood Count 19.31 K/uL (4.8-10.8)
[2022-05-30 07:29] LABS: BUN Creatinine Ratio 21.1 (10-20); Calcium 8.6 mg/dl (8.5-10.1); Creatinine Clr Calc Pharmacy 67.4 ml/min; Est GFR (African American) 90.7 ml/min; Est GFR (Non-African American) 78.2 ml/min; Magnesium 1.7 mg/dl (1.7-2.4); Potassium 3.8 mmol/L (3.5-5.1)
[2022-05-30] MEDS: CHOLECALCIFEROL 400 UNITS 10 MCG TAB PO SCH (08:59)
[2022-05-30] MEDS: ATENOLOL 50 MG TABLET PO SCH (08:59)
[2022-05-30] MEDS: PANTOprazole 40 MG TAB PO SCH (09:00)
[2022-05-30] MEDS: LOSARTAN POTASSIUM 50 MG TAB PO SCH (09:00)
[2022-05-30] MEDS: CLOPIDOGREL BISULFATE 75 MG TAB PO SCH (09:00)
[2022-05-30] MEDS: SERTRALINE HCL 50 MG TABLET PO SCH (09:01)
[2022-05-30] MEDS: ACETAMINOPHEN 500 MG TAB PO SCH ×2 (09:01→13:28)
[2022-05-30] MEDS: FLUTICASONE FUROATE 100MCG 14 PUFFS/INHALER INH SCH (09:01)
[2022-05-30] MEDS: ATORVASTATIN 20 MG TAB PO SCH (09:01)
[2022-05-30] MEDS: rOPINIRole HCL 2 MG TABLET PO SCH (17:57)
--- NOTE | 2022-05-30 18:13 | Discharge Summary ---
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 Outpatient records reviewed. Pt was diagnosed with LE cellulitis at the end of April and started on cephalexin. This was changed to Clindamycin on 05/02 due to a pruritic rash. On 05/09 she was seen by Dr. Henry Mcintyre and clindamycin was discontinued due to diarrhea, cellulitis improved. Pt reports that the diarrhea has continued even with stopping the antibiotics. It is variable in both frequency and quantity. She may only have two episodes in an entire day but other days will have 4-5 episodes. She describes the diarrhea as soft and accompanied with large amount of gas. It is preceded by abdominal cramping that is relieved after but otherwise she denies abdominal pain, N/V. Diarrhea may be urgent. She has noted some bright blood in her stool intermittently but attributes this to her hemorrhoids and denies any blood recently. Appetite is at baseline. She denies significant fatigue or weakness. No fevers, chills, sweats, chest pain, syncope, SOB. She did have significant LE edema earlier this month - furosemide dose was increased from 20 mg to 40 mg daily with gradual improvement. She reports that today the nursing staff found out that she was still having diarrhea after the antibiotics were discontinued, which is why she was brought in for evaluation. She does not think that her symptoms have dramatically worsened. Prior to the diarrhea, she was having issues with constipation and was on a bowel regimen. She is still receiving a fiber supplement and a stool softener daily. Pt has seen Juan David IRWIN previously for EGD/colonoscopy in 2019 when she was found to have a duodenal ulcer, and more recently in April due to rectal bleeding with drop in H&H thought due to hemorrhoidal bleeding. Declined further endoscopic work-up at this visit unless there was additional bleeding or further drop in H&H. Discharge Data Allergies Allergy/AdvReac Type Severity Reaction Status Date / Time adhesive Allergy Intermediate RASH Verified 05/28/22 16:16 paraben Allergy Intermediate Unknown Verified 05/28/22 16:16 polymyxin B Allergy Intermediate Unknown Verified 05/28/22 16:16 bacitracin Allergy Unknown Unknown Verified 05/28/22 16:16 benzoin Allergy Unknown Unknown Verified 05/28/22 16:16 influenza virus vaccine Allergy Unknown Unknown Verified 05/28/22 16:16 trivalent thimerosal Allergy Unknown Unknown Verified 05/28/22 16:16 Consultations 05/28/22 16:46 ED Decision to Admit Stat 05/28/22 20:21 Consult Gastroenterology Routine Ordered Studies 05/28/22 12:57 CT abd pelvis IV con only Stat Hospital Course (1) Diarrhea: Recent course of Clindamycin - clinical picture concerning for C. diff so will start isolation precautions. Unfortunately, pt received Imodium just prior to being sent to the ED so unable to obtain a stool sample yet. Nonspecific colitis on CT. Last Colonoscopy in 2019. - Stool studies including C diff-stool is positive for C. difficile toxin otherwise negative -Cipro and Flagyl have been discontinued -Started on oral vancomycin to 2 mg 4 times daily - Consult GI for additional recommendations -appreciate GI input and recommendation - Labs in AM-White count remains mildly elevated - Full liquid diet initially due to diarrhea and abdominal tenderness -We will advance diet as tolerated Will monitor labs in the morning and likely discharge tomorrow (2) Non-specific colitis: See plan for #1 (3) Hypothyroidism: (4) Anxiety: (5) Mild chronic obstructive pulmonary disease: (6) Essential hypertension: (7) Left kidney mass: Follows with urology - has been stable, pt has declined surgical intervention (8) RLS (restless legs syndrome): (9) Bleeding hemorrhoids: Continue other home medications as appropriate Fall precautions, Bedside Commode at patient request Pt hopeful to return to [facility] at discharge - has issues with balance at baseline and does not feel ambulation is any worse than usual. Pt seen and reviewed with collaborating physician, Dr. Holt. Plan of care discussed and as outlined above. Code Status: Full Code DVT Prophylaxis: SCDs for now due to recent rectal bleeding Discharge Plan Discharge Items Patient Disposition: Personal Retirement Reason For Visit: DIARRHEA, COLITIS Discharge Diagnosis: c diff colitis Condition on Discharge: Good Activity: Resume your previous activity Non-emergency contact: Primary Care Provider Call non-emergency contact if: you have any medication questions, your symptoms worsen, your pain is not controlled, your pain is worsening, your pain is unusual for you and your pain is concerning for you Follow-up/Referrals: MARY, [Primary Care Provider] - Diet: Regular Addtl Attending Provider Instructions: Please take all medications as instructed on discharge list below. You have been diagnosed with colitis from clostridium difficile toxin. Please ensure people around you are cleaning their hands with soap and water after contact with you, as this is very contagious and can spread. Pay special attention to items such as remote controls, doorknobs and toilet seats and try to to avoid sharing these. You are contagious until your loose stools resolve and your bowel movements become normal. As discussed you have an elevated white blood cell count of 19K on bloodwork at time of discharge. It is thought this is from your colitis, but this should be repeated in 1 week. A follow-up with your primary care provider in one week to ensure your bloodwork is performed and that you are still doing well after returning home. It was a pleasure taking care of you! Please call if you have any questions or problems. You can reach a [facility] hospitalist on duty at [facility] 24 hours a day by calling [phone]. Take care of yourself. Heather Holt, DO [facility] Hospitalist Pending Studies at Discharge: No Stand-Alone Forms: My [facility] Skilled Items Patient informed of condition?: Yes DNR: No Discharge Level of Care: Other Communicable Disease: Yes Discharge Prognosis: Stable Lines: None Urinary Catheter: No Medications and DC Order Prescriptions: New vancomycin 25 mg/mL recon soln 250 mg PO Q6H Qty: 400 RF: 0 Continued levothyroxine [Synthroid] 75 mcg tablet 75 mcg PO DAILYBB RF: 0 meclizine 25 mg tablet 25 mg PO Q8H PRN (Reason: Dizziness Or Vertigo) RF: 0 potassium chloride 10 mEq capsule, extended release 10 meq PO QAM RF: 0 Arnuity Ellipta 100 mcg/actuation blister with device 1 inh inhalation DAILY RF: 0 atenolol 50 mg tablet 50 mg PO DAILY RF: 0 sertraline [Zoloft] 25 mg tablet 25 mg PO DAILY RF: 0 ondansetron HCl 4 mg tablet 4 mg PO Q6H PRN (Reason: NAUSEA/VOMITING) RF: 0 Therems-M 27-0.4 mg Tablet 1 tab PO QAM RF: 0 cholecalciferol (vitamin D3) [Vitamin D3] 10 mcg (400 unit) Capsule 10 mcg PO QAM RF: 0 acetaminophen [Tylenol Extra Strength] 500 mg Tablet 1,000 mg PO TID RF: 0 acetaminophen [Tylenol Extra Strength] 500 mg Tablet 500 mg PO DAILY MDD 3500 MG/24 HOURS PRN (Reason: Breakthrough Pain) RF: 0 triamcinolone acetonide 0.1 % Cream 1 applic TOPICAL BID PRN (Reason: RASH/SKIN IRRITATION) RF: 0 ropinirole 2 mg Tablet 2 mg PO DAILY@1800 RF: 0 calcium polycarbophil [FiberCon] 625 mg Tablet 625 mg PO DAILY RF: 0 albuterol sulfate [Ventolin HFA] 90 mcg/actuation Hfa Aerosol Inhaler 2 puff INHALATION QID PRN (Reason: Wheezing) RF: 0 losartan [Cozaar] 100 mg Tablet 100 mg PO DAILY RF: 0 calcium carbonate-vitamin D3 [Oyster Shell Calcium-Vit D3] 500 mg-5 mcg (200 unit) Tablet 1 tab PO BIDM RF: 0 guaifenesin [Mucinex] 600 mg Tablet Extended Release 12hr 600 mg PO Q12H PRN (Reason: Congestion) RF: 0 ropinirole 2 mg tablet 2 mg PO DAILY@1900 MDD 4mg PRN (Reason: RLS) RF: 0 pantoprazole 40 mg Tablet,Delayed Release (Dr/Ec) 40 mg PO QAM Qty: 30 RF: 0 clopidogrel 75 mg Tablet 75 mg PO QAM Qty: 30 RF: 0 atorvastatin 20 mg tablet 20 mg PO DAILY Qty: 30 RF: 0 furosemide 40 mg tablet 40 mg PO QAM RF: 0 diphenhydramine HCl [Children's Allergy (diphenhyd)] 12.5 mg tablet,chewable 25 mg PO HS RF: 0 diclofenac sodium 1 % gel 1 ea TOPICAL BID PRN (Reason: Pain) RF: 0 Discontinued docusate sodium [Colace] 100 mg Capsule 100 mg PO DAILY RF: 0 loperamide 2 mg Capsule 2 mg PO QID PRN (Reason: Diarrhea) RF: 0 Discharge Orders: Discharge Order (Routine); Ordered 05/30/22 Ordered By: Heather Holt Admission Data Admit Date/Time: 06/29/22 09:37 Attending Provider: Heather Holt Admit Provider: Heather Holt Primary Care Provider: Sundeep HERNANDEZ Providers: Heather Holt ; Sandra Berkowitz
== END 2022-05-30 18:50 | disposition home or self-care (01) | DRG 373 ==
LOC: 3N 12:09 → ED 12:09 → SUATTDRO 17:08 → 3N 19:47

== ENCOUNTER 2022-12-18 13:08 | Inpatient (IN) ==
--- NOTE | 2022-12-18 14:50 | XRay Report ---
XR chest 1V portable HISTORY: 87 years-old Female SOB acute shortness of breath COMPARISON: Chest radiograph 07/04/2022 TECHNIQUE: AP view of the chest FINDINGS: Cardiac silhouette is enlarged. Mitral annular calcifications. Atherosclerosis of the aorta. No pneum othorax, pleural effusion or lobar airspace consolidation. Chronic interstitial coarsening. Severe de generation of the glenohumeral joints redemonstrated. IMPRESSION: Cardiomegaly without acute process. ACT 112: Negative or not required by law. The above report was generated using voice recognition software. It may contain grammatical, syntax o r spelling errors. Electronically signed by: Forest Winn M.D. 12/18/2022 2:48 PM
[2022-12-18 16:32] LABS: Basophils # (auto) 0.06 K/uL (0-0.2); Basophils % (auto) 0.5 %; Eosinophils # (auto) 0.64 K/uL (0-0.50); Eosinophils % (auto) 5.5 %; Hematocrit (blood only) 30.8 % (34.1-44.9); Hemoglobin 9.9 g/dl (12.0-16.0); Immature Granulocytes # (auto) 0.08 K/uL (0.00-0.02); Immature Granulocytes % (auto) 0.7 %; Lymphocytes # (auto) 1.41 K/uL (1.2-3.4); Lymphocytes % (auto) 12.2 %; Mean Corpuscular Hemoglobin 29.8 pg (25.0-34.0); Mean Corpuscular Hgb Conc 32.1 g/dL (32.0-36.0); Mean Corpuscular Volume 92.8 fL (80.0-100.0); Mean Platelet Volume 10.5 fL (9.4-12.3); Monocytes # (auto) 0.73 K/uL (0.24-0.82); Monocytes % (auto) 6.3 %; Neutrophils # (auto) 8.65 K/uL (1.4-6.5); Neutrophils % (auto) 74.8 %; Platelet Count 313 K/uL (130-400); RDW Coefficient of Variation 15.9 % (11.5-14.5); RDW Standard Deviation 53.6 fL (36.4-46.3); Red Blood Count 3.32 M/uL (3.93-5.22); White Blood Count 11.57 K/ul (4.8-10.8)
[2022-12-18 16:44] LABS: INR 1.1 (0.9-1.1); Partial Thromboplastin Ratio 0.8; Prothrombin Time 11.7 Seconds (9.0-12.0)
[2022-12-18 16:50] LABS: Albumin Level 3.7 gm/dl (3.4-5.0); Bilirubin,Total 0.4 mg/dl (0.2-1.0); Calcium 9.7 mg/dl (8.5-10.1); Potassium 4.1 mmol/L (3.5-5.1)
[2022-12-18 16:56] LABS: Albumin Globulin Ratio 0.9 (0.9-2); BUN Creatinine Ratio 23.6 (10-20); Creatinine Clr Calc Pharmacy 33.2 ml/min; Est GFR (African American) 39.6 ml/min; Est GFR (Non-African American) 34.2 ml/min; Total Protein 7.7 gm/dl (6.0-8.3)
[2022-12-18 17:11] LABS: Influenza A virus by PCR Negative (Neg); Influenza B virus by PCR Negative (Neg); RSV by PCR Negative (Neg)
[2022-12-18 17:14] LABS: SARS CoV2 RNA(COVID-19) Ceph POSITIVE (Negative)
--- NOTE | 2022-12-18 18:52 | Emergency Department Note ---
Impression & Plan LIAO (dyspnea on exertion), COVID-19, MISTY (acute kidney injury) This is not my note-I am a hospitalist. The [employer] system is forcing me to cosign this note inappropriately. [facility] ED Provider Note NAME: MISAEL GUERRIER AGE: 87 SEX: F : 1935 ARRIVES VIA: Ambulance INFORMANT: Patient, the patient's son ED PROVIDER(S): Jayy Vieira DO CHIEF COMPLAINT: Difficulty breathing HPI: The patient is an 87-year-old female who presented to the emergency department by ambulance from her personal longterm for an evaluation of shortness of breath. The patient has had a cough over the course of the last few days to a week and they have been treating her for CHF. Apparently they have been increasing her Lasix but she continues to have a cough. She was evaluated by a provider at the [facility] and sent to the emergency department to be admitted for control of her CHF. The patient denies having any weight gain. She does have lower extremity swelling which is not new. The patient does complain of a cough and dyspnea on exertion. She denies having any chest pain. She had outpatient labs that showed an elevation in her BNP. ROS: See above HPI for pertinent positives & negatives. A total of 10 systems reviewed and were otherwise negative. PAST MEDICAL HISTORY: See Below PAST SURGICAL HISTORY: See Below FAMILY HISTORY: See Below SOCIAL HISTORY: See Below HOME MEDICATIONS: See Below ALLERGIES: See Below VITALS: See Below PHYSICAL EXAMINATION: GENERAL: Patient is awake alert in no acute distress patient is resting comfortably and showing no signs of anxiety EYES: The conjunctivae are clear. The pupils are round and reactive. EARS, NOSE, MOUTH AND THROAT: The nose is without any evidence of any deformity. Mucous membranes are moist. Tongue is midline. NECK: The neck is nontender and supple. RESPIRATORY: Diminished breath sounds are noted both bases. CARDIOVASCULAR: Regular rate and rhythm noted there no murmurs rubs or gallops normal S1 normal S2. GASTROINTESTINAL: The abdomen is soft. Abdomen is nontender. MUSCULOSKELETAL/EXTREMITIES: There is no evidence of gross deformity full range of motion is noted in the hips and shoulders. SKIN: Skin is warm and dry. Pedal edema was noted bilaterally. NEUROLOGIC: Patient is awake alert and oriented x3 MEDICAL DECISION MAKING: The patient is an 87-year-old female who was sent to the emergency department from her personal longterm by the provider for admission and further management of volume overload. The patient was found to have an elevation in creatinine compared to baseline. Patient was also positive for COVID. I discussed patient's laboratory and radiographic studies with her. I also discussed her case with the on-call [facility] group. They have agreed to evaluate the patient in the emergency department for further management and disposition. Triage Nursing notes reviewed. Prior medical records reviewed Vital Signs: reviewed and remarkable for elevated blood pressure. Differential diagnosis: Reactive airway disease, pneumonia, pneumothorax, COPD, CHF, infections, cardiac ischemia, pulmonary embolism, musculoskeletal, gastrointestinal, as well as other pathologies. ER treatment provided: See below Diagnostics interpreted by me: ECG: EKG was obtained in the emergency department. My interpretation is normal sinus rhythm at 66 bpm. LVH was noted by voltage criteria. Ectopic atrial beats were also noted. This was compared to a tracing from July 04, 2022. No changes were noted. Cardiac Monitoring: An order was placed for continuous cardiac monitoring. The monitor shows a rate of 70 bpm with sinus rhythm. Laboratory studies: As stated above and show below. Imaging studies: See below. Radiographic imaging was reviewed by myself Consultation(s): Discussed this case with Deidre who is on-call for the [facility] hospitalist group. Past Med/Surg History Medical History (Updated 12/18/22 @ 20:59 by Ambreen Lo PA-C) Acute blood loss anemia Acute pyelonephritis Acute upper GI bleed Anemia Anxiety Arthritis Bleeding hemorrhoids Chronic venous insufficiency COPD (chronic obstructive pulmonary disease) CVA (cerebral vascular accident) Diarrhea Duodenal ulcer Essential hypertension Hyperlipidemia Hypothyroidism Left kidney mass Suspected RCC - follows with urology, has been declining surgical intervention Leg edema Leukocytosis Migraines Mild chronic obstructive pulmonary disease Non-specific colitis Obesity Osteoporosis RLS (restless legs syndrome) Stroke-like symptoms TIA (transient ischemic attack) Surgical History H/O hysterectomy with unilateral oophorectomy History of appendectomy History of cataract surgery History of esophagogastroduodenoscopy (EGD) hx of duodenal ulcer s/p clipping requiring transfer to tertiary center, 2/2 to nsaid use Family History Father Colorectal cancer Diabetes Social History Smoking Status: Never smoker Second Hand Exposure: No; Do You Dip or Chew Tobacco: No; Hx Alcohol Use: No Hx Substance Use: No Preferred Language: Portuguese Communication Ability: Effective Visual Impairment: Limited Hearing Ability: Normal Tobacco Farmworker Required: No Beliefs That Will Affect Care: None marital status: / Current Living Situation: Alone and Personal Care Facility Current Living Situation Comment: [address] current occupational status: retired Other Information That Helps Us Care for You: No Feels Safe at Home: Yes Safety Concerns: Feels Safe At This Time Assistive Devices: Walker Allergies Allergies Allergy/AdvReac Type Severity Reaction Status Date / Time adhesive Allergy Intermediate RASH Verified 12/18/22 19:23 paraben Allergy Intermediate Unknown Verified 12/18/22 19:23 polymyxin B Allergy Intermediate Unknown Verified 12/18/22 19:23 bacitracin Allergy Unknown Unknown Verified 12/18/22 19:23 benzoin Allergy Unknown Unknown Verified 12/18/22 19:23 influenza virus vaccine Allergy Unknown Unknown Verified 12/18/22 19:23 trivalent thimerosal Allergy Unknown Unknown Verified 12/18/22 19:23 Home Meds Home Medications Medication Instructions Recorded Confirmed acetaminophen 500 mg tablet 1,000 mg PO TID 3500 MG/24 HOURS 07/04/22 12/18/22 (Tylenol Extra Strength) acetaminophen 500 mg tablet 500 mg PO DAILY PRN Breakthrough 07/04/22 12/18/22 (Tylenol Extra Strength) Pain atenolol 50 mg tablet 50 mg PO DAILY 07/04/22 12/18/22 calcium carbonate 500 mg calcium 500 mg PO BIDM 07/04/22 12/18/22 (1,250 mg) tablet (Oyster Shell Calcium) cholecalciferol (vitamin D3) 10 10 mcg PO DAILY 07/04/22 12/18/22 mcg (400 unit) tablet (Vitamin D3) clopidogrel 75 mg tablet 75 mg PO DAILY 07/04/22 12/18/22 diclofenac sodium 1 % topical gel 1 ea topical BID PRN Pain 07/04/22 12/18/22 fluticasone furoate 100 1 inh inhalation DAILY 07/04/22 12/18/22 mcg/actuation blister powder for inhalation (Arnuity Ellipta) furosemide 40 mg tablet 40 mg PO PM 07/04/22 12/18/22 guaifenesin 600 mg tablet, 600 mg PO Q12H PRN Congestion 07/04/22 12/18/22 extended release 12 hr (Mucinex) losartan 100 mg tablet 100 mg PO DAILY 07/04/22 12/18/22 meclizine 25 mg tablet 25 mg PO Q6H PRN DIZZY 07/04/22 12/18/22 ondansetron HCl 4 mg tablet 4 mg PO Q6 PRN .NAUSEA & VOMITING 07/04/22 12/18/22 pantoprazole 40 mg tablet,delayed 40 mg PO DAILY 07/04/22 12/18/22 release potassium chloride 10 mEq 10 meq PO BIDM 07/04/22 12/18/22 tablet,extended release(part/cryst) ropinirole 2 mg tablet 2 mg PO DAILY PRN Restless Leg(S) 07/04/22 12/18/22 ropinirole 2 mg tablet 2 mg PO QPM 07/04/22 12/18/22 sertraline 25 mg tablet 25 mg PO DAILY 07/04/22 12/18/22 triamcinolone acetonide 0.1 % 1 applic topical BID PRN IRRITATION 07/04/22 12/18/22 topical cream albuterol sulfate 90 mcg/actuation 2 inh inhalation QID PRN Wheezing 09/19/22 12/18/22 aerosol inhaler atorvastatin 20 mg tablet 20 mg PO QAM 12/18/22 12/18/22 diphenhydramine HCl 12.5 mg 25 mg PO HS 12/18/22 12/18/22 chewable tablet (Children's Benadryl Allergy) fluoride (sodium) 1.1 % dental gel 1 applic dental DAILY 12/18/22 12/18/22 (PreviDent) furosemide 80 mg tablet 80 mg PO QAM 12/18/22 12/18/22 hydroxyzine HCl 25 mg tablet 25 mg PO Q8H PRN Itching 12/18/22 12/18/22 iron,carbonyl 65 mg-vitamin C 125 1 tab PO DAILY 12/18/22 12/18/22 mg tablet,delayed release (Vitron-C) levothyroxine 88 mcg tablet 88 mcg PO DAILYBB 12/18/22 12/18/22 magnesium oxide 400 mg PO DAILY 12/18/22 12/18/22 multivitamin-iron 9 mg-folic acid 1 tab PO DAILY 12/18/22 12/18/22 400 mcg-calcium and minerals tablet (Therems-M) mupirocin calcium 2 % topical cream 1 applic topical TID 12/18/22 12/18/22 tramadol 50 mg tablet 50 mg PO BID 12/18/22 12/18/22 Results & Data (ED) Vital Signs Vital Signs - 24 hr 12/18/22 13:27 12/18/22 19:37 12/18/22 19:17 Temperature 36.5 C Temperature Source Temporal Artery Scan Pulse Rate 62 66 Pulse Rate from SpO2 Sensor Pulse Rhythm Regular Regular Pulse Strength Normal Respiratory Rate 18 18 Respiratory Effort / Characteristics Non-Labored Spontaneous Respiratory Depth Normal Respiratory Pattern Regular Blood Pressure 120/60 Blood Pressure Mean 80 Blood Pressure Position Sitting Pulse Oximetry 97 97 Oxygen Delivery Method Room Air Room Air Room Air Sepsis Recent Fever Within 48 Hours No Sepsis New/Unexplained Change in Mental Status No Sepsis Action Taken by Nursing No Action Required 12/18/22 19:30 12/18/22 19:30 12/18/22 20:00 Temperature Temperature Source Pulse Rate 71 68 Pulse Rate from SpO2 Sensor 70 Pulse Rhythm Pulse Strength Respiratory Rate 24 27 H Respiratory Effort / Characteristics Respiratory Depth Respiratory Pattern Blood Pressure 174/67 H Blood Pressure Mean 102 Blood Pressure Position Pulse Oximetry 97 Oxygen Delivery Method Sepsis Recent Fever Within 48 Hours Sepsis New/Unexplained Change in Mental Status Sepsis Action Taken by Nursing 12/18/22 20:01 12/18/22 20:01 Temperature Temperature Source Pulse Rate 69 Pulse Rate from SpO2 Sensor Pulse Rhythm Pulse Strength Respiratory Rate 25 H Respiratory Effort / Characteristics Respiratory Depth Respiratory Pattern Blood Pressure 158/63 H Blood Pressure Mean 94 Blood Pressure Position Pulse Oximetry Oxygen Delivery Method Sepsis Recent Fever Within 48 Hours Sepsis New/Unexplained Change in Mental Status Sepsis Action Taken by Alf Medications Current Medication List: was personally reviewed by me Laboratory Data Attestation: I reviewed the patient's lab results. 12/18/22 16:15 12/18/22 16:15 Lab Results 12/18/22 12/18/22 12/18/22 Range/Units 16:15 16:15 16:15 WBC 11.57 H (4.8-10.8) K/ul RBC 3.32 L (3.93-5.22) M/uL Hgb 9.9 L (12.0-16.0) g/dl Hct 30.8 L (34.1-44.9) % MCV 92.8 (80.0-100.0) fL MCH 29.8 (25.0-34.0) pg MCHC 32.1 (32.0-36.0) g/dL RDW Std Deviation 53.6 H (36.4-46.3) fL RDW Coeff of Anson 15.9 H (11.5-14.5) % Plt Count 313 (130-400) K/uL MPV 10.5 (9.4-12.3) fL Immature Gran % (Auto) 0.7 % Neut % (Auto) 74.8 % Lymph % (Auto) 12.2 % Broome % (Auto) 6.3 % Eos % (Auto) 5.5 % Baso % (Auto) 0.5 % Neut # (Auto) 8.65 H (1.4-6.5) K/uL Lymph # (Auto) 1.41 (1.2-3.4) K/uL Broome # (Auto) 0.73 (0.24-0.82) K/uL Eos # (Auto) 0.64 H (0-0.50) K/uL Baso # (Auto) 0.06 (0-0.2) K/uL Immature Gran # (Auto) 0.08 H (0.00-0.02) K/uL PT 11.7 (9.0-12.0) Seconds INR 1.1 (0.9-1.1) APTT 22.0 (21.0-31.0) Seconds PTT Ratio 0.8 Sodium 137 (136-145) mmol/L Potassium 4.1 (3.5-5.1) mmol/L Chloride 99 (98-107) mmol/L Carbon Dioxide 30 (21-32) mmol/L Anion Gap 8 (3-11) BUN 33 H (6-23) mg/dl Creatinine 1.40 H (0.6-1.2) mg/dl Est Cr Clr Drug Dosing 33.2 ml/min Est GFR ( Amer) 39.6 ml/min Est GFR (Non-Af Amer) 34.2 ml/min BUN/Creatinine Ratio 23.6 H (10-20) Glucose 107 H (70-99(Fasting)) mg/dl Calcium 9.7 (8.5-10.1) mg/dl Total Bilirubin 0.4 (0.2-1.0) mg/dl AST 19 (13-39) U/L ALT 14 (7-52) U/L Alkaline Phosphatase 91 (34-104) U/L Troponin I High Sens (0-14) pg/ml B-Natriuretic Peptide (0-100) pg/ml Total Protein 7.7 (6.0-8.3) gm/dl Albumin 3.7 (3.4-5.0) gm/dl Globulin 4.0 (2.5-4.0) gm/dl Albumin/Globulin Ratio 0.9 (0.9-2) SARS-CoV-2 (PCR) (Negative) Influenza Type A (PCR) (Neg) Influenza Type B (PCR) (Neg) RSV (RT-PCR) (Neg) 12/18/22 12/18/22 12/18/22 Range/Units 16:15 16:15 16:20 WBC (4.8-10.8) K/ul RBC (3.93-5.22) M/uL Hgb (12.0-16.0) g/dl Hct (34.1-44.9) % MCV (80.0-100.0) fL MCH (25.0-34.0) pg MCHC (32.0-36.0) g/dL RDW Std Deviation (36.4-46.3) fL RDW Coeff of Anson (11.5-14.5) % Plt Count (130-400) K/uL MPV (9.4-12.3) fL Immature Gran % (Auto) % Neut % (Auto) % Lymph % (Auto) % Broome % (Auto) % Eos % (Auto) % Baso % (Auto) % Neut # (Auto) (1.4-6.5) K/uL Lymph # (Auto) (1.2-3.4) K/uL Broome # (Auto) (0.24-0.82) K/uL Eos # (Auto) (0-0.50) K/uL Baso # (Auto) (0-0.2) K/uL Immature Gran # (Auto) (0.00-0.02) K/uL PT (9.0-12.0) Seconds INR (0.9-1.1) APTT (21.0-31.0) Seconds PTT Ratio Sodium (136-145) mmol/L Potassium (3.5-5.1) mmol/L Chloride (98-107) mmol/L Carbon Dioxide (21-32) mmol/L Anion Gap (3-11) BUN (6-23) mg/dl Creatinine (0.6-1.2) mg/dl Est Cr Clr Drug Dosing ml/min Est GFR ( Amer) ml/min Est GFR (Non-Af Amer) ml/min BUN/Creatinine Ratio (10-20) Glucose (70-99(Fasting)) mg/dl Calcium (8.5-10.1) mg/dl Total Bilirubin (0.2-1.0) mg/dl AST (13-39) U/L ALT (7-52) U/L Alkaline Phosphatase (34-104) U/L Troponin I High Sens 5.9 (0-14) pg/ml B-Natriuretic Peptide 216 H (0-100) pg/ml Total Protein (6.0-8.3) gm/dl Albumin (3.4-5.0) gm/dl Globulin (2.5-4.0) gm/dl Albumin/Globulin Ratio (0.9-2) SARS-CoV-2 (PCR) POSITIVE A* (Negative) Influenza Type A (PCR) Negative (Neg) Influenza Type B (PCR) Negative (Neg) RSV (RT-PCR) Negative (Neg) Administered Medications Atorvastatin Calcium (Atorvastatin 20 Mg Tab) 20 mg PO HS JAYLEEN Stop: 01/17/23 22:45 Last Admin: 12/19/22 00:02 Dose: 20 mg Documented By: OTTO Diphenhydramine HCl (Diphenhydramine Capsule 25 Mg Cap) 25 mg PO HS PRN PRN Reason: Insomnia Stop: 01/17/23 22:58 Last Admin: 12/19/22 00:08 Dose: 25 mg Documented By: OTTO Heparin Sodium (Porcine) (Heparin Sod 5,000 Unit/0.5 Ml Vial) 5,000 units SQ Q8 JAYLEEN Stop: 01/17/23 22:45 Last Admin: 12/19/22 00:02 Dose: 5,000 units Documented By: OTTO Miscellaneous (Mupirocin Calcium 2 % Cream - Order Awaiting Action) 1 each N/A QS [facility] Stop: 01/18/23 00:00 Last Admin: 12/19/22 01:48 Dose: Not Given Documented By: OTTO Ropinirole HCl (Ropinirole Hcl 2 Mg Tablet) 2 mg PO DAILY@1800 [facility] Stop: 01/17/23 22:45 Last Admin: 12/19/22 00:02 Dose: 2 mg Documented By: OTTO Discontinued Medications Ceftriaxone Sodium (Rocephin) 2,000 mg in 70 mls @ 140 mls/hr IV NOW STA Stop: 12/18/22 21:10 Last Infusion: 12/18/22 23:27 Dose: 0 mls/hr Documented By: Admin: 12/18/22 22:15 Dose: 140 mls/hr Documented By: ALLY Imaging Data Radiologist's Impression: Chest X-Ray 12/18/22 13:32 XR chest 1V portable HISTORY: 87 years-old Female SOB acute shortness of breath COMPARISON: Chest radiograph 07/04/2022 TECHNIQUE: AP view of the chest FINDINGS: Cardiac silhouette is enlarged. Mitral annular calcifications. Atherosclerosis of the aorta. No pneumothorax, pleural effusion or lobar airspace consolidation. Chronic interstitial coarsening. Severe degeneration of the glenohumeral joints redemonstrated. IMPRESSION: Cardiomegaly without acute process. ACT 112: Negative or not required by law. The above report was generated using voice recognition software. It may contain grammatical, syntax or spelling errors. Electronically signed by: Forest Winn M.D. 12/18/2022 2:48 PM Discharge Plan Visit Data Chief Complaint: Swelling/Edema to Extremity Stated Complaint: BILAT. ANKLE EDEMA ED Provider: Jayy Vieira Discharge Problem: LIAO (dyspnea on exertion), COVID-19, MISTY (acute kidney injury) Patient Disposition: Admitted As Inpatient Discharge Instructions Interventions: ED Discharge Assessment Last Done: 12/18/22 22:12
[2022-12-18] MEDS ORDERED: cefTRIAXone SODIUM 2,000 MG/70 ML BAG IV STA (20:41)
--- NOTE | 2022-12-18 20:44 | History & Physical Report ---
Date of Service December 18, 2022 Assessment & Plan (1) Leg edema: (2) Cellulitis: (3) Chronic venous insufficiency: Plan: Patient is 87-year-old female with PMH HTN, CVA, chronic anemia, chronic BLE edema, chronic venous insufficiency, chronic stasis dermatitis, history of LLE vein stripping, RLS, hypothyroidism, left renal mass presented to ER with complaint of lower extremity edema treated outpatient with furosemide, leg wraps Afebrile WBC: 11 Consider possible lower extremity cellulitis Venous Doppler lower extremity pending to rule out DVT History echo 03/2022: EF: 60-65%, grade 1 diastolic dysfunction per chart review Start antibiotics Elevate legs CBC, BMP in a.m. (4) COVID-19: Plan: + SARS-CoV-2 PCR Reported cough x 1 week Afebrile, no hypoxia CXR: No infiltrate Airborne isolation Monitor No hypoxia and no pneumonia will hold on steroids, remdesivir at this time (5) Renal insufficiency: Plan: Cr: 1.4. Baseline 1-1.2 per outpatient chart review Monitor renal functions, avoid nephrotoxic agent when possible (6) CVA (cerebral vascular accident): Plan: Continue Plavix, atorvastatin (7) COPD (chronic obstructive pulmonary disease): Plan: No signs of acute exacerbation Continue home inhalers (8) Essential hypertension: Plan: Continue atenolol, losartan (9) Anemia: Plan: Chronic anemia Hgb: 9.9. Hgb was 10.3 on 12/06/2022, 8.6 on 11/02/2022 Continue iron supplement Monitor (10) RLS (restless legs syndrome): Plan: Continue ropinirole (11) Hypothyroidism: Plan: Continue levothyroxine (12) Left kidney mass: Plan: Known left renal mass. Following with [facility] [place] 4.3 cm left renal mass on CT abdomen pelvis on 07/04/2022. No significant change in size from prior Continue outpatient follow-up DVT Prophylaxis Heparin SQ Full Code as per discussion with pt Follows with Dr Reed for routine care Pt was seen and care coordinated with Dr Holt. See addendum I spent a total of 78 minutes reviewing notes, outpatient records, labs, medication, coordinating, documenting and providing care for this patient exclud ing time spent in the performance of separately billed services. History of Present Illness Chief Complaint: Leg edema Primary Care Provider: MARY Patient is 87-year-old female with PMH HTN, CVA, chronic anemia, chronic BLE edema, chronic venous insufficiency, chronic stasis dermatitis, history of LLE vein stripping, RLS, hypothyroidism, left renal mass presented to ER with complaint of lower extremity edema. Patient with history of chronic BLE edema treated with oral furosemide, wraps to legs, elevating. States for the past several months has had increased lower extremity edema. Often LLE worse than RLE, however states it varies. Has been having some drainage to left lower extremity for the past 2 months. Was seen by nephrology on 11/02/2022 per outpatient chart review and her Lasix was increased from 40 mg in the morning to 80 mg in the morning and increased from 20 mg in the afternoon to 40 mg in the afternoon. Patient states initially helped with BLE edema however feels edema is very variable. States chronic lower extremity erythema. Was sitting in chair in waiting room for several hours today and once back in ER bed realized left lower leg is more red and tender that was since morning. Denies chest pain, shortness of breath, orthopnea. Patient also reports a cough for the past week. Reports is nonproductive and feels that cough has improved and states hardly coughing today. Denies shortness of breath, fever, chills, chest pain. Feels her throat is a bit scratchy today but states is because she has not had anything to drink since early this morning. Reports had COVID-19 vaccine booster 1 week ago. Is unaware of any COVID-19 positive contacts. Walks with walker at baseline. Denies any recent falls. Denies diaphoresis, N/V/D/C, HERNANDEZ, dizziness, syncope, vision changes, neck pain, palpitations, hemoptysis, otalgia, rhinorrhea, abdominal pain, paresthesias, increased extremity weakness, other rashes, urinary symptoms. Allergies Allergy/AdvReac Type Severity Reaction Status Date / Time adhesive Allergy Intermediate RASH Verified 12/18/22 19:23 paraben Allergy Intermediate Unknown Verified 12/18/22 19:23 polymyxin B Allergy Intermediate Unknown Verified 12/18/22 19:23 bacitracin Allergy Unknown Unknown Verified 12/18/22 19:23 benzoin Allergy Unknown Unknown Verified 12/18/22 19:23 influenza virus vaccine Allergy Unknown Unknown Verified 12/18/22 19:23 trivalent thimerosal Allergy Unknown Unknown Verified 12/18/22 19:23 Home Medications Medication Instructions Recorded Confirmed Type acetaminophen 500 mg tablet 1,000 mg PO TID 3500 MG/24 HOURS 07/04/22 12/18/22 History (Tylenol Extra Strength) acetaminophen 500 mg tablet 500 mg PO DAILY PRN Breakthrough 07/04/22 12/18/22 History (Tylenol Extra Strength) Pain atenolol 50 mg tablet 50 mg PO DAILY 07/04/22 12/18/22 History calcium carbonate 500 mg calcium 500 mg PO BIDM 07/04/22 12/18/22 History (1,250 mg) tablet (Oyster Shell Calcium) cholecalciferol (vitamin D3) 10 10 mcg PO DAILY 07/04/22 12/18/22 History mcg (400 unit) tablet (Vitamin D3) clopidogrel 75 mg tablet 75 mg PO DAILY 07/04/22 12/18/22 History diclofenac sodium 1 % topical gel 1 ea topical BID PRN Pain 07/04/22 12/18/22 History fluticasone furoate 100 1 inh inhalation DAILY 07/04/22 12/18/22 History mcg/actuation blister powder for inhalation (Arnuity Ellipta) furosemide 40 mg tablet 40 mg PO PM 07/04/22 12/18/22 History guaifenesin 600 mg tablet, 600 mg PO Q12H PRN Congestion 07/04/22 12/18/22 History extended release 12 hr (Mucinex) losartan 100 mg tablet 100 mg PO DAILY 07/04/22 12/18/22 History meclizine 25 mg tablet 25 mg PO Q6H PRN DIZZY 07/04/22 12/18/22 History ondansetron HCl 4 mg tablet 4 mg PO Q6 PRN .NAUSEA & VOMITING 07/04/22 12/18/22 History pantoprazole 40 mg tablet,delayed 40 mg PO DAILY 07/04/22 12/18/22 History release potassium chloride 10 mEq 10 meq PO BIDM 07/04/22 12/18/22 History tablet,extended release(part/cryst) ropinirole 2 mg tablet 2 mg PO DAILY PRN Restless Leg(S) 07/04/22 12/18/22 History ropinirole 2 mg tablet 2 mg PO QPM 07/04/22 12/18/22 History sertraline 25 mg tablet 25 mg PO DAILY 07/04/22 12/18/22 History triamcinolone acetonide 0.1 % 1 applic topical BID PRN IRRITATION 07/04/22 12/18/22 History topical cream albuterol sulfate 90 mcg/actuation 2 inh inhalation QID PRN Wheezing 09/19/22 12/18/22 History aerosol inhaler atorvastatin 20 mg tablet 20 mg PO QAM 12/18/22 12/18/22 History diphenhydramine HCl 12.5 mg 25 mg PO HS 12/18/22 12/18/22 History chewable tablet (Children's Benadryl Allergy) fluoride (sodium) 1.1 % dental gel 1 applic dental DAILY 12/18/22 12/18/22 History (PreviDent) furosemide 80 mg tablet 80 mg PO QAM 12/18/22 12/18/22 History hydroxyzine HCl 25 mg tablet 25 mg PO Q8H PRN Itching 12/18/22 12/18/22 History iron,carbonyl 65 mg-vitamin C 125 1 tab PO DAILY 12/18/22 12/18/22 History mg tablet,delayed release (Vitron-C) levothyroxine 88 mcg tablet 88 mcg PO DAILYBB 12/18/22 12/18/22 History magnesium oxide 400 mg PO DAILY 12/18/22 12/18/22 History multivitamin-iron 9 mg-folic acid 1 tab PO DAILY 12/18/22 12/18/22 History 400 mcg-calcium and minerals tablet (Therems-M) mupirocin calcium 2 % topical cream 1 applic topical TID 12/18/22 12/18/22 History tramadol 50 mg tablet 50 mg PO BID 12/18/22 12/18/22 History Past Med/Surg History Medical History (Updated 12/18/22 @ 20:59 by Ambreen Lo PA-C) Acute blood loss anemia Acute pyelonephritis Acute upper GI bleed Anemia Anxiety Arthritis Bleeding hemorrhoids Chronic venous insufficiency COPD (chronic obstructive pulmonary disease) CVA (cerebral vascular accident) Diarrhea Duodenal ulcer Essential hypertension Hyperlipidemia Hypothyroidism Left kidney mass Suspected RCC - follows with urology, has been declining surgical intervention Leg edema Leukocytosis Migraines Mild chronic obstructive pulmonary disease Non-specific colitis Obesity Osteoporosis RLS (restless legs syndrome) Stroke-like symptoms TIA (transient ischemic attack) Surgical History H/O hysterectomy with unilateral oophorectomy History of appendectomy History of cataract surgery History of esophagogastroduodenoscopy (EGD) hx of duodenal ulcer s/p clipping requiring transfer to tertiary center, 2/2 to nsaid use Family History Father Colorectal cancer Diabetes Social History Smoking Status: Never smoker Hx Alcohol Use: No Hx Substance Use: No Preferred Language: Divehi Communication Ability: Effective Visual Impairment: Limited Hearing Ability: Normal Senior Business Manager Required: No Beliefs That Will Affect Care: None marital status: / Current Living Situation: Personal Care Facility Current Living Situation Comment: Resident [facility] current occupational status: retired Feels Safe at Home: Yes Assistive Devices: Walker Review of Systems Review of Systems: All systems reviewed & are unremarkable except as noted in HPI & below Physical Exam Physical Exam: General: no distress, WDWN Head: normocephalic, atraumatic Eyes: conjunctiva non-injected, anicteric ENT: normal inspection external ears, nose, mucous membranes moist Neck: supple, trachea midline Lungs: clear, no respiratory distress, no wheezing/rhonchi/rales CV: RRR, no murmur Abd: normal BS, soft, non-tender Ext: RLE: 2+ edema, +erythema and warmth, non-tender. LLE: 2+ edema, +dark erythema and warmth extends to toes, +tenderness to palpation anterior ledesma, distal pulses palpable, sensation to light touch intact Neuro: A&O x 3, no focal deficits noted, normal affect Skin: warm, dry Results & Data Results & Data ([facility]) Vital Signs (Past 12 Hours) Vital Signs Temp Pulse Resp BP Pulse Ox O2 Del Method 12/18/22 19:37 66 18 97 Room Air 12/18/22 13:27 36.5 C 62 18 120/60 97 Room Air Laboratory Results Short CBC 12/18/22 Range/Units 16:15 WBC 11.57 H (4.8-10.8) K/ul Hgb 9.9 L (12.0-16.0) g/dl Hct 30.8 L (34.1-44.9) % Plt Count 313 (130-400) K/uL BMP 12/18/22 16:15 Sodium 137 Potassium 4.1 Chloride 99 Carbon Dioxide 30 BUN 33 H Creatinine 1.40 H Glucose 107 H Calcium 9.7 Liver Function 12/18/22 Range/Units 16:15 Total Bilirubin 0.4 (0.2-1.0) mg/dl AST 19 (13-39) U/L ALT 14 (7-52) U/L Alkaline Phosphatase 91 (34-104) U/L Albumin 3.7 (3.4-5.0) gm/dl Diagnostic Findings Chest X-Ray 12/18/22 13:32 XR chest 1V portable HISTORY: 87 years-old Female SOB acute shortness of breath COMPARISON: Chest radiograph 07/04/2022 TECHNIQUE: AP view of the chest FINDINGS: Cardiac silhouette is enlarged. Mitral annular calcifications. Atherosclerosis of the aorta. No pneumothorax, pleural effusion or lobar airspace consolidation. Chronic interstitial coarsening. Severe degeneration of the glenohumeral joints redemonstrated. IMPRESSION: Cardiomegaly without acute process. ACT 112: Negative or not required by law. The above report was generated using voice recognition software. It may contain grammatical, syntax or spelling errors. Electronically signed by: Forest Winn M.D. 12/18/2022 2:48 PM ECG Rate (beats per minute): 66 Rhythm: sinus rhythm Findings: + Q waves (Inferior; no change from prior ekg) Supervising Physician Co-Signing Physician Notes I have seen and examined the patient and have discussed the case with the provider above. I agree with the assessment and plan as stated. The patient is an 87-year-old female with chronic venous insufficiency and a history of left lower extremity vein stripping who presents with persistent lower extremity swelling and found to have lower extremity cellulitis left greater than right. She denies any exercise intolerance or SOB. She denies pain. There is a small superficial wound on the left anterior tibia. On physical exam there is no evidence of interdigital wounds or fungal infection. There is no evidence of joint inflammation in the feet or ankles. Toenails with onychomycosis present. Pulmonary auscultation is clear throughout. Cardiac exa m reveals S1/S2 heard with regular rate and rhythm and no evidence of murmurs gallops or rubs. There is no peripheral edema appreciated on my exam. Both legs have bright red erythema with the erythema extending from the distal knee to the toes on the left and extending from the distal knee to the ankle on the right. There is a significant warmth to touch on both lower extremities L>R. She incidentally was found to have COVID-19 and denies any symptoms of nasal congestion cough or other symptoms of concern. Chest x-ray is clear. She has a chronic anemia that is stable with an H&H of 9.9/31. She has an elevated BUN and creatinine of 33/1.40 with a baseline BUN/creatinine 19/0.74 indicating acute renal failure likely secondary to increased dosing of Lasix recently as outpatient. BNP is elevated at 216. Chest x-ray reveals cardiomegaly without any acute process. Overall this is a 87-year-old female who presents with acute renal failure and lower extremity cellulitis. The renal failure is likely 2/2 to diuretics which are probably too high a dose for her to take consistently and should be decreased at discharge. These will be held for the time being. I agree with DVT rule out given new covid positive status, however, suspect this is just a cellulitis. Agree with IV antibiotics. DO Jonathon (1) Anemia Anemia type: unspecified type Qualified Code(s): D64.9 - Anemia, unspecified
--- NOTE | 2022-12-18 22:39 | Ultrasound Report ---
ULTRASOUND BILATERAL LOWER EXTREMITY VENOUS CLINICAL HISTORY: Lower extremity edema. COMPARISON STUDY: Left lower extremity venous ultrasound dated 11/19/2018. TECHNIQUE: Real-time, grayscale, and color Doppler sonography of the deep veins of the right and left lower extremity was performed from the inguinal crease to the calf. Compression and augmentation wer e utilized. FINDINGS: There is no sonographic evidence of deep venous thrombosis identified in the right or left lower extremity. The common femoral, superficial femoral, and popliteal veins are patent and normally compressible bilaterally. The greater saphenous vein and the profunda femoris vein at the junction w ith the common femoral vein are clear in both legs. The visualized calf veins are patent bilaterally. A minimally complex right popliteal cyst measures 5.4 x 2.6 x 3.5 cm. IMPRESSION: 1. There is no sonographic evidence of deep venous thrombosis identified in the right or left lower e xtremity. 2. Right sided Spicer's cyst. ACT 112: Negative or not required by law. Electronically signed by: Abel Seaman M.D. 12/18/2022 10:38 PM
[2022-12-18] MEDS ORDERED: guaiFENesin 600 MG TABCR PO PRN (22:46)
[2022-12-18] MEDS ORDERED: traMADol HCL 50 MG TABLET PO PRN (22:46)
[2022-12-18] MEDS ORDERED: ONDANSETRON INJ 2 MG/ML 2 ML VIAL IV PRN (22:46)
[2022-12-18] MEDS ORDERED: ALBUTEROL HFA 8 GM INHALER INH PRN (22:46)
[2022-12-18] MEDS ORDERED: POLYETHYLENE (MIRALAX) 17 GM PACK PO PRN (22:46)
[2022-12-18] MEDS ORDERED: diphenhydrAMINE Capsule 25 MG CAP PO PRN (22:59)
[2022-12-19] MEDS: HEPARIN SOD 5,000 UNIT/0.5 ML VIAL SQ SCH ×4 (00:02→21:21)
[2022-12-19] MEDS: rOPINIRole HCL 2 MG TABLET PO SCH ×2 (00:02→17:14)
[2022-12-19] MEDS: ATORVASTATIN 20 MG TAB PO SCH ×2 (00:02→21:21)
[2022-12-19] MEDS ORDERED: Nursing to Pharmacy Communication SCH (02:00)
[2022-12-19] MEDS: LEVOTHYROXINE SODIUM 88 MCG TABLET PO SCH (05:54)
[2022-12-19] MEDS: ACETAMINOPHEN 500 MG TAB PO SCH ×3 (05:54→21:21)
[2022-12-19] MEDS: FLUTICASONE FUROATE 100MCG 14 PUFFS/INHALER INH SCH (08:23)
[2022-12-19] MEDS: POTASSIUM CHLORIDE CRTAB 20 MEQ TABCR PO SCH (08:23)
[2022-12-19] MEDS: ATENOLOL 50 MG TABLET PO SCH (08:23)
[2022-12-19] MEDS: SERTRALINE HCL 50 MG TABLET PO SCH (08:23)
[2022-12-19] MEDS: LOSARTAN POTASSIUM 50 MG TAB PO SCH (08:23)
[2022-12-19] MEDS: PANTOprazole 40 MG TAB PO SCH (08:23)
[2022-12-19] MEDS: MAGNESIUM OXIDE 400 MG TAB PO SCH (08:23)
[2022-12-19] MEDS: CEROVITE ADV FORMULA TAB PO SCH (08:23)
[2022-12-19] MEDS: FERROUS SULFATE 325 MG TAB PO SCH (08:24)
[2022-12-19] MEDS: CLOPIDOGREL BISULFATE 75 MG TAB PO SCH (08:24)
[2022-12-19] MEDS: ASCORBIC ACID 500 MG TAB PO SCH (08:24)
--- NOTE | 2022-12-19 09:00 | Hospitalist Progress Note ---
Date of Service December 19, 2022 Assessment & Plan (1) Leg edema: (2) Cellulitis: (3) Chronic venous insufficiency: Plan: Patient is 87-year-old female with PMH HTN, CVA, chronic anemia, chronic BLE edema, chronic venous insufficiency, chronic stasis dermatitis, history of LLE vein stripping, RLS, hypothyroidism, left renal mass presented to ER with complaint of lower extremity edema treated outpatient with furosemide, leg wraps Lower extremity cellulitis Afebrile WBC: 11 + edema, erythema of LE, crusting over L medial ankle (previous seeping) Venous Doppler lower extremity obtained to rule out DVT - no DVT History echo 03/2022: EF: 60-65%, grade 1 diastolic dysfunction per chart review Started antibiotics on admission - ceftriaxone - erythema, and edema improved, will cont. Elevate legs CBC, BMP in a.m. (4) COVID-19: Plan: + SARS-CoV-2 PCR Reported cough x 1 week Afebrile, no hypoxia CXR: No infiltrate Airborne isolation Monitor No hypoxia and no pneumonia will hold on steroids, remdesivir at this time (5) Renal insufficiency: Plan: MISTY - resolved Cr: 1.4 on admission Baseline 1-1.2 per outpatient chart review Monitor renal functions, avoid nephrotoxic agent when possible Cr down to 1 (6) CVA (cerebral vascular accident): Plan: Continue Plavix, atorvastatin (7) COPD (chronic obstructive pulmonary disease): Plan: No signs of acute exacerbation Continue home inhalers (8) Essential hypertension: Plan: Continue atenolol, losartan (9) Anemia: Plan: Chronic anemia Hgb: 9.9. Hgb was 10.3 on 12/06/2022, 8.6 on 11/02/2022 Continue iron supplement Monitor (10) RLS (restless legs syndrome): Plan: Continue ropinirole (11) Hypothyroidism: Plan: Continue levothyroxine (12) Left kidney mass: Plan: Known left renal mass. Following with [facility] [place] urology 4.3 cm left renal mass on CT abdomen pelvis on 07/04/2022. No significant change in size from prior Continue outpatient follow-up DVT Prophylaxis Heparin SQ Full Code as per discussion with pt Follows with Dr Reed for routine care Admission and Anticipated Discharge Date Admission Date: December 18, 2022 Subjective Patient seen in follow-up of lower extremity cellulitis, MISTY, positive for COVID Currently sitting up in bed, in no acute distress, eating dinner Reports her legs are feeling better, edema much improved, erythema also improved She is breathing comfortably on room air Denies any fevers chills, cough, chest pain or shortness of breath Also denies abdominal pain, nausea or vomiting Review of Systems Review of Systems: All systems reviewed & are unremarkable except as noted in Subjective Physical Exam Physical Exam: General: no distress, WDWN Head: normocephalic, atraumatic Eyes: conjunctiva non-injected, anicteric ENT: normal inspection external ears, nose, mucous membranes moist Neck: supple Lungs: clear, no respiratory distress, no wheezing/rhonchi/rales CV: RRR, no murmur Abd: normal BS, soft, non-tender Ext: LE b/l: + trace edema (improved), +erythema and warmth (improved), non- tender. Left medial ankle crusting noted, distal pulses palpable, sensation to light touch intact Neuro: A&O x 3, no focal deficits noted, normal affect Skin: warm, dry, and LE as above Results & Data Results & Data ([facility]) Vital Signs (Past 12 Hours) Vital Signs Temp Pulse Pulse Resp BP BP BP 12/19/22 08:13 36.7 C 65 20 147/75 H 12/19/22 07:05 65 12/19/22 03:43 36.9 C 69 18 130/73 12/19/22 00:33 70 12/18/22 22:59 36.9 C 68 16 175/74 H 12/18/22 22:12 12/18/22 21:30 71 16 12/18/22 21:30 153/63 H 12/18/22 21:00 70 20 12/18/22 21:00 164/67 H 12/18/22 21:17 Pulse Ox O2 Del Method 12/19/22 08:13 96 Room Air 12/19/22 07:05 12/19/22 03:43 93 Room Air 12/19/22 00:33 12/18/22 22:59 97 Room Air 12/18/22 22:12 Room Air 12/18/22 21:30 12/18/22 21:30 12/18/22 21:00 12/18/22 21:00 01/17/23 21:17 Room Air Laboratory Results 12/19/22 12/19/22 12/18/22 Range/Units 08:32 08:32 16:15 WBC 11.05 H (4.8-10.8) K/ul RBC 3.22 L (3.93-5.22) M/uL Hgb 9.6 L (12.0-16.0) g/dl Hct 29.7 L (34.1-44.9) % MCV 92.2 (80.0-100.0) fL MCH 29.8 (25.0-34.0) pg MCHC 32.3 (32.0-36.0) g/dL RDW Std Deviation 52.7 H (36.4-46.3) fL RDW Coeff of [place]son 15.9 H (11.5-14.5) % Plt Count 295 (130-400) K/uL MPV 10.6 (9.4-12.3) fL Immature Gran % (Auto) 0.9 % Neut % (Auto) 78.6 % Lymph % (Auto) 10.2 % [place] % (Auto) 4.6 % Eos % (Auto) 5.2 % Baso % (Auto) 0.5 % Neut # (Auto) 8.68 H (1.4-6.5) K/uL Lymph # (Auto) 1.13 L (1.2-3.4) K/uL [place] # (Auto) 0.51 (0.24-0.82) K/uL Eos # (Auto) 0.58 H (0-0.50) K/uL Baso # (Auto) 0.05 (0-0.2) K/uL Immature Gran # (Auto) 0.10 H (0.00-0.02) K/uL Sodium 138 (136-145) mmol/L Potassium 3.9 (3.5-5.1) mmol/L Chloride 100 (98-107) mmol/L Carbon Dioxide 30 (21-32) mmol/L Anion Gap 8 (3-11) BUN 30 H (6-23) mg/dl Creatinine 1.02 D (0.6-1.2) mg/dl Est Cr Clr Drug Dosing 45.6 ml/min Est GFR ( Amer) 58.1 ml/min Est GFR (Non-Af Amer) 50.1 ml/min BUN/Creatinine Ratio 29.4 H (10-20) Glucose 139 H (70-99(Fasting)) mg/dl Calcium 9.4 (8.5-10.1) mg/dl Troponin I High Sens 5.9 (0-14) pg/ml Medications Administered Current Inpatient Medications Acetaminophen (Acetaminophen 500 Mg Tab) 1,000 mg PO Q8 JAYLEEN Stop: 01/18/23 05:59 Last Admin: 12/19/22 12:40 Dose: 1,000 mg Albuterol (Albuterol Hfa 8 Gm Inhaler) 2 puffs INH QID PRN PRN Reason: Wheezing Stop: 01/17/23 22:45 Ascorbic Acid (Ascorbic Acid 500 Mg Tab) 250 mg PO DAILY JAYLEEN Stop: 01/18/23 08:59 Last Admin: 12/19/22 08:24 Dose: 250 mg Atenolol (Atenolol 50 Mg Tablet) 50 mg PO DAILY JAYLEEN Stop: 01/18/23 08:59 Last Admin: 12/19/22 08:23 Dose: 50 mg Atorvastatin Calcium (Atorvastatin 20 Mg Tab) 20 mg PO HS JAYLEEN Stop: 01/17/23 22:45 Last Admin: 12/19/22 00:02 Dose: 20 mg Clopidogrel Bisulfate (Clopidogrel Bisulfate 75 Mg Tab) 75 mg PO DAILY JAYLEEN Stop: 01/18/23 08:59 Last Admin: 12/19/22 08:24 Dose: 75 mg Diphenhydramine HCl (Diphenhydramine Capsule 25 Mg Cap) 25 mg PO HS PRN PRN Reason: Insomnia Stop: 01/17/23 22:58 Last Admin: 12/19/22 00:08 Dose: 25 mg Ferrous Sulfate (Ferrous Sulfate 325 Mg Tab) 325 mg PO DAILY JAYLEEN Stop: 01/18/23 08:59 Last Admin: 12/19/22 08:24 Dose: 325 mg Fluticasone Furoate (Fluticasone Furoate 100mcg 14 Puffs/Inhaler) 1 puffs INH DAILY JAYLEEN Stop: 01/18/23 08:59 Last Admin: 12/19/22 08:23 Dose: 1 puffs Guaifenesin (Guaifenesin 600 Mg Tabcr) 600 mg PO Q12H PRN PRN Reason: Congestion Stop: 01/17/23 22:45 Heparin Sodium (Porcine) (Heparin Sod 5,000 Unit/0.5 Ml Vial) 5,000 units SQ Q8 [facility] Stop: 01/17/23 22:45 Last Admin: 12/19/22 12:39 Dose: 5,000 units Ceftriaxone Sodium 2,000 mg/ (Dextrose) 70 mls @ 100 mls/hr IV Q24H [facility]; Protocol Stop: 12/26/22 16:59 Last Infusion: 12/19/22 17:57 Dose: Infused Levothyroxine Sodium (Levothyroxine Sodium 88 Mcg Tablet) 88 mcg PO DAILYBB [facility] Stop: 01/18/23 06:29 Last Admin: 12/19/22 05:54 Dose: 88 mcg Losartan Potassium (Losartan Potassium 50 Mg Tab) 100 mg PO DAILY [facility] Stop: 01/18/23 08:59 Last Admin: 12/19/22 08:23 Dose: 100 mg Magnesium Oxide (Magnesium Oxide 400 Mg Tab) 400 mg PO DAILY [facility] Stop: 01/18/23 08:59 Last Admin: 12/19/22 08:23 Dose: 400 mg Multivitamins/Minerals (Cerovite Adv Formula Tab) 1 tab PO DAILY [facility] Stop: 01/18/23 08:59 Last Admin: 12/19/22 08:23 Dose: 1 tab Mupirocin (Mupirocin 2% Oint 22 Gm Tube) 1 appln EXT TID PRN PRN Reason: AFFECTED AREAS Stop: 01/18/23 13:59 Ondansetron HCl (Ondansetron Inj 2 Mg/Ml 2 Ml Vial) 4 mg IV Q6H PRN PRN Reason: Nausea Stop: 01/17/23 22:45 Pantoprazole Sodium (Pantoprazole 40 Mg Tab) 40 mg PO DAILY [facility] Stop: 01/18/23 08:59 Last Admin: 12/19/22 08:23 Dose: 40 mg Polyethylene Glycol (Polyethylene (Miralax) 17 Gm Pack) 17 gm PO DAILY PRN PRN Reason: Constipation Stop: 01/17/23 22:45 Potassium Chloride (Potassium Chloride Crtab 20 Meq Tabcr) 20 meq PO DAILY [facility] Stop: 01/18/23 08:59 Last Admin: 12/19/22 08:23 Dose: 20 meq Ropinirole HCl (Ropinirole Hcl 2 Mg Tablet) 2 mg PO DAILY@1800 [facility] Stop: 01/17/23 22:45 Last Admin: 12/19/22 17:14 Dose: 2 mg Sertraline HCl (Sertraline Hcl 50 Mg Tablet) 25 mg PO DAILY JAYLEEN Stop: 01/18/23 08:59 Last Admin: 12/19/22 08:23 Dose: 25 mg Tramadol HCl (Tramadol Hcl 50 Mg Tablet) 50 mg PO BID PRN PRN Reason: Moderate Pain Stop: 01/17/23 22:45 (1) Anemia Anemia type: unspecified type Qualified Code(s): D64.9 - Anemia, unspecified
[2022-12-19 09:12] LABS: Basophils # (auto) 0.05 K/uL (0-0.2); Basophils % (auto) 0.5 %; Eosinophils # (auto) 0.58 K/uL (0-0.50); Eosinophils % (auto) 5.2 %; Hematocrit (blood only) 29.7 % (34.1-44.9); Hemoglobin 9.6 g/dl (12.0-16.0); Immature Granulocytes % (auto) 0.9 %; Lymphocytes # (auto) 1.13 K/uL (1.2-3.4); Lymphocytes % (auto) 10.2 %; Mean Corpuscular Hemoglobin 29.8 pg (25.0-34.0); Mean Corpuscular Hgb Conc 32.3 g/dL (32.0-36.0); Mean Corpuscular Volume 92.2 fL (80.0-100.0); Mean Platelet Volume 10.6 fL (9.4-12.3); Monocytes # (auto) 0.51 K/uL (0.24-0.82); Monocytes % (auto) 4.6 %; Neutrophils # (auto) 8.68 K/uL (1.4-6.5); Neutrophils % (auto) 78.6 %; Platelet Count 295 K/uL (130-400); RDW Coefficient of Variation 15.9 % (11.5-14.5); RDW Standard Deviation 52.7 fL (36.4-46.3); Red Blood Count 3.22 M/uL (3.93-5.22); White Blood Count 11.05 K/ul (4.8-10.8)
[2022-12-19 09:42] LABS: BUN Creatinine Ratio 29.4 (10-20); Calcium 9.4 mg/dl (8.5-10.1); Creatinine Clr Calc Pharmacy 45.6 ml/min; Est GFR (African American) 58.1 ml/min; Est GFR (Non-African American) 50.1 ml/min; Potassium 3.9 mmol/L (3.5-5.1)
[2022-12-19] MEDS ORDERED: MUPIROCIN 2% OINT 22 GM TUBE EXT PRN (13:30)
[2022-12-19] MEDS: cefTRIAXone SODIUM 2,000 MG in DEXTROSE 5% 50 ML IV SCH (17:14)
[2022-12-20] MEDS: LEVOTHYROXINE SODIUM 88 MCG TABLET PO SCH (05:44)
[2022-12-20] MEDS: HEPARIN SOD 5,000 UNIT/0.5 ML VIAL SQ SCH ×3 (05:44→21:23)
[2022-12-20] MEDS: ACETAMINOPHEN 500 MG TAB PO SCH ×3 (05:44→21:23)
--- NOTE | 2022-12-20 06:32 | Electrocardiogram Report ---
Test Reason : Blood Pressure : / mmHG Vent. Rate : 066 BPM Atrial Rate : 066 BPM P-R Int : 148 ms QRS Dur : 080 ms QT Int : 404 ms P-R-T Axes : 000 -13 027 degrees QTc Int : 423 ms Poor data quality, interpretation may be adversely affected Sinus rhythm with Premature supraventricular complexes Voltage criteria for left ventricular hypertrophy Abnormal ECG When compared with ECG of 04-JUL-2022 16:54, No significant change was found Confirmed by David Matute ([id number]) on 12/20/2022 6:32:07 AM Referred By: MARY Confirmed By:David Matute
[2022-12-20] MEDS: SERTRALINE HCL 50 MG TABLET PO SCH (08:01)
[2022-12-20] MEDS: PANTOprazole 40 MG TAB PO SCH (08:01)
[2022-12-20] MEDS: CEROVITE ADV FORMULA TAB PO SCH (08:02)
[2022-12-20] MEDS: ATENOLOL 50 MG TABLET PO SCH (08:02)
[2022-12-20] MEDS: CLOPIDOGREL BISULFATE 75 MG TAB PO SCH (08:02)
[2022-12-20] MEDS: ASCORBIC ACID 500 MG TAB PO SCH (08:02)
[2022-12-20] MEDS: POTASSIUM CHLORIDE CRTAB 20 MEQ TABCR PO SCH (08:02)
[2022-12-20] MEDS: FERROUS SULFATE 325 MG TAB PO SCH (08:02)
[2022-12-20] MEDS: LOSARTAN POTASSIUM 50 MG TAB PO SCH (08:02)
[2022-12-20] MEDS: FLUTICASONE FUROATE 100MCG 14 PUFFS/INHALER INH SCH (08:03)
[2022-12-20] MEDS: MAGNESIUM OXIDE 400 MG TAB PO SCH (08:03)
[2022-12-20 08:15] LABS: Hematocrit (blood only) 28.1 % (34.1-44.9); Hemoglobin 9.1 g/dl (12.0-16.0); Mean Corpuscular Hemoglobin 29.9 pg (25.0-34.0); Mean Corpuscular Hgb Conc 32.4 g/dL (32.0-36.0); Mean Corpuscular Volume 92.4 fL (80.0-100.0); Mean Platelet Volume 10.5 fL (9.4-12.3); Platelet Count 253 K/uL (130-400); Red Blood Count 3.04 M/uL (3.93-5.22); White Blood Count 10.51 K/ul (4.8-10.8)
[2022-12-20 09:31] LABS: BUN Creatinine Ratio 28.7 (10-20); Calcium 8.8 mg/dl (8.5-10.1); Creatinine Clr Calc Pharmacy 50.5 ml/min; Est GFR (African American) 64.1 ml/min; Est GFR (Non-African American) 55.3 ml/min; Phosphorus 3.7 mg/dl (2.5-4.9)
--- NOTE | 2022-12-20 13:49 | Hospitalist Progress Note ---
Date of Service December 20, 2022 Assessment & Plan (1) Leg edema: (2) Cellulitis: (3) Chronic venous insufficiency: Plan: Patient is 87-year-old female with PMH HTN, CVA, chronic anemia, chronic BLE edema, chronic venous insufficiency, chronic stasis dermatitis, history of LLE vein stripping, RLS, hypothyroidism, left renal mass presented to ER with complaint of lower extremity edema treated outpatient with furosemide, leg wraps Lower extremity cellulitis Afebrile WBC: 11 + edema, erythema of LE, crusting over L medial ankle (previous seeping) Venous Doppler lower extremity obtained to rule out DVT - no DVT History echo 03/2022: EF: 60-65%, grade 1 diastolic dysfunction per chart review Started antibiotics on admission - ceftriaxone - erythema, and edema improved, will cont. Elevate legs wound care nurse also consulted CBC, BMP in a.m. (4) COVID-19: Plan: + SARS-CoV-2 PCR Reported cough x 1 week Afebrile, no hypoxia CXR: No infiltrate Airborne isolation Monitor No hypoxia and no pneumonia will hold on steroids, remdesivir at this time (5) Renal insufficiency: Plan: MISTY - resolved Cr: 1.4 on admission Baseline 1-1.2 per outpatient chart review Monitor renal functions, avoid nephrotoxic agent when possible Cr down to 0.9 (6) CVA (cerebral vascular accident): Plan: Continue Plavix, atorvastatin (7) COPD (chronic obstructive pulmonary disease): Plan: No signs of acute exacerbation Continue home inhalers (8) Essential hypertension: Plan: Continue atenolol, losartan (9) Anemia: Plan: Chronic anemia Hgb: ~9 Hgb was 10.3 on 12/06/2022, 8.6 on 11/02/2022 Continue iron supplement Monitor (10) RLS (restless legs syndrome): Plan: Continue ropinirole (11) Hypothyroidism: Plan: Continue levothyroxine (12) Left kidney mass: Plan: Known left renal mass. Following with [facility] urology 4.3 cm left renal mass on CT abdomen pelvis on 07/04/2022. No significant change in size from prior Continue outpatient follow-up DVT Prophylaxis Heparin SQ Full Code as per discussion with pt Follows with Dr Reed for routine care Admission and Anticipated Discharge Date Admission Date: December 18, 2022 Subjective Patient seen in follow-up of lower extremity cellulitis, MISTY, positive for COVID Currently sitting up in bed, in no acute distress Reports her legs are feeling better, edema improved, erythema also improved She is breathing comfortably on room air Denies any fevers chills, cough, chest pain or shortness of breath Also denies abdominal pain, nausea or vomiting Review of Systems Review of Systems: All systems reviewed & are unremarkable except as noted in Subjective Physical Exam Physical Exam: General: no distress, WDWN Head: normocephalic, atraumatic Eyes: conjunctiva non-injected, anicteric ENT: normal inspection external ears, nose, mucous membranes moist Neck: supple Lungs: clear, no respiratory distress, no wheezing/rhonchi/rales CV: RRR, no murmur Abd: normal BS, soft, non-tender Ext: LE b/l: + trace edema (improved), +erythema and warmth (improved), non- tender. Left medial ankle w/ significant crusting noted, distal pulses palpable, sensation to light touch intact Neuro: A&O x 3, no focal deficits noted, normal affect Skin: warm, dry, and LE as above Results & Data Results & Data ([facility]) Vital Signs (Past 12 Hours) Vital Signs Temp Pulse Pulse Resp BP Pulse Ox O2 Del Method 12/20/22 11:29 36.6 C 63 18 125/72 99 Room Air 12/20/22 08:00 Room Air 12/20/22 07:58 36.8 C 64 16 149/80 H 96 Room Air 12/20/22 07:31 67 12/20/22 03:40 36.7 C 63 16 148/78 H 97 Room Air Laboratory Results 12/20/22 12/20/22 Range/Units 07:46 07:46 WBC 10.51 (4.8-10.8) K/ul RBC 3.04 L (3.93-5.22) M/uL Hgb 9.1 L (12.0-16.0) g/dl Hct 28.1 L (34.1-44.9) % MCV 92.4 (80.0-100.0) fL MCH 29.9 (25.0-34.0) pg MCHC 32.4 (32.0-36.0) g/dL RDW Std Deviation 54.0 H (36.4-46.3) fL RDW Coeff of [place]son 16.0 H (11.5-14.5) % Plt Count 253 (130-400) K/uL MPV 10.5 (9.4-12.3) fL Sodium 137 (136-145) mmol/L Potassium 4.0 (3.5-5.1) mmol/L Chloride 103 (98-107) mmol/L Carbon Dioxide 27 (21-32) mmol/L Anion Gap 7 (3-11) BUN 27 H (6-23) mg/dl Creatinine 0.94 (0.6-1.2) mg/dl Est Cr Clr Drug Dosing 50.5 ml/min Est GFR ( Amer) 64.1 ml/min Est GFR (Non-Af Amer) 55.3 ml/min BUN/Creatinine Ratio 28.7 H (10-20) Glucose 97 (70-99(Fasting)) mg/dl Calcium 8.8 (8.5-10.1) mg/dl Phosphorus 3.7 (2.5-4.9) mg/dl Magnesium 2.0 (1.7-2.4) mg/dl Medications Administered Current Inpatient Medications Acetaminophen (Acetaminophen 500 Mg Tab) 1,000 mg PO Q8 [facility] Stop: 01/18/23 05:59 Last Admin: 12/20/22 05:44 Dose: 1,000 mg Albuterol (Albuterol Hfa 8 Gm Inhaler) 2 puffs INH QID PRN PRN Reason: Wheezing Stop: 01/17/23 22:45 Ascorbic Acid (Ascorbic Acid 500 Mg Tab) 250 mg PO DAILY [facility] Stop: 01/18/23 08:59 Last Admin: 12/20/22 08:02 Dose: 250 mg Atenolol (Atenolol 50 Mg Tablet) 50 mg PO DAILY [facility] Stop: 01/18/23 08:59 Last Admin: 12/20/22 08:02 Dose: 50 mg Atorvastatin Calcium (Atorvastatin 20 Mg Tab) 20 mg PO HS [facility]LE[facility] Stop: 01/17/23 22:45 Last Admin: 12/19/22 21:21 Dose: 20 mg Clopidogrel Bisulfate (Clopidogrel Bisulfate 75 Mg Tab) 75 mg PO DAILY [facility] Stop: 01/18/23 08:59 Last Admin: 12/20/22 08:02 Dose: 75 mg Diphenhydramine HCl (Diphenhydramine Capsule 25 Mg Cap) 25 mg PO HS PRN PRN Reason: Insomnia Stop: 01/17/23 22:58 Last Admin: 12/19/22 00:08 Dose: 25 mg Ferrous Sulfate (Ferrous Sulfate 325 Mg Tab) 325 mg PO DAILY [facility] Stop: 01/18/23 08:59 Last Admin: 12/20/22 08:02 Dose: 325 mg Fluticasone Furoate (Fluticasone Furoate 100mcg 14 Puffs/Inhaler) 1 puffs INH DAILY [facility] Stop: 01/18/23 08:59 Last Admin: 12/20/22 08:03 Dose: 1 puffs Guaifenesin (Guaifenesin 600 Mg Tabcr) 600 mg PO Q12H PRN PRN Reason: Congestion Stop: 01/17/23 22:45 Heparin Sodium (Porcine) (Heparin Sod 5,000 Unit/0.5 Ml Vial) 5,000 units SQ Q8 [facility] Stop: 01/17/23 22:45 Last Admin: 12/20/22 05:44 Dose: 5,000 units Ceftriaxone Sodium 2,000 mg/ (Dextrose) 70 mls @ 100 mls/hr IV Q24H [facility]; Protocol Stop: 12/26/22 16:59 Last Infusion: 12/19/22 17:57 Dose: Infused Levothyroxine Sodium (Levothyroxine Sodium 88 Mcg Tablet) 88 mcg PO DAILYBB [facility] Stop: 01/18/23 06:29 Last Admin: 12/20/22 05:44 Dose: 88 mcg Losartan Potassium (Losartan Potassium 50 Mg Tab) 100 mg PO DAILY [facility] Stop: 01/18/23 08:59 Last Admin: 12/20/22 08:02 Dose: 100 mg Magnesium Oxide (Magnesium Oxide 400 Mg Tab) 400 mg PO DAILY [facility] Stop: 01/18/23 08:59 Last Admin: 12/20/22 08:03 Dose: 400 mg Multivitamins/Minerals (Cerovite Adv Formula Tab) 1 tab PO DAILY [facility] Stop: 01/18/23 08:59 Last Admin: 12/20/22 08:02 Dose: 1 tab Mupirocin (Mupirocin 2% Oint 22 Gm Tube) 1 appln EXT TID PRN PRN Reason: AFFECTED AREAS Stop: 01/18/23 13:59 Ondansetron HCl (Ondansetron Inj 2 Mg/Ml 2 Ml Vial) 4 mg IV Q6H PRN PRN Reason: Nausea Stop: 01/17/23 22:45 Pantoprazole Sodium (Pantoprazole 40 Mg Tab) 40 mg PO DAILY [facility] Stop: 01/18/23 08:59 Last Admin: 12/20/22 08:01 Dose: 40 mg Polyethylene Glycol (Polyethylene (Miralax) 17 Gm Pack) 17 gm PO DAILY PRN PRN Reason: Constipation Stop: 01/17/23 22:45 Potassium Chloride (Potassium Chloride Crtab 20 Meq Tabcr) 20 meq PO DAILY [facility] Stop: 01/18/23 08:59 Last Admin: 12/20/22 08:02 Dose: 20 meq Ropinirole HCl (Ropinirole Hcl 2 Mg Tablet) 2 mg PO DAILY@1800 [facility] Stop: 01/17/23 22:45 Last Admin: 12/19/22 17:14 Dose: 2 mg Sertraline HCl (Sertraline Hcl 50 Mg Tablet) 25 mg PO DAILY [facility] Stop: 01/18/23 08:59 Last Admin: 12/20/22 08:01 Dose: 25 mg Tramadol HCl (Tramadol Hcl 50 Mg Tablet) 50 mg PO BID PRN PRN Reason: Moderate Pain Stop: 01/17/23 22:45 (1) Anemia Anemia type: unspecified type Qualified Code(s): D64.9 - Anemia, unspecified
[2022-12-20] MEDS: rOPINIRole HCL 2 MG TABLET PO SCH (17:19)
[2022-12-20] MEDS: cefTRIAXone SODIUM 2,000 MG in DEXTROSE 5% 50 ML IV SCH (17:19)
[2022-12-20] MEDS ORDERED: FUROSEMIDE 40 MG TAB PO ONE (18:30)
[2022-12-20] MEDS: ATORVASTATIN 20 MG TAB PO SCH (20:01)
[2022-12-21] MEDS: ACETAMINOPHEN 500 MG TAB PO SCH ×3 (06:07→22:53)
[2022-12-21] MEDS: HEPARIN SOD 5,000 UNIT/0.5 ML VIAL SQ SCH ×3 (06:07→22:53)
[2022-12-21] MEDS: LEVOTHYROXINE SODIUM 88 MCG TABLET PO SCH (06:07)
[2022-12-21 08:14] LABS: Hematocrit (blood only) 28.6 % (34.1-44.9); Hemoglobin 9.2 g/dl (12.0-16.0); Mean Corpuscular Hemoglobin 30.1 pg (25.0-34.0); Mean Corpuscular Hgb Conc 32.2 g/dL (32.0-36.0); Mean Corpuscular Volume 93.5 fL (80.0-100.0); Mean Platelet Volume 10.4 fL (9.4-12.3); Platelet Count 264 K/uL (130-400); RDW Coefficient of Variation 16.1 % (11.5-14.5); RDW Standard Deviation 54.7 fL (36.4-46.3); Red Blood Count 3.06 M/uL (3.93-5.22); White Blood Count 10.85 K/ul (4.8-10.8)
[2022-12-21] MEDS: POTASSIUM CHLORIDE CRTAB 20 MEQ TABCR PO SCH (09:14)
[2022-12-21] MEDS: FUROSEMIDE 40 MG TAB PO SCH (09:15)
[2022-12-21] MEDS: ASCORBIC ACID 500 MG TAB PO SCH (09:16)
[2022-12-21] MEDS: MAGNESIUM OXIDE 400 MG TAB PO SCH (09:17)
[2022-12-21] MEDS: SERTRALINE HCL 50 MG TABLET PO SCH (09:17)
[2022-12-21] MEDS: FERROUS SULFATE 325 MG TAB PO SCH (09:17)
[2022-12-21] MEDS: LOSARTAN POTASSIUM 50 MG TAB PO SCH (09:17)
[2022-12-21] MEDS: CEROVITE ADV FORMULA TAB PO SCH (09:18)
[2022-12-21] MEDS: CLOPIDOGREL BISULFATE 75 MG TAB PO SCH (09:18)
[2022-12-21] MEDS: FLUTICASONE FUROATE 100MCG 14 PUFFS/INHALER INH SCH (09:18)
[2022-12-21] MEDS: PANTOprazole 40 MG TAB PO SCH (09:18)
[2022-12-21] MEDS: ATENOLOL 50 MG TABLET PO SCH (09:18)
[2022-12-21 09:27] LABS: BUN Creatinine Ratio 24.5 (10-20); Calcium 8.8 mg/dl (8.5-10.1); Creatinine Clr Calc Pharmacy 47.6 ml/min; Est GFR (Non-African American) 52.6 ml/min; Phosphorus 3.6 mg/dl (2.5-4.9)
--- NOTE | 2022-12-21 16:39 | Hospitalist Progress Note ---
Date of Service December 21, 2022 Assessment & Plan (1) Leg edema: (2) Cellulitis: (3) Chronic venous insufficiency: Plan: Patient is 87-year-old female with PMH HTN, CVA, chronic anemia, chronic BLE edema, chronic venous insufficiency, chronic stasis dermatitis, history of LLE vein stripping, RLS, hypothyroidism, left renal mass presented to ER with complaint of lower extremity edema treated outpatient with furosemide, leg wraps Lower extremity cellulitis Afebrile WBC: 11 + edema, erythema of LE, crusting over L medial ankle (previous seeping) Venous Doppler lower extremity obtained to rule out DVT - no DVT History echo 03/2022: EF: 60-65%, grade 1 diastolic dysfunction per chart review Started antibiotics on admission - ceftriaxone - erythema, and edema improved, will cont. Elevate legs wound care nurse also consulted CBC, BMP in a.m. (4) COVID-19: Plan: + SARS-CoV-2 PCR Reported cough x 1 week Afebrile, no hypoxia CXR: No infiltrate Airborne isolation Monitor No hypoxia and no pneumonia will hold on steroids, remdesivir at this time (5) Renal insufficiency: Plan: MISTY - resolved Cr: 1.4 on admission Baseline 1-1.2 per outpatient chart review Monitor renal functions, avoid nephrotoxic agent when possible Cr down to 0.9 -1 (6) CVA (cerebral vascular accident): Plan: Continue Plavix, atorvastatin (7) COPD (chronic obstructive pulmonary disease): Plan: No signs of acute exacerbation Continue home inhalers (8) Essential hypertension: Plan: Continue atenolol, losartan (9) Anemia: Plan: Chronic anemia Hgb: ~9 Hgb was 10.3 on 12/06/2022, 8.6 on 11/02/2022 Continue iron supplement Monitor (10) RLS (restless legs syndrome): Plan: Continue ropinirole (11) Hypothyroidism: Plan: Continue levothyroxine (12) Left kidney mass: Plan: Known left renal mass. [place] [facility] [place] 4.3 cm left renal mass on CT abdomen pelvis on 07/04/2022. No significant change in size from prior Continue outpatient follow-up DVT Prophylaxis Heparin SQ Full Code as per discussion with pt Follows with Dr Reed for routine care Admission and Anticipated Discharge Date Admission Date: December 18, 2022 Subjective Patient seen in follow-up of lower extremity cellulitis, MISTY, positive for COVID Currently sitting up in bed, in no acute distress Reports her legs are feeling much better, edema improved, erythema also improved She is breathing comfortably on room air Denies any fevers chills, cough, chest pain or shortness of breath Also denies abdominal pain, nausea or vomiting She is eager for discharge Discussed with [employer] [employer] [facility] at [place], concern about not able to follow-up with patient more closely. History of recurrent C. difficile, and patient being on anti biotic. We will continue to monitor patient over the weekend as they are not able to accept patient over the weekend. Review of Systems Review of Systems: All systems reviewed & are unremarkable except as noted in Subjective Physical Exam Physical Exam: General: no distress, WDWN Head: normocephalic, atraumatic Eyes: conjunctiva non-injected, anicteric ENT: normal inspection external ears, nose, mucous membranes moist Neck: supple Lungs: clear, no respiratory distress, no wheezing/rhonchi/rales CV: RRR, no murmur Abd: normal BS, soft, non-tender Ext: LE b/l: + trace edema (improved), +erythema and warmth (improved), non-tender. Left medial ankle w/ significant crusting noted, distal pulses palpable, sensation to light touch intact Neuro: A&O x 3, no focal deficits noted, normal affect Skin: warm, dry, and LE as above Results & Data Results & Data ([facility]) Vital Signs (Past 12 Hours) Vital Signs Temp Pulse Resp BP Pulse Ox O2 Del Method 12/21/22 09:00 Room Air 12/21/22 16:08 36.6 C 64 18 177/96 H 97 Room Air 12/21/22 12:21 36.7 C 70 18 164/71 H 96 Room Air 12/21/22 08:18 36.6 C 70 18 185/79 H 98 Room Air Laboratory Results 12/21/22 12/21/22 Range/Units 07:40 07:40 WBC 10.85 H (4.8-10.8) K/ul RBC 3.06 L (3.93-5.22) M/uL Hgb 9.2 L (12.0-16.0) g/dl Hct 28.6 L (34.1-44.9) % MCV 93.5 (80.0-100.0) fL MCH 30.1 (25.0-34.0) pg MCHC 32.2 (32.0-36.0) g/dL RDW Std Deviation 54.7 H (36.4-46.3) fL RDW Coeff of [place] 16.1 H (11.5-14.5) % Plt Count 264 (130-400) K/uL MPV 10.4 (9.4-12.3) fL Sodium 137 (136-145) mmol/L Potassium 4.0 (3.5-5.1) mmol/L Chloride 103 (98-107) mmol/L Carbon Dioxide 27 (21-32) mmol/L Anion Gap 7 (3-11) BUN 24 H (6-23) mg/dl Creatinine 0.98 (0.6-1.2) mg/dl Est Cr Clr Drug Dosing 47.6 ml/min Est GFR ( Amer) 61.0 ml/min Est GFR (Non-Af Amer) 52.6 ml/min BUN/Creatinine Ratio 24.5 H (10-20) Glucose 101 H (70-99(Fasting)) mg/dl Calcium 8.8 (8.5-10.1) mg/dl Phosphorus 3.6 (2.5-4.9) mg/dl Magnesium 2.0 (1.7-2.4) mg/dl Medications Administered Current Inpatient Medications Acetaminophen (Acetaminophen 500 Mg Tab) 1,000 mg PO Q8 [facility] Stop: 01/18/23 05:59 Last Admin: 12/21/22 14:02 Dose: 1,000 mg Albuterol (Albuterol Hfa 8 Gm Inhaler) 2 puffs INH QID PRN PRN Reason: Wheezing Stop: 01/17/23 22:45 Ascorbic Acid (Ascorbic Acid 500 Mg Tab) 250 mg PO DAILY [facility] Stop: 01/18/23 08:59 Last Admin: 12/21/22 09:16 Dose: 250 mg Atenolol (Atenolol 50 Mg Tablet) 50 mg PO DAILY [facility] Stop: 01/18/23 08:59 Last Admin: 12/21/22 09:18 Dose: 50 mg Atorvastatin Calcium (Atorvastatin 20 Mg Tab) 20 mg PO HS [facility] Stop: 01/17/23 22:45 Last Admin: 12/20/22 20:01 Dose: 20 mg Clopidogrel Bisulfate (Clopidogrel Bisulfate 75 Mg Tab) 75 mg PO DAILY [facility] Stop: 01/18/23 08:59 Last Admin: 12/21/22 09:18 Dose: 75 mg Diphenhydramine HCl (Diphenhydramine Capsule 25 Mg Cap) 25 mg PO HS PRN PRN Reason: Insomnia Stop: 01/17/23 22:58 Last Admin: 12/19/22 00:08 Dose: 25 mg Ferrous Sulfate (Ferrous Sulfate 325 Mg Tab) 325 mg PO DAILY [facility] Stop: 01/18/23 08:59 Last Admin: 12/21/22 09:17 Dose: 325 mg Fluticasone Furoate (Fluticasone Furoate 100mcg 14 Puffs/Inhaler) 1 puffs INH DAILY [facility] Stop: 01/18/23 08:59 Last Admin: 12/21/22 09:18 Dose: 1 puffs Furosemide (Furosemide 40 Mg Tab) 40 mg PO QAM [facility] Stop: 01/20/23 08:59 Last Admin: 12/21/22 09:15 Dose: 40 mg Guaifenesin (Guaifenesin 600 Mg Tabcr) 600 mg PO Q12H PRN PRN Reason: Congestion Stop: 01/17/23 22:45 Last Admin: 12/21/22 09:15 Dose: 600 mg Heparin Sodium (Porcine) (Heparin Sod 5,000 Unit/0.5 Ml Vial) 5,000 units SQ Q8 [facility] Stop: 01/17/23 22:45 Last Admin: 12/21/22 14:02 Dose: 5,000 units Ceftriaxone Sodium 2,000 mg/ (Dextrose) 70 mls @ 100 mls/hr IV Q24H [facility]; Protocol Stop: 12/26/22 16:59 Last Infusion: 12/20/22 18:06 Dose: Infused Lactobacillus Acidophilus (Advanced Probiotic 1250 Mg Capsule) 2 cap PO DAILY [facility] Stop: 01/20/23 16:29 Levothyroxine Sodium (Levothyroxine Sodium 88 Mcg Tablet) [facility] Stop: 01/18/23 06:29 Last Admin: 12/21/22 06:07 Dose: 88 mcg Losartan Potassium (Losartan Potassium 50 Mg Tab) 100 mg PO DAILY [facility] Stop: 01/18/23 08:59 Last Admin: 12/21/22 09:17 Dose: 100 mg Magnesium Oxide (Magnesium Oxide 400 Mg Tab) 400 mg PO DAILY [facility] Stop: 01/18/23 08:59 Last Admin: 12/21/22 09:17 Dose: 400 mg Multivitamins/Minerals (Cerovite Adv Formula Tab) 1 tab PO DAILY [facility] Stop: 01/18/23 08:59 Last Admin: 12/21/22 09:18 Dose: 1 tab Mupirocin (Mupirocin 2% Oint 22 Gm Tube) 1 appln EXT TID PRN PRN Reason: AFFECTED AREAS Stop: 01/18/23 13:59 Ondansetron HCl (Ondansetron Inj 2 Mg/Ml 2 Ml Vial) 4 mg IV Q6H PRN PRN Reason: Nausea Stop: 01/17/23 22:45 Pantoprazole Sodium (Pantoprazole 40 Mg Tab) 40 mg PO DAILY [facility] Stop: 01/18/23 08:59 Last Admin: 12/21/22 09:18 Dose: 40 mg Polyethylene Glycol (Polyethylene (Miralax) 17 Gm Pack) 17 gm PO DAILY PRN PRN Reason: Constipation Stop: 01/17/23 22:45 Potassium Chloride (Potassium Chloride Crtab 20 Meq Tabcr) 20 meq PO DAILY [facility] Stop: 01/18/23 08:59 Last Admin: 12/21/22 09:14 Dose: 20 meq Ropinirole HCl (Ropinirole Hcl 2 Mg Tablet) 2 mg PO DAILY@1800 [facility] Stop: 01/17/23 22:45 Last Admin: 12/20/22 17:19 Dose: 2 mg Sertraline HCl (Sertraline Hcl 50 Mg Tablet) 25 mg PO DAILY [facility] Stop: 01/18/23 08:59 Last Admin: 12/21/22 09:17 Dose: 25 mg Tramadol HCl (Tramadol Hcl 50 Mg Tablet) 50 mg PO BID PRN PRN Reason: Moderate Pain Stop: 01/17/23 22:45 Last Admin: 12/20/22 20:00 Dose: 50 mg (1) Anemia Anemia type: unspecified type Qualified Code(s): D64.9 - Anemia, unspecified
[2022-12-21] MEDS ORDERED: FUROSEMIDE 40 MG TAB PO ONE (17:36)
[2022-12-21] MEDS: ADVANCED PROBIOTIC 1250 MG CAPSULE PO SCH (17:59)
[2022-12-21] MEDS: cefTRIAXone SODIUM 2,000 MG in DEXTROSE 5% 50 ML IV SCH (18:30)
[2022-12-21] MEDS: rOPINIRole HCL 2 MG TABLET PO SCH (19:36)
[2022-12-21] MEDS: ATORVASTATIN 20 MG TAB PO SCH (19:37)
[2022-12-22] MEDS: ACETAMINOPHEN 500 MG TAB PO SCH ×3 (06:20→21:50)
[2022-12-22] MEDS: HEPARIN SOD 5,000 UNIT/0.5 ML VIAL SQ SCH ×3 (06:21→21:50)
[2022-12-22] MEDS: LEVOTHYROXINE SODIUM 88 MCG TABLET PO SCH (06:23)
[2022-12-22 06:38] LABS: Hematocrit (blood only) 29.9 % (34.1-44.9); Hemoglobin 9.5 g/dl (12.0-16.0); Mean Corpuscular Hemoglobin 30.1 pg (25.0-34.0); Mean Corpuscular Hgb Conc 31.8 g/dL (32.0-36.0); Mean Corpuscular Volume 94.6 fL (80.0-100.0); Mean Platelet Volume 10.4 fL (9.4-12.3); Platelet Count 288 K/uL (130-400); RDW Coefficient of Variation 16.3 % (11.5-14.5); RDW Standard Deviation 55.3 fL (36.4-46.3); Red Blood Count 3.16 M/uL (3.93-5.22); White Blood Count 12.49 K/ul (4.8-10.8)
[2022-12-22 07:07] LABS: Calcium 9.3 mg/dl (8.5-10.1); Potassium 3.7 mmol/L (3.5-5.1)
[2022-12-22 07:13] LABS: Creatinine Clr Calc Pharmacy 44.3 ml/min; Est GFR (African American) 56.7 ml/min; Phosphorus 3.6 mg/dl (2.5-4.9)
--- NOTE | 2022-12-22 08:04 | Hospitalist Progress Note ---
Date of Service December 22, 2022 Assessment & Plan (1) Leg edema: (2) Cellulitis: (3) Chronic venous insufficiency: Plan: Patient is 87-year-old female with PMH HTN, CVA, chronic anemia, chronic BLE edema, chronic venous insufficiency, chronic stasis dermatitis, history of LLE vein stripping, RLS, hypothyroidism, left renal mass presented to ER with complaint of lower extremity edema treated outpatient with furosemide, leg wraps Lower extremity cellulitis Afebrile WBC: 11 + edema, erythema of LE, crusting over L medial ankle (previous seeping) Venous Doppler lower extremity obtained to rule out DVT - no DVT History echo 03/2022: EF: 60-65%, grade 1 diastolic dysfunction per chart review Started antibiotics on admission - ceftriaxone - erythema, and edema improved, will cont. Elevate legs wound care nurse also consulted CBC, BMP in a.m. (4) COVID-19: Plan: + SARS-CoV-2 PCR Reported cough x 1 week Afebrile, no hypoxia CXR: No infiltrate Airborne isolation Monitor No hypoxia and no pneumonia will hold on steroids, remdesivir at this time (5) Renal insufficiency: Plan: MISTY - resolved Cr: 1.4 on admission Baseline 1-1.2 per outpatient chart review Monitor renal functions, avoid nephrotoxic agent when possible Cr down to 1 (6) CVA (cerebral vascular accident): Plan: Continue Plavix, atorvastatin (7) COPD (chronic obstructive pulmonary disease): Plan: No signs of acute exacerbation Continue home inhalers (8) Essential hypertension: Plan: Continue atenolol, losartan (9) Anemia: Plan: Chronic anemia Hgb: ~9 Hgb was 10.3 on 12/06/2022, 8.6 on 11/02/2022 Continue iron supplement Monitor (10) RLS (restless legs syndrome): Plan: Continue ropinirole (11) Hypothyroidism: Plan: Continue levothyroxine (12) Left kidney mass: Plan: Known left renal mass. Following with [facility] urology 4.3 cm left renal mass on CT abdomen pelvis on 07/04/2022. No significant change in size from prior Continue outpatient follow-up DVT Prophylaxis Heparin SQ Full Code as per discussion with pt Follows with Dr Reed for routine care Admission and Anticipated Discharge Date Admission Date: December 18, 2022 Subjective Patient seen in follow-up of lower extremity cellulitis, MISTY, positive for COVID Currently laying in bed, in no acute distress Reports her legs are feeling better, edema improved, erythema also improved She is breathing comfortably on room air Denies any fevers chills, cough, chest pain or shortness of breath Also denies abdominal pain, nausea or vomiting She is eager for discharge Discussed with [facility] at [facility] [place], concern about not able to follow-up with patient more closely. History of recurrent C. difficile, and patient being on antibiotic. We will continue to monitor patient over the weekend as they are not able to accept patient over the weekend. Will test for c.diff Review of Systems Review of Systems: All systems reviewed & are unremarkable except as noted in Subjective Physical Exam Physical Exam: General: no distress, WDWN Head: normocephalic, atraumatic Eyes: conjunctiva non-injected, anicteric ENT: normal inspection external ears, nose, mucous membranes moist Neck: supple Lungs: clear, no respiratory distress, no wheezing/rhonchi/rales CV: RRR, no murmur Abd: normal BS, soft, non-tender Ext: LE b/l: + trace edema (improved), +erythema and warmth (improved), non- tender. Left medial ankle w/ significant crusting noted, dressings applied, distal pulses palpable, sensation to light touch intact Neuro: A&O x 3, no focal deficits noted, normal affect Skin: warm, dry, and LE as above Results & Data Results & Data ([facility]) Vital Signs (Past 12 Hours) Vital Signs Temp Pulse Pulse Resp BP Pulse Ox O2 Del Method 12/22/22 07:57 36.3 C L 64 18 159/75 H 98 Room Air 12/22/22 02:26 36.9 C 70 16 161/76 H 93 Room Air 12/22/22 00:52 71 12/21/22 22:57 36.7 C 68 16 147/75 H 95 Room Air Laboratory Results 12/22/22 12/22/22 12/21/22 Range/Units 05:57 05:57 07:40 WBC 12.49 H (4.8-10.8) K/ul RBC 3.16 L (3.93-5.22) M/uL Hgb 9.5 L (12.0-16.0) g/dl Hct 29.9 L (34.1-44.9) % MCV 94.6 (80.0-100.0) fL MCH 30.1 (25.0-34.0) pg MCHC 31.8 L (32.0-36.0) g/dL RDW Std Deviation 55.3 H (36.4-46.3) fL RDW Coeff of Anson 16.3 H (11.5-14.5) % Plt Count 288 (130-400) K/uL MPV 10.4 (9.4-12.3) fL Sodium 136 137 (136-145) mmol/L Potassium 3.7 4.0 (3.5-5.1) mmol/L Chloride 101 103 (98-107) mmol/L Carbon Dioxide 27 27 (21-32) mmol/L Anion Gap 8 7 (3-11) BUN 25 H 24 H (6-23) mg/dl Creatinine 1.04 0.98 (0.6-1.2) mg/dl Est Cr Clr Drug Dosing 44.3 47.6 ml/min Est GFR ( Amer) 56.7 61.0 ml/min Est GFR (Non-Af Amer) 49.0 52.6 ml/min BUN/Creatinine Ratio 24.0 H 24.5 H (10-20) Glucose 108 H 101 H (70-99(Fasting)) mg/dl Calcium 9.3 8.8 (8.5-10.1) mg/dl Phosphorus 3.6 3.6 (2.5-4.9) mg/dl Magnesium 2.0 2.0 (1.7-2.4) mg/dl 12/21/22 Range/Units 07:40 WBC 10.85 H (4.8-10.8) K/ul RBC 3.06 L (3.93-5.22) M/uL Hgb 9.2 L (12.0-16.0) g/dl Hct 28.6 L (34.1-44.9) % MCV 93.5 (80.0-100.0) fL MCH 30.1 (25.0-34.0) pg MCHC 32.2 (32.0-36.0) g/dL RDW Std Deviation 54.7 H (36.4-46.3) fL RDW Coeff of Anson 16.1 H (11.5-14.5) % Plt Count 264 (130-400) K/uL MPV 10.4 (9.4-12.3) fL Sodium (136-145) mmol/L Potassium (3.5-5.1) mmol/L Chloride (98-107) mmol/L Carbon Dioxide (21-32) mmol/L Anion Gap (3-11) BUN (6-23) mg/dl Creatinine (0.6-1.2) mg/dl Est Cr Clr Drug Dosing ml/min Est GFR ( Amer) ml/min Est GFR (Non-Af Amer) ml/min BUN/Creatinine Ratio (10-20) Glucose (70-99(Fasting)) mg/dl Calcium (8.5-10.1) mg/dl Phosphorus (2.5-4.9) mg/dl Magnesium (1.7-2.4) mg/dl Medications Administered Current Inpatient Medications Acetaminophen (Acetaminophen 500 Mg Tab) 1,000 mg PO Q8 JAYLEEN Stop: 01/18/23 05:59 Last Admin: 12/22/22 06:20 Dose: 1,000 mg Albuterol (Albuterol Hfa 8 Gm Inhaler) 2 puffs INH QID PRN PRN Reason: Wheezing Stop: 01/17/23 22:45 Ascorbic Acid (Ascorbic Acid 500 Mg Tab) 250 mg PO DAILY JAYLEEN Stop: 01/18/23 08:59 Last Admin: 12/21/22 09:16 Dose: 250 mg Atenolol (Atenolol 50 Mg Tablet) 50 mg PO DAILY JAYLEEN Stop: 01/18/23 08:59 Last Admin: 12/21/22 09:18 Dose: 50 mg Atorvastatin Calcium (Atorvastatin 20 Mg Tab) 20 mg PO HS JAYLEEN Stop: 01/17/23 22:45 Last Admin: 12/21/22 19:37 Dose: 20 mg Clopidogrel Bisulfate (Clopidogrel Bisulfate 75 Mg Tab) 75 mg PO DAILY JAYLEEN Stop: 01/18/23 08:59 Last Admin: 12/21/22 09:18 Dose: 75 mg Diphenhydramine HCl (Diphenhydramine Capsule 25 Mg Cap) 25 mg PO HS PRN PRN Reason: Insomnia Stop: 01/17/23 22:58 Last Admin: 12/19/22 00:08 Dose: 25 mg Ferrous Sulfate (Ferrous Sulfate 325 Mg Tab) 325 mg PO DAILY JAYLEEN Stop: 01/18/23 08:59 Last Admin: 12/21/22 09:17 Dose: 325 mg Fluticasone Furoate (Fluticasone Furoate 100mcg 14 Puffs/Inhaler) 1 puffs INH DAILY JAYLEEN Stop: 01/18/23 08:59 Last Admin: 12/21/22 09:18 Dose: 1 puffs Furosemide (Furosemide 40 Mg Tab) 40 mg PO QAM JAYLEEN Stop: 01/20/23 08:59 Last Admin: 12/21/22 09:15 Dose: 40 mg Guaifenesin (Guaifenesin 600 Mg Tabcr) 600 mg PO Q12H PRN PRN Reason: Congestion Stop: 01/17/23 22:45 Last Admin: 12/21/22 09:15 Dose: 600 mg Heparin Sodium (Porcine) (Heparin Sod 5,000 Unit/0.5 Ml Vial) 5,000 units SQ Q8 JAYLEEN Stop: 01/17/23 22:45 Last Admin: 12/22/22 06:21 Dose: 5,000 units Ceftriaxone Sodium 2,000 mg/ (Dextrose) 70 mls @ 100 mls/hr IV Q24H [facility]; Protocol Stop: 12/26/22 16:59 Last Infusion: 12/21/22 19:46 Dose: Infused Lactobacillus Acidophilus (Advanced Probiotic 1250 Mg Capsule) 2 cap PO DAILY JAYLEEN Stop: 01/20/23 16:29 Last Admin: 12/21/22 17:59 Dose: 2 cap Levothyroxine Sodium ([facility]othyroxine Sodium 88 Mcg Tablet) [facility] Stop: 01/18/23 06:29 Last Admin: 12/22/22 06:23 Dose: 88 mcg Losartan Potassium (Losartan Potassium 50 Mg Tab) 100 mg PO DAILY JAYLEEN Stop: 01/18/23 08:59 Last Admin: 12/21/22 09:17 Dose: 100 mg Magnesium Oxide (Magnesium Oxide 400 Mg Tab) 400 mg PO DAILY JAYLEEN Stop: 01/18/23 08:59 Last Admin: 12/21/22 09:17 Dose: 400 mg Multivitamins/Minerals (Cerovite Adv Formula Tab) 1 tab PO DAILY JAYLEEN Stop: 01/18/23 08:59 Last Admin: 12/21/22 09:18 Dose: 1 tab Mupirocin (Mupirocin 2% Oint 22 Gm Tube) 1 appln EXT TID PRN PRN Reason: AFFECTED AREAS Stop: 01/18/23 13:59 Ondansetron HCl (Ondansetron Inj 2 Mg/Ml 2 Ml Vial) 4 mg IV Q6H PRN PRN Reason: Nausea Stop: 01/17/23 22:45 Pantoprazole Sodium (Pantoprazole 40 Mg Tab) 40 mg PO DAILY JAYLEEN Stop: 01/18/23 08:59 Last Admin: 12/21/22 09:18 Dose: 40 mg Polyethylene Glycol (Polyethylene (Miralax) 17 Gm Pack) 17 gm PO DAILY PRN PRN Reason: Constipation Stop: 01/17/23 22:45 Potassium Chloride (Potassium Chloride Crtab 20 Meq Tabcr) 20 meq PO DAILY JAYLEEN Stop: 01/18/23 08:59 Last Admin: 12/21/22 09:14 Dose: 20 meq Ropinirole HCl (Ropinirole Hcl 2 Mg Tablet) 2 mg PO DAILY@1800 JAYLEEN Stop: 01/17/23 22:45 Last Admin: 12/21/22 19:36 Dose: 2 mg Sertraline HCl (Sertraline Hcl 50 Mg Tablet) 25 mg PO DAILY JAYLEEN Stop: 01/18/23 08:59 Last Admin: 12/21/22 09:17 Dose: 25 mg Tramadol HCl (Tramadol Hcl 50 Mg Tablet) 50 mg PO BID PRN PRN Reason: Moderate Pain Stop: 01/17/23 22:45 Last Admin: 12/20/22 20:00 Dose: 50 mg (1) Anemia Anemia type: unspecified type Qualified Code(s): D64.9 - Anemia, unspecified
[2022-12-22] MEDS: PANTOprazole 40 MG TAB PO SCH (10:02)
[2022-12-22] MEDS: LOSARTAN POTASSIUM 50 MG TAB PO SCH (10:02)
[2022-12-22] MEDS: CEROVITE ADV FORMULA TAB PO SCH (10:02)
[2022-12-22] MEDS: ATENOLOL 50 MG TABLET PO SCH (10:02)
[2022-12-22] MEDS: FUROSEMIDE 40 MG TAB PO SCH (10:02)
[2022-12-22] MEDS: FERROUS SULFATE 325 MG TAB PO SCH (10:03)
[2022-12-22] MEDS: MAGNESIUM OXIDE 400 MG TAB PO SCH (10:03)
[2022-12-22] MEDS: ASCORBIC ACID 500 MG TAB PO SCH (10:03)
[2022-12-22] MEDS: SERTRALINE HCL 50 MG TABLET PO SCH (10:04)
[2022-12-22] MEDS: POTASSIUM CHLORIDE CRTAB 20 MEQ TABCR PO SCH (10:04)
[2022-12-22] MEDS: CLOPIDOGREL BISULFATE 75 MG TAB PO SCH (10:05)
[2022-12-22] MEDS: FLUTICASONE FUROATE 100MCG 14 PUFFS/INHALER INH SCH (10:05)
[2022-12-22] MEDS: ADVANCED PROBIOTIC 1250 MG CAPSULE PO SCH (10:05)
[2022-12-22] MEDS ORDERED: FUROSEMIDE 40 MG TAB PO ONE (13:56)
[2022-12-22] MEDS: cefTRIAXone SODIUM 2,000 MG in DEXTROSE 5% 50 ML IV SCH (17:30)
[2022-12-22] MEDS: rOPINIRole HCL 2 MG TABLET PO SCH (17:32)
[2022-12-22] MEDS: ATORVASTATIN 20 MG TAB PO SCH (21:50)
[2022-12-23 06:25] LABS: Hematocrit (blood only) 29.7 % (34.1-44.9); Hemoglobin 9.7 g/dl (12.0-16.0); Mean Corpuscular Hemoglobin 30.2 pg (25.0-34.0); Mean Corpuscular Hgb Conc 32.7 g/dL (32.0-36.0); Mean Corpuscular Volume 92.5 fL (80.0-100.0); Mean Platelet Volume 10.5 fL (9.4-12.3); Platelet Count 286 K/uL (130-400); RDW Coefficient of Variation 15.9 % (11.5-14.5); RDW Standard Deviation 51.6 fL (36.4-46.3); Red Blood Count 3.21 M/uL (3.93-5.22); White Blood Count 12.64 K/ul (4.8-10.8)
[2022-12-23] MEDS: HEPARIN SOD 5,000 UNIT/0.5 ML VIAL SQ SCH ×3 (06:26→20:34)
[2022-12-23] MEDS: ACETAMINOPHEN 500 MG TAB PO SCH ×3 (06:27→20:32)
[2022-12-23] MEDS: LEVOTHYROXINE SODIUM 88 MCG TABLET PO SCH (06:28)
[2022-12-23 06:47] LABS: Calcium 9.2 mg/dl (8.5-10.1); Magnesium 1.9 mg/dl (1.7-2.4); Potassium 3.8 mmol/L (3.5-5.1)
[2022-12-23 06:53] LABS: Creatinine Clr Calc Pharmacy 58.2 ml/min; Est GFR (African American) 77.9 ml/min; Est GFR (Non-African American) 67.2 ml/min; Phosphorus 3.9 mg/dl (2.5-4.9)
--- NOTE | 2022-12-23 08:00 | Hospitalist Progress Note ---
Date of Service December 23, 2022 Assessment & Plan (1) Leg edema: (2) Cellulitis: (3) Chronic venous insufficiency: Plan: Patient is 87-year-old female with PMH HTN, CVA, chronic anemia, chronic BLE edema, chronic venous insufficiency, chronic stasis dermatitis, history of LLE vein stripping, RLS, hypothyroidism, left renal mass presented to ER with complaint of lower extremity edema treated outpatient with furosemide, leg wraps Lower extremity cellulitis Afebrile WBC: 11 + edema, erythema of LE, crusting over L medial ankle (previous seeping) Venous Doppler lower extremity obtained to rule out DVT - no DVT History echo 03/2022: EF: 60-65%, grade 1 diastolic dysfunction per chart review Started antibiotics on admission - ceftriaxone - erythema, and edema improved, will cont. Elevate legs wound care nurse also consulted CBC, BMP in a.m. (4) COVID-19: Plan: + SARS-CoV-2 PCR Reported cough x 1 week Afebrile, no hypoxia CXR: No infiltrate Airborne isolation Monitor No hypoxia and no pneumonia will hold on steroids, remdesivir at this time (5) Renal insufficiency: Plan: MISTY - resolved Cr: 1.4 on admission Baseline 1-1.2 per outpatient chart review Monitor renal functions, avoid nephrotoxic agent when possible Cr down to 1 (6) CVA (cerebral vascular accident): Plan: Continue Plavix, atorvastatin (7) COPD (chronic obstructive pulmonary disease): Plan: No signs of acute exacerbation Continue home inhalers (8) Essential hypertension: Plan: Continue atenolol, losartan (9) Anemia: Plan: Chronic anemia Hgb: ~9-10 Hgb was 10.3 on 12/06/2022, 8.6 on 11/02/2022 Continue iron supplement Monitor (10) RLS (restless legs syndrome): Plan: Continue ropinirole (11) Hypothyroidism: Plan: Continue levothyroxine (12) Left kidney mass: Plan: Known left renal mass. Following with [facility] [place] urology 4.3 cm left renal mass on CT abdomen pelvis on 07/04/2022. No significant change in size from prior Continue outpatient follow-up DVT Prophylaxis Heparin SQ Full Code as per discussion with pt Follows with Dr Reed for routine care Admission and Anticipated Discharge Date Admission Date: December 18, 2022 Subjective Patient seen in follow-up of lower extremity cellulitis, MISTY, positive for COVID Currently sitting up in chair, in no acute distress Reports her legs are feeling much better, edema resolved, erythema much improved She is breathing comfortably on room air Denies any fevers chills, cough, chest pain or shortness of breath Also denies abdominal pain, nausea or vomiting She is eager for discharge Discussed w/ RN risk for c. diff and c. diff test ordered. However per staff stools are soft, but not c. didd diarrhea like, therefore sample not obtained. Review of Systems Review of Systems: All systems reviewed & are unremarkable except as noted in Subjective Physical Exam Physical Exam: General: no distress, WDWN Head: normocephalic, atraumatic Eyes: conjunctiva non-injected, anicteric ENT: normal inspection external ears, nose, mucous membranes moist Neck: supple Lungs: clear, no respiratory distress, no wheezing/rhonchi/rales CV: RRR, no murmur Abd: normal BS, soft, non-tender Ext: LE b/l: + trace edema (improved), +erythema and warmth (much improved), non-tender. Left medial ankle w/ significant crusting noted, distal pulses palpable, sensation to light touch intact Neuro: A&O x 3, no focal deficits noted, normal affect Skin: warm, dry, and LE as above Results & Data Results & Data ([facility]) Vital Signs (Past 12 Hours) Vital Signs Temp Pulse Pulse Resp BP BP Pulse Ox 12/23/22 06:35 36.7 C 67 18 174/82 H 95 12/23/22 03:43 36.5 C 62 18 172/77 H 96 12/23/22 00:00 65 12/22/22 23:45 36.6 C 64 18 157/73 H 98 O2 Del Method 12/23/22 06:35 Room Air 12/23/22 03:43 Room Air 12/23/22 00:00 12/22/22 23:45 Room Air Laboratory Results 12/23/22 12/23/22 Range/Units 05:45 05:45 WBC 12.64 H (4.8-10.8) K/ul RBC 3.21 L (3.93-5.22) M/uL Hgb 9.7 L (12.0-16.0) g/dl Hct 29.7 L (34.1-44.9) % MCV 92.5 (80.0-100.0) fL MCH 30.2 (25.0-34.0) pg MCHC 32.7 (32.0-36.0) g/dL RDW Std Deviation 51.6 H (36.4-46.3) fL RDW Coeff of [place]son 15.9 H (11.5-14.5) % Plt Count 286 (130-400) K/uL MPV 10.5 (9.4-12.3) fL Sodium 134 L (136-145) mmol/L Potassium 3.8 (3.5-5.1) mmol/L Chloride 100 (98-107) mmol/L Carbon Dioxide 27 (21-32) mmol/L Anion Gap 7 (3-11) BUN 24 H (6-23) mg/dl Creatinine 0.80 (0.6-1.2) mg/dl Est Cr Clr Drug Dosing 58.2 ml/min Est GFR ( Amer) 77.9 ml/min Est GFR (Non-Af Amer) 67.2 ml/min BUN/Creatinine Ratio 30.0 H (10-20) Glucose 103 H (70-99(Fasting)) mg/dl Calcium 9.2 (8.5-10.1) mg/dl Phosphorus 3.9 (2.5-4.9) mg/dl Magnesium 1.9 (1.7-2.4) mg/dl Medications Administered Current Inpatient Medications Acetaminophen (Acetaminophen 500 Mg Tab) 1,000 mg PO Q8 JAYLEEN Stop: 01/18/23 05:59 Last Admin: 12/23/22 06:27 Dose: 1,000 mg Albuterol (Albuterol Hfa 8 Gm Inhaler) 2 puffs INH QID PRN PRN Reason: Wheezing Stop: 01/17/23 22:45 Ascorbic Acid (Ascorbic Acid 500 Mg Tab) 250 mg PO DAILY JAYLEEN Stop: 01/18/23 08:59 Last Admin: 12/22/22 10:03 Dose: 250 mg Atenolol (Atenolol 50 Mg Tablet) 50 mg PO DAILY JAYLEEN Stop: 01/18/23 08:59 Last Admin: 12/22/22 10:02 Dose: 50 mg Atorvastatin Calcium (Atorvastatin 20 Mg Tab) 20 mg PO HS [facility] Stop: 01/17/23 22:45 Last Admin: 12/22/22 21:50 Dose: 20 mg Clopidogrel Bisulfate (Clopidogrel Bisulfate 75 Mg Tab) 75 mg PO DAILY [facility] Stop: 01/18/23 08:59 Last Admin: 12/22/22 10:05 Dose: 75 mg Diphenhydramine HCl (Diphenhydramine Capsule 25 Mg Cap) 25 mg PO HS PRN PRN Reason: Insomnia Stop: 01/17/23 22:58 Last Admin: 12/19/22 00:08 Dose: 25 mg Ferrous Sulfate (Ferrous Sulfate 325 Mg Tab) 325 mg PO DAILY JAYLEEN Stop: 01/18/23 08:59 Last Admin: 12/22/22 10:03 Dose: 325 mg Fluticasone Furoate (Fluticasone Furoate 100mcg 14 Puffs/Inhaler) 1 puffs INH DAILY [facility] Stop: 01/18/23 08:59 Last Admin: 12/22/22 10:05 Dose: 1 puffs Furosemide (Furosemide 40 Mg Tab) 40 mg PO QAM [facility] Stop: 01/20/23 08:59 Last Admin: 12/22/22 10:02 Dose: 40 mg Guaifenesin (Guaifenesin 600 Mg Tabcr) 600 mg PO Q12H PRN PRN Reason: Congestion Stop: 01/17/23 22:45 Last Admin: 12/21/22 09:15 Dose: 600 mg Heparin Sodium (Porcine) (Heparin Sod 5,000 Unit/0.5 Ml Vial) 5,000 units SQ Q8 JAYLEEN Stop: 01/17/23 22:45 Last Admin: 12/23/22 06:26 Dose: 5,000 units Ceftriaxone Sodium 2,000 mg/ (Dextrose) 70 mls @ 100 mls/hr IV Q24H [facility]; Protocol Stop: 12/26/22 16:59 Last Infusion: 12/22/22 18:17 Dose: Infused Lactobacillus Acidophilus (Advanced Probiotic 1250 Mg Capsule) 2 cap PO DAILY [facility] Stop: 01/20/23 16:29 Last Admin: 12/22/22 10:05 Dose: 2 cap Levothyroxine Sodium (Levothyroxine Sodium 88 Mcg Tablet) 88 mcg PO DAILYBB [facility] Stop: 01/18/23 06:29 Last Admin: 12/23/22 06:28 Dose: 88 mcg Losartan Potassium (Losartan Potassium 50 Mg Tab) 100 mg PO DAILY [facility] Stop: 01/18/23 08:59 Last Admin: 12/22/22 10:02 Dose: 100 mg Magnesium Oxide (Magnesium Oxide 400 Mg Tab) 400 mg PO DAILY JAYLEEN Stop: 01/18/23 08:59 Last Admin: 12/22/22 10:03 Dose: 400 mg Multivitamins/Minerals (Cerovite Adv Formula Tab) 1 tab PO DAILY JAYLEEN Stop: 01/18/23 08:59 Last Admin: 12/22/22 10:02 Dose: 1 tab Mupirocin (Mupirocin 2% Oint 22 Gm Tube) 1 appln EXT TID PRN PRN Reason: AFFECTED AREAS Stop: 01/18/23 13:59 Ondansetron HCl (Ondansetron Inj 2 Mg/Ml 2 Ml Vial) 4 mg IV Q6H PRN PRN Reason: Nausea Stop: 01/17/23 22:45 Pantoprazole Sodium (Pantoprazole 40 Mg Tab) 40 mg PO DAILY [facility] Stop: 01/18/23 08:59 Last Admin: 12/22/22 10:02 Dose: 40 mg Polyethylene Glycol (Polyethylene (Miralax) 17 Gm Pack) 17 gm PO DAILY PRN PRN Reason: Constipation Stop: 01/17/23 22:45 Potassium Chloride (Potassium Chloride Crtab 20 Meq Tabcr) 20 meq PO DAILY JAYLEEN Stop: 01/18/23 08:59 Last Admin: 12/22/22 10:04 Dose: 20 meq Ropinirole HCl (Ropinirole Hcl 2 Mg Tablet) 2 mg PO DAILY@1800 [facility] Stop: 01/17/23 22:45 Last Admin: 12/22/22 17:32 Dose: 2 mg Sertraline HCl (Sertraline Hcl 50 Mg Tablet) 25 mg PO DAILY JAYLEEN Stop: 01/18/23 08:59 Last Admin: 12/22/22 10:04 Dose: 25 mg Tramadol HCl (Tramadol Hcl 50 Mg Tablet) 50 mg PO BID PRN PRN Reason: Moderate Pain Stop: 01/17/23 22:45 Last Admin: 12/20/22 20:00 Dose: 50 mg (1) Anemia Anemia type: unspecified type Qualified Code(s): D64.9 - Anemia, unspecified
[2022-12-23] MEDS: ATENOLOL 50 MG TABLET PO SCH (08:15)
[2022-12-23] MEDS: PANTOprazole 40 MG TAB PO SCH (08:15)
[2022-12-23] MEDS: CLOPIDOGREL BISULFATE 75 MG TAB PO SCH (08:16)
[2022-12-23] MEDS: POTASSIUM CHLORIDE CRTAB 20 MEQ TABCR PO SCH (08:23)
[2022-12-23] MEDS: SERTRALINE HCL 50 MG TABLET PO SCH (08:23)
[2022-12-23] MEDS: FUROSEMIDE 40 MG TAB PO SCH ×2 (08:23→20:32)
[2022-12-23] MEDS: LOSARTAN POTASSIUM 50 MG TAB PO SCH (08:24)
[2022-12-23] MEDS: ADVANCED PROBIOTIC 1250 MG CAPSULE PO SCH (08:33)
[2022-12-23] MEDS: MAGNESIUM OXIDE 400 MG TAB PO SCH (08:33)
[2022-12-23] MEDS: CEROVITE ADV FORMULA TAB PO SCH (08:34)
[2022-12-23] MEDS: FERROUS SULFATE 325 MG TAB PO SCH (08:34)
[2022-12-23] MEDS: ASCORBIC ACID 500 MG TAB PO SCH (08:35)
[2022-12-23] MEDS: FLUTICASONE FUROATE 100MCG 14 PUFFS/INHALER INH SCH (09:59)
[2022-12-23] MEDS: cefTRIAXone SODIUM 2,000 MG in DEXTROSE 5% 50 ML IV SCH (16:41)
[2022-12-23] MEDS: rOPINIRole HCL 2 MG TABLET PO SCH (18:35)
[2022-12-23] MEDS: ATORVASTATIN 20 MG TAB PO SCH (20:32)
[2022-12-24] MEDS: LEVOTHYROXINE SODIUM 88 MCG TABLET PO SCH (05:32)
[2022-12-24] MEDS: ACETAMINOPHEN 500 MG TAB PO SCH (05:32)
[2022-12-24] MEDS: HEPARIN SOD 5,000 UNIT/0.5 ML VIAL SQ SCH (05:32)
[2022-12-24] MEDS: PANTOprazole 40 MG TAB PO SCH (07:41)
[2022-12-24] MEDS: LOSARTAN POTASSIUM 50 MG TAB PO SCH (07:41)
[2022-12-24] MEDS: POTASSIUM CHLORIDE CRTAB 20 MEQ TABCR PO SCH (07:41)
[2022-12-24] MEDS: ASCORBIC ACID 500 MG TAB PO SCH (07:41)
[2022-12-24] MEDS: SERTRALINE HCL 50 MG TABLET PO SCH (07:43)
[2022-12-24] MEDS: CEROVITE ADV FORMULA TAB PO SCH (07:43)
[2022-12-24] MEDS: ATENOLOL 50 MG TABLET PO SCH (07:44)
[2022-12-24] MEDS: ADVANCED PROBIOTIC 1250 MG CAPSULE PO SCH (07:44)
[2022-12-24] MEDS: FUROSEMIDE 40 MG TAB PO SCH (07:45)
[2022-12-24] MEDS: FERROUS SULFATE 325 MG TAB PO SCH (07:45)
[2022-12-24] MEDS: MAGNESIUM OXIDE 400 MG TAB PO SCH (07:45)
[2022-12-24] MEDS: FLUTICASONE FUROATE 100MCG 14 PUFFS/INHALER INH SCH (07:48)
[2022-12-24] MEDS: CLOPIDOGREL BISULFATE 75 MG TAB PO SCH (07:48)
[2022-12-24 07:56] LABS: Hematocrit (blood only) 30.7 % (34.1-44.9); Hemoglobin 9.8 g/dl (12.0-16.0); Mean Corpuscular Hemoglobin 30.1 pg (25.0-34.0); Mean Corpuscular Hgb Conc 31.9 g/dL (32.0-36.0); Mean Corpuscular Volume 94.2 fL (80.0-100.0); Mean Platelet Volume 10.7 fL (9.4-12.3); Platelet Count 287 K/uL (130-400); RDW Coefficient of Variation 16.8 % (11.5-14.5); Red Blood Count 3.26 M/uL (3.93-5.22); White Blood Count 11.07 K/ul (4.8-10.8)
--- NOTE | 2022-12-24 08:32 | Hospitalist Progress Note ---
Date of Service December 24, 2022 Assessment & Plan (1) Leg edema: (2) Cellulitis: (3) Chronic venous insufficiency: Plan: Patient is 87-year-old female with PMH HTN, CVA, chronic anemia, chronic BLE edema, chronic venous insufficiency, chronic stasis dermatitis, history of LLE vein stripping, RLS, hypothyroidism, left renal mass presented to ER with complaint of lower extremity edema treated outpatient with furosemide, leg wraps Lower extremity cellulitis Afebrile WBC: 11 + edema, erythema of LE, crusting over L medial ankle (previous seeping) Venous Doppler lower extremity obtained to rule out DVT - no DVT History echo 03/2022: EF: 60-65%, grade 1 diastolic dysfunction per chart review Started antibiotics on admission - ceftriaxone - erythema, and edema much improved Edema resolved, however there is some erythema consistent with venous stasis dermatitis Switch Abx to PO - Keflex to finish the course Recommend taking probiotics while antibiotic, to prevent C. difficile infection [facility] legs wound care nurse also consulted Continue with p.o. Lasix 40 twice daily (4) COVID-19: Plan: + SARS-CoV-2 PCR Reported cough x 1 week Afebrile, no hypoxia CXR: No infiltrate Airborne isolation Monitor No hypoxia and no pneumonia will hold on steroids, remdesivir at this time (5) Renal insufficiency: Plan: MISTY - resolved Cr: 1.4 on admission Baseline 1-1.2 per outpatient chart review Monitor renal functions, avoid nephrotoxic agent when possible Cr down to 1 (6) CVA (cerebral vascular accident): Plan: Continue Plavix, atorvastatin (7) COPD (chronic obstructive pulmonary disease): Plan: No signs of acute exacerbation Continue home inhalers (8) Essential hypertension: Plan: Continue atenolol, losartan (9) Anemia: Plan: Chronic anemia Hgb: ~9-10 Hgb was 10.3 on 12/06/2022, 8.6 on 11/02/2022 Continue iron supplement Monitor (10) RLS (restless legs syndrome): Plan: Continue ropinirole (11) Hypothyroidism: Plan: Continue levothyroxine (12) Left kidney mass: Plan: Known left renal mass. Following with [facility] urology 4.3 cm left renal mass on CT abdomen pelvis on 07/04/2022. No significant change in size from prior Continue outpatient follow-up DVT Prophylaxis Heparin SQ Full Code as per discussion with pt Follows with Dr Reed for routine care Admission and Anticipated Discharge Date Admission Date: December 18, 2022 Subjective Patient seen in follow-up of lower extremity cellulitis, MISTY, positive for COVID Currently sitting up in chair, in no acute distress Reports her legs are feeling much better, edema resolved, erythema much improved She is breathing comfortably on room air Denies any fevers chills, cough, chest pain or shortness of breath Also denies abdominal pain, nausea or vomiting She is eager for discharge Review of Systems Review of Systems: All systems reviewed & are unremarkable except as noted in Subjective Physical Exam Physical Exam: General: no distress, WDWN Head: normocephalic, atraumatic Eyes: conjunctiva non-injected, anicteric ENT: normal inspection external ears, nose, mucous membranes moist Neck: supple Lungs: clear, no respiratory distress, no wheezing/rhonchi/rales CV: RRR, no murmur Abd: normal BS, soft, non-tender Ext: LE b/l: edema resolved, +erythema and warmth (much improved), + erythema c/w venous stasis dermatitis present, non-tender. Left medial ankle w/ significant crusting noted, distal pulses palpable, sensation to light touch intact Neuro: A&O x 3, no focal deficits noted, normal affect Skin: warm, dry, and LE as above Results & Data Results & Data ([facility]) Vital Signs (Past 12 Hours) Vital Signs Temp Pulse Pulse Resp BP BP Pulse Ox 12/24/22 07:52 36.5 C 62 18 135/74 98 12/24/22 07:20 62 12/24/22 04:29 36.7 C 63 18 174/71 H 94 12/24/22 01:31 61 12/23/22 22:55 36.6 C 65 18 159/66 H 98 O2 Del Method 12/24/22 07:52 Room Air 12/24/22 07:20 12/24/22 04:29 Room Air 12/24/22 01:31 12/23/22 22:55 Room Air Laboratory Results 12/24/22 12/24/22 Range/Units 07:05 07:05 WBC 11.07 H (4.8-10.8) K/ul RBC 3.26 L (3.93-5.22) M/uL Hgb 9.8 L (12.0-16.0) g/dl Hct 30.7 L (34.1-44.9) % MCV 94.2 (80.0-100.0) fL MCH 30.1 (25.0-34.0) pg MCHC 31.9 L (32.0-36.0) g/dL RDW Std Deviation 56.0 H (36.4-46.3) fL RDW Coeff of [place]son 16.8 H (11.5-14.5) % Plt Count 287 (130-400) K/uL MPV 10.7 (9.4-12.3) fL Sodium 136 (136-145) mmol/L Potassium 3.9 (3.5-5.1) mmol/L Chloride 101 (98-107) mmol/L Carbon Dioxide 28 (21-32) mmol/L Anion Gap 7 (3-11) BUN 25 H (6-23) mg/dl Creatinine 1.00 (0.6-1.2) mg/dl Est Cr Clr Drug Dosing 46.2 ml/min Est GFR ( Amer) 59.5 ml/min Est GFR (Non-Af Amer) 51.3 ml/min BUN/Creatinine Ratio 25.0 H (10-20) Glucose 98 (70-99(Fasting)) mg/dl Calcium 9.2 (8.5-10.1) mg/dl Phosphorus 3.8 (2.5-4.9) mg/dl Magnesium 1.9 (1.7-2.4) mg/dl Medications Administered Current Inpatient Medications Acetaminophen (Acetaminophen 500 Mg Tab) 1,000 mg PO Q8 [facility] Stop: 01/18/23 05:59 Last Admin: 12/24/22 05:32 Dose: 1,000 mg Albuterol (Albuterol Hfa 8 Gm Inhaler) 2 puffs INH QID PRN PRN Reason: Wheezing Stop: 01/17/23 22:45 Ascorbic Acid (Ascorbic Acid 500 Mg Tab) 250 mg PO DAILY [facility] Stop: 01/18/23 08:59 Last Admin: 12/24/22 07:41 Dose: 250 mg Atenolol (Atenolol 50 Mg Tablet) 50 mg PO DAILY [facility] Stop: 01/18/23 08:59 Last Admin: 01/23/23 07:44 Dose: 50 mg Atorvastatin Calcium (Atorvastatin 20 Mg Tab) 20 mg PO HS [facility] Stop: 01/17/23 22:45 Last Admin: 12/23/22 20:32 Dose: 20 mg Cephalexin HCl (Cephalexin 500 Mg Cap) 500 mg PO QID [facility] Stop: 12/31/22 16:59 Clopidogrel Bisulfate (Clopidogrel Bisulfate 75 Mg Tab) 75 mg PO DAILY [facility] Stop: 01/18/23 08:59 Last Admin: 12/24/22 07:48 Dose: 75 mg Diphenhydramine HCl (Diphenhydramine Capsule 25 Mg Cap) 25 mg PO HS PRN PRN Reason: Insomnia Stop: 01/17/23 22:58 Last Admin: 12/19/22 00:08 Dose: 25 mg Ferrous Sulfate (Ferrous Sulfate 325 Mg Tab) 325 mg PO DAILY [facility] Stop: 01/18/23 08:59 Last Admin: 12/24/22 07:45 Dose: 325 mg Fluticasone Furoate (Fluticasone Furoate 100mcg 14 Puffs/Inhaler) 1 puffs INH DAILY [facility] Stop: 01/18/23 08:59 Last Admin: 12/24/22 07:48 Dose: 1 puffs Furosemide (Furosemide 40 Mg Tab) 40 mg PO BID [facility] Stop: 01/22/23 08:59 Last Admin: 12/24/22 07:45 Dose: 40 mg Guaifenesin (Guaifenesin 600 Mg Tabcr) 600 mg PO Q12H PRN PRN Reason: Congestion Stop: 01/17/23 22:45 Last Admin: 12/21/22 09:15 Dose: 600 mg Heparin Sodium (Porcine) (Heparin Sod 5,000 Unit/0.5 Ml Vial) 5,000 units SQ Q8 [facility] Stop: 01/17/23 22:45 Last Admin: 12/24/22 05:32 Dose: 5,000 units Lactobacillus Acidophilus (Advanced Probiotic 1250 Mg Capsule) 2 cap PO DAILY [facility] Stop: 01/20/23 16:29 Last Admin: 12/24/22 07:44 Dose: 2 cap Levothyroxine Sodium (Levothyroxine Sodium 88 Mcg Tablet) 88 mcg PO DAILYBB [facility] Stop: 01/18/23 06:29 Last Admin: 12/24/22 05:32 Dose: 88 mcg Losartan Potassium (Losartan Potassium 50 Mg Tab) 100 mg PO DAILY [facility] Stop: 01/18/23 08:59 Last Admin: 12/24/22 07:41 Dose: 100 mg Magnesium Oxide (Magnesium Oxide 400 Mg Tab) 400 mg PO DAILY [facility] Stop: 01/18/23 08:59 Last Admin: 12/24/22 07:45 Dose: 400 mg Multivitamins/Minerals (Cerovite Adv Formula Tab) 1 tab PO DAILY [facility] Stop: 01/18/23 08:59 Last Admin: 12/24/22 07:43 Dose: 1 tab Mupirocin (Mupirocin 2% Oint 22 Gm Tube) 1 appln EXT TID PRN PRN Reason: AFFECTED AREAS Stop: 01/18/23 13:59 Ondansetron HCl (Ondansetron Inj 2 Mg/Ml 2 Ml Vial) 4 mg IV Q6H PRN PRN Reason: Nausea Stop: 01/17/23 22:45 Pantoprazole Sodium (Pantoprazole 40 Mg Tab) 40 mg PO DAILY [facility] Stop: 01/18/23 08:59 Last Admin: 12/24/22 07:41 Dose: 40 mg Polyethylene Glycol (Polyethylene (Miralax) 17 Gm Pack) 17 gm PO DAILY PRN PRN Reason: Constipation Stop: 01/17/23 22:45 Potassium Chloride (Potassium Chloride Crtab 20 Meq Tabcr) 20 meq PO DAILY [facility] Stop: 01/18/23 08:59 Last Admin: 12/24/22 07:41 Dose: 20 meq Ropinirole HCl (Ropinirole Hcl 2 Mg Tablet) 2 mg PO DAILY@1800 [facility] Stop: 01/17/23 22:45 Last Admin: 12/23/22 18:35 Dose: 2 mg Sertraline HCl (Sertraline Hcl 50 Mg Tablet) 25 mg PO DAILY [facility] Stop: 01/18/23 08:59 Last Admin: 12/24/22 07:43 Dose: 25 mg Tramadol HCl (Tramadol Hcl 50 Mg Tablet) 50 mg PO BID PRN PRN Reason: Moderate Pain Stop: 01/17/23 22:45 Last Admin: 12/20/22 20:00 Dose: 50 mg (1) Anemia Anemia type: unspecified type Qualified Code(s): D64.9 - Anemia, unspecified
[2022-12-24 10:09] LABS: Calcium 9.2 mg/dl (8.5-10.1); Creatinine Clr Calc Pharmacy 46.2 ml/min; Est GFR (African American) 59.5 ml/min; Est GFR (Non-African American) 51.3 ml/min; Magnesium 1.9 mg/dl (1.7-2.4); Phosphorus 3.8 mg/dl (2.5-4.9); Potassium 3.9 mmol/L (3.5-5.1)
--- NOTE | 2022-12-24 11:13 | Discharge Summary ---
Date of Service December 24, 2022 Admission HPI Per Admitting Provider Patient is 87-year-old female with PMH HTN, CVA, chronic anemia, chronic BLE edema, chronic venous insufficiency, chronic stasis dermatitis, history of LLE vein stripping, RLS, hypothyroidism, left renal mass presented to ER with complaint of lower extremity edema. Patient with history of chronic BLE edema treated with oral furosemide, wraps to legs, elevating. States for the past several months has had increased lower extremity edema. Often LLE worse than RLE, however states it varies. Has been having some drainage to left lower extremity for the past 2 months. Was seen by nephrology on 11/02/2022 per ou tpatient chart review and her Lasix was increased from 40 mg in the morning to 80 mg in the morning and increased from 20 mg in the afternoon to 40 mg in the afternoon. Patient states initially helped with BLE edema however feels edema is very variable. States chronic lower extremity erythema. Was sitting in chair in waiting room for several hours today and once back in ER bed realized left lower leg is more red and tender that was since morning. Denies chest pain, shortness of breath, orthopnea. Patient also reports a cough for the past week. Reports is nonproductive and feels that cough has improved and states hardly coughing today. Denies shortness of breath, fever, chills, chest pain. Feels her throat is a bit scratchy today but states is because she has not had anything to drink since early this morning. Reports had COVID-19 vaccine booster 1 week ago. Is unaware of any COVID-19 positive contacts. Walks with walker at baseline. Denies any recent falls. Denies diaphoresis, N/V/D/C, HERNANDEZ, dizziness, syncope, vision changes, neck pain, palpitations, hemoptysis, otalgia, rhinorrhea, abdominal pain, paresthesias, increased extremity weakness, other rashes, urinary symptoms. Admission Exam Per Admitting Provider General: no distress, WDWN Head: normocephalic, atraumatic Eyes: conjunctiva non-injected, anicteric ENT: normal inspection external ears, nose, mucous membranes moist Neck: supple, trachea midline Lungs: clear, no respiratory distress, no wheezing/rhonchi/rales CV: RRR, no murmur Abd: normal BS, soft, non-tender Ext: RLE: 2+ edema, +erythema and warmth, non-tender. LLE: 2+ edema, +dark erythema and warmth extends to toes, +tenderness to palpation anterior ledesma, distal pulses palpable, sensation to light touch intact Neuro: A&O x 3, no focal deficits noted, normal affect Skin: warm, dry Principal Diagnosis Lower extremity cellulitis MISTY Positive COVID 19 infection Discharge Exam General: no distress, WDWN Head: normocephalic, atraumatic Eyes: conjunctiva non-injected, anicteric ENT: normal inspection external ears, nose, mucous membranes moist Neck: supple Lungs: clear, no respiratory distress, no wheezing/rhonchi/rales CV: RRR, no murmur Abd: normal BS, soft, non-tender Ext: LE b/l: edema resolved, +erythema and warmth (much improved), + erythema c/w venous stasis dermatitis present, non-tender. Left medial ankle w/ significant crusting noted, distal pulses palpable, sensation to light touch intact Neuro: A&O x 3, no focal deficits noted, normal affect Skin: warm, dry, and LE as above Discharge Data Allergies Allergy/AdvReac Type Severity Reaction Status Date / Time adhesive Allergy Intermediate RASH Verified 12/18/22 19:23 paraben Allergy Intermediate Unknown Verified 12/18/22 19:23 polymyxin B Allergy Intermediate Unknown Verified 12/18/22 19:23 bacitracin Allergy Unknown Unknown Verified 12/18/22 19:23 benzoin Allergy Unknown Unknown Verified 12/18/22 19:23 influenza virus vaccine Allergy Unknown Unknown Verified 12/18/22 19:23 trivalent thimerosal Allergy Unknown Unknown Verified 12/18/22 19:23 Consultations 12/18/22 19:02 ED Decision to Admit Stat Ordered Studies 12/18/22 20:25 US venous doppler LE BI Urgent IMPRESSION: 1. There is no sonographic evidence of deep venous thrombosis identified in the right or left lower extremity. 2. Right sided Spicer's cyst. Hospital Course (1) Leg edema: (2) Cellulitis: (3) Chronic venous insufficiency: Patient is 87-year-old female with PMH HTN, CVA, chronic anemia, chronic BLE edema, chronic venous insufficiency, chronic stasis dermatitis, history of LLE vein stripping, RLS, hypothyroidism, left renal mass presented to ER with complaint of lower extremity edema treated outpatient with furosemide, leg wraps Lower extremity cellulitis Afebrile WBC: 11 + edema, erythema of LE, crusting over L medial ankle (previous seeping) Venous Doppler lower extremity obtained to rule out DVT - no DVT History echo 03/2022: EF: 60-65%, grade 1 diastolic dysfunction per chart review Started antibiotics on admission - ceftriaxone - erythema, and edema much improved Edema resolved, however there is some erythema consistent with venous stasis dermatitis Switch Abx to PO - Keflex to finish the course Recommend taking probiotics while antibiotic, to prevent C. difficile infection Elevate legs wound care nurse also consulted Continue with p.o. Lasix 40 twice daily (4) COVID-19: + SARS-CoV-2 PCR Reported cough x 1 week Afebrile, no hypoxia CXR: No infiltrate Airborne isolation Monitor No hypoxia and no pneumonia will hold on steroids, remdesivir at this time (5) Renal insufficiency: MISTY - resolved Cr: 1.4 on admission Baseline 1-1.2 per outpatient chart review Monitor renal functions, avoid nephrotoxic agent when possible Cr down to 1 (6) CVA (cerebral vascular accident): Continue Plavix, atorvastatin (7) COPD (chronic obstructive pulmonary disease): No signs of acute exacerbation Continue home inhalers (8) Essential hypertension: Continue atenolol, losartan (9) Anemia: Chronic anemia Hgb: ~9-10 Hgb was 10.3 on 12/06/2022, 8.6 on 11/02/2022 Continue iron supplement Monitor (10) RLS (restless legs syndrome): Continue ropinirole (11) Hypothyroidism: Continue levothyroxine (12) Left kidney mass: Known left renal mass. Following with [facility] [place] urology 4.3 cm left renal mass on CT abdomen pelvis on 07/04/2022. No significant change in size from prior Continue outpatient follow-up Total Time Total Time Spent Total Time Spent (In Minutes): 40 Discharge Plan Discharge Items Patient Disposition: Personal [facility] Living Reason For Visit: LE EDEMA Discharge Diagnosis: Lower extremity cellulitis MISTY Positive COVID 19 infection Activity: Per Instructions section Non-emergency contact: Primary Care Provider Call non-emergency contact if: you have any medication questions and your symptoms worsen Follow-up/Referrals: MARY, [Primary Care Provider] - Ursula Reed MD [Outside Practitioners] - (Date & Time 12/28/2022 11:00 AM Provider Dorothy Gunter MD Department General Internal [facility] ) Diet: Heart Healthy and Lactose Intolerant Adderickson Attending Provider Instructions: Follow-up with primary care physician, the appointment was scheduled for you for December 28. Finish antibiotic course with Keflex, as prescribed for next 3 days. Continue taking probiotics. Take furosemide/Lasix 40 mg twice a day, unless changed by your primary care physician. Addtl Commercial Lending Assistant Provider Instructions: Coronavirus disease 2019 (COVID-19) is a virus that causes a respiratory illness. It is caused by a coronavirus called 2019 novel coronavirus (2019- nCoV). There are many types of coronavirus. Coronaviruses are a very common cause of bronchitis. They may sometimes cause lung infection(pneumonia). Symptoms can range from mild to severe respiratory illness. These viruses are also foundin some animals. COVID-19 was first found in people in [facility], in late 2018. In 2020, several cases of COVID-19 have been confirmed in the [place] Public health officials are working to find the source. How the virus spreads is not yet fully known. It may be spread through droplets of fluid that a person coughs or sneezes into the air. It may be spread if you touch a surface with virus on it, such as a handle or object, and then touch your mouth. What are the symptoms of COVID-19? Some people have no symptoms or mild symptoms. Symptoms may appear 2 to 14 days after contact with the virus. Symptoms can include: Fever Coughing Trouble breathing What are possible complications from COVID-19? In many cases, this virus can cause infection (pneumonia) in both lungs. In some cases, this can cause . How is COVID-19 diagnosed? Your healthcare provider will ask about your symptoms. He or she will also ask about your recent travel and contact with sick people. Testing for the virus is only done through the CDC. If yourhealthcare provider thinks you may have COVID- 19, he or she will work with your local health department and the CDC on testing. Follow all instructions from your healthcare provider. COVID-19 is diagnosed by: Nasal and throat swab. A cotton-tipped swab is wiped inside your nose or throat. This is done to check for viruses in your nasal mucus. Sputum culture. A small sample of mucus coughed from your lungs (sputum) is collected if you have a cough. It is checked for the virus. How is COVID-19 treated? There is currently no medicine to treat the virus. Treatment is done to help your body while it fights the virus. This is known as supportive care. Supportive care may include: Pain medicine. These include acetaminophen and ibuprofen. They are used to help ease pain and reduce fever. Bed rest. This helps your body fight the illness. For severe illness, you may need to stay in the hospital. Care during severe illness may include: IV (intravenous) fluids.These are given through a vein to help keep your body hydrated. Oxygen. Supplemental oxygen or ventilation with a breathing machine (ventilator) may be given. This is done to keep enough oxygen in your body. Are you at risk for COVID-19? If youve been to a place where people have been sick with this virus, you are at risk for infection. You are at risk if you: Recently traveled to an affected area Had contact with a sick person who recently traveled to this area Had contact with a person who was diagnosed with COVID-19 How can COVID-19 be prevented? There is no vaccine yet. The best prevention is to not have contact with the virus. The CDC advises that people should not travel to areas where there are COVID-19 outbreaks right now for any reason that is not urgent. To help prevent spreading the infection, wash your hands often, or use an alcoh ol-basedhand reproduction specialist. If you are in an area with COVID-19: Wash your hands often. Or use an alcohol-based hand reproduction specialist often. Only touch your eyes, nose, or mouth with clean hands. Dont have contact with people who are sick. Follow local instructions about being in public. For example, you may be told to not use public transport for a period of time. Stay away from markets that have live or animals. Wash your hands after touching any animals. Don't touch animals that may be sick. Dont share eating or drinking tools with sick people. Dont kiss someone who is sick. Clean surfaces often with disinfectant. If you were in an area with COVID-19 in the last 14 days: Call your healthcare provider. He or she can talk with local health staff to see what action may be needed. Follow all instructions from your provider. Take your temperature every morning and evening for at least 14 days. This is to check for fever. Keep a record of the readings. Keep watch for symptoms of the virus. Tell your provider right away if you have symptoms. If you were in an area with COVID-19 and have a fever or other symptoms: Dont panic. Keep in mind that other illnesses can cause similar symptoms. Stay away from work, school, and public places. Limit physical contact with family members. Don't kiss anyone or share eating or drinking utensils. Clean surfaces you touch with disinfectant. This is to help prevent the virus from spreading. Call your healthcare provider. Explain that you have been exposed to COVID-19 and have symptoms. Do this before going to any hospital. Wait for instructions. Keep in mind that healthcare staff may wear protective equipment such as masks, gowns, gloves, and eye protection. You may be put in a separate room. This is to prevent the possible virus from spreading. Tell the healthcare staff about recent travel. This includes local travel on public transport. Staff may need to find other people you have been in contact with. Follow all instructions the healthcare staff give you. If you have been diagnosed with COVID-19 Follow all instructions from your healthcare provider. Dont leave your home, except to get medical care. Call your healthcare providers office before going. They can prepare and give you instructions. This will help prevent the virus from spreading. Dont go to work, school, or public areas. Dont use public transport or taxis. Stay away from other people in your home. Have them wear face masks around you. Dont share household items or food. Wear a face mask if you can. This includes at home or in a medical facility. Cover your face with a tissue when you cough or sneeze. Throw the tissue away. Wash your hands. Wash your hands often. Caregivers should: Follow all instructions from healthcare staff. Wear a face mask and protective clothing as advised. Wash hands often. Keep track of the sick persons symptoms. Clean surfaces, fabrics, and laundry thoroughly. Keep other people away from the sick person. When to call your healthcare provider Call your healthcare provider: If youve recently traveled and have symptoms If you have been diagnosed with COVID-19 and your symptoms are worse To learn more To find out more about COVID-19, visit the CDC website at www.cdc.gov/coronavirus/2019-ncov/index.html. The [employer]. [address] [place] [address], [place] [address]. All rights reserved. This information is not intended as a substitute for professional medical care. Always follow your healthcare professional's instructions. This information has been adapted from [employer] Home Isolation COVID-19 Instructions The following information about Home Isolation is from the CDC Website: https://www.cdc.gov/coronavirus/2019-ncov/hcp/mkmetdah-eudzeiq-jikjzs.html Stay home except to get medical care People who are mildly ill with COVID-19 are able to isolate at home during their illness. You should restrict activities outside your home, except for getting medical care. Do not go to work, school, or public areas. Avoid using public transportation, ride-sharing, or taxis. Separate yourself from other people and animals in your home People: As much as possible, you should stay in a specific room and away from other people in your home. Also, you should use a separate bathroom, if available. Animals: You should restrict contact with pets and other animals while you are sick with COVID-19, just like you would around other people. Although there have not been reports of pets or other animals becoming sick with COVID-19, it is still recommended that people sick with COVID-19 limit contact with animals until more information is known about the virus. When possible, have another member of your household care for your animals while you are sick. If you are sick with COVID-19, avoid contact with your pet, including petting, snuggling, being kissed or licked, and sharing food. If you must care for your pet or be around animals while you are sick, wash your hands before and after you interact with pets and wear a face mask. Call ahead before visiting your doctor If you have a medical appointment, call the healthcare provider and tell them that you have or may have COVID-19. This will help the healthcare providers office take steps to keep other people from getting infected or exposed. Wear a face mask You should wear a face mask when you are around other people (e.g., sharing a room or vehicle) or pets and before you enter a healthcare providers office. If you are not able to wear a face mask (for example, because it causes trouble breathing), then people who live with you should not stay in the same room with you, or they should wear a face mask if they enter your room. Cover your coughs and sneezes Cover your mouth and nose with a tissue when you cough or sneeze. Throw used tissues in a lined trash can. Immediately wash your hands with soap and water for at least 20 seconds or, if soap and water are not available, clean your hands with an alcohol-based hand reproduction specialist that contains at least 60% alcohol. Clean your hands often Wash your hands often with soap and water for at least 20 seconds, especially after blowing your nose, coughing, or sneezing; going to the bathroom; and before eating or preparing food. If soap and water are not readily available, use an alcohol-based hand reproduction specialist with at least 60% alcohol, covering all surfaces of your hands and rubbing them together until they feel dry. Soap and water are the best option if hands are visibly dirty. Avoid touching your eyes, nose, and mouth with unwashed hands. Avoid sharing personal household items You should not share dishes, drinking glasses, cups, eating utensils, towels, or bedding with other people or pets in your home. After using these items, they should be washed thoroughly with soap and water. Clean all high-touch surfaces everyday High touch surfaces include counters, tabletops, doorknobs, bathroom fixtures, toilets, phones, keyboards, tablets, and bedside tables. Also, clean any surfaces that may have blood, stool, or body fluids on them. Use a household cleaning spray or wipe, according to the label instructions. Labels contain instructions for safe and effective use of the cleaning product including precautions you should take when applying the product, such as wearing gloves and making sure you have good ventilation during use of the product. Monitor your symptoms Seek prompt medical attention if your illness is worsening (e.g., difficulty breathing).Beforeseeking care, call your healthcare provider and tell them that you have, or are being evaluated for, COVID-19. Put on a face mask before you enter the facility. These steps will help the healthcare providers office to keep other people in the office or waiting room from getting infected or exposed. Ask your healthcare provider to call the local or state health department. Persons who are placed under active monitoring or facilitated self- monitoring should follow instructions provided by their local health department or occupational health professionals, as appropriate. When working with your local health department check their available hours. If you have a medical emergency and need to call 911, notify the dispatch personnel that you have, or are being evaluated for COVID-19. If possible, put on a face mask before emergency medical services arrive. Discontinuing home isolation Patients with confirmed COVID-19 should remain under home isolation precautions until the risk of secondary transmission to others is thought to be low. The decision to discontinue home isolation precautions should be made on a [id number] basis, in consultation with healthcare providers and state and local health departments. Pending Studies at Discharge: No Stand-Alone Forms: DaisyBill, Smoking Cessation Skilled Items Patient informed of condition?: Yes DNR: No Discharge Level of Care: Other Communicable Disease: Yes Discharge Prognosis: Stable Lines: None Urinary Catheter: No Medications and DC Order Prescriptions: New cephalexin 500 mg Capsule 500 mg PO QID 3 Days Qty: 12 0RF Advanced Probiotic 625 mg (10 billion cell) Capsule 2 cap PO DAILY 5 Days Qty: 10 0RF Continued ondansetron HCl 4 mg tablet 4 mg PO Q6 PRN (Reason: .NAUSEA & VOMITING) clopidogrel 75 mg tablet 75 mg PO DAILY acetaminophen [Tylenol Extra Strength] 500 mg Tablet 500 mg PO DAILY MDD 3500 MG/24 HOURS PRN (Reason: Breakthrough Pain) acetaminophen [Tylenol Extra Strength] 500 mg Tablet 1,000 mg PO TID triamcinolone acetonide 0.1 % cream 1 applic TOPICAL BID PRN (Reason: IRRITATION) calcium carbonate [Oyster Shell Calcium] 500 mg calcium (1,250 mg) Tablet 500 mg PO BIDM meclizine 25 mg Tablet 25 mg PO Q6H PRN (Reason: DIZZY) ropinirole 2 mg tablet 2 mg PO DAILY MDD 4 MG/24 HOURS PRN (Reason: Restless Leg(S)) Rx Instructions: May repeat in 1 hr PRN. ropinirole 2 mg tablet 2 mg PO QPM Rx Instructions: TAKES @ 1800 pantoprazole 40 mg tablet,delayed release (DR/EC) 40 mg PO DAILY sertraline 25 mg tablet 25 mg PO DAILY losartan 100 mg tablet 100 mg PO DAILY cholecalciferol (vitamin D3) [Vitamin D3] 10 mcg (400 unit) Tablet 10 mcg PO DAILY atenolol 50 mg tablet 50 mg PO DAILY potassium chloride 10 mEq tablet,ER particles/crystals 10 meq PO BIDM diclofenac sodium 1 % gel 1 ea TOPICAL BID PRN (Reason: Pain) Rx Instructions: APPLY QUARTER SIZE AMOUNT TO SHOULDERS AND/OR KNEES guaifenesin [Mucinex] 600 mg Tablet Extended Release 12hr 600 mg PO Q12H PRN (Reason: Congestion) Arnuity Ellipta 100 mcg/actuation Blister With Device 1 inh INHALATION DAILY albuterol sulfate 90 mcg/actuation HFA aerosol inhaler 2 inh INHALATION QID PRN (Reason: Wheezing) atorvastatin 20 mg tablet 20 mg PO QAM tramadol 50 mg Tablet 50 mg PO BID levothyroxine 88 mcg tablet 88 mcg PO DAILYBB diphenhydramine HCl [Children's Benadryl Allergy] 12.5 mg Tablet,Chewable 25 mg PO HS mupirocin calcium [Bactroban] 2 % Cream 1 applic TOPICAL TID hydroxyzine HCl 25 mg Tablet 25 mg PO Q8H PRN (Reason: Itching) fluoride (sodium) [PreviDent] 1.1 % Gel 1 applic DENTAL DAILY Therems-M 9 mg iron-400 mcg Tablet 1 tab PO DAILY Vitron-C 65 mg iron- 125 mg Tablet,Delayed Release (Dr/Ec) 1 tab PO DAILY magnesium oxide 400 mg magnesium Tablet 400 mg PO DAILY Changed furosemide 40 mg tablet 40 mg PO BID Qty: 14 0RF Rx Instructions: TAKES AT 1300 Discontinued furosemide 80 mg tablet 80 mg PO QAM Discharge Orders: Discharge Order (Routine); Ordered 12/24/22 Ordered By: Ray An Admission Data Admit Date/Time: 12/18/22 20:24 Attending Provider: Ray An Admit Provider: Heather Holt Primary Care Provider: Sundeep HERNANDEZ Providers: Heather Holt ; Tea Chopra I.
[2022-12-24] MEDS ORDERED: cephALEXin 500 MG CAP PO SCH (17:00)
== END 2022-12-24 15:00 | disposition home or self-care (01) | DRG 602 ==
LOC: ED 13:08 → SUATTDRO 20:24 → 2N 20:24
DX: N17.9 Acute kidney failure, unspecified; R60.0 Localized edema; G25.81 Restless legs syndrome; D64.9 Anemia, unspecified; N28.89 Other specified disorders of kidney and ureter; E03.9 Hypothyroidism, unspecified; Z88.8 Allergy status to other drugs, medicaments and biological substances; U07.1 COVID-19; J44.9 Chronic obstructive pulmonary disease, unspecified; Z79.890 Hormone replacement therapy; L03.115 Cellulitis of right lower limb; I10 Essential (primary) hypertension; Z91.048 Other nonmedicinal substance allergy status; Z86.73 Personal history of transient ischemic attack (TIA), and cerebral infarction without residual deficits; Z79.899 Other long term (current) drug therapy; I87.2 Venous insufficiency (chronic) (peripheral); Z88.7 Allergy status to serum and vaccine